=== PATIENT | female | born 2000 | race Caucasian/White ===

== ENCOUNTER 2022-12-20 09:05 | Outpatient (OUT) | payer OTHER, SELFPAY ==
--- NOTE | 2022-12-20 09:09 | US_ITS ---
The [address] [address] Patient Name: AMOS ALBERT MRN: [id number] date: 2000 Sex: F Assigned Patient Location: US Current Patient Location: US Accession/Order Number: [id number] Exam Date: 12/20/2022 09:10 Report Date: 12/20/2022 15:13 At the request of: VICTORINO VALLEJO Procedure: US OB transvaginal EXAMINATION: US OB transvaginal HISTORY: MISSED MENSES COMPARISON: No relevant comparison available. FINDINGS: GESTATIONAL SAC: Present and normal appearing. YOLK SAC: Present and normal appearing. POLE: Present and normal appearing. CARDIAC: Present. UTERUS: Normal size and appearance. OVARIES: Right: Corpus lutein cyst. Left: Normal. CERVIX: 3.7 cm in length and closed. CUL-DE-SAC: Normal. OTHER: None. AGE BY LMP: 7 weeks 6 days GILLES BY LMP: 08/02/2023 AGE BY US CRL: 7 weeks 3 days GILLES BY US CRL: 08/05/2023 US/US OB transvaginal IMPRESSION: 1. Single live intrauterine . Electronically authenticated by: LOBO HAMM Date: 12/20/2022 15:13
== END 2022-12-20 09:06 | disposition home or self-care (01) ==
LOC: US 09:05
PROVIDERS: Visit Provider Obstetrics & Gynecology
DX: Z34.91 Encounter for supervision of normal pregnancy, unspecified, first trimester (principal); N92.6 Irregular menstruation, unspecified
CPT/HCPCS: 76817

== ENCOUNTER 2023-01-04 11:47 | Outpatient (OUT) | payer OTHER, SELFPAY ==
[2023-01-04 12:37] LABS: Basophils Percent Auto 0.3 % (0.2-2.0); Eosinophils Absolute Auto 0.2 10^3/uL (0.0-0.7); Eosinophils Percent Auto 2.2 % (0.9-7.0); Hemoglobin 13.9 g/dL (12.0-16.0); Immature Granulocytes Abs Auto 0.05 10^3/uL (0.00-0.03); Immature Granulocytes Pct Auto 0.6 % (0.0-0.5); Lymphocytes Absolute Auto 1.8 10^3/uL (1.2-3.8); Lymphocytes Percent Auto 20.4 % (20.5-60.0); Mean Corpuscular HGB Conc 33.9 g/dL (29.9-35.2); Mean Corpuscular Hemoglobin 30.3 pg (26.7-34.0); Mean Corpuscular Volume 89.3 fL (81.0-99.0); Mean Platelet Volume 9.9 fL (9.5-13.5); Monocytes Absolute Auto 0.8 10^3/uL (0.3-0.8); Monocytes Percent Auto 8.9 % (1.7-12.0); Neutrophils Absolute Auto 5.8 10^3/uL (1.4-6.5); Neutrophils Percent Auto 67.6 % (43.0-75.0); Platelet Count 234 10^3/uL (150-450); Red Blood Count 4.59 10^6/uL (4.20-5.40); Red Cell Distribution Width 11.9 % (11.0-15.0); White Blood Count 8.6 10^3/uL (4.0-11.0)
[2023-01-04 13:14] LABS: Estimated Average Glucose 91 mg/dL; Glycohemoglobin A1C 4.8 % (4.5-6.2)
[2023-01-04 13:23] LABS: Thyroid Stimulating Hormone 1.297 uIU/mL (0.358-3.740)
[2023-01-07 06:08] LABS: Rubella Antibodies, IgG <0.90 index (Immune >0.99)
[2023-01-07 08:20] LABS: HBsAg Screen Negative (Negative); HCV Ab Non Reactive (Non Reactive); HIV Ab/p24 Ag Screen Non Reactive (Non Reactive)
[2023-01-07 11:09] LABS: Rapid Plasma Reagin, Quant Non Reactive titer (NonRea<1:1)
== END 2023-01-04 11:48 | disposition home or self-care (01) ==
LOC: LAB 11:52
PROVIDERS: Visit Provider Obstetrics & Gynecology
DX: Z34.80 Encounter for supervision of other normal pregnancy, unspecified trimester (principal); N92.6 Irregular menstruation, unspecified
CPT/HCPCS: 36415; 83036; 84443; 85025; 86592; 86762; 86803; 86850; 86900; 86901; 87086; 87150; 87340; 87389

== ENCOUNTER 2023-01-15 15:16 | Outpatient (OUT) | payer OTHER, SELFPAY ==
[2023-01-15 15:45] LABS: BOX Test Sent Out Y
== END 2023-01-15 15:17 | disposition home or self-care (01) ==
PROVIDERS: Visit Provider Obstetrics & Gynecology
DX: Z34.80 Encounter for supervision of other normal pregnancy, unspecified trimester (principal)
CPT/HCPCS: 36415

== ENCOUNTER 2023-02-19 11:02 | Outpatient (OUT) | payer OTHER, SELFPAY ==
[2023-02-21 01:10] LABS: Gest. Age on Collection Date 16.6 weeks (.); Insulin Dep Diabetes No (.); Maternal Age At EDD 22.7 yr (.); OSBR Risk 1 IN 10000 (.); Results Report (.)
--- OUTSIDE RECORDS SUMMARY | 2023-04-01 13:57 | XMS_ITS | CCD ---
Author Name Unknown Address [address] [place] [address] [address] [place] [address] Organization [facility] Care Team Providers Care [employer] Program Coordinator Name Role Phone CIPRIANO MOLINA Primary Care Physician Unavailable Primary Care Provider UnavailSHELBY Muñoz Referring Unavailable Krystyna Seth Attending Unavailable Adelita Smith Attending Unavailable Dipak Boyd Attending Unavailable Gio JIMENEZ Referring Unavailable DO Sunny Brambila Attending Unavailable Yanira KURTZ Attending Unavailable Yanira KURTZ Attending Unavailable VICTORINO VALLEJO Attending Unavailable Medications Current Medications Medication Drug Class(es) Dates Sig (Normalized) Sig (Original) amoxicillin 500 mg oral capsule (1 source) Penicillin-class Antibacterial Start: 09-07-2022 End: 09-14-2022 take 2 capsules by mouth every twelve hours amoxicillin 500 mg Cap 1,000 mg = 2 cap(s), Oral, q12hr, X 7 day(s), # 28 cap(s), Refills(s) 0, Pharmacy: [facility]/pharmacy #[id number], 183, cm, 09/07/22 11:38:00 EDT, Height/Length Dosing, 113.2, kg, 09/07/22 11:38:00 EDT, Weight Dosing Start Date: 09/07/22 Stop Date: 09/14/22 Status: Ordered ibuprofen 600 mg oral tablet (2 sources) Nonsteroidal Anti-inflammatory Drug Start: 12-07-2020 take 1 tablet by mouth every six hours ibuprofen 600 mg Tab 600 mg = 1 tab(s), Oral, q6hr, # 40 tab(s), Refills(s) 0, Pharmacy: [facility]/pharmacy #[id number], 178, cm, 12/07/20 10:05:00 EDT, Height/Length Dosing, 109, kg, 12/07/20 10:05:00 EDT, Weight Dosing Start Date: 12/07/20 Status: Ordered ofloxacin 3 mg/ml otic solution (1 source) Quinolone Antimicrobial Start: 09-07-2022 End: 09-14-2022 ofloxacin Otic 0.3% Merline 5 drop(s), Otic, BID for 7 day(s), 10 mL, Refill(s) 0, [facility]/pharmacy #[id number], 183, cm, 09/07/22 11:38:00 EDT, Height/Length Dosing, 113.2, kg, 09/07/22 11:38:00 EDT, Weight Dosing Start Date: 09/07/22 Stop Date: 09/14/22 Status: Ordered Problems Problem Classification Problem Date Documented Da te Episodic/Chronic Menstrual disorders (6 sources) Dysmenorrhea; Translations: [Irregular periods] 10-28-2019 Chronic Other ear and sense organ disorders (1 source) Otitis externa of left ear; Translations: [Unspecified otitis externa, left ear] Onset: 09-07-2022 Chronic Other nutritional; endocrine; and metabolic disorders (1 source) Obese class I; Translations: [Body mass index (BMI) 33.0-33.9, adult] Onset: 09-07-2022 Chronic Otitis media and related conditions (1 source) Otitis media; Translations: [Otitis media, unspecified, left ear] Onset: 09-07-2022 Episodic Residual codes; unclassified (1 source) Patient encounter status; Translations: [Other specified health status] Onset: 09-07-2022 Episodic Results Test Name Value Interpretation Reference Range Facil ity Ambulatory Visit Summaryon 0 09-07-2022 Ambulatory Visit Summary AMOS ALBERT :2000 Visit Date:09/07/2022 Ambulatory Visit Instructions Your Diagnosis Left otitis media Otitis externa of left ear BMI 33.0-33.9,adult Non-smoker Your Care Team Attending Physician - Dipak Boyd PA-C Primary Care Physician - CIPRIANO MOLINA CNP This Is Your Medications List amoxicillin (amoxicillin 500 mg Cap) ofloxacin otic (ofloxacin Otic 0.3% Merline) Contact prescribing physician if questions or concerns ibuprofen (ibuprofen 600 mg Tab) Procedures Performed Removal of etonogestrel implant (08/10/2020), Tonsillectomy and adenoidectomy. Discharge Vitals Heart Rate (Peripheral) 76 Blood Pressure 110/80 Height 183 cm Height 72 in Weight 113.2 kg Weight 249.04 lb BMI 33.8 What to do next You Need to Schedule the Following Appointments Follow Up with CIPRIANO MOLINA CNP When: Where: [address] [place] [id number]- Medications What How Much When Why Instructions New amoxicillin (amoxicillin 500 mg Cap) 2 Capsules By Mouth Every 12 hours Left otitis media Otitis externa of left ear BMI 33.0-33.9,adult Duration: 7 Days Pickup at [facility]/pharmacy #[id number] New ofloxacin otic (ofloxacin Otic 0.3% Merline) 5 Drops Otic 2 times a day Duration: 7 Days Pickup at [facility]/pharmacy #[id number] Unchanged ibuprofen (ibuprofen 600 mg Tab) 1 Tablets By Mouth Every 6 hours Contact prescribing physician if questions or concerns [id number] [address] [place] [phone] Allergies No Known Allergies Problems Ongoing - Any problem that you are currently receiving treatment for. Dysmenorrhea Irregular bleeding Menorrhagia Education [employer] Otitis Externa Otitis externa is an infection of the outer ear canal. The outer ear canal is the area between the outside of the ear and the eardrum. Otitis externa is sometimes called swimmer's ear. What are the causes? Common causes of this condition include: ? Swimming in dirty water. ? Moisture in the ear. ? An injury to the inside of the ear. ? An object stuck in the ear. ? A cut or scrape on the outside of the ear or in the ear canal. What increases the risk? You are more likely to get this condition if you go swimming often. What are the signs or symptoms? ? Itching in the ear. This is often the first symptom. ? Swelling of the ear. ? Redness in the ear. ? Ear pain. The pain may get worse when you pull on your ear. ? Pus coming from the ear. How is this treated? This condition may be treated with: ? Antibiotic ear drops. These are often given for 10?14 days. ? Medicines to reduce itching and swelling. Follow these instructions at home: ? If you were prescribed antibiotic ear drops, use them as told by your doctor. Do not stop using them even if you start to feel better. ? Take husq-juw-tyvrngo and prescription medicines only as told by your doctor. ? Avoid getting water in your ears as told by your doctor. You may be told to avoid swimming or water sports for a few days. ? Keep all follow-up visits. How is this prevented? ? Keep your ears dry. Use the corner of a towel to dry your ears after you swim or bathe. ? Try not to scratch or put things in your ear. Doing these things makes it easier for germs to grow in your ear. ? Avoid swimming in lakes, dirty water, or swimming pools that may not have the right amount of a chemical called chlorine. Contact a doctor if: ? You have a fever. ? Your ear is still red, swollen, or painful after 3 days. ? You still have pus coming from your ear after 3 days. ? Your redness, swelling, or pain gets worse. ? You have a very bad headache. Get help right away if: ? You have redness, swelling, and pain or tenderness behind your ear. Summary ? Otitis externa is an infection of the outer ear canal. ? Symptoms include pain, redness, and swelling of the ear. ? If you were prescribed antibiotic ear drops, use them as told by your doctor. Do not stop using them even if you start to feel better. ? Try not to scratch or put things in your ear. This information is not intended to replace advice given to you by your health care provider. Make sure you discuss any questions you have with your health care provider. Document Revised: 06/13/2021 Document Reviewed: 06/13/2021 [employer] Patient Education ? 2022 [employer] Inc. Otitis Media, Adult Otitis media occurs when there is inflammation and fluid in the middle ear with signs and symptoms of an acute infection. The middle ear is a part of the ear that contains bones for hearing as well as air that helps send sounds to the brain. When infected fluid builds up in this space, it causes pressure and can lead to an ear infection. The eustachian tube connects the middle ear to the back of the nose (nasophary (more content not included)... Normal [facility] Medicine Office/Clini c Noteon 09-07-2022 Family Medicine Office/Clinic Note Chief Complaint est- ear pain HPI Staff complaints of bilateral ear pain Onset: 5 days Characteristics hurts to touch, muffled hearing, jaw pain OTC tried: Motrin History of Present Illness I have reviewed and verified the staff HPI to be accurate for this encounter. Portions of this record have been created with voice recognition software. Occasional wrong-word or ?tpxag-i-misa? substitutions may have occurred due to the inherent limitations of voice recognition software. 21-year-old female presents today with chief complaint of bilateral ear pain onset 2 days ago. Patient states her ear is sore to touch muffled hearing and bilateral pain with the ear pain. She been taking qsdt-stz-ealvhxn Motrin with some relief of symptoms. Denies other viral symptoms no throat no nasal congestion rhinorrhea. She has no other concerns at this time. Review of Systems PHQ Score Initial Depression Screen Score: 0 Physical Exam Vitals & Measurements HR: 76(Peripheral) BP: 110/80 SpO2: 99% HT: 72 in HT: 183 cm WT: 113.2 kg WT: 249.04 lb BMI: 33.8 General: Pleasant obese female no acute distress Eyes: Pupils equal, round, and reactive to light. Conjunctivae and sclerae normal, and extraocular movements intact Ears: Right tympanic membrane within normal limits no erythema or bulging right side external auditory canal within normal limits. Left tympanic membrane is erythematous with slight bulging minimal fluid behind the left TM. There appears to be some white drainage in the left external auditory canal with pain with manipulation of the left auricle which is concerning for a left otitis externa. Nose: No deformity, discharge, inflammation, or lesions Mouth: Mucous membranes moist. Normal oropharynx, and posterior pharynx without lesions or exudates. Tongue normal Neck: no adenopathy Lungs: clear to auscultation throughout, no wheezing, no rales. No respiratory distress Cardio: regular rate and rhythm, no murmur Abdomen: not assessed Musculoskeletal: not assessed Extremity: not assessed Neurologic: not assessed Skin: No rashes, ulcerations, or suspicious lesions Mental Status: Alert and oriented x3. Normal mood and affect Assessment/Plan 1. Left otitis media (H66.92: Otitis media, unspecified, left ear) Will treat with amoxicillin bid x 7 days. Finish course. Fluids/rest, PRN tylenol/ibuprofen for pain and/or fever encouraged. Discussed other cold symptoms remain viral in nature- typical duration 7-14 days. . Encouraged to follow up with PCP for recheck in about 5 days to ensure infection resolving, especially if symptoms worsening or fevers. Patient and/or parent verbalized understanding of treatment plan. Ordered: amoxicillin, 1,000 mg = 2 cap(s), Oral, q12hr, X 7 day(s), # 28 cap(s), Refills(s) 0, Pharmacy: [facility]/pharmacy #[id number], 183, cm, 09/07/22 11:38:00 EDT, Height/Length Dosing, 113.2, kg, 09/07/22 11:38:00 EDT, Weight Dosing 2. Otitis externa of left ear (H60.92: Unspecified otitis externa, left ear) Will treat with ofloxacin drops. Finish course. Lay with ear up for 5 minutes after applying drops. Keep ear clean and dry, avoid water activities or inserting objects into ear such as earbuds, qtips. May use OTC tylenol/ibuprofen for pain. FU with PCP if not improving over next 5 days with treatment, significantly worsening, or fevers. Patient and/or parent verbalized understanding of treatment plan. Ordered: amoxicillin, 1,000 mg = 2 cap(s), Oral, q12hr, X 7 day(s), # 28 cap(s), Refills(s) 0, Pharmacy: [facility]/pharmacy #[id number], 183, cm, 09/07/22 11:38:00 EDT, Height/Length Dosing, 113.2, kg, 09/07/22 11:38:00 EDT, Weight Dosing 3. BMI 33.0-33.9,adult (Z68.33: Body mass index [BMI] 33.0-33.9, adult) The standard range for ages 18 and older is >=18.5 and < 25 kg/m2. Your BMI today was above this range, this falls in the overweight to obese category and there are medical benefits to weight loss. We can offer counselling, referral, and/or medical support in addressing this problem. Your BMI and weight management will be followed at subsequent visits. Ordered: amoxicillin, 1,000 mg = 2 cap(s), Oral, q12hr, X 7 day(s), # 28 cap(s), Refills(s) 0, Pharmacy: [facility]/pharmacy #[id number], 183, cm, 09/07/22 11:38:00 EDT, Height/Length Dosing, 113.2, kg, 09/07/22 11:38:00 EDT, Weight Dosing Non-smoker (Z78.9: Other specified health status) Orders: ofloxacin otic, 5 drop(s), Otic, BID for 7 day(s), 10 mL, Refill(s) 0, [id number], 183, cm, 09/07/22 11:38:00 EDT, Height/Length Dosing, 113.2, kg, 09/07/22 11:38:00 EDT, Weight Dosing Follow-up With When Contact Information CIPRIANO MOLINA CNP [address] [address]- Additional Instructions: Patient Education Otitis Externa, Pbvh-nb-Kgdl Otitis Media, Adult BMI for Adults Problem List/Past Medical History Ongoing Dysmenorrhea Irregular bleeding Menorrhagia Historical No qualifying data Procedure/Surgical History Removal of etonogestre (more content not included)... Normal [facility] Comment on above: Result Comment: Elec tronically Signed By: Oliver BAI, Dipak [place]\.br\Date and Time Signed: 09/07/22 11:57 EDT Patient Educationon 09-08-19 Patient Education ENT Otitis Media, Adult Otitis media occurs when there is inflammation and fluid in the middle ear with signs and symptoms of an acute infection. The middle ear is a part of the ear that contains bones for hearing as well as air that helps send sounds to the brain. When infected fluid builds up in this space, it causes pressure and can lead to an ear infection. The eustachian tube connects the middle ear to the back of the nose (nasopharynx) and normally allows air into the middle ear. If the eustachian tube becomes blocked, fluid can build up and become infected. What are the causes? This condition is caused by a blockage in the eustachian tube. This can be caused by mucus or by swelling of the tube. Problems that can cause a blockage include: ? A cold or other upper respiratory infection. ? Allergies. ? An irritant, such as tobacco smoke. ? Enlarged adenoids. The adenoids are areas of soft tissue located high in the back of the throat, behind the nose and the roof of the mouth. They are part of the body's defense system (immune system). ? A mass in the nasopharynx. ? Damage to the ear caused by pressure changes (barotrauma). What increases the risk? You are more likely to develop this condition if you: ? Smoke or are exposed to tobacco smoke. ? Have an opening in the roof of your mouth (cleft palate). ? Have gastroesophageal reflux. ? Have an immune system disorder. What are the signs or symptoms? Symptoms of this condition include: ? Ear pain. ? Fever. ? Decreased hearing. ? Tiredness (lethargy). ? Fluid leaking from the ear, if the eardrum is ruptured or has burst. ? Ringing in the ear. How is this diagnosed? This condition is diagnosed with a physical exam. During the exam, your health care provider will use an instrument called an otoscope to look in your ear and check for redness, swelling, and fluid. He or she will also ask about your symptoms. Your health care provider may also order tests, such as: ? A pneumatic otoscopy. This is a test to check the movement of the eardrum. It is done by squeezing a small amount of air into the ear. ? A tympanogram. This is a test that shows how well the eardrum moves in response to air pressure in the ear canal. It provides a graph for your health care provider to review. How is this treated? This condition can go away on its own within 3?5 days. But if the condition is caused by a bacterial infection and does not go away on its own, or if it keeps coming back, your health care provider may: ? Prescribe antibiotic medicine to treat the infection. ? Prescribe or recommend medicines to control pain. Follow these instructions at home: ? Take ogml-pes-btyangj and prescription medicines only as told by your health care provider. ? If you were prescribed an antibiotic medicine, take it as told by your health care provider. Do not stop taking the antibiotic even if you start to feel better. ? Keep all follow-up visits. This is important. Contact a health care provider if: ? You have bleeding from your nose. ? There is a lump on your neck. ? You are not feeling better in 5 days. ? You feel worse instead of better. Get help right away if: ? You have severe pain that is not controlled with medicine. ? You have swelling, redness, or pain around your ear. ? You have stiffness in your neck. ? A part of your face is not moving (paralyzed). ? The bone behind your ear (mastoid bone) is tender when you touch it. ? You develop a severe headache. Summary ? Otitis media is redness, soreness, and swelling of the middle ear, usually resulting in pain and decreased hearing. ? This condition can go away on its own within 3?5 days. ? If the problem does not go away in 3?5 days, your health care provider may give you medicines to treat the infection. ? If you were prescribed an antibiotic medicine, take it as told by your health care provider. ? Follow all instructions that were given to you by your health care provider. This information is not intended to replace advice given to you by your health care provider. Make sure you discuss any questions you have with your health care provider. Document Revised: 07/09/2021 Document Reviewed: 07/09/2021 [employer] Patient Education ? 2022 [employer] Inc. Infectious Disease Otitis Externa Otitis externa is an infection of the outer ear canal. The outer ear canal is the area between the outside of the ear and the eardrum. Otitis externa is sometimes called swimmer's ear. What are the causes? Common causes of this condition include: ? Swimming in dirty water. ? Moisture in the ear. ? An injury to the inside of the ear. ? An object stuck in the ear. ? A cut or scrape on the outside of the ear or in the ear canal. What increases the risk? You are more likely to get this condition if you go swimming often. (more content not included)... Normal [facility] Chlamydia/GC DNA, TPon 08-15 Chlamydia Probe, TP Negative Normal NEG [facility] Comment on above: Result Comment: CHLA MYDIA TRACHOMATIS DNA not detected by nucleic acid amplification. This test is intended for medical purposes only and is not valid for the evaluation of suspected sexual abuse or for other forensic purposes. In certain contexts, culture may be required to meet applicable laws and regulations for diagnosis of C. trachomatis and N. gonorrhoeae infections. Per 2014 CDC recommendations, this test does not include confirmation of positive results by an alternative nucleic acid target. Performed By: #### C YTCGP #### [address] [address] Orthopedic Assistant: Willard Sethi MD Gonorrhea Probe, TP Negative Normal NEG [facility] Comment on above: Result Comment: NEIS SERIA GONORRHOEAE DNA not detected by nucleic acid amplification. This test is intended for medical purposes only and is not valid for the evaluation of suspected sexual abuse or for other forensic purposes. In certain contexts, culture may be required to meet applicable laws and regulations for diagnosis of C. trachomatis and N. gonorrhoeae infections. Per 2014 CDC recommendations, this test does not include confirmation of positive results by an alternative nucleic acid target. Performed By: #### C YTCGP #### [address] [id number] Orthopedic Assistant: Willard Sethi MD Quantiferon-TB Plus (Client Incubated)on 08-14-2022 Gamma interferon background IA Qn (Bld) 0.02 International_Unit/mL Invalid Interpretation Code [facility] Comment on above: Performed By: #### 3 [id number] #### [facility] [address] [id number] M. tuberculosis stim IFN-g by CD4+ CD8+ T-cells Qn (Bld) 0.05 International_Unit/mL Invalid Interpretation Code [facility] Comment on above: Performed By: #### 3 [id number] #### [facility] [address] [place] [address] M. tuberculosis stim IFN-g by CD4+ T-cells Qn (Bld) 0.03 International_Unit/mL Invalid Interpretation Code [facility] Comment on above: Performed By: #### 3 [id number] #### [facility] [address] [place] [address] M. tuberculosis stim IFN-g Ql (Bld) [Interp] Negative Invalid Interpretation Code Negative [facility] Comment on above: Result Comment: No r esponse to M tuberculosis antigens detected. Infection with M tuberculosis is unlikely, but high risk individuals should be considered for additional testing (ATS/IDSA/CDC Clinical Practice Guidelines, 2017). The reference range is an Antigen minus Nil result of <0.35 IU/mL. The specimen received for QuantiFERON testing was incubated by the ordering institution. Specific procedures outlined in our Directory of Services and in the package insert for the QuantiFERON Gold (In Tube) test must be followed to enable for proper stimulation of cells for the production of interferon gamma. Chemiluminescence immunoassay methodology Performed at: [facility] [id number] PhD Radames Kendrick Performed By: #### 3 [id number] #### [facility] [address] [place] [address] Mitogen stimulated gamma interferon Qn (Bld) >10.00 Invalid Interpretation Code [facility] Comment on above: Performed By: #### 3 [id number] #### [facility] [address] [place] [address] Service comment (Unsp spec) [Interp] Comment Invalid Interpretation Code [facility] Comment on above: Result Comment: Ish tiFERON-TB Gold Plus is a qualitative indirect test for M tuberculosis infection (including disease) and is intended for use in conjunction with risk assessment, radiography, and other medical and diagnostic evaluations. The QuantiFERON-TB Gold Plus result is determined by subtracting the Nil value from either TB antigen (Ag) value. The Mitogen tube serves as a control for the test. Performed By: #### 3 [id number], [id number] #### [facility] [address] [place] [address] Cytologyon 08-13-2022 Cytology (NOTE) Path Number: [id number] DIAGNOSIS Cervical material, (ThinPrep vial, Imaging-assisted review): Specimen Adequacy: Satisfactory for evaluation. -Endocervical/transformation zone component is absent. Descriptive Diagnosis: Negative for intraepithelial lesion or malignancy. 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 Your patient should be reminded to consult you immediately if she experiences any suspicious signs or symptoms, regardless of her Pap smear result. GYNECOLOGIC CYTOLOGY REPORT Patient Name: AMOS ALBERT [facility] Rec: [id number] [facility] [address] [place] [id number] [facility] Comment on above: Performed By: #### P PPVP #### [employer] [address] [place] [address] Orthopedic Assistant: Willard Sethi MD Hep Bs Abon 08-13-2022 HBV surface Ab Ql (S) Non-Reactive Invalid Interpretation Code [facility] Comment on above: Result Comment: Non Reactive: Inconsistent with immunity, less than 10 mIU/mL Reactive: Consistent with immunity, greater than 9.9 mIU/mL Performed at: [address] [id number] PhD Radames Kendrick Performed By: #### 3 [id number] #### [facility] [address] [place] [address] Measles/Mumps/Rubella Immuni tyon 08-13-2022 MeV IgG IA Qn (S) 280.0 A unit/mL Invalid Interpretation Code Immune >16.4 [facility] Comment on above: Result Comment: Nega tive <13.5 Equivocal 13.5 - 16.4 Positive >16.4 Presence of antibodies to Rubeola is presumptive evidence of immunity except when acute infection is suspected. Performed By: #### 3 [id number] #### [facility] [address] [place] [id number] MuV IgG IA Qn (S) 11.3 A unit/mL Invalid Interpretation Code Immune >10.9 [facility] Comment on above: Result Comment: Nega tive <9.0 Equivocal 9.0 - 10.9 Positive >10.9 A positive result generally indicates past exposure to Mumps virus or previous vaccination. Performed at: [address] [id number] PhD Radames Kendrick Performed By: #### 3 [id number] #### [facility] [address] [place] [address] [id number] Rubella virus IgG Qn (S) [IU]/mL Low Immune >0.9 9 [facility] Comment on above: Result Comment: Non- immune <0.90 Equivocal 0.90 - 0.99 Immune >0.99 Performed By: #### 3 [id number] #### [facility] [address] [place] [address] Varic IgGon 08-13-2022 VZV IgG IA Qn (S) 504 Invalid Interpretation Code I mmune >165 [facility] Comment on above: Result Comment: Nega tive <135 Equivocal 135 - 165 Positive >165 A positive result generally indicates exposure to the pathogen or administration of specific immunoglobulins, but it is not indication of active infection or stage of disease. Performed at: [facility] [id number] PhD Radames Kendrick Performed By: #### 3 [id number] #### [facility] [address] [place] [address] Family Medicine Office/Clini c Noteon 02-18-2022 Family Medicine Office/Clinic Note Chief Complaint Est Ear pain HPI Staff Amos is a 21 year old female presenting for bilateral ear pain and drainage Onset: 2-3 days ago Fevers: No Sinus congestion: no Sneezing: Yes Ear pain: Yes, bilateral Ear itching, popping, fullness, ringing, muffled hearing: All Ear drainage: Yes Sore throat: no Ear pain worse with chewing: Sometimes Difficulty hearing: yes No hx of myringotomy History of Present Illness I have reviewed and verified the staff HPI to be accurate for this encounter. 21 year old female presenting in office today for bilateral ear drainage. Pt stated the drainage is clear. Pt stated she has had symptoms for 2-3 days. Pt stated she has sneezing, bilateral ear pain, itching, popping, fullness, ringing, and muffled hearing and difficulty hearing. Pt denies fever, chills, nausea, vomiting, diarrhea. Pt denies SOB, ADLER, SOB, difficulty swallowing, and chest pain. Pt stated she does not have h/o tympanostomy tubes. Pt stated she has not been swimming or traveling recently. Pt stated she does have seasonal allergies but has not been taking any medications for that. Review of Systems PHQ Score Initial Depression Screen Score: 0 Physical Exam Vitals & Measurements T: 36.8 ?C(Oral) HR: 78(Peripheral) BP: 124/78 SpO2: 99% HT: 72 in HT: 183 cm WT: 117.6 kg WT: 258.72 lb BMI: 35.12 General: alert and oriented, well nourished, no acute distress Eyes: normal sclera and conjunctivae Face: normal, symmetrical HEENT: Head: normocephalic, atraumatic, Ears: Bilateral TM not visualized due to large amount of purulent fluid in bilateral ear canals, external canal with purulent fluid and moderate erythema noted, Nose: congestion, turbinates swollen, no sinus tenderness, Throat: pharynx pink, no exudate on tonsils, tonsils normal (1+), uvula midline Heart: regular rate and rhythm Chest: normal shape and expansion Lungs: clear to auscultation, no wheezing/rhonchi/rales, good air movement Respiratory: respirations even and unlabored, able to speak in full sentences and take deep breaths without difficulty, no gasping or shortness of breath noted, no use of accessory muscles noted Neuro: speech clear and coherent Skin: visible skin warm, dry, good skin turgor Extremities: no cyanosis, cap refill brisk Assessment/Plan 1. Bilateral otitis media (H66.93: Otitis media, unspecified, bilateral) [employer] unable to visualize TM due to large amount of purulent fluid in bilateral ear canals, TM may be ruptured at this time. Will treat with Amoxicillin. Finish course. Fluids/rest, PRN tylenol/ibuprofen for pain and/or fever encouraged. Discussed other cold symptoms remain viral in nature- typical duration 7-14 days. Encouraged to follow up with PCP for recheck in about 5 days to ensure infection resolving, especially if symptoms worsening or fevers. Patient verbalized understanding of treatment plan. Ordered: amoxicillin, 875 mg = 1 tab(s), Oral, TID, X 10 day(s), # 30 tab(s), Refills(s) 0, Pharmacy: [facility]/pharmacy #[id number], 183, cm, 02/18/22 13:06:00 EST, Height/Length Dosing, 117.6, kg, 02/18/22 13:06:00 EST, Weight Dosing 2. BMI 35.0-35.9,adult (Z68.35: Body mass index [BMI] 35.0-35.9, adult) The standard range for ages 18 and older is >=18.5 and < 25 kg/m2. Your BMI today was above this range, this falls in the overweight to obese category and there are medical benefits to weight loss. We can offer counselling, referral, and/or medical support in addressing this problem. Your BMI and weight management will be followed at subsequent visits. Follow-up With When Contact Information TRACY DEBBIECIPRIANO [address] [place] [phone]- Additional Instructions: Patient Education BMI for Adults Otitis Media, Adult Problem List/Past Medical History Ongoing Dysmenorrhea Irregular bleeding Menorrhagia Historical No qualifying data Procedure/Surgical History Removal of etonogestrel implant (08/10/2020), Tonsillectomy and adenoidectomy. Medications amoxicillin 875 mg Tab, 875 mg= 1 tab(s), Oral, TID ibuprofen 600 mg Tab, 600 mg= 1 tab(s), Oral, q6hr, Not taking Allergies No Known Allergies Social History Alcohol - Denies Alcohol Use, 03/11/2016 DENIES, 03/30/2020 Substance Abuse - Denies Substance Abuse, 03/11/2016 DENIES, 03/30/2020 Tobacco - Denies Tobacco Use, 03/11/2016 Never (less than 100 in lifetime) Tobacco Use:. Never Smokeless Tobacco Use:., 03/30/2020 Family History Clotting disorder: Grandparent. Hypertension: Father. Primary malignant neoplasm of female breast: Grandparent. Immunizations Vaccine Date Status influenza virus vaccine, inactivated 02/04/2020 Recorded influenza virus vaccine, inactivated 02/05/2019 Recorded meningococcal group B vaccine 07/21/2018 Recorded influenza virus vaccine, inactivated 01/08/2018 Recorded meningococcal group B vaccine 11/22/2016 Recorded meningococcal conjugate vaccine 11/22/2016 Recorded influenza, whole 11 (more content not included)... Normal [facility] Comment on above: Result Comment: Elec tronically Signed By: Adelita Carreno\.peter\Date and Time Signed: 02/18/22 13:28 EST Patient Educationon 02-19-20 22 Patient Education ENT Otitis Media, Adult Otitis media occurs when there is inflammation and fluid in the middle ear. Your middle ear is a part of the ear that contains bones for hearing as well as air that helps send sounds to your brain. What are the causes? This condition is caused by a blockage in the eustachian tube. This tube drains fluid from the ear to the back of the nose (nasopharynx). A blockage in this tube can be caused by an object or by swelling (edema) in the tube. Problems that can cause a blockage include: ? A cold or other upper respiratory infection. ? Allergies. ? An irritant, such as tobacco smoke. ? Enlarged adenoids. The adenoids are areas of soft tissue located high in the back of the throat, behind the nose and the roof of the mouth. ? A mass in the nasopharynx. ? Damage to the ear caused by pressure changes (barotrauma). What are the signs or symptoms? Symptoms of this condition include: ? Ear pain. ? A fever. ? Decreased hearing. ? A headache. ? Tiredness (lethargy). ? Fluid leaking from the ear. ? Ringing in the ear. How is this diagnosed? This condition is diagnosed with a physical exam. During the exam your health care provider will use an instrument called an otoscope to look into your ear and check for redness, swelling, and fluid. He or she will also ask about your symptoms. Your health care provider may also order tests, such as: ? A test to check the movement of the eardrum (pneumatic otoscopy). This test is done by squeezing a small amount of air into the ear. ? A test that changes air pressure in the middle ear to check how well the eardrum moves and whether the eustachian tube is working (tympanogram). How is this treated? This condition usually goes away on its own within 3?5 days. But if the condition is caused by a bacteria infection and does not go away own its own, or keeps coming back, your health care provider may: ? Prescribe antibiotic medicines to treat the infection. ? Prescribe or recommend medicines to control pain. Follow these instructions at home: ? Take xvag-diy-ohpjvnk and prescription medicines only as told by your health care provider. ? If you were prescribed an antibiotic medicine, take it as told by your health care provider. Do not stop taking the antibiotic even if you start to feel better. ? Keep all follow-up visits as told by your health care provider. This is important. Contact a health care provider if: ? You have bleeding from your nose. ? There is a lump on your neck. ? You are not getting better in 5 days. ? You feel worse instead of better. Get help right away if: ? You have severe pain that is not controlled with medicine. ? You have swelling, redness, or pain around your ear. ? You have stiffness in your neck. ? A part of your face is paralyzed. ? The bone behind your ear (mastoid) is tender when you touch it. ? You develop a severe headache. Summary ? Otitis media is redness, soreness, and swelling of the middle ear. ? This condition usually goes away on its own within 3?5 days. ? If the problem does not go away in 3?5 days, your health care provider may prescribe or recommend medicines to treat your symptoms. ? If you were prescribed an antibiotic medicine, take it as told by your health care provider. This information is not intended to replace advice given to you by your health care provider. Make sure you discuss any questions you have with your health care provider. Document Released: 01/03/2005 Document Revised: 03/13/2018 Document Reviewed: 03/21/2017 [employer] Patient Education ? 2020 [employer]. Nutrition BMI for Adults Body mass index (BMI) is a number that is calculated from a person's weight and height. BMI may help to estimate how much of a person's weight is composed of fat. BMI can help identify those who may be at higher risk for certain medical problems. How is BMI used with adults? BMI is used as a screening tool to identify possible weight problems. It is used to check whether a person is obese, overweight, healthy weight, or underweight. How is BMI calculated? BMI measures your weight and compares it to your height. This can be done either in [place] ([place] or metric measurements. Note that charts are available to help you find your BMI quickly and easily without having to do these calculations yourself. To calculate your BMI in [place] measurements, your health care provider will: 1. Measure your weight in pounds (lb). 2. Multiply the number of pounds by 703. ? For example, for a person who weighs 180 lb, multiply that number by 703, which equals 126,540. 3. Measure your height in inches (in). Then multiply that number by itself to get a measurement called inches squared. ? For example, for a person who is 70 in tall, the inches squared measurement is 70 in x 70 in, which equals 4900 inches squared. 4. Divide the to (more content not included)... Normal [facility] Vital Signs Date Time Vital Sign Value Performing Clinician Nahum doll 09-07-2022 11:37-0400 Blood Pressure Location Dipak Boyd [facility] 09-07-2022 11:37-0400 Diastolic blood pressure 80 mm[Hg] Dipak Boyd [facility] 09-07-2022 11:37-0400 Heart rate 76 /min Dipak Boyd [facility] 09-07-2022 11:37-0400 SaO2% (BldA) [Mass fraction] 99 % Dipak Boyd [facility] 09-07-2022 11:37-0400 Systolic blood pressure 110 mm[Hg] Dipak Boyd [facility] Encounters Encounter Date Encounter Type Care Provider Facility Start: 03-19-2023 End: 03-19-2023 ambulatory VICTORINO VALLEJO Not Available Start: 01-14-2023 End: 01-15-2023 ambulatory Gio JIMENEZ Facility:[facility] Start: 09-07-2022 End: 09-08-2022 ambulatory Dipak Boyd Facility:[facility] Start: 09-07-2022 End: 09-07-2022 Patient encounter procedure Dipak Boyd [facility] Start: 08-13-2022 End: 08-14-2022 [facility] Start: 08-13-2022 Encounter for gynecological examination (general) (routine) without abnormal findings [facility] Start: 08-13-2022 End: 08-13-2022 Patient encounter procedure [facility] Start: 08-13-2022 End: 08-13-2022 Subsequent hospital visit by physician [facility] Comment on above: Encounter for well w randy exam with routine gynecological exam Start: 08-12-2022 End: 08-13-2022 ambulatory Yanira KURTZ [facility] Start: 08-09-2022 End: 08-10-2022 ambulatory Yanira KURTZ [facility] Start: 06-07-2022 End: 06-08-2022 ambulatory Krystyna X Collinzech Facility:[facility] Start: 06-07-2022 End: 06-07-2022 Patient encounter procedure Krystyna Seth [facility] Start: 02-18-2022 End: 02-19-2022 ambulatory Adelita Smith Facility:[facility] Procedures Date Procedure Procedure Detail Performing Clinician Start: 08-10-2020 Removal of etonogest rel implant Krystyna CollinTango Tonsillectomy and adenoidectomy Coverity Plan of Treatment Date Care Activity Detail Author Start: 12-01-2022 DTaP/Tdap/Td vaccine (7 - Td or Tdap) DTaP/Tdap/Td vaccine (7 - Td or Tdap) [facility] Start: 11-12-2022 Influenza vaccination Flu vacc ine (Season Ended) [facility] Start: 2021 Screening for malign ant neoplasm of cervix Pap smear [facility] Start: 2018 Hepatitis C screening Hepatitis C sc reen [facility] Start: 2016 Screening for Chlamy sedrick trachomatis Chlamydia/GC screen [facility] Start: 11-05-2015 HIV screening [facility] Start: 2012 Depression Screen Depression Screen [facility] Start: 05-07-2001 COVID-19 Vaccine (#1) COVID-19 Vacci ne (#1) [facility] End: 08-13-2022 Chlamydia/GC DNA, Thin Prep [facility] Work Phone: Comment on above: 1 Occurrences starti ng 08/13/2022 until 08/13/2022 End: 08-13-2022 Cytopathology procedure, preparation of smear, genital source PAP Smear Lab Routine Encounter for well woman exam with routine gynecological exam 1 Occurrences starting 08/13/2022 until 08/13/2022 PRAVEEN GUERRERO [employer] Work Phone: Comment on above: 1 Occurrences starti ng 08/13/2022 until 08/13/2022 Immunizations Immunization Date Immunization Notes Care Provider Fa cili 02-04-2020 influenza virus vaccine, unspecified formulation Krystyna Orzech [facility] 02-05-2019 influenza virus vaccine, unspecified formulation Krystyna Orzech [facility] 07-21-2018 meningococcal B vaccine, fully recombinant Krystyna Orzech [facility] 01-08-2018 influenza virus vaccine, unspecified formulation Krystyna Orzech [facility] 11-22-2016 meningococcal ACWY vaccine, unspecified formulation Krystyna Orzech [facility] 11-22-2016 meningococcal B vaccine, fully recombinant Krystyna Orzech [facility] 02-28-2014 influenza, whole Krystyna Orze ch [facility] 11-15-2013 hepatitis A vaccine, unspecified formulation Krystyna Orzech [facility] 11-15-2013 HPV, unspecified formulation Krystyna Orzech [facility] 11-15-2013 meningococcal ACWY, unspecified formulation Krystyna Orzech [facility] 12-01-2012 hepatitis A vaccine, unspecified formulation Krystyna Orzech [facility] 12-01-2012 HPV, unspecified formulation Krystyna Orzech [facility] 12-01-2012 tetanus toxoid, reduced diphtheria toxoid, and acellular pertussis vaccine, adsorbed Krystyna Orzech [facility] 12-01-2012 varicella virus vaccine Krystyna Orzech [facility] 08-26-2005 hepatitis B vaccine, pediatric or pediatric/adolescent dosage Krystyna Orzech [facility] 08-15-2005 DTaP, unspecified formulation Krystyna Orzech [facility] 08-15-2005 measles, mumps and rubella virus vaccine Krystyna Orzech [facility] 08-15-2005 poliovirus vaccine, unspecified formulation Krystyna Orzech [facility] 12-15-2002 DTaP, unspecified formulation Krystyna Orzech [facility] 12-15-2002 haemophilus influenz ae type b vaccine, PRP-T conjugate Krystyna OrTango [facility] 12-25-2001 DTaP, unspecified formulation Krystyna Orzech [facility] 12-25-2001 measles, mumps and rubella virus vaccine Krystyna Orzech [facility] 12-25-2001 poliovirus vaccine, unspecified formulation Krystyna Orzech [facility] 12-25-2001 varicella virus vaccine Krystyna Orzech [facility] 04-29-2001 DTaP, unspecified formulation Krystyna Orzech [facility] 04-29-2001 poliovirus vaccine, unspecified formulation Krystyna Orzech [facility] 01-20-2001 DTaP, unspecified formulation Coverity [facility] 01-20-2001 poliovirus vaccine, unspecified formulation Coverity [facility] NEGATED: Highlighted row has not occurred!02-18-2022 influenza virus vaccine, unspecified formulation Krystyna Ambassador [facility] NEGATED: Highlighted row has not occurred!02-18-2022 SARS-CoV-2 mRNA (tozinameran 5y-11y) vaccine [place] Ambassador [facility] Payers Date Payer Category Payer Unknown [id number] 2022 Unknown [id number] 2022 Medicaid [id number] 2021 Unknown [id number] 2000 Unknown [id number] 2000 Unknown [id number] [id number] 2000 Unknown [id number] 2.16.8 [id number] 2000 Unknown [id number] 2.16.8 [id number] 2000 Unknown [id number] 2.16.8 [id number] 2000 Unknown [id number] Social History Date Type Detail Facility Start: 03-30-2020 End: 08-13-2022 Tobacco smoking status Never smoked tobacco (finding) [facility] Sex Assigned At Female [facility] Start: 08-13-2022 Tobacco use and exposure Smokeless tobacco non-user PRAVEEN GUERRERO [employer] Phone: Start: 08-13-2022 Alcohol intake Not Asked PRAVEEN KENNEDY [employer] Phone: Start: 08-13-2022 Alcohol Comment social PRAVEEN DOMINGO Buru BuruJessica [employer] Phone: Start: 2000 Sex Assigned At Not on file B ON YOLANDA [employer] Phone: Hospital Discharge instructions 09-07-2022 Note Date & Type Note Facility 09-07-2022 Hospital Discharge instructions Patient Education 09/07/2022 11:57:13 Otitis Externa, [id number]-ek-[id number] Otitis Externa Otitis externa is an infection of the outer ear canal. The outer ear canal is the area between the outside of the ear and the eardrum. Otitis externa is sometimes called swimmer's ear. What are the causes? Common causes of this condition include: Swimming in dirty water. Moisture in the ear. An injury to the inside of the ear. An object stuck in the ear. A cut or scrape on the outside of the ear or in the ear canal. What increases the risk? You are more likely to get this condition if you go swimming often. What are the signs or symptoms? Itching in the ear. This is often the first symptom. Swelling of the ear. Redness in the ear. Ear pain. The pain may get worse when you pull on your ear. Pus coming from the ear. How is this treated? This condition may be treated with: Antibiotic ear drops. These are often given for 10 14 days. Medicines to reduce itching and swelling. Follow these instructions at home: If you were prescribed antibiotic ear drops, use them as told by your doctor. Do not stop using them even if you start to feel better. Take vgzh-rfb-zrtgbei and prescription medicines only as told by your doctor. Avoid getting water in your ears as told by your doctor. You may be told to avoid swimming or water sports for a few days. Keep all follow-up visits. How is this prevented? Keep your ears dry. Use the corner of a towel to dry your ears after you swim or bathe. Try not to scratch or put things in your ear. Doing these things makes it easier for germs to grow in your ear. Avoid swimming in lakes, dirty water, or swimming pools that may not have the right amount of a chemical called chlorine. Contact a doctor if: You have a fever. Your ear is still red, swollen, or painful after 3 days. You still have pus coming from your ear after 3 days. Your redness, swelling, or pain gets worse. You have a very bad headache. Get help right away if: You have redness, swelling, and pain or tenderness behind your ear. Summary Otitis externa is an infection of the outer ear canal. Symptoms include pain, redness, and swelling of the ear. If you were prescribed antibiotic ear drops, use them as told by your doctor. Do not stop using them even if you start to feel better. Try not to scratch or put things in your ear. This information is not intended to replace advice given to you by your health care provider. Make sure you discuss any questions you have with your health care provider. Document Revised: 06/13/2021 Document Reviewed: 06/13/2021 [employer] Patient Education 2022 [employer]. 09/07/2022 11:57:10 Otitis Media, Adult Otitis Media, Adult Otitis media occurs when there is inflammation and fluid in the middle ear with signs and symptoms of an acute infection. The middle ear is a part of the ear that contains bones for hearing as well as air that helps send sounds to the brain. When infected fluid builds up in this space, it causes pressure and can lead to an ear infection. The eustachian tube connects the middle ear to the back of the nose (nasopharynx) and normally allows air into the middle ear. If the eustachian tube becomes blocked, fluid can build up and become infected. What are the causes? This condition is caused by a blockage in the eustachian tube. This can be caused by mucus or by swelling of the tube. Problems that can cause a blockage include: A cold or other upper respiratory infection. Allergies. An irritant, such as tobacco smoke. Enlarged adenoids. The adenoids are areas of soft tissue located high in the back of the throat, behind the nose and the roof of the mouth. They are part of the body's defense system (immune system). A mass in the nasopharynx. Damage to the ear caused by pressure changes (barotrauma). What increases the risk? You are more likely to develop this condition if you: Smoke or are exposed to tobacco smoke. Have an opening in the roof of your mouth (cleft palate). Have gastroesophageal reflux. Have an immune system disorder. What are the signs or symptoms? Symptoms of this condition include: Ear pain. Fever. Decreased hearing. Tiredness (lethargy). Fluid leaking from the ear, if the eardrum is ruptured or has burst. Ringing in the ear. How is this diagnosed? This condition is diagnosed with a physical exam. During the exam, your health care provider will use an instrument called an otoscope to look in your ear and check for redness, swelling, and fluid. He or she will also ask about your symptoms. Your health care provider may also order tests, such as: A pneumatic otoscopy. This is a test to check the movement of the eardrum. It is done by squeezing a small amount of air into the ear. A tympanogram. This is a test that shows how well the eardrum moves in response to air pressure in the ear canal. It provides a graph for your health care provider to review. How is this treated? This condition can go away on its own within 3 5 days. But if the condition is caused by a bacterial infection and does not go away on its own, or if it keeps coming back, your health care provider may: Prescribe antibiotic medicine to treat the infection. Prescribe or recommend medicines to control pain. Follow these instructions at home: Take hsxd-umw-tvadxoc and prescription medicines only as told by your health care provider. If you were prescribed an antibiotic medicine, take it as told by your health care provider. Do not stop taking the antibiotic even if you start to feel better. Keep all follow-up visits. This is important. Contact a health care provider if: You have bleeding from your nose. There is a lump on your neck. You are not feeling better in 5 days. You feel worse instead of better. Get help right away if: You have severe pain that is not controlled with medicine. You have swelling, redness, or pain around your ear. You have stiffness in your neck. A part of your face is not moving (paralyzed). The bone behind your ear (mastoid bone) is tender when you touch it. You develop a severe headache. Summary Otitis media is redness, soreness, and swelling of the middle ear, usually resulting in pain and decreased hearing. This condition can go away on its own within 3 5 days. If the problem does not go away in 3 5 days, your health care provider may give you medicines to treat the infection. If you were prescribed an antibiotic medicine, take it as told by your health care provider. Follow all instructions that were given to you by your health care provider. This information is not intended to replace advice given to you by your health care provider. Make sure you discuss any questions you have with your health care provider. Document Revised: 07/09/2021 Document Reviewed: 07/09/2021 [employer] Patient Education 2022 [employer]. 09/07/2022 11:57:07 BMI for Adults BMI for Adults What is BMI? Body mass index (BMI) is a number that is calculated from a person's weight and height. BMI can help estimate how much of a person's weight is composed of fat. BMI does not measure body fat directly. Rather, it is an alternative to procedures that directly measure body fat, which can be difficult and expensive. BMI can help identify people who may be at higher risk for certain medical problems. What are BMI measurements used for? BMI is used as a screening tool to identify possible weight problems. It helps determine whether a person is obese, overweight, a healthy weight, or underweight. BMI is useful for: Identifying a weight problem that may be related to a medical condition or may increase the risk for medical problems. Promoting changes, such as changes in diet and exercise, to help reach a healthy weight. BMI screening can be repeated to see if these changes are working. How is BMI calculated? BMI involves measuring your weight in relation to your height. Both height and weight are measured, and the BMI is calculated from those numbers. This can be done either in [place] ([place] or metric measurements. Note that charts and online BMI calculators are available to help you find your BMI quickly and easily without having to do these calculations yourself. To calculate your BMI in [place] measurements: 1.Measure your weight in pounds (lb). 2.Multiply the number of pounds by 703. For example, for a person who weighs 180 lb, multiply that number by 703, which equals 126,540. 3.Measure your height in inches. Then multiply that number by itself to get a measurement called inches squared. For example, for a person who is 70 inches tall, the inches squared measurement is 70 inches x 70 inches, which equals 4,900 inches squared. 4.Divide the total from step 2 (number of lb x 703) by the total from step 3 (inches squared): 126,540 4,900 = 25.8. This is your BMI. To calculate your BMI in metric measurements: 1.Measure your weight in kilograms (kg). 2.Measure your height in meters (m). Then multiply that number by itself to get a measurement called meters squared. For example, for a person who is 1.75 m tall, the meters squared measurement is 1.75 m x 1.75 m, which is equal to 3.1 meters squared. 3.Divide the number of kilograms (your weight) by the meters squared number. In this example: 70 3.1 = 22.6. This is your BMI. What do the results mean? BMI charts are used to identify whether you are underweight, normal weight, overweight, or obese. The following guidelines will be used: Underweight: BMI less than 18.5. Normal weight: BMI between 18.5 and 24.9. Overweight: BMI between 25 and 29.9. Obese: BMI of 30 or above. Keep these notes in mind: Weight includes both fat and muscle, so someone with a muscular build, such as an athlete, may have a BMI that is higher than 24.9. In cases like these, BMI is not an accurate measure of body fat. To determine if excess body fat is the cause of a BMI of 25 or higher, further assessments may need to be done by a health care provider. BMI is usually interpreted in the same way for men and women. Where to find more information For more information about BMI, including tools to quickly calculate your BMI, go to these websites: Centers for Disease Control and Prevention: www.cdc.gov [employer]: www.heart.org National Heart, Lung, and Blood [place]: www.nhlbi.nih.gov Summary Body mass index (BMI) is a number that is calculated from a person's weight and height. BMI may help estimate how much of a person's weight is composed of fat. BMI can help identify those who may be at higher risk for certain medical problems. BMI can be measured using [place]ian measurements or metric measurements. BMI charts are used to identify whether you are underweight, normal weight, overweight, or obese. This information is not intended to replace advice given to you by your health care provider. Make sure you discuss any questions you have with your health care provider. Document Revised: 12/22/2019 Document Reviewed: 10/29/2019 [employer] Patient Education 2022 [employer]. Follow Up Care 09/07/2022 10:55:41 With:CIPRIANO MOLINA CNP Address: [address] [place] [address]- When: Unknown [facility] Evaluation + Plan note Note Date & Type Note Facility Evaluation + Plan note No data available for this section [facility] Evaluation note Note Date & Type Note Facility Evaluation note Diagnosis Encounter for well woman exam with routine gynecological exam documented [facility] Phone: Hospital Discharge instructions Note Date & Type Note Facility Hospital Discharge instructions No data available for this section [facility] Progress note Note Date & Type Note Facility Progress note No data available for this section [facility] Summary Purpose Family History No Family History Records FoundNo Family History Records FoundNo Family History Records Found Advance Directives No Advanced Directives Records FoundNo Advanced Directives Records FoundNo Advanced Directives Records Found Additional Source Comments Patient Care team informatio n (unrecognized section and content) Personnel Name: CIPRIANO MOLINA CNP Address: Address: [address] [place] [address] Personnel Name: CIPRIANO MOLINA CNP Address: Address: [address] [place] [address] INFORMATION SOURCE (unrecogn ized section and content) DATE CREATED AUTHOR 08/22/2022 Macy adams DATE CREATED AUTHOR AUTHOR'S ORGANIZ ATION 01/18/2023 [facility] DATE CREATED AUTHOR AUTHOR'S ORGANIZ ATION 03/21/2023 [facility] EPIC FOR RECORDS PERTAINING TO PATIENTS WHO ARE OR HAVE BEEN ENROLLED IN A CHEMICAL DEPENDENCY/SUBSTANCEABUSE PROGRAM, SOME INFORMATION MAY BE OMITTED. This clinical summary was aggregated from multiple sources. Caution should be exercised in using it in the provision of clinical care. This summary normalizes information from multiple sources, and as a consequence, information in this document may materially change the coding, format and clinical context of patient data. In addition, data may be omitted in some cases. CLINICAL DECISIONS SHOULD BE BASED ON THE PRIMARY CLINICAL RECORDS. [facility]. provides no warranty or guarantee of the accuracy or completeness of information in this document.
== END 2023-02-19 11:03 | disposition home or self-care (01) ==
PROVIDERS: Visit Provider Obstetrics & Gynecology
DX: Z34.92 Encounter for supervision of normal pregnancy, unspecified, second trimester (principal); Z20.2 Contact with and (suspected) exposure to infections with a predominantly sexual mode of transmission
CPT/HCPCS: 36415; 82105

== ENCOUNTER 2023-02-19 21:21 | Outpatient (REF) | payer OTHER, SELFPAY ==
[2023-02-25 13:10] LABS: Age Gdln ACOG Testing Note (.); IGP, rfx Aptima HPV ASCU Note (.)
== END 2023-02-19 21:22 | disposition home or self-care (01) ==
LOC: LAB 21:21
PROVIDERS: Visit Provider Physician Assistant
DX: Z34.92 Encounter for supervision of normal pregnancy, unspecified, second trimester (principal); Z20.2 Contact with and (suspected) exposure to infections with a predominantly sexual mode of transmission
CPT/HCPCS: 36415; 82105; G0145

== ENCOUNTER 2023-03-15 09:47 | Outpatient (OUT) | payer OTHER, SELFPAY ==
--- NOTE | 2023-03-15 09:49 | US_ITS ---
[address] [address] Patient Name: AMOS ALBERT MRN: [id number] date: 2000 Sex: F Assigned Patient Location: US Current Patient Location: US Accession/Order Number: [id number] Exam Date: 03/15/2023 09:52 Report Date: 03/15/2023 11:04 At the request of: RIKKI HARP Procedure: US OB cervical length EXAMINATION: US OB anatomy, US OB cervical length HISTORY: Second trimester Z34.92 COMPARISON: No relevant comparison available. TECHNIQUE: Transabdominal sonographic examination was performed for obstetrical and evaluation. FINDINGS: Number: 1 Heart Rate: 149.2 bpm H.B. /min Amniotic Fluid Volume: Subjectively normal Placental Location: Anterior with lower margin 4.3 cm from os. Cervix Length: 5.9 cm; closed. ANATOMY: Normal Structures -cerebellum, choroid plexus, cisterna magna, lateral cerebral ventricles, orbits, midline falx, hard palate, four-chamber heart, stomach, kidneys, bladder, umbilical cord insertion into abdomen, three-vessel cord, cervical spine, thoracic spine, lumbar spine, sacral spine, right upper extremity, left upper extremity, right lower extremity, left lower extremity. SUBOPTIMALLY SEEN: Cardiac outflow tracts ABNORMALITIES: None BIOMETRY: BPD: 4.7 cm 20 weeks 2 days HC: 17.9 cm 20 weeks 2 days AC: 14.4 cm 19 weeks 5 days FL: 3.3 cm 20 weeks 2 days EFW:329.1 grams; 48% FL/AC: 22.9 FL/BPD: 69.8 HC/AC: 1.2 GESTATIONAL AGE: Age by EDC: 20 weeks 0 days GILLES by EDC: 08/02/2023 Age by current US: 20 weeks 1 days GILLES by current US: 08/01/2023 US/US OB cervical length IMPRESSION: 1. Single live intrauterine with growth detailed above. 2. Suboptimal visualization of the cardiac outflow tracts due to position and maternal body habitus. Electronically authenticated by: LOBO HAMM Date: 03/15/2023 11:04
--- NOTE | 2023-03-15 09:49 | US_ITS ---
[address] [address] Patient Name: AMOS ALBERT MRN: [id number] date: 2000 Sex: F Assigned Patient Location: US Current Patient Location: US Accession/Order Number: [id number] Exam Date: 03/15/2023 09:52 Report Date: 03/15/2023 11:04 At the request of: RIKKI HARP Procedure: US OB anatomy EXAMINATION: US OB anatomy, US OB cervical length HISTORY: Second trimester Z34.92 COMPARISON: No relevant comparison available. TECHNIQUE: Transabdominal sonographic examination was performed for obstetrical and evaluation. FINDINGS: Number: 1 Heart Rate: 149.2 bpm H.B. /min Amniotic Fluid Volume: Subjectively normal Placental Location: Anterior with lower margin 4.3 cm from os. Cervix Length: 5.9 cm; closed. ANATOMY: Normal Structures -cerebellum, choroid plexus, cisterna magna, lateral cerebral ventricles, orbits, midline falx, hard palate, four-chamber heart, stomach, kidneys, bladder, umbilical cord insertion into abdomen, three-vessel cord, cervical spine, thoracic spine, lumbar spine, sacral spine, right upper extremity, left upper extremity, right lower extremity, left lower extremity. SUBOPTIMALLY SEEN: Cardiac outflow tracts ABNORMALITIES: None BIOMETRY: BPD: 4.7 cm 20 weeks 2 days HC: 17.9 cm 20 weeks 2 days AC: 14.4 cm 19 weeks 5 days FL: 3.3 cm 20 weeks 2 days EFW:329.1 grams; 48% FL/AC: 22.9 FL/BPD: 69.8 HC/AC: 1.2 GESTATIONAL AGE: Age by EDC: 20 weeks 0 days GILLES by EDC: 08/02/2023 Age by current US: 20 weeks 1 days GILLES by current US: 08/01/2023 US/US OB anatomy IMPRESSION: 1. Single live intrauterine with growth detailed above. 2. Suboptimal visualization of the cardiac outflow tracts due to position and maternal body habitus. Electronically authenticated by: LOBO HAMM Date: 03/15/2023 11:04
== END 2023-03-15 09:48 | disposition home or self-care (01) ==
LOC: US 09:47
PROVIDERS: Visit Provider Physician Assistant
DX: Z34.92 Encounter for supervision of normal pregnancy, unspecified, second trimester (principal); Z3A.20 20 weeks gestation of pregnancy
CPT/HCPCS: 76805; 76817

== ENCOUNTER 2023-04-17 11:03 | Outpatient (OUT) | payer OTHER, SELFPAY ==
--- NOTE | 2023-04-17 10:23 | US_ITS ---
[address] [address] Patient Name: AMOS ALBERT MRN: [id number] date: 2000 Sex: F Assigned Patient Location: US Current Patient Location: US Accession/Order Number: [id number] Exam Date: 04/17/2023 10:24 Report Date: 04/17/2023 11:47 At the request of: VICTORINO VALLEJO Procedure: US OB follow up EXAMINATION: US OB follow up HISTORY: SV OUTFLOW TRACTS COMPARISON: No relevant comparison available. FINDINGS: Heart rate: 149 beats minute Normal anatomy: RVOT, LVOT US/US OB follow up IMPRESSION: Normal visualization of the ventricular outflow tracts Electronically authenticated by: KAMERON ROUSE Date: 04/17/2023 11:47
--- OUTSIDE RECORDS SUMMARY | 2023-04-17 11:07 | XMS_ITS | CCD ---
Author Name Unknown Address [address] [place] [address] [address] [place] [address] Organization [facility] Care Team Providers Care Grade Recorder Name Role Phone CIPRIANO MOLINA Primary Care Physician [phone] Unavailable Primary Care Provider UnavailSHELBY Muñoz Referring Unavailable VICTORINO VALLEJO Attending Unavailable Krystyna Seth Attending Unavailable Dipak Boyd Attending Unavailable Shannon Lai Attending Unavailable Gio JIMENEZ Referring Unavailable Sunny Brambila Attending Unavailable Yanira KURTZ Attending Unavailable Yanira KURTZ Attending Unavailable Medications Current Medications Medication Drug Class(es) Dates Sig (Normalized) Sig (Original) amoxicillin 500 mg oral capsule (1 source) Penicillin-class Antibacterial Start: 09-07-2022 End: 09-14-2022 take 2 capsules by mouth every twelve hours amoxicillin 500 mg Cap 1,000 mg = 2 cap(s), Oral, q12hr, X 7 day(s), # 28 cap(s), Refills(s) 0, Pharmacy: [facility]/pharmacy #[id number], 183, cm, 09/07/22 11:38:00 EDT, Height/Length Dosing, 113.2, kg, 09/07/22 11:38:00 EDT, Weight Dosing Start Date: 09/07/22 Stop Date: 09/14/22 Status: Ordered ibuprofen 600 mg oral tablet (2 sources) Nonsteroidal Anti-inflammatory Drug Start: 12-07-2020 take 1 tablet by mouth every six hours ibuprofen 600 mg Tab 600 mg = 1 tab(s), Oral, q6hr, # 40 tab(s), Refills(s) 0, Pharmacy: [facility]/pharmacy #[id number], 178, cm, 12/07/20 10:05:00 EDT, Height/Length Dosing, 109, kg, 12/07/20 10:05:00 EDT, Weight Dosing Start Date: 12/07/20 Status: Ordered ofloxacin 3 mg/ml otic solution (1 source) Quinolone Antimicrobial Start: 09-07-2022 End: 09-14-2022 ofloxacin Otic 0.3% Merline 5 drop(s), Otic, BID for 7 day(s), 10 mL, Refill(s) 0, [facility]/pharmacy #[id number], 183, cm, 09/07/22 11:38:00 EDT, Height/Length [...] Results Test Name Value Interpretation Reference Range Facility Ambulatory Visit Summaryon 0 09-07-2022 Ambulatory Visit [...] Up with CIPRIANO MOLINA CNP When: Where: [address] [place] [address]- Medications What How Much When Why Instructions New amoxicillin (amoxicillin 500 mg Cap) 2 Capsules By Mouth Every 12 hours Left otitis media Otitis externa of left ear BMI 33.0-33.9,adult Duration: [id number] New ofloxacin otic (ofloxacin Otic 0.3% Merline) 5 Drops Otic 2 times a day Duration: 7 [id number] Unchanged ibuprofen (ibuprofen 600 mg Tab) 1 Tablets By Mouth Every 6 hours Contact prescribing physician if questions or concerns [id number] [address], [place] [id number] [phone] Allergies No Known Allergies Problems Ongoing - [...] you start to feel better. ? Take ylyl-vxl-mfwicvp and prescription medicines only as told by [...] provider. Document Revised: 06/13/2021 Document Reviewed: 06/13/2021 [employer] Patient Education ? 2022 [employer] Otitis Media, Adult Otitis media occurs [...] nose (nasophary (more content not included)... Normal [facility] Medicine Office/Clini c Noteon 09-07-2022 Family [...] with voice recognition software. Occasional wrong-word or ?iscnl-s-oetg? substitutions may have occurred due to the inherent limitations of voice recognition software. 21-year-old female presents today with chief complaint of bilateral ear pain onset 2 days ago. Patient states her ear is sore to touch muffled hearing and bilateral pain with the ear pain. She been taking hcdk-yvd-esfqavu Motrin with some relief of symptoms. Denies [...] day(s), # 28 cap(s), Refills(s) 0, Pharmacy: [facility]/pharmacy #[id number], 183, cm, 09/07/22 11:38:00 EDT, Height/Length [...] day(s), # 28 cap(s), Refills(s) 0, Pharmacy: [facility]/pharmacy #[id number], 183, cm, 09/07/22 11:38:00 EDT, Height/Length [...] With When Contact Information CIPRIANO MOLINA CNP [address] [address]- Additional Instructions: Patient Education Otitis Externa, Szeu-mp-Bndo Otitis Media, Adult BMI for Adults Problem List/Past Medical History Ongoing Dysmenorrhea Irregular bleeding Menorrhagia Historical No qualifying data Procedure/Surgical History Removal of etonogestre (more content not included)... Normal [facility] Comment on above: Result Comment: Elec [...] Follow these instructions at home: ? Take lwlu-ara-annefod and prescription medicines only as told by [...] provider. Document Revised: 07/09/2021 Document Reviewed: 07/09/2021 [employer] Patient Education ? 2022 [employer]. Infectious Disease Otitis Externa Otitis externa [...] swimming often. (more content not included)... Normal [facility] Chlamydia/GC DNA, TPon 08-15 Chlamydia Probe, TP Negative Normal NEG [facility] Comment on above: Result Comment: CHLA MYDIA [...] target. Performed By: #### C YTCGP #### [address] [address] [employer]: Willard Sethi MD Gonorrhea Probe, TP Negative Normal NEG [facility] Comment on above: Result Comment: NEIS SERIA [...] target. Performed By: #### C YTCGP #### [address] [address] [employer]: Willard Sethi MD Quantiferon-TB Plus (Client Incubated)on 08-14-2022 Gamma interferon background IA Qn (Bld) 0.02 International_Unit/mL Invalid Interpretation Code [facility] Comment on above: Performed By: #### 3 [id number], [id number] #### [facility] [address] [place] [address] M. tuberculosis stim IFN-g by CD4+ CD8+ T-cells Qn (Bld) 0.05 International_Unit/mL Invalid Interpretation Code [facility] Comment on above: Performed By: #### 3 [id number], [id number] #### [facility] [address] [id number] M. tuberculosis stim IFN-g by CD4+ T-cells Qn (Bld) 0.03 International_Unit/mL Invalid Interpretation Code [facility] Comment on above: Performed By: #### 3 [id number], [id number] #### [facility] [address] [place] [address] M. tuberculosis stim IFN-g Ql (Bld) [Interp] Negative Invalid Interpretation Code Negative [facility] Comment on above: Result Comment: No [...] interferon gamma. Chemiluminescence immunoassay methodology Performed at: [address] [id number] PhD Radames Kendrick Performed By: #### 3 [id number], [id number] #### [facility] [address] [place] [address] Mitogen stimulated gamma interferon Qn (Bld) >10.00 Invalid Interpretation Code [facility] Comment on above: Performed By: #### 3 [id number], [id number], [id number] #### [facility] [address] [place] [address] Service comment (Unsp spec) [Interp] Comment Invalid Interpretation Code [facility] Comment on above: Result Comment: Ish tiFERON-TB [...] for the test. Performed By: #### 3 [id number], [id number], [id number], [id number] #### [facility] [address] [place] [address] Cytologyon 08-13-2022 Cytology (NOTE) Path Number: [id number] DIAGNOSIS Cervical material, (ThinPrep vial, Imaging-assisted review): Specimen Adequacy: Satisfactory for evaluation. -Endocervical/transfo rmation zone component is absent. Descriptive Diagnosis: Negative for intraepithelial lesion or malignancy. Cytotech Screener: SS4 Electronically Signed Out MAXIMUS Ramírez(ASCP) ss4/08/21/2022 Source of Specimen: A: Cervical material, (ThinPrep vial, Imaging-assisted review) HPV Reflex?.............. ........HPV if ASCUS Clinical History Z01.419 Routine sighter exam without abnormal findings High Risk HPV DNA testing is requested if the diagnosis is ASC-US Processing Lab: [address] [address] Interpretation performed at [address] [address] The Pap smear is a screening test primarily for squamous epithelial lesions, which is subject to both false negative and false positive results. Your patient should be reminded to consult you immediately if she experiences any suspicious signs or symptoms, regardless of her Pap smear result. GYNECOLOGIC CYTOLOGY REPORT Patient Name: AMOS ALBERT [facility] Rec: [id number] [facility] PATH[facility] ANATOMIC PATHOLOGY [address] [place] [phone] [facility] Comment on above: Performed By: #### P PPVP #### [facility] [employer] [address] [place] [address] [employer]: Willard Sethi MD Hep Bs Abon 08-13-2022 HBV surface Ab Ql (S) Non-Reactive Invalid Interpretation Code [facility] Comment on above: Result Comment: Non Reactive: Inconsistent with immunity, less than 10 mIU/mL Reactive: Consistent with immunity, greater than 9.9 mIU/mL Performed at: [address] [id number] PhD Radames Kendrick Performed By: #### 3 [id number], [id number], [id number] #### [facility] [address] [place] [address] Measles/Mumps/Rubella Immuni tyon 08-13-2022 MeV IgG IA Qn (S) 280.0 A unit/mL Invalid Interpretation Code Immune >16.4 [facility] Comment on above: Result Comment: Nega tive <13.5 Equivocal 13.5 - 16.4 Positive >16.4 Presence of antibodies to Rubeola is presumptive evidence of immunity except when acute infection is suspected. Performed By: #### 3 [id number], [id number], [id number], [id number] #### [facility] [address] [place] [address] MuV IgG IA Qn (S) 11.3 A unit/mL Invalid Interpretation Code Immune >10.9 [facility] Comment on above: Result Comment: Nega tive <9.0 Equivocal 9.0 - 10.9 Positive >10.9 A positive result generally indicates past exposure to Mumps virus or previous vaccination. Performed at: [address] [id number] PhD Radames Kendrick Performed By: #### 3 [id number], [id number], [id number], [id number] #### [facility] [address] [place] [address] Rubella virus IgG Qn (S) [IU]/mL Low Immune >0.99 [facility] Comment on above: Result Comment: Non- immune <0.90 Equivocal 0.90 - 0.99 Immune >0.99 Performed By: #### 3 [id number] #### [facility] [address] [place] [address] Varic IgGon 08-13-2022 VZV IgG IA Qn (S) 504 Invalid Interpretation Code Immune >165 [facility] Comment on above: Result Comment: Nega tive <135 Equivocal 135 - 165 Positive >165 A positive result generally indicates exposure to the pathogen or administration of specific immunoglobulins, but it is not indication of active infection or stage of disease. Performed at: [facility] [id number] PhD Radames Kendrick Performed By: #### 3 [id number], [id number], [id number] #### [facility] [address] [place] [address] Vital Signs Date Time Vital Sign Value Performing Clinician Faci lity 09-07-2022 11:37-0400 Blood Pressure Location Dipak Boyd [facility] 09-07-2022 11:37-0400 Diastolic blood pressure 80 mm[Hg] Dipak Boyd [facility] 09-07-2022 11:37-0400 Heart rate 76 /min Dipak Boyd [facility] 09-07-2022 11:37-0400 SaO2% (BldA) [Mass fraction] 99 % Dipak Boyd [facility] 09-07-2022 11:37-0400 Systolic blood pressure 110 mm[Hg] Dipak Boyd [facility] Encounters Encounter Date Encounter Type Care Provider Facility Start: 04-25-2023 ambulatory Shannon Lai Facility:[facility] Start: 03-19-2023 End: 03-19-2023 ambulatory VICTORINO VALLEJO Not Available Start: 01-14-2023 End: 01-15-2023 ambulatory Gio JIMENEZ Facility:[facility] Start: 09-07-2022 End: 09-08-2022 ambulatory Dipak Boyd Facility: [place] Start: 09-07-2022 End: 09-07-2022 Patient encounter procedure Dipak Boyd [facility] Start: 08-13-2022 End: 08-14-2022 ambulatory [facility]ILLATOR[facility] Start: 08-13-2022 Encounter for gynecological examination (general) (routine) without abnormal findings [facility] Start: 08-13-2022 End: 08-13-2022 Patient encounter procedure [facility] Start: 08-13-2022 End: 08-13-2022 Subsequent hospital visit by physician [facility] Comment on above: Encounter for well brian randy exam with routine gynecological exam Start: 08-12-2022 End: 08-13-2022 ambulatory Yanira KURTZ Facility:[facility] Start: 08-09-2022 End: 08-10-2022 ambulatory Yanira Arcelia KURTZ Facility:[facility] Start: 06-07-2022 End: 06-08-2022 ambulatory Krystyna X Orzech Facility: [place] Start: 06-07-2022 End: 06-07-2022 Patient encounter procedure Ask The Doctor Orzech [facility] Procedures Date Procedure Procedure Detail Performing Clinician Start: 08-10-2020 Removal of etonogest rel implant Newvem Tonsillectomy and adenoidectomy Newvem Plan of Treatment Date Care Activity Detail Author Start: 12-01-2022 DTaP/Tdap/Td vaccine (7 - Td or Tdap) DTaP/Tdap/Td vaccine (7 - Td or Tdap) [facility] Start: 11-12-2022 Influenza vaccination Flu vacc ine (Season Ended) [facility] Start: 2021 Screening for malign ant neoplasm of cervix Pap smear [facility] Start: 2018 Hepatitis C screening Hepatitis C sc reen [facility] Start: 2016 Screening for Chlamy sedrick trachomatis Chlamydia/GC screen [facility] Start: 11-05-2015 HIV screening HIV screen [facility] [employer] Start: 2012 Depression Screen Depression Screen [facility] Start: 05-07-2001 COVID-19 Vaccine (#1) COVID-19 Vacci ne (#1) [facility] [employer] End: 08-13-2022 Chlamydia/GC DNA, Thin Prep [facility] Work Phone: Comment on above: 1 Occurrences starti ng 08/13/2022 until 08/13/2022 End: 08-13-2022 Cytopathology procedure, preparation of smear, genital source PAP Smear Lab Routine Encounter for well woman exam with routine gynecological exam 1 Occurrences starting 08/13/2022 until 08/13/2022 [facility] [employer] Work Phone: Comment on above: 1 Occurrences starti ng 08/13/2022 until 08/13/2022 Immunizations Immunization Date Immunization Notes Care Provider Fa cili 02-04-2020 influenza virus vaccine, unspecified formulation Krystyna Orzech [facility] 02-05-2019 influenza virus vaccine, unspecified formulation Krystyna Orzech [facility] 07-21-2018 meningococcal B vaccine, fully recombinant Krystyna Orzech [facility] 01-08-2018 influenza virus vaccine, unspecified formulation Krystyna Orzech [facility] 11-22-2016 meningococcal ACWY vaccine, unspecified formulation Krystyna Orzech [facility] 11-22-2016 meningococcal B vaccine, fully recombinant Krystyna Orzech [facility] 02-28-2014 influenza, whole Krystyna Orze ch [facility] 11-15-2013 hepatitis A vaccine, unspecified formulation Krystyna Orzech [facility] 11-15-2013 HPV, unspecified formulation Krystyna Orzech [facility] 11-15-2013 meningococcal ACWY, unspecified formulation Krystyna Orzech [facility] 12-01-2012 hepatitis A vaccine, unspecified formulation Krystyna Orzech [facility] 12-01-2012 HPV, unspecified formulation Krystyna Orzech [facility] 12-01-2012 tetanus toxoid, reduced diphtheria toxoid, and acellular pertussis vaccine, adsorbed Krystyna Orzech [facility] 12-01-2012 varicella virus vaccine Krystyna Orzech [facility] 08-26-2005 hepatitis B vaccine, pediatric or pediatric/adolescent dosage Krystyna Orzech [facility] 08-15-2005 DTaP, unspecified formulation Krystyna Orzech [facility] 08-15-2005 measles, mumps and rubella virus vaccine Krystyna Orzech [facility] 08-15-2005 poliovirus vaccine, unspecified formulation Krystyna Orzech [facility] 12-15-2002 DTaP, unspecified formulation Krystyna Orzech [facility] 12-15-2002 haemophilus influenz ae type b vaccine, PRP-T conjugate Krystyna OrZilliant [facility] 12-25-2001 DTaP, unspecified formulation Krystyna Orzech [facility] 12-25-2001 measles, mumps and rubella virus vaccine Krystyna Orzech [facility] 12-25-2001 poliovirus vaccine, unspecified formulation Krystyna Orzech [facility] 12-25-2001 varicella virus vaccine Krystyna Orzech [facility] 04-29-2001 DTaP, unspecified formulation Krystyna Orzech [facility] 04-29-2001 poliovirus vaccine, unspecified formulation Krystyna Orzech [facility] 01-20-2001 DTaP, unspecified formulation Krystyna Orzech [facility] 01-20-2001 poliovirus vaccine, unspecified formulation Krystyna OrZilliant [facility] NEGATED: Highlighted row has not occurred!02-18-2022 influenza virus vaccine, unspecified formulation Newvem [facility] NEGATED: Highlighted row has not occurred!02-18-2022 SARS-CoV-2 mRNA (tozinameran 5y-11y) vaccine Krystyna OrZilliant [facility] Payers Date Payer Category Payer Unknown [id number] 2022 Unknown [id number] 2022 Medicaid [id number] 2021 Unknown [id number] 2000 Unknown [id number] 2000 Unknown [id number] 2.16.8 [id number] 2000 Unknown [id number] 2.16.8 [id number] 2000 Unknown [id number] 2.16.8 [id number] 2000 Unknown [id number] 2.16.8 [id number] 2000 Unknown [id number] 2.16.8 [id number] Social History Date Type Detail Facility Start: 03-30-2020 End: 08-13-2022 Tobacco smoking status Never smoked tobacco (finding) [facility] Tobacco smoking status Never [facility] Sex Assigned At Female [facility] Start: 08-13-2022 Tobacco use and exposure Smokeless tobacco non-user [employer] Phone: Start: 08-13-2022 Alcohol intake Not Asked [employer] Phone: Start: 08-13-2022 Alcohol Comment social [employer] Phone: Start: 2000 Sex Assigned At Not on file [facility] [employer] Phone: Hospital Discharge instructions 09-07-2022 Note Date & Type Note Facility 09-07-2022 Hospital Discharge instructions Patient Education 09/07/2022 11:57:13 Otitis Externa, Apan-pj-Uiif Otitis Externa Otitis externa is an infection [...] if you start to feel better. Take jqlz-ezr-qefnquk and prescription medicines only as told by [...] provider. Document Revised: 06/13/2021 Document Reviewed: 06/13/2021 [employer] Patient Education 2022 Memoir. 09/07/2022 11:57:10 Otitis Media, Adult Otitis Media, [...] pain. Follow these instructions at home: Take onbl-rhk-wudilyz and prescription medicines only as told by [...] provider. Document Revised: 07/09/2021 Document Reviewed: 07/09/2021 [employer] Patient Education 2022 Memoir. 09/07/2022 11:57:07 BMI for Adults BMI for [...] numbers. This can be done either in [place]ian ([place] or metric measurements. Note that charts and online BMI calculators are available to help you find your BMI quickly and easily without having to do these calculations yourself. To calculate your BMI in [place]ian ([place] measurements: 1.Measure your weight in pounds [...] Centers for Disease Control and Prevention: www.cdc.gov [place] Heart Association: www.heart.org National Heart, Lung, and Blood [place]: www.nhlbi.nih.gov Summary Body mass index (BMI) is a number that is calculated from a person's weight and height. BMI may help estimate how much of a person's weight is composed of fat. BMI can help identify those who may be at higher risk for certain medical problems. BMI can be measured using Guamanian measurements or metric measurements. BMI charts are used to identify whether you are underweight, normal weight, overweight, or obese. This information is not intended to replace advice given to you by your health care provider. Make sure you discuss any questions you have with your health care provider. Document Revised: 12/22/2019 Document Reviewed: 10/29/2019 [employer] Patient Education 2022 Memoir. Follow Up Care 09/07/2022 10:55:41 With:CIPRIANO MOLINA CNP Address: [address] [place] [address]- When: Unknown [facility] Evaluation + Plan note Note Date & Type Note Facility Evaluation + Plan note No data available for this section [facility] Care Evaluation note Note Date & Type Note Facility Evaluation note Diagnosis Encounter for well woman exam with routine gynecological exam documented in this encounter [facility] Work Phone: Hospital Discharge instructions Note Date & Type Note Facility Hospital Discharge instructions No data available for this section [facility] Care Progress note Note Date & Type Note Facility Progress note No data available for this section [facility] Care Summary Purpose Family History No Family History Records FoundNo Family History Records FoundNo Family History Records Found Advance Directives No Advanced Directives Records FoundNo Advanced Directives Records FoundNo Advanced Directives Records Found Additional Source Comments Patient Care team informatio n (unrecognized section and content) Personnel Name: CIPRIANO MOLINA CNP Address: Address: [address] [place] [address] Personnel Name: CIPRIANO MOLINA CNP Address: Address: [address] [place] [id number] INFORMATION SOURCE (unrecogn ized section and content) DATE CREATED AUTHOR 08/22/2022 Macy adams DATE CREATED AUTHOR AUTHOR'S ORGANIZ ATION 03/21/2023 [facility] EPIC DATE CREATED AUTHOR AUTHOR'S ORGANIZ ATION 04/02/2023 [facility] FOR RECORDS PERTAINING TO PATIENTS WHO ARE [...] BE BASED ON THE PRIMARY CLINICAL RECORDS. [facility] [employer] [facility]. provides no warranty or guarantee of the accuracy or completeness of information in this document.
== END 2023-04-17 11:04 | disposition home or self-care (01) ==
LOC: US 11:03
PROVIDERS: Visit Provider Obstetrics & Gynecology
DX: Z36.2 Encounter for other antenatal screening follow-up (principal)
CPT/HCPCS: 76816

== ENCOUNTER 2023-04-19 09:20 | Outpatient (OUT) | payer OTHER, SELFPAY ==
--- OUTSIDE RECORDS SUMMARY | 2023-04-19 09:23 | XMS_ITS | CCD ---
Author Name Unknown Address [address] [place] [address] [address] [place] [address] Organization [facility] Care Team Providers Care Blacksmith Assistant Name Role Phone CIPRIANO MOLINA Primary Care Physician Unavailable Primary Care Provider UnavailSHELBY Muñoz Referring Unavailable RIKKI HARP Attending Unavailable VICTORINO VALLEJO Attending Unavailable Krystyna Seth Attending Unavailable Dipak Boyd Attending Unavailable Shannon Lai Attending Unavailable DO Sunny Brambila Attending Unavailable Gio JIMENEZ Referring Unavailable Yanira KURTZ Attending Unavailable aYnira KURTZ Attending Unavailable Medications Current Medications Medication Drug Class(es) Dates Sig (Normalized) Sig (Original) amoxicillin 500 mg oral capsule (1 source) Penicillin-class Antibacterial Start: 09-07-2022 End: 09-14-2022 take 2 capsules by mouth every twelve hours amoxicillin 500 mg Cap 1,000 mg = 2 cap(s), Oral, q12hr, X 7 day(s), # 28 cap(s), Refills(s) 0, Pharmacy: [facility]/pharmacy #[id number], 183, cm, 09/07/22 11:38:00 EDT, Height/Length Dosing, 113.2, kg, 09/07/22 11:38:00 EDT, Weight Dosing Start Date: 09/07/22 Stop Date: 09/14/22 Status: Ordered ibuprofen 600 mg oral tablet (2 sources) Nonsteroidal Anti-inflammatory Drug Start: 12-07-2020 take 1 tablet by mouth every six hours ibuprofen 600 mg Tab 600 mg = 1 tab(s), Oral, q6hr, # 40 tab(s), Refills(s) 0, Pharmacy: [facility]/pharmacy #[id number], 178, cm, 12/07/20 10:05:00 EDT, Height/Length Dosing, 109, kg, 12/07/20 10:05:00 EDT, Weight Dosing Start Date: 12/07/20 Status: Ordered ofloxacin 3 mg/ml otic solution (1 source) Quinolone Antimicrobial Start: 09-07-2022 End: 09-14-2022 ofloxacin Otic 0.3% Merline 5 drop(s), Otic, BID for 7 day(s), 10 mL, Refill(s) 0, [facility]/pharmacy #[id number], 183, cm, 09/07/22 11:38:00 EDT, Height/Length [...] Up with CIPRIANO MOLINA CNP When: Where: [address] [place] [phone]- Medications What How Much When Why Instructions New amoxicillin (amoxicillin 500 mg Cap) 2 Capsules By Mouth Every 12 hours Left otitis media Otitis externa of left ear BMI 33.0-33.9,adult Duration: 7 Days Pickup at [facility]/pharmacy #[id number] New ofloxacin otic (ofloxacin Otic 0.3% Merline) 5 Drops Otic 2 times a day Duration: 7 Days Pickup at [facility]/pharmacy #[id number] Unchanged ibuprofen (ibuprofen 600 mg Tab) 1 Tablets By Mouth Every 6 hours Contact prescribing physician if questions or concerns [id number] [address] [place], [place] [id number] [phone] Allergies No Known Allergies Problems Ongoing - [...] you start to feel better. ? Take iqjt-kjt-laymwxr and prescription medicines only as told by [...] provider. Document Revised: 06/13/2021 Document Reviewed: 06/13/2021 Elsevier Patient Education ? 2022 Elsevier Inc. Otitis [...] (nasophary (more content not included)... Normal Daniel [facility] Medicine Office/Clini c Noteon 09-07-2022 Family Medicine [...] with voice recognition software. Occasional wrong-word or ?ayexq-a-oubk? substitutions may have occurred due to the inherent limitations of voice recognition software. 21-year-old female presents today with chief complaint of bilateral ear pain onset 2 days ago. Patient states her ear is sore to touch muffled hearing and bilateral pain with the ear pain. She been taking ncvl-yjk-lpfceab Motrin with some relief of symptoms. Denies [...] day(s), # 28 cap(s), Refills(s) 0, Pharmacy: [facility]/pharmacy #[id number], 183, cm, 09/07/22 11:38:00 EDT, Height/Length [...] day(s), # 28 cap(s), Refills(s) 0, Pharmacy: [facility]/pharmacy #[id number], 183, cm, 09/07/22 11:38:00 EDT, Height/Length [...] With When Contact Information CIPRIANO MOLINA CNP [address] [address]- Additional Instructions: Patient Education Otitis Externa, Lypu-ih-Cpje Otitis Media, Adult BMI for Adults Problem List/Past Medical History Ongoing Dysmenorrhea Irregular bleeding Menorrhagia Historical No qualifying data Procedure/Surgical History Removal of etonogestre (more content not included)... Normal [facility] Comment on above: Result Comment: Elec tronically [...] Follow these instructions at home: ? Take lkfd-xsz-vvmivmj and prescription medicines only as told by [...] provider. Document Revised: 07/09/2021 Document Reviewed: 07/09/2021 [employer] Monkey Patient Education ? 2022 [employer]. Infectious Disease Otitis Externa Otitis externa [...] swimming often. (more content not included)... Normal [facility] Chlamydia/GC DNA, TPon 08-15 Chlamydia Probe, TP Negative Normal NEG [facility] Comment on above: Result Comment: CHLA [...] target. Performed By: #### C YTCGP #### [address] [id number] Rack Puncher: Willard Sethi MD Gonorrhea Probe, TP Negative Normal NEG [facility] Comment on above: Result Comment: NEIS [...] target. Performed By: #### C YTCGP #### [address] [id number] Rack Puncher: Willard Sethi MD Quantiferon-TB Plus (Client Incubated)on 08-14-2022 Gamma interferon background IA Qn (Bld) 0.02 International_Unit/mL Invalid Interpretation Code [facility] Comment on above: Performed By: #### 3 [id number], [id number] #### [facility] Laboratory [address] [place] [address] M. tuberculosis stim IFN-g by CD4+ CD8+ T-cells Qn (Bld) 0.05 International_Unit/mL Invalid Interpretation Code [facility] Comment on above: Performed By: #### 3 [id number], [id number] #### [facility] Laboratory [address] [place] [address] M. tuberculosis stim IFN-g by CD4+ T-cells Qn (Bld) 0.03 International_Unit/mL Invalid Interpretation Code [facility] Comment on above: Performed By: #### 3 [id number], [id number], [id number], [id number] #### [facility] [address] [place] [address] M. tuberculosis stim IFN-g Ql (Bld) [Interp] Negative Invalid Interpretation Code Negative [facility] Comment on above: Result Comment: No r [...] interferon gamma. Chemiluminescence immunoassay methodology Performed at: [facility] [id number] PhD Radames Kendrick Performed By: #### 3 [id number] #### [facility] [address] [place] [address] Mitogen stimulated gamma interferon Qn (Bld) >10.00 Invalid Interpretation Code [facility] Comment on above: Performed By: #### 3 [id number] #### [facility] [address] [place] [address] Service comment (Unsp spec) [Interp] Comment Invalid Interpretation Code [facility] Comment on above: Result Comment: [...] for the test. Performed By: #### 3 [id number], [id number], [id number], [id number] #### [facility] [address] [place] [address] Cytologyon 08-13-2022 Cytology (NOTE) Path Number: [id number] DIAGNOSIS Cervical material, (ThinPrep vial, Imaging-assisted review): Specimen Adequacy: Satisfactory for evaluation. -Endocervical/transfo rmation zone component is absent. Descriptive Diagnosis: Negative for intraepithelial lesion or malignancy. Cytotech Screener: SS4 Electronically Signed Out MAXIMUS Ramírez(ASCP) ss4/08/21/2022 Source of Specimen: A: Cervical material, (ThinPrep vial, Imaging-assisted review) HPV Reflex?.............. ........HPV if ASCUS Clinical History Z01.419 Routine lacquer machine feeder exam without abnormal findings High Risk HPV DNA testing is requested if the diagnosis is ASC-US Processing Lab: [address] [phone] Interpretation performed at [address] [phone] The Pap smear is a screening test primarily for squamous epithelial lesions, which is subject to both false negative and false positive results. Your patient should be reminded to consult you immediately if she experiences any suspicious signs or symptoms, regardless of her Pap smear result. GYNECOLOGIC CYTOLOGY REPORT Patient Name: AMOS ALBERT [facility] Rec: [id number] [facility] CONSULTING PATHOLOGISTS [facility] ANATOMIC PATHOLOGY [address] [place] [phone] [facility] Comment on above: Performed By: #### P PPVP #### [facility] [address] [place] [address] Rack Puncher: Willard Sethi MD Hep Bs Abon 08-13-2022 HBV surface Ab Ql (S) Non-Reactive Invalid Interpretation Code [facility] Comment on above: Result Comment: Non Reactive: Inconsistent with immunity, less than 10 mIU/mL Reactive: Consistent with immunity, greater than 9.9 mIU/mL Performed at: [address] [id number] PhD Radames Kendrick Performed By: #### 3 [id number], [id number] #### [facility] [address] [place] [address] Measles/Mumps/Rubella Immuni tyon 08-13-2022 MeV IgG IA Qn (S) 280.0 A unit/mL Invalid Interpretation Code Immune >16.4 [facility] Comment on above: Result Comment: Nega tive <13.5 Equivocal 13.5 - 16.4 Positive >16.4 Presence of antibodies to Rubeola is presumptive evidence of immunity except when acute infection is suspected. Performed By: #### 3 [id number], [id number] #### [facility] Laboratory [address] [place] [address] MuV IgG IA Qn (S) 11.3 A unit/mL Invalid Interpretation Code Immune >10.9 [facility] Comment on above: Result Comment: Nega tive <9.0 Equivocal 9.0 - 10.9 Positive >10.9 A positive result generally indicates past exposure to Mumps virus or previous vaccination. Performed at: [facility] [address] [place], [place] [id number] PhD Radames Kendrick Performed By: #### 3 [id number], [id number] #### [facility] [address] [place] [address] Rubella virus IgG Qn (S) [IU]/mL Low Immune >0.99 [facility] Comment on above: Result Comment: Non- immune <0.90 Equivocal 0.90 - 0.99 Immune >0.99 Performed By: #### 3 [id number], [id number], [id number] #### [facility] [address] [place] [address] Varic IgGon 08-13-2022 VZV IgG IA Qn (S) 504 Invalid Interpretation Code Immune >165 [facility] Comment on above: Result Comment: Nega tive <135 Equivocal 135 - 165 Positive >165 A positive result generally indicates exposure to the pathogen or administration of specific immunoglobulins, but it is not indication of active infection or stage of disease. Performed at: [facility] [id number] PhD Radames Kendrick Performed By: #### 3 [id number], [id number] #### [facility] [address] [place] [address] Vital Signs Date Time Vital Sign Value Performing Clinician Faci lity 09-07-2022 11:37-0400 Blood Pressure Location Dipak Boyd [facility] 09-07-2022 11:37-0400 Diastolic blood pressure 80 mm[Hg] Dipak Boyd [facility] 09-07-2022 11:37-0400 Heart rate 76 /min Dipak Boyd [facility] 09-07-2022 11:37-0400 SaO2% (BldA) [Mass fraction] 99 % Dipak Boyd [facility] 09-07-2022 11:37-0400 Systolic blood pressure 110 mm[Hg] Dipak Boyd [facility] Encounters Encounter Date Encounter Type Care Provider Facility Start: 04-25-2023 ambulatory Shannon Lai Facility:[facility] Start: 04-17-2023 End: 04-17-2023 ambulatory RIKKI HARP Not Available Start: 03-19-2023 End: 03-19-2023 ambulatory VICTORINO VALLEJO Not Available Start: 01-14-2023 End: 01-15-2023 ambulatory DO Sunny Brambila Facility:[facility] Start: 09-07-2022 End: 09-08-2022 ambulatory Dipak Boyd Facility: [facility] Start: 09-07-2022 End: 09-07-2022 Patient encounter procedure Dipak ChapinLu Rodriguezey [facility] Start: 08-13-2022 End: 08-14-2022 ambulatory [facility] Start: 08-13-2022 Encounter for gynecological examination (general) (routine) without abnormal findings [facility] Start: 08-13-2022 End: 08-13-2022 Patient encounter procedure [facility] Start: 08-13-2022 End: 08-13-2022 Subsequent hospital visit by physician [facility] Comment on above: Encounter for well w randy exam with routine gynecological exam Start: 08-12-2022 End: 08-13-2022 ambulatory Yanira Arcelia KURTZ Facility:[facility] Start: 08-09-2022 End: 08-10-2022 ambulatory Yanira Arcelia KURTZ Facility:[facility] Start: 06-07-2022 End: 06-08-2022 ambulatory Krystyna X Orzech Facility:[facility] Start: 06-07-2022 End: 06-07-2022 Patient encounter procedure Krystyna X Orzech [facility] Procedures Date Procedure Procedure Detail Performing Clinician Start: 08-10-2020 Removal of etonogest rel implant Krystyna Orzech Tonsillectomy and adenoidectomy Krystyna [employer] Plan of Treatment Date Care Activity Detail Author Start: 12-01-2022 DTaP/Tdap/Td vaccine (7 - Td or Tdap) DTaP/Tdap/Td vaccine (7 - Td or Tdap) [facility] Start: 11-12-2022 Influenza vaccination Flu vacc ine (Season Ended) [facility] Start: 2021 Screening for malign ant neoplasm of cervix Pap smear [facility] [employer] Start: 2018 Hepatitis C screening Hepatitis C sc reen [facility] Start: 2016 Screening for Chlamy sedrick trachomatis Chlamydia/GC screen [facility] Start: 11-05-2015 HIV screening HIV screen [facility] [employer] Start: 2012 Depression Screen Depression Screen [facility] Start: 05-07-2001 COVID-19 Vaccine (#1) COVID-19 Vacci ne (#1) [facility] End: 08-13-2022 Chlamydia/GC DNA, Thin Prep [facility] Work Phone: Comment on above: 1 Occurrences starti ng 08/13/2022 until 08/13/2022 End: 08-13-2022 Cytopathology procedure, preparation of smear, genital source PAP Smear Lab Routine Encounter for well woman exam with routine gynecological exam 1 Occurrences starting 08/13/2022 until 08/13/2022 [facility] Work Phone: Comment on above: 1 Occurrences starti ng 08/13/2022 until 08/13/2022 Immunizations Immunization Date Immunization Notes Care Provider Ronnie tamayo 02-04-2020 influenza virus vaccine, unspecified formulation Krystyna Orzech [facility] 02-05-2019 influenza virus vaccine, unspecified formulation Krystyna Orzech [facility] 07-21-2018 meningococcal B vaccine, fully recombinant Krystyna Orzech [facility] 01-08-2018 influenza virus vaccine, unspecified formulation Krystyna Orzech [facility] 11-22-2016 meningococcal ACWY vaccine, unspecified formulation Krystyna Orzech [facility] 11-22-2016 meningococcal B vaccine, fully recombinant Krystyna Orzech [facility] 02-28-2014 influenza, whole Krystyna Orze ch [facility] 11-15-2013 hepatitis A vaccine, unspecified formulation Krystyna Orzech [facility] 11-15-2013 HPV, unspecified formulation Krystyna Orzech [facility] 11-15-2013 meningococcal ACWY, unspecified formulation Krystyna Orzech [facility] 12-01-2012 hepatitis A vaccine, unspecified formulation Krystyna Orzech [facility] 12-01-2012 HPV, unspecified formulation Krystyna OrzeLifeline [employer] [facility] 12-01-2012 tetanus toxoid, reduced diphtheria toxoid, and acellular pertussis vaccine, adsorbed Krystyna OrMediSens [facility] 12-01-2012 varicella virus vaccine Krystyna Orzech [facility] 08-26-2005 hepatitis B vaccine, pediatric or pediatric/adolescent dosage Krystyna OrzeLifeline [employer]ures [facility] 08-15-2005 DTaP, unspecified formulation Vayyar OrzeLif[employer] [facility] 08-15-2005 measles, mumps and rubella virus vaccine Krystyna Orzech [facility] 08-15-2005 poliovirus vaccine, unspecified formulation Krystyna OrzeLif[employer] [facility] 12-15-2002 DTaP, unspecified formulation Krystyna OrzeLif[employer] [facility] 12-15-2002 haemophilus influenz ae type b vaccine, PRP-T conjugate [employer] [facility] 12-25-2001 DTaP, unspecified formulation Krystyna OrzeLifeline [employer]ures [facility] 12-25-2001 measles, mumps and rubella virus vaccine Krystyna Orzech [facility] 12-25-2001 poliovirus vaccine, unspecified formulation Krystyna OrzeLif[employer] [facility] 12-25-2001 varicella virus vaccine Krystyna Orzech [facility] 04-29-2001 DTaP, unspecified formulation Krystyna Orzech [facility] 04-29-2001 poliovirus vaccine, unspecified formulation Krystyna OrzeLif[employer] [facility] 01-20-2001 DTaP, unspecified formulation Krystyna OrzeLifeline [employer]ures [facility] 01-20-2001 poliovirus vaccine, unspecified formulation Vayyar Orzech [facility] NEGATED: Highlighted row has not occurred!02-18-2022 influenza virus vaccine, unspecified formulation [employer] [facility] NEGATED: Highlighted row has not occurred!02-18-2022 SARS-CoV-2 mRNA (tozinameran 5y-11y) vaccine Krystyna OrMediSens [facility] Payers Date Payer Category Payer Unknown [id number] 2022 Unknown [id number] 2022 Medicaid [id number] 2021 Unknown [id number] 2000 Unknown [id number] 2000 Unknown [id number] 2000 Unknown [id number] 2.16.8 [id number] 2000 Unknown [id number] 2.16.8 [id number] 2000 Unknown [id number] 2.16.8 [id number] 2000 Unknown [id number] 2.16.8 [id number] 2000 Unknown [id number] 2.16.8 [id number] Social History Date Type Detail Facility Start: 03-30-2020 End: 08-13-2022 Tobacco smoking status Never smoked tobacco (finding) [facility] Tobacco smoking status Never [facility] Sex Assigned At Female [facility] Start: 08-13-2022 Tobacco use and exposure Smokeless tobacco non-user [employer] Phone: Start: 08-13-2022 Alcohol intake Not Asked [employer] Phone: Start: 08-13-2022 Alcohol Comment social [employer] Phone: Start: 2000 Sex Assigned At Not on file B ON [employer] Phone: Hospital Discharge instructions 09-07-2022 Note Date & Type Note Facility 09-07-2022 Hospital Discharge instructions Patient Education 09/07/2022 11:57:13 Otitis Externa, Pont-kp-Gdqq Otitis Externa Otitis externa is an infection [...] if you start to feel better. Take abut-hhx-amdklme and prescription medicines only as told by [...] provider. Document Revised: 06/13/2021 Document Reviewed: 06/13/2021 [employer] Patient Education 2022 [employer]. 09/07/2022 11:57:10 Otitis Media, Adult Otitis Media, [...] pain. Follow these instructions at home: Take knrl-zxx-ssxmvng and prescription medicines only as told by [...] provider. Document Revised: 07/09/2021 Document Reviewed: 07/09/2021 [employer] Patient Education 2022 [employer]. 09/07/2022 11:57:07 BMI for Adults BMI for [...] numbers. This can be done either in Portuguese (U.S.) or metric measurements. Note that charts and online BMI calculators are available to help you find your BMI quickly and easily without having to do these calculations yourself. To calculate your BMI in Portuguese (U.S.) measurements: 1.Measure your weight in pounds [...] Centers for Disease Control and Prevention: www.cdc.gov [place] Heart Association: www.heart.org National Heart, Lung, and Blood [place]: www.nhlbi.nih.gov Summary Body mass index (BMI) is a number that is calculated from a person's weight and height. BMI may help estimate how much of a person's weight is composed of fat. BMI can help identify those who may be at higher risk for certain medical problems. BMI can be measured using Portuguese measurements or metric measurements. BMI charts are used to identify whether you are underweight, normal weight, overweight, or obese. This information is not intended to replace advice given to you by your health care provider. Make sure you discuss any questions you have with your health care provider. Document Revised: 12/22/2019 Document Reviewed: 10/29/2019 [employer] Patient Education 2022 [employer]. Follow Up Care 09/07/2022 10:55:41 With:CIPRIANO MOLINA CNP Address: [address] [place] [id number] When: Unknown [facility] Evaluation + Plan note Note Date & Type Note Facility Evaluation + Plan note No data available for this section [facility] Care Evaluation note Note Date & Type Note Facility Evaluation note Diagnosis Encounter for well woman exam with routine gynecological exam documented in this encounter [facility] Work Phone: Hospital Discharge instructions Note Date & Type Note Facility Hospital Discharge instructions No data available for this section [facility] Care Progress note Note Date & Type Note Facility Progress note No data available for this section [facility] Care Summary Purpose Family History No Family History Records FoundNo Family History Records FoundNo Family History Records Found Advance Directives No Advanced Directives Records FoundNo Advanced Directives Records FoundNo Advanced Directives Records Found Additional Source Comments Patient Care team informatio n (unrecognized section and content) Personnel Name: CIPRIANO MOLINA CNP Address: Address: [address] [place] [address] Personnel Name: CIPRIANO MOLINA CNP Address: Address: [address] [place] [address] INFORMATION SOURCE (unrecogn ized section and content) DATE CREATED AUTHOR 08/22/2022 Macy adams DATE CREATED AUTHOR AUTHOR'S ORGANIZ ATION 04/18/2023 [facility] EPIC DATE CREATED AUTHOR AUTHOR'S ORGANIZ ATION 04/18/2023 [facility] FOR RECORDS PERTAINING TO PATIENTS WHO ARE [...] BE BASED ON THE PRIMARY CLINICAL RECORDS. [facility] [facility]. provides no warranty or guarantee of the accuracy or completeness of information in this document.
[2023-04-19 11:22] LABS: Basophils Percent Auto 0.3 % (0.2-2.0); Eosinophils Absolute Auto 0.2 10^3/uL (0.0-0.7); Eosinophils Percent Auto 2.3 % (0.9-7.0); Hematocrit 36.7 % (36.0-48.0); Hemoglobin 12.2 g/dL (12.0-16.0); Immature Granulocytes Abs Auto 0.04 10^3/uL (0.00-0.03); Immature Granulocytes Pct Auto 0.5 % (0.0-0.5); Lymphocytes Absolute Auto 1.3 10^3/uL (1.2-3.8); Lymphocytes Percent Auto 14.6 % (20.5-60.0); Mean Corpuscular HGB Conc 33.2 g/dL (29.9-35.2); Mean Corpuscular Hemoglobin 30.3 pg (26.7-34.0); Mean Corpuscular Volume 91.3 fL (81.0-99.0); Mean Platelet Volume 10.4 fL (9.5-13.5); Monocytes Absolute Auto 0.6 10^3/uL (0.3-0.8); Monocytes Percent Auto 6.2 % (1.7-12.0); Neutrophils Absolute Auto 6.7 10^3/uL (1.4-6.5); Neutrophils Percent Auto 76.1 % (43.0-75.0); Platelet Count 215 10^3/uL (150-450); Red Blood Count 4.02 10^6/uL (4.20-5.40); Red Cell Distribution Width 12.9 % (11.0-15.0); White Blood Count 8.8 10^3/uL (4.0-11.0)
[2023-04-19 11:45] LABS: Glucose 1 Hour 129 mg/dL
== END 2023-04-19 09:21 | disposition home or self-care (01) ==
LOC: LAB 09:21
PROVIDERS: Visit Provider Physician Assistant
DX: Z34.92 Encounter for supervision of normal pregnancy, unspecified, second trimester (principal)
CPT/HCPCS: 36415; 82950; 85025

== ENCOUNTER 2023-06-16 14:37 | Outpatient (OUT) | payer OTHER, SELFPAY ==
--- NOTE | 2023-06-16 14:40 | US_ITS ---
[address] [address] Patient Name: AMOS ALBERT MRN: [id number] date: 2000 Sex: F Assigned Patient Location: [facility] Current Patient Location: [facility] Accession/Order Number: [id number] Exam Date: 06/16/2023 14:41 Report Date: 06/16/2023 15:11 At the request of: VICTORINO VALLEJO Procedure: US OB growth EXAMINATION: US OB growth HISTORY: LGA COMPARISON: 04/17/2023, 03/15/2023 FINDINGS: Heart Rate: 145.0 bpm Amniotic Fluid Volume: 10.7 cm Number: 1.0 Position: Cephalic presentation, longitudinal lie Maximum Vertical Pocket: 1.6 cm cm 3.0 cm cm 1.7 cm cm 4.5 cm cm BIOMETRY: BPD: 9.1 cm cm; 36 weeks 6 days; > 97% HC: 32.8 cmcm; 37 weeks 1 days , 96% AC: 29.4 cm cm; 33 weeks 3 days, 56% FL: 6.9 cm cm; 35 weeks 2 days; 86.7 % % EFW: 2484.8 grams, 5 lbs. 8 oz., 82% FL/AC: 23.3 FL/BPD: 75.6 HC/AC: 1.1 GESTATIONAL AGE: Age by EDC: 33 weeks 2 days GILLES by EDC: 08/02/2023 Age by US: 35 weeks 5 days GILLES by US: 07/16/2023 US/US OB growth IMPRESSION: BPD greater than the 97th percentile Estimated weight 82nd percentile Electronically authenticated by: KAMERON ROUSE Date: 06/16/2023 15:11
--- OUTSIDE RECORDS SUMMARY | 2023-06-16 14:48 | XMS_ITS | CCD ---
Author Name Unknown Address [facility] [address] [place] [address] Organization [facility] Care Team Providers Care Applications Systems Analyst Name Role Phone CIPRIANO MOLINA Primary Care Physician Unavailable Primary Care Provider UnavailSHELBY Muñoz Referring Unavailable Unavailable Primary Care Provider UnavailDipak Torerz Attending Unavailable Krystyna Seth Attending Unavailable Shannon Lai Attending Unavailable Shannon Lai Attending Unavailable Shannon Lai Attending Unavailable Gio JIMENEZ Referring Unavailable Sunny Brambila Attending Unavailable Yanira KURTZ Attending Unavailable Yanira KURTZ Attending Unavailable STACIA HARP Attending Unavailable SILVA LAMAR Attending Unavailable VICTORINO CASTANEDA Attending Unavailable STACIA HARP Attending Unavailable VICTORINO CASTANEDA Attending Unavailable Medications Current Medications Medication Drug [...] Status: Ordered ibuprofen 600 mg oral tablet (4 sources) Nonsteroidal Anti-inflammatory Drug Start: 12-07-2020 take 1 tablet by mouth every six hours ibuprofen 600 mg Tab 600 mg = 1 tab(s), Oral, q6hr, # 40 tab(s), Refills(s) 0, Pharmacy: [facility]/pharmacy #[id number], 178, cm, 12/07/20 10:05:00 EDT, Height/Length Dosing, 109, kg, 12/07/20 10:05:00 EDT, Weight Dosing Start Date: 12/07/20 Status: Ordered metoclopramide 10 mg oral tablet (2 sources) Dopamine-2 Receptor Antagonist Start: 05-29-2023 End: 06-28-2023 take 1 tablet by mouth in the morning, then take 1 tablet by mouth in the evening, then take 1 tablet by mouth at bedtime metoclopramide (Reglan) 10 MG tablet Indications: Nausea Take 1 tablet (10 mg) by mouth in the morning and 1 tablet (10 mg) in the evening and 1 tablet (10 mg) before bedtime. 90 tablet 0 05/29/2023 06/28/2023 Active ofloxacin 3 mg/ml otic solution (1 source) Quinolone Antimicrobial Start: 09-07-2022 End: 09-14-2022 ofloxacin Otic 0.3% Merline 5 drop(s), Otic, BID for 7 day(s), 10 mL, Refill(s) 0, [facility]/pharmacy #[id number], 183, cm, 09/07/22 11:38:00 EDT, Height/Length Dosing, 113.2, kg, 09/07/22 11:38:00 EDT, Weight Dosing Start Date: 09/07/22 Stop Date: 09/14/22 Status: Ordered omeprazole 20 mg delayed release oral capsule (2 sources) Proton Pump Inhibitor Start: 05-29-2023 End: 05-28-2024 take 1 capsule by mouth before mealtime omeprazole (PriLOSEC) [address] capsule Indications: Heartburn during in third trimester Take 1 capsule (20 mg) by mouth in the morning. Take before meals. Do not crush or chew.. 30 capsule 3 05/29/2023 05/28/2024 Active Vit-Fe Fumarate-FA ( Plus/Iron) 27-1 MG tablet (3 sources) Start: 12-20-2022 End: 12-20-2023 take 1 tablet by mouth in the morning Vit-Fe Fumarate-FA ( Plus/Iron) 27-1 MG tablet Indications: Missed menses Take 1 tablet by mouth in the morning. 90 tablet 3 12/20/2022 12/20/2023 Active Problems Problem Classification Problem Date Documented Da te Episodic/Chronic Adjustment disorders (4 sources) Adjustment disorder with mixed disturbance of emotions AND conduct; Translations: [Adjustment disorder with mixed disturbance of emotions and conduct] Onset: 04-25-2023 Chronic Menstrual disorders (12 sources) Dysmenorrhea; Translations: [Irregular periods] 10-28-2019 Chronic Nausea and vomiting (2 sources) Nausea; Translations: [Nausea] 05-29-2023 Episodic Other complications of (2 sources) Heartburn; Translations: [Other specified related conditions, third trimester] 05-29-2023 Episodic Other complications of (2 sources) Excessive growth affecting management of mother; Translations: [Maternal care for excessive growth, unspecified trimester, not applicable or unspecified] 05-29-2023 Episodic Other ear and sense organ disorders (1 source) Otitis externa of left ear; Translations: [Unspecified otitis externa, left ear] Onset: 09-07-2022 Chronic Other nutritional; endocrine; and metabolic disorders (1 source) Obese class I; Translations: [Body mass index (BMI) 33.0-33.9, adult] Onset: 09-07-2022 Chronic Other and delivery including normal (3 sources) Second trimester ; Translations: [Encounter for supervision of normal , unspecified, second trimester] 05-13-2023 Episodic Otitis media and related conditions (1 source) Otitis media; Translations: [Otitis media, unspecified, left ear] Onset: 09-07-2022 Episodic Residual codes; unclassified (1 source) Patient encounter status; Translations: [Other specified health status] Onset: 09-07-2022 Episodic Unclassified (3 sources) OB Reminders Onset: 03-01-2023 03-01-2023 Results Test Name Value Interpretation Reference Range Facility Urinalysis macro (dipstick) panel (U)on 05-29-2023 Bilirubin, UA Negative Negative - 4(70) +++ mg/dL [facility] Healthcare Blood, UA Positive Negative - 50 David/mcL [facility] Comment on above: moderate Clarity, UA Clear [facility] Color, UA Yellow [facility] Glucose, UA Negative Negative - 1999(110) ++++ mg/dL [facility] Interpretation and review of laboratory results Abnormal [facility] Ketones, UA Negative Negative - 160(16) ++++ mg/dL [facility] Leukocytes, UA Positive Negative - 500+++ Keith/mcL [facility] Comment on above: small Nitrite, UA Negative Negative - Positive [facility] pH, UA 6.5 5 - 9 [facility] Protein, UA Negative Negative - 1999(20) ++++ mg/dL [facility] Spec Grav, UA 1.025 1 - 1.03 [facility] Urobilinogen, UA 0.2 0.2 - 12 mg/dL [facility] Urinalysis macro (dipstick) panel (U)Ordered By: Jerri Mercado on 05-15-2023 Bilirubin, UA Positive Negative - 4(70) +++ mg/dL [facility] Work Phone: Comment on above: small Blood, UA Positive Negative - 50 David/mcL [facility] Work Phone: Comment on above: trace-intact Clarity, UA Clear [facility] Work Phone: Color, UA Yellow [facility] Work Phone: Glucose, UA Negative Negative - 1999(110) ++++ mg/dL [facility] Work Phone: Interpretation and review of laboratory results Abnormal [facility] Work Phone: Ketones, UA Positive Negative - 160(16) ++++ mg/dL [facility] Work Phone: Comment on above: 80 Leukocytes, UA Positive Negative - 500+++ Keith/mcL [facility] Work Phone: Comment on above: small Nitrite, UA Negative Negative - Positive [facility] Work Phone: pH, UA 7.0 5 - 9 [facility] Work Phone: Protein, UA Positive Negative - 1999(20) ++++ mg/dL [facility] Work Phone: Comment on above: 30 Spec Grav, UA 1.020 1 - 1.03 [facility] Work Phone: Urobilinogen, UA 1.0 0.2 - 12 mg/dL [facility] Healthcare Work Phone: [facility] Work Phone: Ambulatory Visit Summaryon 0 09-07-2022 Ambulatory Visit Summary AMOS RUFFIN :2000 Visit Date:09/07/2022 Ambulatory Visit Instructions Your [...] Up with CIPRIANO MOLINA CNP When: Where: [address] [place] [id number]- Medications What How Much When Why Instructions [...] physician if questions or concerns Pharmacy Information [facility]/pharmacy #[id number]: [address] [place], [place] [phone] Allergies No Known Allergies Problems Ongoing - [...] you start to feel better. ? Take bzuy-ply-wpkxhsv and prescription medicines only as told by [...] provider. Document Revised: 06/13/2021 Document Reviewed: 06/13/2021 [employer] Patient Education ? 2022 [employer] Otitis Media, Adult Otitis media occurs [...] nose (nasophary (more content not included)... Normal [facility] Family Medicine Office/Clini c Noteon 09-07-2022 Family Medicine [...] with voice recognition software. Occasional wrong-word or ?wihfe-i-mlai? substitutions may have occurred due to the inherent limitations of voice recognition software. 21-year-old female presents today with chief complaint of bilateral ear pain onset 2 days ago. Patient states her ear is sore to touch muffled hearing and bilateral pain with the ear pain. She been taking ztae-quq-wsluggc Motrin with some relief of symptoms. Denies [...] With When Contact Information CIPRIANO MOLINA CNP [address] [place] [address]- Additional Instructions: Patient Education Otitis Externa, Fdiu-ck-Lxum Otitis Media, Adult BMI for Adults Problem List/Past Medical History Ongoing Dysmenorrhea Irregular bleeding Menorrhagia Historical No qualifying data Procedure/Surgical History Removal of etonogestre (more content not included)... Normal [facility] Comment on above: Result Comment: Elec tronically Signed By: Oliver BAI, Dipak Dukes.br\Date and Time Signed: 09/07/22 11:57 EDT Patient [...] Follow these instructions at home: ? Take gavm-boe-ecwlvgn and prescription medicines only as told by [...] provider. Document Revised: 07/09/2021 Document Reviewed: 07/09/2021 [employer] Patient Education ? 2022 [employer] Infectious Disease Otitis Externa Otitis externa [...] swimming often. (more content not included)... Normal [facility] Chlamydia/GC DNA, TPon 08-15 Chlamydia Probe, TP Negative Normal [facility]G [facility] Comment on above: Result Comment: CHLA [...] target. Performed By: #### C YTCGP #### [employer] [address] [place], [place] [id number] Media Associate: Willard Sethi MD Gonorrhea Probe, TP Negative Normal [facility] Comment on above: Result Comment: NEIS [...] target. Performed By: #### C YTCGP #### [employer] [address] [place], [place] [id number] Media Associate: Willard Sethi MD Quantiferon-TB Plus (Client Incubated)on 08-14-2022 Gamma interferon background IA Qn (Bld) 0.02 International_Unit/mL Invalid Interpretation Code [facility] Comment on above: Performed By: #### 3 [id number] #### [facility] [address] [place] [address] M. tuberculosis stim IFN-g by CD4+ CD8+ T-cells Qn (Bld) 0.05 International_Unit/mL Invalid Interpretation Code [facility] Comment on above: Performed By: #### 3 [id number], [id number] #### [facility] [address] [place] [address] M. tuberculosis stim IFN-g by CD4+ T-cells Qn (Bld) 0.03 International_Unit/mL Invalid Interpretation Code [facility] Comment on above: Performed By: #### 3 [id number] #### [facility] [address] [place], [place] [id number] M. tuberculosis stim IFN-g Ql (Bld) [Interp] Negative Invalid Interpretation Code Negative [facility] Comment on above: Result Comment: [...] interferon gamma. Chemiluminescence immunoassay methodology Performed at: [address] [id number] PhD Radames Kendrick Performed By: #### 3 [id number], [id number] #### [facility] [address] [place] [address] Mitogen stimulated gamma interferon Qn (Bld) >10.00 Invalid Interpretation Code [facility] Comment on above: Performed By: #### 3 [id number] #### [facility] [address] [place] [address] Service comment (Unsp spec) [Interp] Comment Invalid Interpretation Code [facility] Comment on above: Result Comment: [...] for the test. Performed By: #### 3 [id number], [id number] #### [facility] [address] [place] [address] Cytologyon 08-13-2022 Cytology (NOTE) Path Number: [id number] DIAGNOSIS Cervical material, (ThinPrep vial, Imaging-assisted review): Specimen Adequacy: Satisfactory for evaluation. -Endocervical/transfo rmation zone component is absent. Descriptive Diagnosis: Negative for intraepithelial lesion or malignancy. Cytotech Screener: SS4 Electronically Signed Out MAXIMUS Ramírez(ASCP) ss4/08/21/2022 Source of Specimen: A: Cervical material, (ThinPrep vial, Imaging-assisted review) HPV Reflex?.............. ........HPV if ASCUS Clinical History Z01.419 Routine garment mender exam without abnormal findings High Risk HPV DNA testing is requested if the diagnosis is ASC-US Processing Lab: [address] [address] Interpretation performed at [address] [address] The Pap smear is a screening test primarily for squamous epithelial lesions, which is subject to both false negative and false positive results. Your patient should be reminded to consult you immediately if she experiences any suspicious signs or symptoms, regardless of her Pap smear result. GYNECOLOGIC CYTOLOGY REPORT Patient Name: AMOS RUFFIN [facility] Rec: [id number] [facility] EMER[facility]ENC[facility]PARTMENT ANATOMIC PATHOLOGY [address] [place] [id number] [facility] Comment on above: Performed By: #### P PPVP #### [address] [id number] Media Associate: Willard Sethi MD Hep Bs Abon 08-13-2022 HBV surface Ab Ql (S) Non-Reactive Invalid Interpretation Code [facility] Comment on above: Result Comment: Non Reactive: Inconsistent with immunity, less than 10 mIU/mL Reactive: Consistent with immunity, greater than 9.9 mIU/mL Performed at: [facility] [address] [id number] PhD Radames Kendrick Performed By: #### 3 [id number], [id number] #### [facility] [address] [place] [address] Measles/Mumps/Rubella Immuni tyon 08-13-2022 MeV IgG IA Qn (S) 280.0 A unit/mL Invalid Interpretation Code Immune >16.4 [facility] Comment on above: Result Comment: Nega tive <13.5 Equivocal 13.5 - 16.4 Positive >16.4 Presence of antibodies to Rubeola is presumptive evidence of immunity except when acute infection is suspected. Performed By: #### 3 [id number] #### [facility] [address] [place] [address] MuV IgG IA Qn (S) 11.3 A unit/mL Invalid Interpretation Code Immune >10.9 [facility] Comment on above: Result Comment: Nega tive <9.0 Equivocal 9.0 - 10.9 Positive >10.9 A positive result generally indicates past exposure to Mumps virus or previous vaccination. Performed at: [facility] [place] [address] [place], [place] [id number] PhD Radames Kendrick Performed By: #### 3 [id number], [id number] #### [facility] [address] [place] [address] Rubella virus IgG Qn (S) [IU]/mL Low Immune >0.99 [facility] Comment on above: Result Comment: Non- immune <0.90 Equivocal 0.90 - 0.99 Immune >0.99 Performed By: #### 3 [id number], [id number] #### [facility] [address] [place] [address] Varic IgGon 08-13-2022 VZV IgG IA Qn (S) 504 Invalid Interpretation Code Immune >165 [facility] Comment on above: Result Comment: Nega tive <135 Equivocal 135 - 165 Positive >165 A positive result generally indicates exposure to the pathogen or administration of specific immunoglobulins, but it is not indication of active infection or stage of disease. Performed at: [facility] [id number] PhD Radames Kendrick Performed By: #### 3 [id number], [id number] #### [facility] [address] [place] [address] Vital Signs Date Time Vital Sign Value Performing Clinician Nahum doll 05-29-2023 15:53-0500 Body mass index (BMI) [Ratio] 35.13 kg/m2 Stacia SALDANA Work Phone: [facility] 05-29-2023 15:53-0500 Body weight 117.48 kg Stacia SALDANA Work Phone: [facility] 05-29-2023 15:53-0500 Diastolic blood pressure 70 mm[Hg] Stacia SALDANA Work Phone: [facility] 05-29-2023 15:53-0500 Systolic blood pressure 124 mm[Hg] Stacia SALDANA Work Phone: [facility] 05-15-2023 09:03-0500 Body mass index (BMI) [Ratio] 35.13 kg/m2 Victorino Leonel DO Work Phone: [facility] 05-15-2023 09:03-0500 Body weight 117.48 kg Victorino Leonel DO Work Phone: [facility] 05-15-2023 09:03-0500 Diastolic blood pressure 72 mm[Hg] Victorino Leonel DO Work Phone: [facility] 05-15-2023 09:03-0500 Systolic blood pressure 120 mm[Hg] Victorino Leonel DO Work Phone: [facility] 09-07-2022 11:37-0400 Blood Pressure Location Dipak Oliver [facility] 09-07-2022 11:37-0400 Diastolic blood pressure 80 mm[Hg] Dipak Boyd [facility] 09-07-2022 11:37-0400 Heart rate 76 /min Dipak Keepsey [facility] 09-07-2022 11:37-0400 SaO2% (BldA) [Mass fraction] 99 % Dipak Keepsey [facility] 09-07-2022 11:37-0400 Systolic blood pressure 110 mm[Hg] Dipak Oliver [facility] Encounters Encounter Date Encounter Type Care Provider Facility Start: 06-23-2023 ambulatory Shannon Lai Facility:[facility] Start: 05-29-2023 End: 05-29-2023 ambulatory STACIA HARP Not Available Start: 05-29-2023 End: 05-29-2023 Office outpatient visit 15 minutes Stacia SALDANA Work Phone: [facility] Comment on above: Third trimester preg adalberto; Nausea; Heartburn during in third trimester; Excessive growth affecting management of , antepartum, single or unspecified fetus Start: 05-15-2023 End: 05-15-2023 ambulatory VICTORINO HOLLYO Not Available Start: 05-15-2023 End: 05-15-2023 flow sheet Victorino Hollyo DO Work Phone: [facility] Comment on above: Second trimester pre gnancy Start: 05-08-2023 End: 05-09-2023 ambulatory Shannon Lai Facility[facility] Start: 05-08-2023 End: 05-08-2023 Patient encounter procedure Shannon Chapin [facility] Start: 04-25-2023 End: 04-25-2023 ambulatory SILVA LAMAR Not Available Start: 04-25-2023 End: 04-26-2023 ambulatory Shannon Lai Facility:[facility] Start: 04-25-2023 End: 04-25-2023 Patient encounter procedure Shannon Chapin [facility] Start: 04-17-2023 End: 04-17-2023 ambulatory STACIA KATIUSKA Not Available Start: 03-19-2023 End: 03-19-2023 ambulatory VICTORINO PINKZIO Not Available Start: 01-14-2023 End: 01-15-2023 ambulatory Gio JIMENEZ Facility:[facility] Start: 09-07-2022 End: 09-08-2022 ambulatory Dipak Boyd Facility:[facility] [place] Start: 09-07-2022 End: 09-07-2022 Patient encounter procedure Dipak Boyd [facility] Start: 08-13-2022 End: 08-14-[address] [facility] Start: 08-13-2022 Encounter for gynecological examination (general) (routine) without abnormal findings [facility] Start: 08-13-2022 End: 08-13-2022 Patient encounter procedure [facility] Start: 08-13-2022 End: 08-13-2022 Subsequent hospital visit by physician [facility] Laboratory Comment on above: Encounter for well w randy exam with routine gynecological exam Start: 08-12-2022 End: 08-13-2022 ambulatory Yanira KURTZ Facility:[facility] Start: 08-09-2022 End: 08-10-2022 ambulatory Yanira KURTZ Facility:[facility] Start: 06-07-2022 End: 06-08-2022 ambulatory Krystyna X Orzech Facility: [facility] [place] Start: 06-07-2022 End: 06-07-2022 Patient encounter procedure Krystyna X Orzech [facility] Procedures Date Procedure Procedure Detail Performing Clinician Start: 05-29-2023 Urnls dip stick/tabl et rgnt non-auto w/o micrscp Stacia SALDANA Work Phone: Start: 05-15-2023 Urnls dip stick/tabl et rgnt non-auto w/o micrscp Victorino Castaneda DO Work Phone: Start: 08-10-2020 Removal of etonogest rel implant Krystyna Orzech Tonsillectomy and adenoidectomy Krystyna Orzech Plan of Treatment Date Care Activity Detail Author Start: 05-29-2023 End: 05-29-2024 US for US OB SCAN FOR GROWTH Imaging Routine Excessive growth affecting management of , antepartum, single or unspecified fetus Expected: 05/29/2023 (Approximate), Expires: 05/29/2024 [facility] Work Phone: Comment on above: Expected: 05/29/2023 (Approximate), Expires: 05/29/2024 Start: 05-29-2023 End: 05-29-2023 Patient encounter procedure 05/29/2023 8:30 AM EST Routine [facility] [address] [place] [id number] Stacia Harp PA [address] [place] [address] [facility] Start: 12-13-2022 Influenza vaccination Influenza Vacc ine (#1) [facility] Start: 12-01-2022 DTaP/Tdap/Td vaccine (7 - Td or Tdap) DTaP/Tdap/Td vaccine (7 - Td or Tdap) [facility] Start: 11-12-2022 Influenza vaccination Flu vacc ine (Season Ended) [facility] Start: 2021 Screening for malign ant neoplasm of cervix Pap smear [facility] Start: 2018 Hepatitis C screening Hepatitis C sc reen [facility] Start: 2016 Screening for Chlamy sedrick trachomatis Chlamydia/GC screen [facility] Start: 11-05-2015 HIV screening HIV screen [facility] [employer] Start: 2012 Depression Screen Depression Screen [facility] Start: 05-07-2001 COVID-19 Vaccine (#1) COVID-19 Vacci ne (#1) [facility] End: 08-13-2022 Chlamydia/GC DNA, Thin Prep [facility] Work Phone: Comment on above: 1 Occurrences starti ng 08/13/2022 until 08/13/2022 End: 08-13-2022 Cytopathology procedure, preparation of smear, genital source PAP Smear Lab Routine Encounter for well woman exam with routine gynecological exam 1 Occurrences starting 08/13/2022 until 08/13/2022 [facility] [employer] Phone: Comment on above: 1 Occurrences starti ng 08/13/2022 until 08/13/2022 Immunizations Immunization Date Immunization Notes Care Provider Fa cility 02-04-2020 influenza virus vaccine, unspecified formulation [employer] Orzech [facility] 02-05-2019 influenza virus vaccine, unspecified formulation [employer] [facility] 07-21-2018 meningococcal B vaccine, fully recombinant [employer] [facility] 01-08-2018 influenza virus vaccine, unspecified formulation Kyrstyna Orzech [facility] 11-22-2016 meningococcal ACWY vaccine, unspecified formulation Krystyna Orzech [facility] 11-22-2016 meningococcal B vaccine, fully recombinant Krystyna Orzech [facility] 02-28-2014 influenza, whole Krystyna Orze ch [facility] 11-15-2013 hepatitis A vaccine, unspecified formulation Krystyna Orzech [facility] 11-15-2013 HPV, unspecified formulation Krystyna Orzech [facility] 11-15-2013 meningococcal ACWY, unspecified formulation Krystyna Orzech [facility] 12-01-2012 hepatitis A vaccine, unspecified formulation Krystyna Orzech [facility] 12-01-2012 HPV, unspecified formulation Krystyna Orzech [facility] 12-01-2012 tetanus toxoid, reduced diphtheria toxoid, and acellular pertussis vaccine, adsorbed Krystyna Orzech [facility] [facility] 12-01-2012 varicella virus vaccine Krystyna Orzech [facility] 08-26-2005 hepatitis B vaccine, pediatric or pediatric/adolescent dosage Krystyna Orzech [facility] 08-15-2005 DTaP, unspecified formulation Krystyna Orzech [facility] 08-15-2005 measles, mumps and rubella virus vaccine Krystyna Orzech [facility] 08-15-2005 poliovirus vaccine, unspecified formulation Krystyna Orzech [facility] 12-15-2002 DTaP, unspecified formulation Krystyna Orzech [facility] 12-15-2002 haemophilus influenz ae type b vaccine, PRP-T conjugate Krystyna Orzech [facility] 12-25-2001 DTaP, unspecified formulation Krystyna Orzech [facility] 12-25-2001 measles, mumps and rubella virus vaccine Krystyna Orzech [facility] 12-25-2001 poliovirus vaccine, unspecified formulation Krystyna Orzech [facility] 12-25-2001 varicella virus vaccine Krystyna Orzech [facility] 04-29-2001 DTaP, unspecified formulation Krystyna Orzech [facility] 04-29-2001 poliovirus vaccine, unspecified formulation Krystyna Orzech [facility] 01-20-2001 DTaP, unspecified formulation Krystyna Orzech [facility] 01-20-2001 poliovirus vaccine, unspecified formulation Krystyna Orzech [facility] NEGATED: Highlighted row has not occurred!02-18-2022 influenza virus vaccine, unspecified formulation Krystyna Orzech [facility] NEGATED: Highlighted row has not occurred!02-18-2022 SARS-CoV-2 mRNA (tozinameran 5y-11y) vaccine Krystyna Orzech [facility] Payers Date Payer Category Payer Unknown [id number] 2022 Unknown [employer] [id number] 2022-Present [address] [place] [address] [id number] 2022 Unknown [id number] 2022 Unknown [id number] 2022 Medicaid [employer] [place] [id number] 2022-Present [address] [place] [address] [id number] 2022 Medicaid [id number] 2021 Unknown [id number] 2000 Unknown [id number] 2000 Unknown [id number] 2000 Unknown [id number] [id number] 2000 Unknown [id number] [id number] 2000 Unknown [id number] [id number] 2000 Unknown [id number] [id number] 2000 Unknown [id number] [id number] 2000 Unknown [id number] [id number] 2000 Unknown [id number] [id number] 2000 Unknown [id number] [id number] 2000 Unknown [id number] 2000 Unknown [id number] Social History Date Type Detail Facility Start: 03-30-2020 End: 01-13-2023 Tobacco smoking status Never smoked tobacco (finding) [facility] Tobacco smoking status Never [facility] Start: 01-13-2023 Sex Assigned At Female F [facility] Start: 08-13-2022 Tobacco use and exposure Smokeless tobacco non-user [employer] Phone: Start: 08-13-2022 Alcohol intake Not Asked [facility] [employer] Phone: Start: 08-13-2022 Alcohol Comment social [employer] Phone: Start: 2000 Sex Assigned At Not on file [facility] [employer] Phone: Start: 05-15-2023 Alcohol intake Lifetime non-d diamond (finding) [facility] Start: 01-13-2023 History of Social function [facility] Start: 01-13-2023 Alcohol Comment caffeine: 1-2 cups per day coffee [facility] Start: 11-09-2022 [facility] Goals Date Patient Goal Desired Activity /State Personal health goal Clinical Notes 09-07-2022 to 05-29-2023 SHANA Herrera - 05/29/2023 3:50 PM Ana Johnson LPN - 05/15/2023 9:00 AM EST Note Date & Type Note Facility 05-29-2023 History of Present illness Narrative Reason for Appointment: Patient ID: Amos Ruffin is a 22 y.o. female who presents for Routine Visit Patient presents today for Return OB appointment. Current Medications: has a current medication list which includes the following prescription(s): metoclopramide, omeprazole, and plus/iron. Medical History: Active Ambulatory Problems Diagnosis Date Noted No Active Ambulatory Problems Resolved Ambulatory Problems Diagnosis Date Noted No Resolved Ambulatory Problems Past Medical History: Diagnosis Date Chronic reactive otitis externa of both ears COVID-19 01/2022 History of medical problems Family History Problem Relation Name Age of Onset Mental illness Mother Hypertension Father Cancer Maternal Grandmother Cancer Paternal Grandmother Stroke Paternal Grandmother Stroke Paternal Grandfather Cancer Paternal Grandfather Social History Tobacco Use Smoking status: Never Smokeless tobacco: Not on file Substance Use Topics Alcohol use: Never Comment: caffeine: 1-2 cups per day coffee Drug use: Not on file Past Surgical History: Procedure Laterality Date ADENOIDECTOMY SKIN LESION EXCISION facial leson removal TONSILLECTOMY WISDOM TOOTH EXTRACTION wisdom teeth No Known Allergies Review of Systems: Review of Systems Constitutional: Negative. HENT: Negative. Eyes: Negative. Respiratory: Negative. Cardiovascular: Negative. Gastrointestinal: Negative. Musculoskeletal: Negative. Skin: Negative. Neurological: Negative. Psychiatric/Behavioral: Negative. All other systems reviewed and are negative. Hematological: Negative. Endocrine: Negative. Objective Physical Exam Constitutional: Appearance: Normal appearance. She is normal weight. HENT: Head: Normocephalic. Cardiovascular: Rate and Rhythm: Normal rate. Pulses: Normal pulses. Pulmonary: Effort: Pulmonary effort is normal. Breath sounds: Normal breath sounds. Abdominal: Palpations: Abdomen is soft. Musculoskeletal: General: Normal range of motion. Neurological: General: No focal deficit present. Mental Status: She is alert and oriented to person, place, and time. Psychiatric: Mood and Affect: Mood normal. Behavior: Behavior normal. Thought Content: Thought content normal. Judgment: Judgment normal. Vitals and nursing note reviewed. Vitals: Estimated body mass index is 35.13 kg/m as calculated from the following: Height as of 05/17/22: 6'. Weight as of this encounter: 259 lb. BP: 124/70 Patient's last menstrual period was 10/26/2022. Assessment/Plan Encounter Diagnoses Name Primary? Third trimester Nausea Heartburn during in third trimester Excessive growth affecting management of , antepartum, single or unspecified fetus Patient presents today for a routine obstetrics appointment. Patient is currently 30w5d with a Estimated Date of Delivery: 08/02/23. Patient presents today for a routine obstetrics appointment. Patient is currently 30w5d . Patient states she is doing well but has complaints of being tired due to current . Patient has verbalizes frequent movement. labor precautions was discussed/given and patient was instructed to perform kick counts three times a day. Pt given order for growth US, rx sent for omeprazole and reglan to help with fullness and heartburn Follow Up: Patient is to return to office in 2 week for routine OB appointment. Documented by SHANA Herrera on behalf of: SHANA Herrera documented in this encounter [facility] 05-15-2023 History of Present illness Narrative Reason for Appointment: Patient ID: Amos Ruffin is a 22 y.o. female who presents for Routine Visit Patient presents today for Return OB appointment. Current Medications: has a current medication list which includes the following prescription(s): plus/iron. Medical History: Active Ambulatory Problems Diagnosis Date Noted No Active Ambulatory Problems Resolved Ambulatory Problems Diagnosis Date Noted No Resolved Ambulatory Problems Past Medical History: Diagnosis Date Chronic reactive otitis externa of both ears COVID-19 01/2022 History of medical problems Family History Problem Relation Name Age of Onset Mental illness Mother Hypertension Father Cancer Maternal Grandmother Cancer Paternal Grandmother Stroke Paternal Grandmother Stroke Paternal Grandfather Cancer Paternal Grandfather Social History Tobacco Use Smoking status: Never Smokeless tobacco: Not on file Substance Use Topics Alcohol use: Never Comment: caffeine: 1-2 cups per day coffee Drug use: Not on file Past Surgical History: Procedure Laterality Date ADENOIDECTOMY SKIN LESION EXCISION facial leson removal TONSILLECTOMY WISDOM TOOTH EXTRACTION wisdom teeth No Known Allergies Review of Systems: Review of Systems Objective OBGyn Exam Vitals: Estimated body mass index is 35.13 kg/m as calculated from the following: Height as of 05/17/22: 6'. Weight as of this encounter: 259 lb. BP: 120/72 Patient's last menstrual period was 10/26/2022. Assessment/Plan Encounter Diagnosis Name Primary? Second trimester Patient presents today for a routine obstetrics appointment. Patient is currently 28w5d . Routine OB appointment, discussed lab results with patient. Patient to return to clinic in 4 weeks for routine OB appointment. Documented by Toya Johnson LPN on behalf of: Victorino Castaneda DO documented in this encounter [facility] 09-07-2022 Hospital Discharge instructions Patient Education 09/07/2022 11:57:13 Otitis Externa, [id number] Otitis Externa Otitis externa is an infection [...] if you start to feel better. Take ysuy-oqa-pyylqja and prescription medicines only as told by [...] provider. Document Revised: 06/13/2021 Document Reviewed: 06/13/2021 [employer] Patient Education 2022 [employer]. 09/07/2022 11:57:10 Otitis Media, Adult Otitis Media, [...] pain. Follow these instructions at home: Take [id number]-[id number] and prescription medicines only as told by [...] provider. Document Revised: 07/09/2021 Document Reviewed: 07/09/2021 [employer] Patient Education 2022 [employer]. 09/07/2022 11:57:07 BMI for Adults BMI for [...] numbers. This can be done either in [place]ic ([place] or metric measurements. Note that charts and online BMI calculators are available to help you find your BMI quickly and easily without having to do these calculations yourself. To calculate your BMI in [place]ic ([place] measurements: 1.Measure your weight in pounds [...] Centers for Disease Control and Prevention: www.cdc.gov [place] Heart [employer]: www.heart.org National Heart, Lung, and Blood [place]: www.nhlbi.nih.gov Summary Body mass index (BMI) is a number that is calculated from a person's weight and height. BMI may help estimate how much of a person's weight is composed of fat. BMI can help identify those who may be at higher risk for certain medical problems. BMI can be measured using Icelandic measurements or metric measurements. BMI charts are used to identify whether you are underweight, normal weight, overweight, or obese. This information is not intended to replace advice given to you by your health care provider. Make sure you discuss any questions you have with your health care provider. Document Revised: 12/22/2019 Document Reviewed: 10/29/2019 [employer] Patient Education 2022 [employer]. Follow Up Care 09/07/2022 10:55:41 With:CIPRIANO MOLINA CNP Address: [address] [place] [address]- When: Unknown [facility] Evaluation + Plan note No data available for this section [facility] Care Evaluation + Plan note Future Appointments Appointment Date:05/12/2023 08:00:00 AM Scheduled Provider:Shannon Moore Location:[facility] Appointment Type:BH Therapy 60 [facility] Behavioral Health Evaluation + Plan note Future Appointments Appointment Date:05/22/2023 10:00:00 AM Scheduled Provider:Shannon Moore Location:[facility] Appointment Type: Video Visit Therapy 60 [facility] Health Evaluation note Diagnosis Encounter for well woman exam with routine gynecological exam documented [facility]: evaluation note* Diagnosis Second trimester state, incidental [facility] Diagnosis Third trimester state, incidental Nausea Nausea alone Heartburn during in third trimester Excessive growth affecting management of , antepartum, single or unspecified fetus [facility] No data available for this section [facility] Progress note No data available for this section [facility] Care Summary Purpose Family History No Family History Records Found No data available for this section No data available for this section No Family History Records FoundNo Family History Records Found Advance Directives No Advanced Directives Records FoundNo Advanced Directives Records FoundNo Advanced Directives Records Found Additional Source Comments Patient Care team informatio n (unrecognized section and content) Personnel Name: CIPRIANO MOLINA CNP Address: Address: [address] [place] [address] Personnel Name: CIPRIANO MOLINA CNP Address: Address: [address] [place] [address] Personnel Name: CIPRIANO MOLINA CNP Address: Address: [address] [place] [id number] Personnel Name: CIPRIANO MOLINA CNP Address: Address: [address] [place] [address] INFORMATION SOURCE (unrecogn ized section and content) DATE CREATED AUTHOR 08/22/2022 Macy Concepcion spipayton DATE CREATED AUTHOR AUTHOR'S ORGANIZ ATION 05/21/2023 [facility] DATE CREATED AUTHOR AUTHOR'S ORGANIZ ATION 05/31/2023 [facility] EPIC Reason for Visit (unrecogniz ed section and content) Reason Comments Routine Visit FOR RECORDS PERTAINING TO PATIENTS WHO ARE [...] BE BASED ON THE PRIMARY CLINICAL RECORDS. [employer] [facility]. provides no warranty or guarantee of the accuracy or completeness of information in this document.
== END 2023-06-16 14:38 | disposition home or self-care (01) ==
LOC: NOMS 14:37
PROVIDERS: Visit Provider Obstetrics & Gynecology
DX: O36.60X0 Maternal care for excessive fetal growth, unspecified trimester, not applicable or unspecified (principal); Z3A.35 35 weeks gestation of pregnancy
CPT/HCPCS: 76816

== ENCOUNTER 2023-06-23 14:14 | Outpatient (OUT) | payer OTHER, SELFPAY ==
--- NOTE | 2023-06-23 14:15 | US_ITS ---
[address] [address] Patient Name: AMOS ALBERT MRN: [id number] date: 2000 Sex: F Assigned Patient Location: [facility] Current Patient Location: [facility] Accession/Order Number: [id number] Exam Date: 06/23/2023 14:16 Report Date: 06/23/2023 15:12 At the request of: VICTORINO VALLEJO Procedure: US OB growth EXAMINATION: US OB growth HISTORY: Excessive growth affecting management of COMPARISON: 06/16/2023 FINDINGS: Heart Rate: 140.0 bpm Amniotic Fluid Volume: 13.0 cm Number: 1.0 Position: CEPHALIC Maximum Vertical Pocket: 4.3 cm cm 1.1 cm cm 3.6 cm cm 3.9 cm cm BIOMETRY: BPD: 9.2 cm cm; 37 weeks 3 days; >97% HC: 33.6 cmcm; 38 weeks 3 days , 97% AC: 29.6 cm cm; 33 weeks 4 days, 33% FL: 7.2 cm cm; 36 weeks 5 days; 93.2 % % EFW: 2660.5 grams, 5lb 14 oz, 76% FL/AC: 24.3 FL/BPD: 77.8 HC/AC: 1.1 GESTATIONAL AGE: Age by EDC: 34 weeks 2 days GILLES by EDC: 08/02/2023 Age by US: 36 weeks 4 days GILLES by US: 07/17/2023 US/US OB growth IMPRESSION: BPD and HC at the 97% Estimated weight 76% Electronically authenticated by: KAMERON ROUSE Date: 06/23/2023 15:12
== END 2023-06-23 14:15 | disposition home or self-care (01) ==
LOC: NOMS 14:14
PROVIDERS: Visit Provider Obstetrics & Gynecology
DX: O36.63X0 Maternal care for excessive fetal growth, third trimester, not applicable or unspecified (principal); Z3A.36 36 weeks gestation of pregnancy
CPT/HCPCS: 76816

== ENCOUNTER 2023-07-07 14:01 | Outpatient (OUT) | payer OTHER, SELFPAY ==
--- NOTE | 2023-07-07 14:03 | US_ITS ---
[address] [address] Patient Name: AMOS ALBERT MRN: [id number] date: 2000 Sex: F Assigned Patient Location: [facility] Current Patient Location: [facility] Accession/Order Number: [id number] Exam Date: 07/07/2023 14:03 Report Date: 07/07/2023 15:18 At the request of: VICTORINO VALLEJO Procedure: US OB growth EXAMINATION: US OB growth HISTORY: LGA COMPARISON: 06/23/2023 FINDINGS: Heart Rate: 170.0 bpm Amniotic Fluid Volume: 10.8 cm Number: 1.0 Position: Cephalic presentation, longitudinal lie Maximum Vertical Pocket: 4.6 cm cm 0.0 cm cm 2.5 cm cm 3.7 cm cm BIOMETRY: BPD: 9.5 cm cm; 38 weeks 4 days; >97% HC: 34.3 cmcm; 39 weeks 4 days , 92% AC: 32.1 cm cm; 36 weeks 0 days, 54% FL: 7.3 cm cm; 37 weeks 2 days; 71.8 % % EFW: 3093.7 grams, 6 lbs. 13 oz., 73% FL/AC: 22.7 FL/BPD: 77.0 HC/AC: 1.1 GESTATIONAL AGE: Age by EDC: 36 weeks 2 days GILLES by EDC: 08/02/2023 Age by US: 37 weeks 4 days GILLES by US: 07/24/2023 US/US OB growth IMPRESSION: BPD greater than the 97th percentile Estimated weight 73rd percentile Electronically authenticated by: KAMERON ROUSE Date: 07/07/2023 15:18
== END 2023-07-07 14:02 | disposition home or self-care (01) ==
LOC: NOMS 14:01
PROVIDERS: Visit Provider Obstetrics & Gynecology
DX: O36.63X0 Maternal care for excessive fetal growth, third trimester, not applicable or unspecified (principal); Z3A.37 37 weeks gestation of pregnancy
CPT/HCPCS: 76816; 87081; 87150; 87186

== ENCOUNTER 2023-07-07 21:15 | Outpatient (REF) | payer OTHER, SELFPAY ==
--- OUTSIDE RECORDS SUMMARY | 2023-07-07 21:19 | XMS_ITS | CCD ---
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 Care Report Checker Name Role Phone CIPRIANO MOLINA Primary Care Physician [phone] Unavailable Primary Care Provider UnavailSHELBY Muñoz Referring Unavailable Unavailable Primary Care Provider UnavailDipak Torrez Attending Unavailable Krystyna Seth Attending Unavailable Shannon Lai Attending Unavailable Shannon Lai Attending Unavailable Shannon Lai Attending Unavailable Gio JIMENEZ Referring Unavailable Sunny Brambila Attending Unavailable Yanira KURTZ Attending Unavailable Yanira KURTZ Attending Unavailable STACIA HARP Attending Unavailable SILVA LAMAR Attending Unavailable VICTORINO CASTANEDA Attending Unavailable STACIA HARP Attending Unavailable VICTORINO CASTANEDA Attending Unavailable STACIA [...] day(s), # 28 cap(s), Refills(s) 0, Pharmacy: [facility]/pharmacy #[id number], 183, cm, 09/07/22 11:38:00 EDT, Height/Length Dosing, 113.2, kg, 09/07/22 11:38:00 EDT, Weight Dosing Start Date: 09/07/22 Stop Date: 09/14/22 Status: Ordered ibuprofen 600 mg oral tablet (4 sources) Nonsteroidal Anti-inflammatory Drug Start: 12-07-2020 take 1 tablet by mouth every six hours ibuprofen 600 mg Tab 600 mg = 1 tab(s), Oral, q6hr, # 40 tab(s), Refills(s) 0, Pharmacy: [facility]/pharmacy #[id number], 178, cm, 12/07/20 10:05:00 EDT, Height/Length [...] for 7 day(s), 10 mL, Refill(s) 0, [facility]/pharmacy #[id number], 183, cm, 09/07/22 11:38:00 EDT, Height/Length [...] UA Negative Negative - 4(70) +++ mg/dL [facility] Blood, UA Positive Negative - 50 David/mcL [facility] Comment on above: moderate Clarity, UA Clear [facility] Color, UA Yellow [facility] Glucose, UA Negative Negative - 1999(110) ++++ mg/dL [facility] Interpretation and review of laboratory results Abnormal [facility] Ketones, UA Negative Negative - 160(16) ++++ mg/dL [facility] Leukocytes, UA Positive Negative - 500+++ Keith/mcL [facility] Comment on above: small Nitrite, UA Negative Negative - Positive [facility] pH, UA 6.5 5 - 9 [facility] Protein, UA Negative Negative - 1999(20) ++++ mg/dL [facility] Spec Grav, UA 1.025 1 - 1.03 [facility] Urobilinogen, UA 0.2 0.2 - 12 mg/dL [facility] Urinalysis macro (dipstick) panel (U)Ordered By: Jerri Mercado on 05-15-2023 Bilirubin, UA Positive Negative - 4(70) +++ mg/dL [facility] Work Phone: Comment on above: small Blood, UA Positive Negative - 50 David/mcL [facility] Work Phone: Comment on above: trace-intact Clarity, UA Clear [facility] Work Phone: Color, UA Yellow [facility] Work Phone: Glucose, UA Negative Negative - 1999(110) ++++ mg/dL [facility] Work Phone: Interpretation and review of laboratory results Abnormal [facility] Work Phone: Ketones, UA Positive Negative - 160(16) ++++ mg/dL [facility] Work Phone: Comment on above: 80 Leukocytes, UA Positive Negative - 500+++ Keith/mcL [facility] Work Phone: Comment on above: small Nitrite, UA Negative Negative - Positive [facility] Work Phone: pH, UA 7.0 5 - 9 [facility] Work Phone: Protein, UA Positive Negative - 1999(20) ++++ mg/dL [facility] Work Phone: Comment on above: 30 Spec Grav, UA 1.020 1 - 1.03 [facility] Work Phone: Urobilinogen, UA 1.0 0.2 - 12 mg/dL [facility] Work Phone: [facility] Work Phone: Ambulatory Visit Summaryon [...] Up with CIPRIANO MOLINA CNP When: Where: [address] [place] [address]- Medications What How Much When Why Instructions New amoxicillin (amoxicillin 500 mg Cap) 2 Capsules By Mouth Every 12 hours Left otitis media Otitis externa of left ear BMI 33.0-33.9,adult Duration: 7 Days Pickup at [facility]/pharmacy #[id number] New ofloxacin otic (ofloxacin Otic 0.3% Merline) 5 Drops Otic 2 times a day Duration: 7 Days Pickup at [facility]/pharmacy #[id number] Unchanged ibuprofen (ibuprofen 600 mg Tab) 1 Tablets By Mouth Every 6 hours Contact prescribing physician if questions or concerns Pharmacy Information [facility]/pharmacy #[id number]: [address] [place], [place] [phone] Allergies No Known Allergies Problems Ongoing - [...] you start to feel better. ? Take nboi-sgx-oorhozi and prescription medicines only as told by [...] provider. Document Revised: 06/13/2021 Document Reviewed: 06/13/2021 [employer] Patient Education ? 2022 [employer] Otitis Media, Adult Otitis media occurs [...] nose (nasophary (more content not included)... Normal [facility] Medicine Office/Clini c Noteon 09-07-2022 Family [...] with voice recognition software. Occasional wrong-word or ?pfirm-s-sscv? substitutions may have occurred due to the inherent limitations of voice recognition software. 21-year-old female presents today with chief complaint of bilateral ear pain onset 2 days ago. Patient states her ear is sore to touch muffled hearing and bilateral pain with the ear pain. She been taking ltig-ftl-tdowkda Motrin with some relief of symptoms. Denies [...] day(s), # 28 cap(s), Refills(s) 0, Pharmacy: [facility]/pharmacy #[id number], 183, cm, 09/07/22 11:38:00 EDT, Height/Length [...] day(s), # 28 cap(s), Refills(s) 0, Pharmacy: [facility]/pharmacy #[id number], 183, cm, 09/07/22 11:38:00 EDT, Height/Length [...] day(s), # 28 cap(s), Refills(s) 0, Pharmacy: [facility]/pharmacy #[id number], 183, cm, 09/07/22 11:38:00 EDT, Height/Length Dosing, 113.2, kg, 09/07/22 11:38:00 EDT, Weight Dosing Non-smoker (Z78.9: Other specified health status) Orders: ofloxacin otic, 5 drop(s), Otic, BID for 7 day(s), 10 mL, Refill(s) 0, [id number], 183, cm, 09/07/22 11:38:00 EDT, Height/Length Dosing, 113.2, kg, 09/07/22 11:38:00 EDT, Weight Dosing Follow-up With When Contact Information CIPRIANO MOLINA CNP [address] [place] [address]- Additional Instructions: Patient Education Otitis Externa, Ndlf-ek-Egjl Otitis Media, Adult BMI for Adults Problem List/Past Medical History Ongoing Dysmenorrhea Irregular bleeding Menorrhagia Historical No qualifying data Procedure/Surgical History Removal of etonogestre (more content not included)... Normal [facility] Comment on above: Result Comment: Elec tronically Signed By: Oliver [email or web address]\Date and Time Signed: 09/07/22 11:57 EDT Patient [...] Follow these instructions at home: ? Take cgwv-dxz-ixtbwdb and prescription medicines only as told by [...] provider. Document Revised: 07/09/2021 Document Reviewed: 07/09/2021 [employer] Patient Education ? 2022 [employer] Infectious Disease Otitis Externa Otitis externa [...] swimming often. (more content not included)... Normal [facility] Chlamydia/GC DNA, TPon 08-15 Chlamydia Probe, TP Negative Normal NEG [facility] Comment on above: Result Comment: CHLA [...] target. Performed By: #### C YTCGP #### [facility] [address] [place], [place] [address] Macaroni Maker: Willard Sethi MD Gonorrhea Probe, TP Negative Normal NEG [facility] Comment on above: Result Comment: NEIS [...] target. Performed By: #### C YTCGP #### [facility] [address] [place], [place] [address] Macaroni Maker: Willard Sethi MD Quantiferon-TB Plus (Client Incubated)on 08-14-2022 Gamma interferon background IA Qn (Bld) 0.02 International_Unit/mL Invalid Interpretation Code [facility] Comment on above: Performed By: #### 3 [id number] #### [facility] Laboratory [address] [place] [address] M. tuberculosis stim IFN-g by CD4+ CD8+ T-cells Qn (Bld) 0.05 International_Unit/mL Invalid Interpretation Code [facility] Comment on above: Performed By: #### 3 [id number] #### [facility] [address] [place] [address] M. tuberculosis stim IFN-g by CD4+ T-cells Qn (Bld) 0.03 International_Unit/mL Invalid Interpretation Code [facility] Comment on above: Performed By: #### 3 [id number] #### [facility] [address] [place], [place] [id number] M. tuberculosis stim IFN-g Ql (Bld) [Interp] Negative Invalid Interpretation Code Negative [facility] Comment on above: Result Comment: No r [...] interferon gamma. Chemiluminescence immunoassay methodology Performed at: [facility] [id number] PhD Radames Kendrick Performed By: #### 3 [id number], [id number] #### [facility] [address] [place] [address] Mitogen stimulated gamma interferon Qn (Bld) >10.00 Invalid Interpretation Code [facility] Comment on above: Performed By: #### 3 [id number] #### [facility] [address] [place] [address] Service comment (Unsp spec) [Interp] Comment Invalid Interpretation Code [facility] Comment on above: Result Comment: Ish tiFERON-TB [...] for the test. Performed By: #### 3 [id number], [id number] #### [facility] [address] [place] [address] Cytologyon 08-13-2022 Cytology (NOTE) Path Number: [id number] DIAGNOSIS Cervical material, (ThinPrep vial, Imaging-assisted review): Specimen Adequacy: Satisfactory for evaluation. -Endocervical/transfo rmation zone component is absent. Descriptive Diagnosis: Negative for intraepithelial lesion or malignancy. Cytotech Screener: SS4 Electronically Signed Out MAXIMUS Ramírez(ASCP) ss4/08/21/2022 Source of Specimen: A: Cervical material, (ThinPrep vial, Imaging-assisted review) HPV Reflex?.............. ........HPV if ASCUS Clinical History Z01.419 Routine volunteer services manager exam without abnormal findings High Risk HPV DNA testing is requested if the diagnosis is ASC-US Processing Lab: [address] [address] Interpretation performed at [address] [address] The Pap smear is a screening test primarily for squamous epithelial lesions, which is subject to both false negative and false positive results. Your patient should be reminded to consult you immediately if she experiences any suspicious signs or symptoms, regardless of her Pap smear result. GYNECOLOGIC CYTOLOGY REPORT Patient Name: AMOS RUFFIN Med Rec: [id number] [facility] [employer] CONSULTING PATHOLOGISTS [facility] ANATOMIC PATHOLOGY [facility] [place], [place] [address] [facility] Comment on above: Performed By: #### P PPVP #### [facility] [employer] [address] [place] [id number] Macaroni Maker: Willard Sethi MD Hep Bs Abon 08-13-2022 HBV surface Ab Ql (S) Non-Reactive Invalid Interpretation Code [facility] Comment on above: Result Comment: Non Reactive: Inconsistent with immunity, less than 10 mIU/mL Reactive: Consistent with immunity, greater than 9.9 mIU/mL Performed at: [employer] [id number] PhD Radames Kendrick Performed By: #### 3 [id number] #### [facility] [address] [place] [address] Measles/Mumps/Rubella Immuni tyon 08-13-2022 MeV IgG IA Qn (S) 280.0 A unit/mL Invalid Interpretation Code Immune >16.4 [facility] Comment on above: Result Comment: Nega tive <13.5 Equivocal 13.5 - 16.4 Positive >16.4 Presence of antibodies to Rubeola is presumptive evidence of immunity except when acute infection is suspected. Performed By: #### 3 [id number] #### [facility] [address] [place] [address] MuV IgG IA Qn (S) 11.3 A unit/mL Invalid Interpretation Code Immune >10.9 [facility] Comment on above: Result Comment: Nega tive <9.0 Equivocal 9.0 - 10.9 Positive >10.9 A positive result generally indicates past exposure to Mumps virus or previous vaccination. Performed at: [facility] [address] [place] [address] [id number] PhD Radames Kendrick Performed By: #### 3 [id number] #### [facility] [address] [place] [address] Rubella virus IgG Qn (S) [IU]/mL Low Immune >0.99 [facility] Comment on above: Result Comment: Non- immune <0.90 Equivocal 0.90 - 0.99 Immune >0.99 Performed By: #### 3 [id number], [id number] #### [facility] [address] [place] [address] Varic IgGon 08-13-2022 VZV IgG IA Qn (S) 504 Invalid Interpretation Code Immune >165 [facility] Comment on above: Result Comment: Nega tive <135 Equivocal 135 - 165 Positive >165 A positive result generally indicates exposure to the pathogen or administration of specific immunoglobulins, but it is not indication of active infection or stage of disease. Performed at: [facility] [id number] PhD Radames Kendrick Performed By: #### 3 [id number] #### [facility] [address] [place] [address] Vital Signs Date Time Vital Sign Value Performing Clinician Nahum doll 05-29-2023 15:53-0500 Body mass index (BMI) [Ratio] 35.13 kg/m2 Stacia SALDANA Work Phone: [facility] 05-29-2023 15:53-0500 Body weight 117.48 kg Stacia SALDANA Work Phone: [facility] 05-29-2023 15:53-0500 Diastolic blood pressure 70 mm[Hg] Stacia SALDANA Work Phone: [facility] 05-29-2023 15:53-0500 Systolic blood pressure 124 mm[Hg] Stacia SALDANA Work Phone: [facility] 05-15-2023 09:03-0500 Body mass index (BMI) [Ratio] 35.13 kg/m2 Victorino Castaneda DO Work Phone: [facility] 05-15-2023 09:03-0500 Body weight 117.48 kg Victorino Leonel DO Work Phone: [facility] 05-15-2023 09:03-0500 Diastolic blood pressure 72 mm[Hg] Victorino Leonel DO Work Phone: [facility] 05-15-2023 09:03-0500 Systolic blood pressure 120 mm[Hg] Victorino Leonel DO Work Phone: [facility] 09-07-2022 11:37-0400 Blood Pressure Location Dipak Oliver [facility] 09-07-2022 11:37-0400 Diastolic blood pressure 80 mm[Hg] Dipak Keepsey [facility] 09-07-2022 11:37-0400 Heart rate 76 /min Dipak Oliver [facility] 09-07-2022 11:37-0400 SaO2% (BldA) [Mass fraction] 99 % Dipak Keepsey [facility] 09-07-2022 11:37-0400 Systolic blood pressure 110 mm[Hg] Dipak Keepsey [facility] Encounters Encounter Date Encounter Type Care Provider Facility Start: 07-02-2023 End: 07-02-2023 ambulatory STACIA HARP Not Available Start: 06-23-2023 ambulatory Shannon M Ming Facility:[facility] Start: 06-16-2023 End: 06-16-2023 ambulatory VICTORINO LEONEL Not Available Start: 05-29-2023 End: 05-29-2023 ambulatory STACIA HARP Not Available Start: 05-29-2023 End: 05-29-2023 Office outpatient visit 15 minutes Stacia Harp PA Work Phone: [facility] Comment on above: Third trimester preg adalberto; Nausea; Heartburn during in third trimester; Excessive growth affecting management of , antepartum, single or unspecified fetus Start: 05-15-2023 End: 05-15-2023 ambulatory VICTORINO PINKZIO Not Available Start: 05-15-2023 End: 05-15-2023 flow sheet Victorino Leonel DO Work Phone: [facility] Comment on above: Second trimester pre gnancy Start: 05-08-2023 End: 05-09-2023 ambulatory [facility] Lai [facility] Start: 05-08-2023 End: 05-08-2023 Patient encounter procedure Shannon Chapin [facility] Start: 04-25-2023 End: 04-25-2023 ambulatory SILVA LAMAR Not Available Start: 04-25-2023 End: 04-26-2023 ambulatory Shannon Lai Facility[facility] Start: 04-25-2023 End: 04-25-2023 Patient encounter procedure Shannon Chapin [facility] Start: 04-17-2023 End: 04-17-2023 ambulatory STACIA HARP Not Available Start: 03-19-2023 End: 03-19-2023 ambulatory VICTORINO CASTANEDA Not Available Start: 01-14-2023 End: 01-15-2023 ambulatory Gio JIMENEZ Facility:[facility] Start: 09-07-2022 End: 09-08-2022 ambulatory Dipak Boyd Facility:[facility] Start: 09-07-2022 End: 09-07-2022 Patient encounter procedure Dipak Boyd [facility] Start: 08-13-2022 End: 08-14-2022 ambulatory SHELBY Reyes [facility] Start: 08-13-2022 Encounter for gynecological examination (general) (routine) without abnormal findings [facility] Start: 08-13-2022 End: 08-13-2022 Patient encounter procedure [facility] Start: 08-13-2022 End: 08-13-2022 Subsequent hospital visit by physician [facility] Comment on above: Encounter for well w randy exam with routine gynecological exam Start: 08-12-2022 End: 08-13-2022 ambulatory Yanira KURTZ Facility:[facility] Start: 08-09-2022 End: 08-10-2022 ambulatory Yanira Arcelia KURTZ Facility:[facility] Start: 06-07-2022 End: 06-08-2022 ambulatory Krystyna X Orzech Facility: [facility] Start: 06-07-2022 End: 06-07-2022 Patient encounter procedure Krystyna X Orzech [facility] Procedures Date Procedure Procedure Detail Performing Clinician Start: 05-29-2023 Urnls dip stick/tabl et rgnt non-auto w/o micrscp Stacia SALDANA Work Phone: Start: 05-15-2023 Urnls dip stick/tabl et rgnt non-auto w/o micrscp Victorino Leonel DO Work Phone: Start: 08-10-2020 Removal of [...] AM EST Routine [facility] [address] [place] [address] Stacia Harp PA [address] [place] [address] [facility] Start: 12-13-2022 Influenza vaccination Influenza Vacc ine (#1) [facility] Start: 12-01-2022 DTaP/Tdap/Td vaccine (7 - Td or Tdap) DTaP/Tdap/Td vaccine (7 - Td or Tdap) [facility] Start: 11-12-2022 Influenza vaccination Flu vacc ine (Season Ended) [facility] Start: 2021 Screening for malign ant neoplasm of cervix Pap smear [facility] Start: 2018 Hepatitis C screening Hepatitis C sc reen [facility] Start: 2016 Screening for Chlamy sedrick trachomatis Chlamydia/GC screen [facility] Start: 11-05-2015 HIV screening HIV screen [facility] Start: 2012 Depression Screen Depression Screen [facility] Start: 05-07-2001 COVID-19 Vaccine (#1) COVID-19 Vacci ne (#1) [facility] End: 08-13-2022 Chlamydia/GC DNA, Thin Prep [facility] Work Phone: Comment on above: 1 Occurrences starti ng 08/13/2022 until 08/13/2022 End: 08-13-2022 Cytopathology procedure, preparation of smear, genital source PAP Smear Lab Routine Encounter for well woman exam with routine gynecological exam 1 Occurrences starting 08/13/2022 until 08/13/2022 [facility] Work Phone: Comment on above: 1 Occurrences starti ng 08/13/2022 until 08/13/2022 Immunizations Immunization Date Immunization Notes Care Provider Fa cility 02-04-2020 influenza virus vaccine, unspecified formulation Krystyna Orzech [facility] 02-05-2019 influenza virus vaccine, unspecified formulation Krystyna Orzech [facility] 07-21-2018 meningococcal B vaccine, fully recombinant Krystyna Orzech [facility] 01-08-2018 influenza virus vaccine, unspecified formulation Krystyna Orzech [facility] 11-22-2016 meningococcal ACWY vaccine, unspecified formulation Krystyna Orzech [facility] 11-22-2016 meningococcal B vaccine, fully recombinant Krystyna Orzech [facility] 02-28-2014 influenza, whole Krystyna Orze ch [facility] 11-15-2013 hepatitis A vaccine, unspecified formulation Krystyna Orzech [facility] 11-15-2013 HPV, unspecified formulation Krystyna Orzech [facility] 11-15-2013 meningococcal ACWY, unspecified formulation Krystyna Orzech [facility] 12-01-2012 hepatitis A vaccine, unspecified formulation Krystyna Orzech [facility] 12-01-2012 HPV, unspecified formulation Krystyna Orzech [facility] 12-01-2012 tetanus toxoid, reduced diphtheria toxoid, and acellular pertussis vaccine, adsorbed Krystyna Orzech [facility] 12-01-2012 varicella virus vaccine Krystyna Orzech [facility] 08-26-2005 hepatitis B vaccine, pediatric or pediatric/adolescent dosage Krystyna Orzech [facility] 08-15-2005 DTaP, unspecified formulation Krystyna Orzech [facility] 08-15-2005 measles, mumps and rubella virus vaccine Krystyna Orzech [facility] 08-15-2005 poliovirus vaccine, unspecified formulation Krystyna Orzech [facility] 12-15-2002 DTaP, unspecified formulation Krystyna Orzech [facility] 12-15-2002 haemophilus influenz ae type b vaccine, PRP-T conjugate Krystyna Orzech [facility] 12-25-2001 DTaP, unspecified formulation Krystyna Orzech [facility] 12-25-2001 measles, mumps and rubella virus vaccine Krystyna Orzech [facility] 12-25-2001 poliovirus vaccine, unspecified formulation Krystyna Orzech [facility] 12-25-2001 varicella virus vaccine Krystyna Orzech [facility] 04-29-2001 DTaP, unspecified formulation Krystyna Orzech [facility] 04-29-2001 poliovirus vaccine, unspecified formulation Krystyna Orzech [facility] 01-20-2001 DTaP, unspecified formulation Krystyna Orzech [facility] 01-20-2001 poliovirus vaccine, unspecified formulation Krystyna Orzech [facility] NEGATED: Highlighted row has not occurred!02-18-2022 influenza virus vaccine, unspecified formulation Krystyna Orzech [facility] NEGATED: Highlighted row has not occurred!02-18-2022 SARS-CoV-2 mRNA (tozinameran 5y-11y) vaccine Krystyna Orzech [facility] Payers Date Payer Category Payer Unknown [id number] 2022 Unknown [employer] [id number] 2022-Present [address] [place] [address] [id number] 2022 Unknown [id number] 2022 Unknown [id number] 2022 Medicaid [employer] [place] [id number] 2022-Present [address] [place] [address] [id number] 2022 Medicaid [id number] 2021 Unknown [id number] 2000 Unknown [id number] 2000 Unknown [id number] 2000 Unknown [id number] 2000 Unknown [id number] 2000 Unknown [id number] 2000 Unknown [id number] 2000 Unknown [id number] 2000 Unknown [id number] 2000 Unknown [id number] 2000 Unknown [id number] 2000 Unknown [id number] 2000 Unknown [id number] 2000 Unknown [id number] 2000 Unknown [id number] Social History Date Type Detail Facility Start: 03-30-2020 End: 01-13-2023 Tobacco smoking status Never smoked tobacco (finding) [facility] Tobacco smoking status Never [facility] Start: 01-13-2023 Sex Assigned At Female F [facility] Start: 08-13-2022 Tobacco use and exposure Smokeless tobacco non-user [employer] Phone: Start: 08-13-2022 Alcohol intake Not Asked [employer] Phone: Start: 08-13-2022 Alcohol Comment social [employer] Phone: Start: 2000 Sex Assigned At Not on file [facility] [employer] Phone: Start: 05-15-2023 Alcohol intake Lifetime non-d diamond (finding) [facility] Start: 01-13-2023 History of Social function [facility] Start: 01-13-2023 Alcohol Comment caffeine: 1-2 cups per day coffee [facility] Start: 11-09-2022 [facility] Go[facility] Date Patient Goal Desired Activity /State Personal health goal Clinical Notes 09-07-2022 to 05-29-2023 SHANA Herrera - 05/29/2023 3:50 PM ESTSjesús Johnson LPN - 05/15/2023 9:00 AM EST [...] of: SHANA Herrera documented in this encounter [facility] 05-15-2023 History of Present illness Narrative Reason [...] Victorino Castaneda DO documented in this encounter [facility] 09-07-2022 Hospital Discharge instructions Patient Education 09/07/2022 11:57:13 Otitis Externa, Vaxg-yh-Ppzp Otitis Externa Otitis externa is an infection [...] if you start to feel better. Take snxk-ksm-ctssoma and prescription medicines only as told by [...] provider. Document Revised: 06/13/2021 Document Reviewed: 06/13/2021 [email or web address] Patient Education 2022 [employer]. 09/07/2022 11:57:10 Otitis Media, Adult Otitis Media, [...] pain. Follow these instructions at home: Take jfqu-bzt-tbcvkou and prescription medicines only as told by [...] provider. Document Revised: 07/09/2021 Document Reviewed: 07/09/2021 [email or web address] Patient Education 2022 [employer]. 09/07/2022 11:57:07 BMI for Adults BMI for [...] numbers. This can be done either in Italian ([place] or metric measurements. Note that charts and online BMI calculators are available to help you find your BMI quickly and easily without having to do these calculations yourself. To calculate your BMI in Italian ([place].) measurements: 1.Measure your weight in pounds [...] Centers for Disease Control and Prevention: www.cdc.gov [place] [employer]: www.heart.org National Heart, Lung, and Blood [place]: www.nhlbi.nih.gov Summary Body mass index (BMI) is a number that is calculated from a person's weight and height. BMI may help estimate how much of a person's weight is composed of fat. BMI can help identify those who may be at higher risk for certain medical problems. BMI can be measured using Italian measurements or metric measurements. BMI charts are used to identify whether you are underweight, normal weight, overweight, or obese. This information is not intended to replace advice given to you by your health care provider. Make sure you discuss any questions you have with your health care provider. Document Revised: 12/22/2019 Document Reviewed: 10/29/2019 [email or web address] Patient Education 2022 [employer]. Follow Up Care 09/07/2022 10:55:41 With:CIPRIANO MOLINA CNP Address: [address] [place] [id number] When: Unknown [facility] Evaluation + Plan note No data available for this section [facility] Evaluation + Plan note Future Appointments Appointment Date:05/12/2023 08:00:00 AM Scheduled Provider:Shannon Moore Location[place] Appointment Type:BH Therapy 60 [facility] Evaluation + Plan note Future Appointments Appointment Date:05/22/2023 10:00:00 AM Scheduled Provider:Shannon Moore Location[place] [place] [facility] Appointment Type: Video Visit Therapy 60 [facility] Evaluation note Diagnosis Encounter for well woman exam with routine gynecological exam documented in this encounter [employer]AVE[employer] EUGENE[employer]gorego Work Phone: evaluation note* Diagnosis Second trimester state, incidental [facility] Diagnosis Third trimester state, incidental Nausea Nausea alone Heartburn during in third trimester Excessive growth affecting management of , antepartum, single or unspecified fetus [facility] No data available for this section [facility] Progress note No data available for this section [facility] Care Summary Purpose Family History No [...] Personnel Name: CIPRIANO MOLINA CNP Address: Address: [address] [place] [address] Personnel Name: CIPRIANO MOLINA CNP Address: Address: [address] [place] [address] Personnel Name: CIPRIANO MOLINA CNP Address: Address: [address] [place] [address] Personnel Name: CIPRIANO MOLINA CNP Address: Address: [address] [place] [address] INFORMATION SOURCE (unrecogn ized section and content) DATE CREATED AUTHOR 08/22/2022 Philanna MendozaYeagertownsimone adams DATE CREATED AUTHOR AUTHOR'S ORGANIZ ATION 05/21/2023 [facility] DATE CREATED AUTHOR AUTHOR'S ORGANIZ ATION 07/03/2023 [facility] EPIC Reason for Visit (unrecogniz [...] BE BASED ON THE PRIMARY CLINICAL RECORDS. [facility] [email or web address] provides no warranty or guarantee of the accuracy or completeness of information in this document.
== END 2023-07-07 21:16 | disposition home or self-care (01) ==
LOC: LAB 21:15
PROVIDERS: Visit Provider Obstetrics & Gynecology
DX: Z34.93 Encounter for supervision of normal pregnancy, unspecified, third trimester (principal)
CPT/HCPCS: 87081; 87150; 87186

== ENCOUNTER 2023-07-10 20:37 | Observation (INO) | payer OTHER, SELFPAY ==
--- OUTSIDE RECORDS SUMMARY | 2023-07-10 20:42 | XMS_ITS | CCD ---
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 Name Role Phone CIPRIANO MOLINA Primary Care [...] HARP Attending Unavailable VICTORINO CASTANEDA Attending Unavailable VICTORINO CASTANEDA Attending Unavailable Medications Current Medications Medication Drug Class(es) Dates Sig (Normalized) Sig (Original) amoxicillin 500 mg oral capsule (1 source) Penicillin-class Antibacterial Start: 09-07-2022 End: 09-14-2022 take 2 capsules by mouth every twelve hours amoxicillin 500 mg Cap 1,000 mg = 2 cap(s), Oral, q12hr, X 7 day(s), # 28 cap(s), Refills(s) 0, Pharmacy: [facility]/pharmacy #[id number], 183, cm, 09/07/22 11:38:00 EDT, Height/Length Dosing, 113.2, kg, 09/07/22 11:38:00 EDT, Weight Dosing Start Date: 09/07/22 Stop Date: 09/14/22 Status: Ordered ibuprofen 600 mg oral tablet (4 sources) Nonsteroidal Anti-inflammatory Drug Start: 12-07-2020 take 1 tablet by mouth every six hours ibuprofen 600 mg Tab 600 mg = 1 tab(s), Oral, q6hr, # 40 tab(s), Refills(s) 0, Pharmacy: [facility]/pharmacy #[id number], 178, cm, 12/07/20 10:05:00 EDT, [...] for 7 day(s), 10 mL, Refill(s) 0, [facility]/pharmacy #[id number], 183, cm, 09/07/22 11:38:00 EDT, [...] UA Clear [facility] Color, UA Yellow [facility] Glucose, UA Negative Negative - 1999(110) ++++ mg/dL [facility] Interpretation and review of laboratory results Abnormal [facility] Ketones, UA Negative Negative - 160(16) ++++ mg/dL [facility] Leukocytes, UA Positive Negative - 500+++ Keith/mcL [facility] Comment on above: small Nitrite, UA Negative Negative - Positive [facility] pH, UA 6.5 5 - 9 [facility] Protein, UA Negative Negative - 1999(20) ++++ mg/dL [facility] Spec Grav, UA 1.025 1 - 1.03 [facility] Urobilinogen, UA 0.2 0.2 - 12 mg/dL [facility] Urinalysis macro (dipstick) panel (U)Ordered By: Jerri Mercado on 05-15-2023 Bilirubin, UA Positive Negative - 4(70) +++ mg/dL [facility] Work Phone: Comment on above: small Blood, UA Positive Negative - 50 David/mcL [facility] Work Phone: Comment on above: trace-intact Clarity, UA Clear [facility] Work Phone: Color, UA Yellow [facility] Work Phone: Glucose, UA Negative Negative - 1999(110) ++++ mg/dL [facility] Work Phone: Interpretation and review of laboratory results Abnormal [facility] Work Phone: Ketones, UA Positive Negative - 160(16) ++++ mg/dL [facility] Work Phone: Comment on above: 80 Leukocytes, UA Positive Negative - 500+++ Keith/mcL [facility] Work Phone: Comment on above: small Nitrite, UA Negative Negative - Positive [facility] Work Phone: pH, UA 7.0 5 - 9 [facility] Work Phone: Protein, UA Positive Negative - 1999(20) ++++ mg/dL [facility] Work Phone: Comment on above: 30 Spec Grav, UA 1.020 1 - 1.03 [facility] Work Phone: Urobilinogen, UA 1.0 0.2 - 12 mg/dL [facility] Work Phone: [facility] Work Phone: Ambulatory Visit Summaryon [...] Up with CIPRIANO MOLINA CNP When: Where: [address] [place] [id number]- Medications What How Much When Why Instructions New amoxicillin (amoxicillin 500 mg Cap) 2 Capsules By Mouth Every 12 hours Left otitis media Otitis externa of left ear BMI 33.0-33.9,adult Duration: 7 Days Pickup at [facility]/pharmacy #[id number] New ofloxacin otic (ofloxacin Otic 0.3% Merline) 5 Drops Otic 2 times a day Duration: 7 Days Pickup at [facility]/pharmacy #[id number] Unchanged ibuprofen (ibuprofen 600 mg Tab) 1 Tablets By Mouth Every 6 hours Contact prescribing physician if questions or concerns Pharmacy Information [facility]/pharmacy #[id number]: [address] [place], [place] [id number] [phone] Allergies No Known Allergies Problems Ongoing - [...] you start to feel better. ? Take snlo-rac-fgbypkj and prescription medicines only as told by [...] provider. Document Revised: 06/13/2021 Document Reviewed: 06/13/2021 [employer] Patient Education ? 2022 [employer] Otitis Media, Adult Otitis media occurs [...] nose (nasophary (more content not included)... Normal [facility] Office/Clini c Noteon 09-07-2022 Family [...] with voice recognition software. Occasional wrong-word or ?dexfj-g-hspf? substitutions may have occurred due to the inherent limitations of voice recognition software. 21-year-old female presents today with chief complaint of bilateral ear pain onset 2 days ago. Patient states her ear is sore to touch muffled hearing and bilateral pain with the ear pain. She been taking jbnl-soj-zwizjrr Motrin with some relief of symptoms. Denies [...] day(s), # 28 cap(s), Refills(s) 0, Pharmacy: [facility]/pharmacy #[id number], 183, cm, 09/07/22 11:38:00 EDT, [...] day(s), # 28 cap(s), Refills(s) 0, Pharmacy: [facility]/pharmacy #[id number], 183, cm, 09/07/22 11:38:00 EDT, [...] day(s), # 28 cap(s), Refills(s) 0, Pharmacy: [facility]/pharmacy #[id number], 183, cm, 09/07/22 11:38:00 EDT, Height/Length Dosing, 113.2, kg, 09/07/22 11:38:00 EDT, Weight Dosing Non-smoker (Z78.9: Other specified health status) Orders: ofloxacin otic, 5 drop(s), Otic, BID for 7 day(s), 10 mL, Refill(s) 0, [facility]/pharmacy #[id number], 183, cm, 09/07/22 11:38:00 EDT, Height/Length Dosing, 113.2, kg, 09/07/22 11:38:00 EDT, Weight Dosing Follow-up With When Contact Information CIPRIANO MOLINA CNP [address] [place] [address]- Additional Instructions: Patient Education Otitis Externa, Nxda-ru-Rdea Otitis Media, Adult BMI for Adults Problem List/Past Medical History Ongoing Dysmenorrhea Irregular bleeding Menorrhagia Historical No qualifying data Procedure/Surgical History Removal of etonogestre (more content not included)... Normal [facility] Comment on above: Result Comment: Elec [...] Follow these instructions at home: ? Take hdcj-wbd-xnridsz and prescription medicines only as told by [...] provider. Document Revised: 07/09/2021 Document Reviewed: 07/09/2021 [employer] Patient Education ? 2022 [employer] Infectious Disease Otitis Externa Otitis externa [...] swimming often. (more content not included)... Normal [facility] Chlamydia/GC DNA, TPon 08-15 Chlamydia Probe, TP Negative Normal NEG [facility] Comment on above: Result Comment: [...] target. Performed By: #### C YTCGP #### [employer] [address] [place], [place] [id number] Staging Technician: Willard Sethi MD Gonorrhea Probe, TP Negative Normal NEG [facility] Comment on above: Result Comment: [...] target. Performed By: #### C YTCGP #### [employer] [address] [place], [place] [address] Staging Technician: Willard Sethi MD Quantiferon-TB Plus (Client Incubated)on 08-14-2022 Gamma interferon background IA Qn (Bld) 0.02 International_Unit/mL Invalid Interpretation Code [facility] Comment on above: Performed By: #### 3 [id number] #### [facility] [address] [place] [address] M. tuberculosis stim IFN-g by CD4+ CD8+ T-cells Qn (Bld) 0.05 International_Unit/mL Invalid Interpretation Code [facility] Comment on above: Performed By: #### 3 [id number] #### [facility] [address] [place] [address] M. tuberculosis stim IFN-g by CD4+ T-cells Qn (Bld) 0.03 International_Unit/mL Invalid Interpretation Code [facility] Comment on above: Performed By: #### 3 [id number] #### [facility] [address] [place] [address] M. tuberculosis stim IFN-g Ql (Bld) [Interp] Negative Invalid Interpretation Code Negative [facility] Comment on above: Result Comment: No [...] interferon gamma. Chemiluminescence immunoassay methodology Performed at: [address] [id number] PhD Radames Kendrick Performed By: #### 3 [id number] #### [facility] [address] [place] [address] Mitogen stimulated gamma interferon Qn (Bld) >10.00 Invalid Interpretation Code [facility] Comment on above: Performed By: #### 3 [id number] #### [facility] [address] [place] [address] Service comment (Unsp spec) [Interp] Comment Invalid Interpretation Code [facility] Comment on above: Result Comment: Ish [...] for the test. Performed By: #### 3 [id number] #### [facility] [address] [place] [address] Cytologyon 08-13-2022 Cytology (NOTE) Path Number: [id number] DIAGNOSIS Cervical material, (ThinPrep vial, Imaging-assisted review): Specimen Adequacy: Satisfactory for evaluation. -Endocervical/transfo rmation zone component is absent. Descriptive Diagnosis: Negative for intraepithelial lesion or malignancy. Cytotech Screener: SS4 Electronically Signed Out MAXIMUS Ramírez(ASCP) ss4/08/21/2022 Source of Specimen: A: Cervical material, (ThinPrep vial, Imaging-assisted review) HPV Reflex?.............. ........HPV if ASCUS Clinical History Z01.419 Routine consulting solution manager exam without abnormal findings High Risk HPV DNA testing is requested if the diagnosis is ASC-US Processing Lab: [address] [address] Interpretation performed at [address] [address] The Pap smear is a screening test primarily for squamous epithelial lesions, which is subject to both false negative and false positive results. Your patient should be reminded to consult you immediately if she experiences any suspicious signs or symptoms, regardless of her Pap smear result. GYNECOLOGIC CYTOLOGY REPORT Patient Name: AMOS RUFFIN [facility] Rec: [id number] [facility] [employer] CONSULTING PATHOLOGISTS [facility] EMERGENCY DEPARTMENT ANATOMIC PATHOLOGY [address] [place] [phone] [facility] Comment on above: Performed By: #### P PPVP #### [facility] [address] [place] [address] Staging Technician: Willard Sethi MD Hep Bs Abon 08-13-2022 HBV surface Ab Ql (S) Non-Reactive Invalid Interpretation Code [facility] Comment on above: Result Comment: Non Reactive: Inconsistent with immunity, less than 10 mIU/mL Reactive: Consistent with immunity, greater than 9.9 mIU/mL Performed at: [facility] [id number] PhD Radames Kendrick Performed By: #### 3 [id number], [id number] #### [facility] [address] [place] [address] Measles/Mumps/Rubella Immuni tyon 08-13-2022 MeV IgG IA Qn (S) 280.0 A unit/mL Invalid Interpretation Code Immune >16.4 [facility] Comment on above: Result Comment: Nega tive <13.5 Equivocal 13.5 - 16.4 Positive >16.4 Presence of antibodies to Rubeola is presumptive evidence of immunity except when acute infection is suspected. Performed By: #### 3 [id number], [id number], [id number] #### [facility] [address] [place] [address] MuV IgG IA Qn (S) 11.3 A unit/mL Invalid Interpretation Code Immune >10.9 [facility] Comment on above: Result Comment: Nega tive <9.0 Equivocal 9.0 - 10.9 Positive >10.9 A positive result generally indicates past exposure to Mumps virus or previous vaccination. Performed at: [facility] [address] [place], [place] [id number] PhD Radames Kendrick Performed By: #### 3 [id number], [id number] #### [facility] [address] [place] [address] Rubella virus IgG Qn (S) [IU]/mL Low Immune >0.99 [facility] Comment on above: Result Comment: Non- immune <0.90 Equivocal 0.90 - 0.99 Immune >0.99 Performed By: #### 3 [id number], [id number], [id number] #### [facility] [address] [place] [address] Varic IgGon 08-13-2022 VZV IgG IA Qn (S) 504 Invalid Interpretation Code Immune >165 [facility] Comment on above: Result Comment: Nega tive <135 Equivocal 135 - 165 Positive >165 A positive result generally indicates exposure to the pathogen or administration of specific immunoglobulins, but it is not indication of active infection or stage of disease. Performed at: [facility] [id number] PhD Radames Kendrick Performed By: #### 3 [id number] #### [facility] [address] [place] [address] Vital Signs Date Time Vital Sign Value Performing Clinician Nahum doll 05-29-2023 15:53-0500 Body mass index (BMI) [Ratio] 35.13 kg/m2 Stacia SALDANA Work Phone: [facility] 05-29-2023 15:53-0500 Body weight 117.48 kg Stacia SALDANA Work Phone: [facility] 05-29-2023 15:53-0500 Diastolic blood pressure 70 mm[Hg] Stacia SALDANA Work Phone: [facility] 05-29-2023 15:53-0500 Systolic blood pressure 124 mm[Hg] Stacia SALDANA Work Phone: [facility] 05-15-2023 09:03-0500 Body mass index (BMI) [Ratio] 35.13 kg/m2 Victorino Leonel DO Work Phone: [facility] 05-15-2023 09:03-0500 Body weight 117.48 kg Victorino Leonel DO Work Phone: [facility] 05-15-2023 09:03-0500 Diastolic blood pressure 72 mm[Hg] Victorino Leonel DO Work Phone: [facility] 05-15-2023 09:03-0500 Systolic blood pressure 120 mm[Hg] Victorino Leonel DO Work Phone: [facility] 09-07-2022 11:37-0400 Blood Pressure Location Dipak Oliver [facility] 09-07-2022 11:37-0400 Diastolic blood pressure 80 mm[Hg] Dipak Boyd [facility] 09-07-2022 11:37-0400 Heart rate 76 /min Dipak Boyd [facility] 09-07-2022 11:37-0400 SaO2% (BldA) [Mass fraction] 99 % Dipakjolynn Boyd [facility] 09-07-2022 11:37-0400 Systolic blood pressure 110 mm[Hg] Dipak Boyd [facility] Encounters Encounter Date Encounter Type Care Provider Facility Start: 07-07-2023 End: 07-07-2023 ambulatory VICTORINO LEONEL Not Available Start: 07-02-2023 End: 07-02-2023 ambulatory STACIA HARP Not Available Start: 06-23-2023 ambulatory Shannon Lai Facility:[facility] Start: 06-16-2023 End: 06-16-2023 ambulatory VICTORINO LEONEL Not Available Start: 05-29-2023 End: 05-29-2023 ambulatory STACIA HARP Not Available Start: 05-29-2023 End: 05-29-2023 Office outpatient visit 15 minutes Stacia Harp PA Work Phone: [facility] Comment on above: Third trimester preg adalberto; Nausea; Heartburn during in third trimester; Excessive growth affecting management of , antepartum, single or unspecified fetus Start: 05-15-2023 End: 05-15-2023 ambulatory VICTORINO HOLLYO Not Available Start: 05-15-2023 End: 05-15-2023 flow sheet Victorino Trujillozio DO Work Phone: [facility] Comment on above: Second trimester pre gnancy Start: 05-08-2023 End: 05-09-2023 ambulatory [facility] Lai [facility] Start: 05-08-2023 End: 05-08-2023 Patient encounter procedure Shannon [facility] Start: 04-25-2023 End: 04-25-2023 ambulatory SILVA LAMAR Not Available Start: 04-25-2023 End: 04-26-2023 ambulatory Shannon Lai Facility[facility] Start: 04-25-2023 End: 04-25-2023 Patient encounter procedure Shannon [facility] Start: 04-17-2023 End: 04-17-2023 ambulatory STACIA HARP Not Available Start: 03-19-2023 End: 03-19-2023 ambulatory VICTORINO HOLLYO Not Available Start: 01-14-2023 End: 01-15-2023 ambulatory Gio JIMENEZ Facility:[facility] Start: 09-07-2022 End: 09-08-2022 ambulatory Dipak Boyd Facility:[facility] Start: 09-07-2022 End: 09-07-2022 Patient encounter procedure Dipak Boyd [facility] Start: 08-13-2022 End: 08-14-2022 ambulatory SHELBY [facility] Start: 08-13-2022 Encounter for gynecological examination (general) (routine) without abnormal findings SHELBY [facility] Start: 08-13-2022 End: 08-13-2022 Patient encounter procedure [facility] Start: 08-13-2022 End: 08-13-2022 Subsequent hospital visit by physician [facility] Comment on above: Encounter for well w randy exam with routine gynecological exam Start: 08-12-2022 End: 08-13-2022 ambulatory Yanira KURTZ Facility:[facility] Start: 08-09-2022 End: 08-10-2022 ambulatory Yanira T TESSIE Facility:[facility] Start: 06-07-2022 End: 06-08-2022 ambulatory Krystyna X Orzech Facility:[facility] Start: 06-07-2022 End: 06-07-2022 Patient encounter procedure Krystyna X Orzech [facility] Procedures Date Procedure Procedure [...] AM EST Routine [facility] [address] [id number] Stacia Harp PA [address] [place] [address] [facility] Start: 12-13-2022 Influenza vaccination Influenza Vacc ine (#1) [facility] Start: 12-01-2022 DTaP/Tdap/Td vaccine (7 - Td or Tdap) DTaP/Tdap/Td vaccine (7 - Td or Tdap) [facility] Start: 11-12-2022 Influenza vaccination Flu vacc ine (Season Ended) [facility] Start: 2021 Screening for malign ant neoplasm of cervix Pap smear [facility] Start: 2018 Hepatitis C screening Hepatitis C sc reen [facility] Start: 2016 Screening for Chlamy sedrick trachomatis Chlamydia/GC screen [facility] Start: 11-05-2015 HIV screening HIV screen [facility] Start: 2012 Depression Screen Depression Screen [facility] Start: 05-07-2001 COVID-19 Vaccine (#1) COVID-19 Vacci ne (#1) [facility] End: 08-13-2022 Chlamydia/GC DNA, Thin Prep [facility] [employer] Work Phone: Comment on above: 1 Occurrences starti ng 08/13/2022 until 08/13/2022 End: 08-13-2022 Cytopathology procedure, preparation of smear, genital source PAP Smear Lab Routine Encounter for well woman exam with routine gynecological exam 1 Occurrences starting 08/13/2022 until 08/13/2022 [facility]: Comment on above: 1 Occurrences starti ng 08/13/2022 until 08/13/2022 Immunizations Immunization Date Immunization Notes Care Provider Ronnie jha 02-04-2020 influenza virus vaccine, unspecified formulation Krystyna Orzerocio [facility] 02-05-2019 influenza virus vaccine, unspecified formulation Krystyna Orzech [facility] 07-21-2018 meningococcal B vaccine, fully recombinant Krystyna Orzech [facility] 01-08-2018 influenza virus vaccine, unspecified formulation Krystyna Orzech [facility] 11-22-2016 meningococcal ACWY vaccine, unspecified formulation Krystyna Orzech [facility] 11-22-2016 meningococcal B vaccine, fully recombinant Krystyna Orzech [facility] 02-28-2014 influenza, whole Krystyna Orze ch [facility] 11-15-2013 hepatitis A vaccine, unspecified formulation Krystyna Orzech [facility] 11-15-2013 HPV, unspecified formulation Krystyna Orzech [facility] 11-15-2013 meningococcal ACWY, unspecified formulation Krystyna Orzech [facility] 12-01-2012 hepatitis A vaccine, unspecified formulation Krystyna Orzech [facility] 12-01-2012 HPV, unspecified formulation Krystyna Orzech [facility] 12-01-2012 tetanus toxoid, reduced diphtheria toxoid, and acellular pertussis vaccine, adsorbed Krystyna Orzech [facility] 12-01-2012 varicella virus vaccine Krystyna Orzech [facility] 08-26-2005 hepatitis B vaccine, pediatric or pediatric/adolescent dosage Krystyna Orzech [facility] 08-15-2005 DTaP, unspecified formulation Krystyna Orzech [facility] 08-15-2005 measles, mumps and rubella virus vaccine Krystyna Orzech [facility] 08-15-2005 poliovirus vaccine, unspecified formulation Krystyna Orzech [facility] 12-15-2002 DTaP, unspecified formulation Krystyna Orzech [facility] 12-15-2002 haemophilus influenz ae type b vaccine, PRP-T conjugate Krystyna Orzech [facility] 12-25-2001 DTaP, unspecified formulation Krystyna Orzech [facility] 12-25-2001 measles, mumps and rubella virus vaccine Krystyna Orzech [facility] 12-25-2001 poliovirus vaccine, unspecified formulation Krystyna Orzech [facility] 12-25-2001 varicella virus vaccine Krystyna Orzech [facility] 04-29-2001 DTaP, unspecified formulation Krystyna Orzech [facility] 04-29-2001 poliovirus vaccine, unspecified formulation Krystyna Orzech [facility] 01-20-2001 DTaP, unspecified formulation Krystyna Orzech [facility] 01-20-2001 poliovirus vaccine, unspecified formulation Krystyna Orzech [facility] NEGATED: Highlighted row has not occurred!02-18-2022 influenza virus vaccine, unspecified formulation Krystyna Orzech [facility] NEGATED: Highlighted row has not occurred!02-18-2022 SARS-CoV-2 mRNA (tomanuelaeran 5y-11y) vaccine Krystyna Beranrdrocio [facility] Payers Date Payer Category Payer Unknown [id number] 2022 Unknown [employer] [id number] 2022-Present [address] [place] [address] [id number] 2022 Unknown [id number] 2022 Unknown [id number] 2022 Medicaid [employer] [place] [id number] 2022-Present [address] [place] [address] [id number] 2022 Medicaid [id number] 2021 Unknown [id number] 2000 Unknown [id number] 2.16.840.1.113733.3.579.2. 2000 Unknown [id number] 2.16.840.1.158198.3.579.2. 2000 Unknown [id number] 2.16.840.1.599941.3.579.2.727 2000 Unknown [id number] 2.16.840.1.682659.3.579.2.7 2000 Unknown [id number] 2.16.840.1.159556.3.579.2.7 2000 Unknown [id number] 2.16.840.1.172205.3.579.2. 2000 Unknown [id number] 2.16.840.1.907637.3.579.2.7 2000 Unknown [id number] 2.16.840.1.245853.3.579.2.1259 2000 Unknown [id number] 2.16.840.1.169558.3.579.2.9 2000 Unknown [id number] 2.16.840.1.546899.3.579.2.9 2000 Unknown [id number] 2.16.840.1.862255.3.579.2.9 2000 Unknown [id number] 2.16.840.1.390333.3.579.2.9 2000 Unknown [id number] 2.16.840.1.144802.3.579.2.9 2000 Unknown [id number] 2.16.840.1.547519.3.579.2.9 2000 Unknown [id number] 2.16.840.1.475251.3.579.2.9 Social History Date Type Detail Facility Start: 03-30-2020 End: 01-13-2023 Tobacco smoking status Never smoked tobacco (finding) [facility] Tobacco smoking status Never [facility] Start: 01-13-2023 Sex Assigned At Female F [facility] Start: 08-13-2022 Tobacco use and exposure Smokeless tobacco non-user [email or web address] Phone: Start: 08-13-2022 Alcohol intake Not Asked BON [employer] Phone: Start: 08-13-2022 Alcohol Comment social BON [employer] Phone: Start: 2000 Sex Assigned At Not on file B ON [employer] Phone: Start: 05-15-2023 Alcohol intake Lifetime non-d [...] of: SHANA Herrera documented in this encounter [facility] 05-15-2023 History of Present illness Narrative [...] Victorino Castaneda DO documented in this encounter [facility] 09-07-2022 Hospital Discharge instructions Patient Education 09/07/2022 11:57:13 Otitis Externa, Dlkg-dy-Ypyy Otitis Externa Otitis externa is an infection [...] if you start to feel better. Take xebe-jng-cxtdquy and prescription medicines only as told by [...] provider. Document Revised: 06/13/2021 Document Reviewed: 06/13/2021 [employer] Patient Education 2022 [employer] 09/07/2022 11:57:10 Otitis Media, Adult Otitis [...] pain. Follow these instructions at home: Take adol-xnu-ewsqymp and prescription medicines only as told by [...] provider. Document Revised: 07/09/2021 Document Reviewed: 07/09/2021 [employer] Patient Education 2022 [employer]. 09/07/2022 11:57:07 BMI for Adults BMI for [...] numbers. This can be done either in [place] or metric measurements. Note that charts and online BMI calculators are available to help you find your BMI quickly and easily without having to do these calculations yourself. To calculate your BMI in [place] ([place] measurements: 1.Measure your weight in pounds [...] Centers for Disease Control and Prevention: www.cdc.gov [place] [employer]: www.heart.org National Heart, Lung, and Blood [place]: www.nhlbi.nih.gov Summary Body mass index (BMI) is a number that is calculated from a person's weight and height. BMI may help estimate how much of a person's weight is composed of fat. BMI can help identify those who may be at higher risk for certain medical problems. BMI can be measured using [place] measurements or metric measurements. BMI charts are used to identify whether you are underweight, normal weight, overweight, or obese. This information is not intended to replace advice given to you by your health care provider. Make sure you discuss any questions you have with your health care provider. Document Revised: 12/22/2019 Document Reviewed: 10/29/2019 [employer] Patient Education 2022 [employer] Follow Up Care 09/07/2022 10:55:41 With:CIPRIANO MOLINA CNP Address: [address] [place] [id number] When: Unknown [facility] Evaluation + Plan note No data available for this section [facility] Evaluation + Plan note Future Appointments Appointment Date:05/12/2023 08:00:00 AM Scheduled Provider:Shannon Moore Location:[facility] Appointment Type:BH Therapy 60 [facility] Evaluation + Plan note Future Appointments Appointment Date:05/22/2023 10:00:00 AM Scheduled Provider:Shannon Moore Location:[facility] Appointment Type: Video Visit Therapy 60 [facility] Evaluation note Diagnosis Encounter for well woman exam with routine gynecological exam documented in this encounter [facility] [employer] Work Phone: evaluation note* Diagnosis Second trimester state, incidental [facility] Diagnosis Third trimester state, incidental Nausea Nausea alone Heartburn during in third trimester Excessive growth affecting management of , antepartum, single or unspecified fetus [facility] No data available for this section [facility] Progress note No data available for this section [facility] Summary Purpose Family History [...] Personnel Name: CIPRIANO MOLINA CNP Address: Address: [address] [place] [address] Personnel Name: CIPRIANO MOLINA CNP Address: Address: [address] [place] [address] Personnel Name: CIPRIANO MOLINA CNP Address: Address: [address] [place] [address] Personnel Name: CIPRIANO MOLINA CNP Address: Address: [address] [place] [address] INFORMATION SOURCE (unrecogn ized section and content) DATE CREATED AUTHOR 08/22/2022 Macy adams DATE CREATED AUTHOR AUTHOR'S ORGANIZ ATION 05/21/2023 [facility] DATE CREATED AUTHOR AUTHOR'S ORGANIZ ATION 07/08/2023 [facility] Reason for Visit (unrecogniz [...] BE BASED ON THE PRIMARY CLINICAL RECORDS. [employer] [facility]. provides no warranty or guarantee of the accuracy or completeness of information in this document.
[2023-07-10 20:54] VITALS: TEMP 35.2
[2023-07-10 20:55] VITALS: BP 123/61; PULSE 93
== END 2023-07-10 21:25 | disposition home or self-care (01) ==
LOC: FBC 20:39
PROVIDERS: Admitting Provider Obstetrics & Gynecology; Visit Provider Obstetrics & Gynecology
DX: O36.8130 Decreased fetal movements, third trimester, not applicable or unspecified (principal); Z3A.36 36 weeks gestation of pregnancy
CPT/HCPCS: 59025; G0378; G0379

== ENCOUNTER 2023-07-11 10:03 | Observation (INO) | payer OTHER, SELFPAY ==
--- OUTSIDE RECORDS SUMMARY | 2023-07-11 10:15 | XMS_ITS | CCD ---
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 Care Hat Block Maker Name Role Phone CIPRIANO MOLINA Primary Care Physician [phone] Unavailable Primary Care Provider UnavailSHELBY Muñoz Referring [...] day(s), # 28 cap(s), Refills(s) 0, Pharmacy: [facility]/pharmacy #[id number], 183, cm, 09/07/22 11:38:00 EDT, Height/Length Dosing, 113.2, kg, 09/07/22 11:38:00 EDT, Weight Dosing Start Date: 09/07/22 Stop Date: 09/14/22 Status: Ordered ibuprofen 600 mg oral tablet (4 sources) Nonsteroidal Anti-inflammatory Drug Start: 12-07-2020 take 1 tablet by mouth every six hours ibuprofen 600 mg Tab 600 mg = 1 tab(s), Oral, q6hr, # 40 tab(s), Refills(s) 0, Pharmacy: [facility]/pharmacy #[id number], 178, cm, 12/07/20 10:05:00 EDT, Height/Length [...] for 7 day(s), 10 mL, Refill(s) 0, [facility]/pharmacy #[id number], 183, cm, 09/07/22 11:38:00 EDT, Height/Length [...] UA Clear [facility] Color, UA Yellow [facility] Glucose, UA Negative Negative - 1999(110) ++++ mg/dL [facility] Interpretation and review of laboratory results Abnormal [facility] Ketones, UA Negative Negative - 160(16) ++++ mg/dL [facility] Leukocytes, UA Positive Negative - 500+++ Keith/mcL [facility] Comment on above: small Nitrite, UA Negative Negative - Positive [facility] pH, UA 6.5 5 - [address] [facility] Protein, UA Negative Negative - 1999(20) ++++ mg/dL [facility] Spec Grav, UA 1.025 1 - 1.[address] [facility] Urobilinogen, UA 0.2 0.2 - 12 mg/dL [facility] Urinalysis macro (dipstick) panel (U)Ordered By: Jerri Mercado on 05-15-2023 Bilirubin, UA Positive Negative - 4(70) +++ mg/dL [facility] Work Phone: Comment on above: small Blood, UA Positive Negative - 50 David/mcL [facility] Work Phone: Comment on above: trace-intact Clarity, UA Clear [facility] Work Phone: Color, UA Yellow [facility] Work Phone: Glucose, UA Negative Negative - 1999(110) ++++ mg/dL [facility] Work Phone: Interpretation and review of laboratory [...] UA Positive Negative - 1999(20) ++++ mg/dL [facility] Work Phone: Comment on above: 30 Spec [...] Up with CIPRIANO MOLINA CNP When: Where: [address] [place] [address]- Medications What How Much When Why Instructions New amoxicillin (amoxicillin 500 mg Cap) 2 Capsules By Mouth Every 12 hours Left otitis media Otitis externa of left ear BMI 33.0-33.9,adult Duration: 7 Days Pickup at [facility]/pharmacy #6173 New ofloxacin otic (ofloxacin Otic 0.3% Merline) 5 Drops Otic 2 times a day Duration: 7 Days Pickup at [facility]/pharmacy #6173 Unchanged ibuprofen (ibuprofen 600 mg Tab) 1 Tablets By Mouth Every 6 hours Contact prescribing physician if questions or concerns Pharmacy Information [facility]/pharmacy #[id number]: [address] [place], [place] [id number] [phone] Allergies No Known Allergies Problems Ongoing - [...] you start to feel better. ? Take erlw-tdu-bhpered and prescription medicines only as told by [...] provider. Document Revised: 06/13/2021 Document Reviewed: 06/13/2021 [employer] Patient Education ? 2022 [employer] Otitis Media, Adult Otitis media occurs [...] nose (nasophary (more content not included)... Normal [facility] Family Medicine Office/Clini c Noteon 09-07-2022 Family [...] with voice recognition software. Occasional wrong-word or ?plpfp-o-dxml? substitutions may have occurred due to the inherent limitations of voice recognition software. 21-year-old female presents today with chief complaint of bilateral ear pain onset 2 days ago. Patient states her ear is sore to touch muffled hearing and bilateral pain with the ear pain. She been taking djxn-fhl-mneecpk Motrin with some relief of symptoms. Denies [...] day(s), # 28 cap(s), Refills(s) 0, Pharmacy: [facility]/pharmacy #[id number], 183, cm, 09/07/22 11:38:00 EDT, Height/Length [...] day(s), # 28 cap(s), Refills(s) 0, Pharmacy: [facility]/pharmacy #[id number], 183, cm, 09/07/22 11:38:00 EDT, Height/Length [...] day(s), # 28 cap(s), Refills(s) 0, Pharmacy: [facility]/pharmacy #[id number], 183, cm, 09/07/22 11:38:00 EDT, Height/Length Dosing, 113.2, kg, 09/07/22 11:38:00 EDT, Weight Dosing Non-smoker (Z78.9: Other specified health status) Orders: ofloxacin otic, 5 drop(s), Otic, BID for 7 day(s), 10 mL, Refill(s) 0, [facility]/pharmacy #[id number], 183, cm, 09/07/22 11:38:00 EDT, Height/Length Dosing, 113.2, kg, 09/07/22 11:38:00 EDT, Weight Dosing Follow-up With When Contact Information CIPRIANO MOLINA CNP [address] [place] [address]- Additional Instructions: Patient Education Otitis Externa, Pkwd-qy-Sdxd Otitis Media, Adult BMI for Adults Problem List/Past Medical History Ongoing Dysmenorrhea Irregular bleeding Menorrhagia Historical No qualifying data Procedure/Surgical History Removal of etonogestre (more content not included)... Normal [facility] Comment on above: Result Comment: Elec tronically [...] Follow these instructions at home: ? Take wxuf-eho-grdvkvs and prescription medicines only as told by [...] provider. Document Revised: 07/09/2021 Document Reviewed: 07/09/2021 [employer] Patient Education ? 2022 [employer] Infectious Disease Otitis Externa Otitis externa [...] swimming often. (more content not included)... Normal [facility] Chlamydia/GC DNA, TPon 08-15 Chlamydia Probe, TP Negative Normal NEG [facility] Comment on above: Result Comment: CHLA [...] target. Performed By: #### C YTCGP #### [employer] [address] [place], [place] [id number] Oxygen System Tester: Willard Sethi MD Gonorrhea Probe, TP Negative Normal NEG [facility] Comment on above: Result Comment: NEIS [...] target. Performed By: #### C YTCGP #### [employer] [address] [place], [place] [id number] Oxygen System Tester: Willard Sethi MD Quantiferon-TB Plus (Client Incubated)on 08-14-2022 Gamma interferon background IA Qn (Bld) 0.02 International_Unit/mL Invalid Interpretation Code [facility] Comment on above: Performed By: #### 3 [id number] #### [facility] [address] [place] [address] M. tuberculosis stim IFN-g by CD4+ CD8+ T-cells Qn (Bld) 0.05 International_Unit/mL Invalid Interpretation Code [facility] Comment on above: Performed By: #### 3 [id number] #### [facility] [address] [place] [address] M. tuberculosis stim IFN-g by CD4+ T-cells Qn (Bld) 0.03 International_Unit/mL Invalid Interpretation Code [facility] Comment on above: Performed By: #### 3 [id number] #### [facility] [address] [place] [address] M. tuberculosis stim IFN-g Ql (Bld) [Interp] Negative Invalid Interpretation Code Negative [facility] Comment on above: Result Comment: No r [...] interferon gamma. Chemiluminescence immunoassay methodology Performed at: [address] [id number] PhD Radames Kendrick Performed By: #### 3 [id number] #### [facility] [address] [place] [address] Mitogen stimulated gamma interferon Qn (Bld) >10.00 Invalid Interpretation Code [facility] Comment on above: Performed By: #### 3 [id number], [id number] #### [facility] [address] [place] [address] Service comment (Unsp spec) [Interp] Comment Invalid Interpretation Code [facility] Comment on above: Result Comment: Ish tiFERON-TB [...] for the test. Performed By: #### 3 [id number], [id number] #### [facility] [address] [place] [address] Cytologyon 08-13-2022 Cytology (NOTE) Path Number: [id number] DIAGNOSIS Cervical material, (ThinPrep vial, Imaging-assisted review): Specimen Adequacy: Satisfactory for evaluation. -Endocervical/transfo rmation zone component is absent. Descriptive Diagnosis: Negative for intraepithelial lesion or malignancy. Cytotech Screener: SS4 Electronically Signed Out MAXIMUS Ramírez(ASCP) ss4/08/21/2022 Source of Specimen: A: Cervical material, (ThinPrep vial, Imaging-assisted review) HPV Reflex?.............. 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 Your patient should be reminded to consult you immediately if she experiences any suspicious signs or symptoms, regardless of her Pap smear result. GYNECOLOGIC CYTOLOGY REPORT Patient Name: AMOS RUFFIN [facility] Rec: [id number] [facility] [employer] CONSULTING PATHOLOGISTS [facility] [address] [place] [phone] [facility] Comment on above: Performed By: #### P PPVP #### [facility] [address] [place] [address] Oxygen System Tester: Willard Sethi MD Hep Bs Abon 08-13-2022 HBV surface Ab Ql (S) Non-Reactive Invalid Interpretation Code [facility] Comment on above: Result Comment: Non Reactive: Inconsistent with immunity, less than 10 mIU/mL Reactive: Consistent with immunity, greater than 9.9 mIU/mL Performed at: [facility] [id number] PhD Radames Kendrick Performed By: #### 3 [id number], [id number] #### [facility] [address] [place] [address] Measles/Mumps/Rubella Immuni tyon 08-13-2022 MeV IgG IA Qn (S) 280.0 A unit/mL Invalid Interpretation Code Immune >16.4 [facility] Comment on above: Result Comment: Nega tive <13.5 Equivocal 13.5 - 16.4 Positive >16.4 Presence of antibodies to Rubeola is presumptive evidence of immunity except when acute infection is suspected. Performed By: #### 3 [id number] #### [facility] [address] [place] [address] MuV IgG IA Qn (S) 11.3 A unit/mL Invalid Interpretation Code Immune >10.9 [facility] Comment on above: Result Comment: Nega tive <9.0 Equivocal 9.0 - 10.9 Positive >10.9 A positive result generally indicates past exposure to Mumps virus or previous vaccination. Performed at: [facility] [address] [place], [place] [id number] PhD Radames Kendrick Performed By: #### 3 [id number], [id number], [id number] #### [facility] [address] [place] [address] Rubella virus IgG Qn (S) [IU]/mL Low Immune >0.99 [facility] Comment on above: Result Comment: Non- immune <0.90 Equivocal 0.90 - 0.99 Immune >0.99 Performed By: #### 3 [id number], [id number], [id number] #### [facility] [address] [place] [address] Varic IgGon 08-13-2022 VZV IgG IA Qn (S) 504 Invalid Interpretation Code Immune >165 [facility] Comment on above: Result Comment: Nega tive <135 Equivocal 135 - 165 Positive >165 A positive result generally indicates exposure to the pathogen or administration of specific immunoglobulins, but it is not indication of active infection or stage of disease. Performed at: [facility] [id number] PhD Radames Kendrick Performed By: #### 3 [id number], [id number] #### [facility] [address] [place] [address] Vital Signs Date Time Vital Sign Value Performing Clinician Nahum doll 05-29-2023 15:53-0500 Body mass index (BMI) [Ratio] 35.13 kg/m2 Stacia SALDANA Work Phone: [facility] 05-29-2023 15:53-0500 Body weight 117.48 kg Stacia SALDANA Work Phone: [facility] 05-29-2023 15:53-0500 Diastolic blood pressure 70 mm[Hg] Stacia SALDANA Work Phone: [facility] 05-29-2023 15:53-0500 Systolic blood pressure 124 mm[Hg] Stacia SALDANA Work Phone: [facility] 05-15-2023 09:03-0500 Body mass index (BMI) [Ratio] 35.13 kg/m2 Victorino Leonel DO Work Phone: [facility] 05-15-2023 09:03-0500 Body weight 117.48 kg Victorino Leonel DO Work Phone: [facility] 05-15-2023 09:03-0500 Diastolic blood pressure 72 mm[Hg] Victorino Leonel DO Work Phone: [facility] 05-15-2023 09:03-0500 Systolic blood pressure 120 mm[Hg] Victorino Leonel DO Work Phone: [facility] 09-07-2022 11:37-0400 Blood Pressure Location Dipak Oliver [facility] 09-07-2022 11:37-0400 Diastolic blood pressure 80 mm[Hg] Dipak Boyd [facility] 09-07-2022 11:37-0400 Heart rate 76 /min Dipak Boyd [facility] 09-07-2022 11:37-0400 SaO2% (BldA) [Mass fraction] 99 % Dipakjolynn Boyd [facility] 09-07-2022 11:37-0400 Systolic blood pressure 110 mm[Hg] Dipak Boyd [facility] Encounters Encounter Date Encounter Type Care Provider Facility Start: 07-07-2023 End: 07-07-2023 ambulatory VICTORINO LEONEL Not Available Start: 07-02-2023 End: 07-02-2023 ambulatory STACIA HARP Not Available Start: 06-23-2023 ambulatory Shannon Lai Facility:[facility] Start: 06-16-2023 End: 06-16-2023 ambulatory VICTORINO LEONEL [...] End: 05-08-2023 Patient encounter procedure Shannon Chapin [facility] Start: 04-25-2023 End: 04-25-2023 ambulatory SILVA LAMAR Not Available Start: 04-25-2023 End: 04-26-2023 ambulatory Shannon Lai Facility:[facility] Start: 04-25-2023 End: 04-25-2023 Patient encounter procedure Shannon hCapin [facility] Start: 04-17-2023 End: 04-17-2023 ambulatory STACIA HARP Not Available Start: 03-19-2023 End: 03-19-2023 ambulatory VICTORINO HOLLYO Not Available Start: 01-14-2023 End: 01-15-2023 ambulatory Gio JIMENEZ Facility:[facility] Start: 09-07-2022 End: 09-08-2022 ambulatory Dipak Boyd Facility:[facility] Start: 09-07-2022 End: 09-07-2022 Patient encounter procedure Dipak Boyd [facility] Start: 08-13-2022 End: 08-14-2022 ambulatory SHELBY Stroud [facility] Start: 08-13-2022 Encounter for gynecological examination (general) (routine) without abnormal findings SHELBY [facility] Start: 08-13-2022 End: 08-13-2022 Patient encounter procedure [facility] Start: 08-13-2022 End: 08-13-2022 Subsequent hospital visit by physician [facility] Comment on above: Encounter for well w randy exam with routine gynecological exam Start: 08-12-2022 End: 08-13-2022 ambulatory Yanira KURTZ Facility:[facility] Start: 08-09-2022 End: 08-10-2022 ambulatory Yanira T TESSIE Facility:[facility] Start: 06-07-2022 End: 06-08-2022 ambulatory Krystyna X Orzech Facility:[facility] Start: 06-07-2022 End: 06-07-2022 Patient encounter procedure Krystyna X Orzech [facility] Procedures Date Procedure Procedure [...] AM EST Routine [facility] [address] [place] [id number] Stacia Harp PA [address] [place] [address] [facility] Start: 12-13-2022 Influenza vaccination Influenza Vacc ine (#1) [facility] Start: 12-01-2022 DTaP/Tdap/Td vaccine (7 - Td or Tdap) DTaP/Tdap/Td vaccine (7 - Td or Tdap) [facility] Start: 11-12-2022 Influenza vaccination Flu vacc ine (Season Ended) [facility] Start: 2021 Screening for malign ant neoplasm of cervix Pap smear [facility] Start: 2018 Hepatitis C screening Hepatitis C sc reen [facility] Start: 2016 Screening for Chlamy sedrick trachomatis Chlamydia/GC screen [facility] Start: 11-05-2015 HIV screening HIV screen [facility] Start: 2012 Depression Screen Depression Screen [facility] Start: 05-07-2001 COVID-19 Vaccine (#1) COVID-19 Vacci ne (#1) [facility] End: 08-13-2022 Chlamydia/GC DNA, Thin Prep [facility] [employer] Work Phone: Comment on above: 1 Occurrences starti ng 08/13/2022 until 08/13/2022 End: 08-13-2022 Cytopathology procedure, preparation of smear, genital source PAP Smear Lab Routine Encounter for well woman exam with routine gynecological exam 1 Occurrences starting 08/13/2022 until 08/13/2022 [facility] Work Phone: Comment on above: 1 Occurrences starti ng 08/13/2022 until 08/13/2022 Immunizations Immunization Date Immunization Notes Care Provider Ronnie jha 02-04-2020 influenza virus vaccine, unspecified formulation Krystyna Orzerocio [facility] 02-05-2019 influenza virus vaccine, unspecified formulation Krystyna Orzech [facility] 07-21-2018 meningococcal B vaccine, fully recombinant Krystyna Orzech [facility] 01-08-2018 influenza virus vaccine, unspecified formulation Krystyna Orzech [facility] 11-22-2016 meningococcal ACWY vaccine, unspecified formulation Krystyna Orzech [facility] 11-22-2016 meningococcal B vaccine, fully recombinant Krystyna Orzech [facility] 02-28-2014 influenza, whole Krystyna Orze ch [facility] 11-15-2013 hepatitis A vaccine, unspecified formulation Krystyna Orzech [facility] 11-15-2013 HPV, unspecified formulation Krystyna Orzech [facility] 11-15-2013 meningococcal ACWY, unspecified formulation Krystyna Orzech [facility] 12-01-2012 hepatitis A vaccine, unspecified formulation Krystyna Orzech [facility] 12-01-2012 HPV, unspecified formulation Krystyna Orzech [facility] 12-01-2012 tetanus toxoid, reduced diphtheria toxoid, and acellular pertussis vaccine, adsorbed Krystyna Orzech [facility] 12-01-2012 varicella virus vaccine Krystyna Orzech [facility] 08-26-2005 hepatitis B vaccine, pediatric or pediatric/adolescent dosage Krystyna Orzech [facility] 08-15-2005 DTaP, unspecified formulation Krystyna Orzech [facility] 08-15-2005 measles, mumps and rubella virus vaccine Krystyna Orzech [facility] 08-15-2005 poliovirus vaccine, unspecified formulation Krystyna Orzech [facility] 12-15-2002 DTaP, unspecified formulation Krystyna Orzech [facility] 12-15-2002 haemophilus influenz ae type b vaccine, PRP-T conjugate Krystyna Orzech [facility] 12-25-2001 DTaP, unspecified formulation Krystyna Orzech [facility] 12-25-2001 measles, mumps and rubella virus vaccine Krystyna Orzech [facility] 12-25-2001 poliovirus vaccine, unspecified formulation Krystyna Orzech [facility] 12-25-2001 varicella virus vaccine Krystyna Orzech [facility] 04-29-2001 DTaP, unspecified formulation Krystyna Orzech [facility] 04-29-2001 poliovirus vaccine, unspecified formulation Krystyna Orzech [facility] 01-20-2001 DTaP, unspecified formulation Krystyna Orzech [facility] 01-20-2001 poliovirus vaccine, unspecified formulation Krystyna Orzech [facility] NEGATED: Highlighted row has not occurred!02-18-2022 influenza virus vaccine, unspecified formulation Krystyna Orzech [facility] NEGATED: Highlighted row has not occurred!02-18-2022 SARS-CoV-2 mRNA (tomanuelaeran 5y-11y) vaccine Krystyna Bernardrocio [facility] Payers Date Payer Category Payer Unknown [id number] 2022 Unknown [employer] [id number] 2022-Present [address] [place] [address] [id number] 2022 Unknown [id number] 2022 Unknown [id number] 2022 Medicaid [employer] [place] [id number] 2022-Present [address] [place] [address] [id number] 2022 Medicaid [id number] 2021 Unknown [id number] 2000 Unknown [id number] 2.16.840.1.285433.3.579.2. 2000 Unknown [id number] 2.16.840.1.708774.3.579.2. 2000 Unknown [id number] 2.16.840.1.844526.3.579.2.727 2000 Unknown [id number] 2.16.840.1.477941.3.579.2.7 2000 Unknown [id number] 2.16.840.1.398849.3.579.2.7 2000 Unknown [id number] 2.16.840.1.604441.3.579.2. 2000 Unknown [id number] 2.16.840.1.997581.3.579.2.7 2000 Unknown [id number] 2.16.840.1.805518.3.579.2.1259 2000 Unknown [id number] 2.16.840.1.365756.3.579.2.9 2000 Unknown [id number] 2.16.840.1.317281.3.579.2.9 2000 Unknown [id number] 2.16.840.1.381452.3.579.2.9 2000 Unknown [id number] 2.16.840.1.422416.3.579.2.9 2000 Unknown [id number] 2.16.840.1.108889.3.579.2.9 2000 Unknown [id number] 2.16.840.1.939328.3.579.2.9 2000 Unknown [id number] 2.16.840.1.841050.3.579.2.9 Social History Date Type Detail Facility Start: 03-30-2020 End: 01-13-2023 Tobacco smoking status Never smoked tobacco (finding) [facility] Tobacco smoking status Never [facility] Start: 01-13-2023 Sex Assigned At Female F [facility] Start: 08-13-2022 Tobacco use and exposure Smokeless tobacco non-user [employer] Phone: Start: 08-13-2022 Alcohol intake Not Asked [employer] Phone: Start: 08-13-2022 Alcohol Comment social [employer] Phone: Start: 2000 Sex Assigned At Not on file [employer] Phone: Start: 05-15-2023 Alcohol intake Lifetime non-d [...] of: SHANA Herrera documented in this encounter [facility] 05-15-2023 History of Present illness Narrative Reason [...] Victorino Castaneda DO documented in this encounter [facility] 09-07-2022 Hospital Discharge instructions Patient Education 09/07/2022 11:57:13 Otitis Externa, Dods-xk-Efuz Otitis Externa Otitis externa is an infection [...] if you start to feel better. Take bzvv-mec-lrzpfex and prescription medicines only as told by [...] provider. Document Revised: 06/13/2021 Document Reviewed: 06/13/2021 [employer] Patient Education 2022 [employer] 09/07/2022 11:57:10 Otitis Media, Adult Otitis [...] pain. Follow these instructions at home: Take ceph-wmf-awjocgi and prescription medicines only as told by [...] provider. Document Revised: 07/09/2021 Document Reviewed: 07/09/2021 [employer] Patient Education 2022 [employer]. 09/07/2022 11:57:07 BMI for Adults BMI for [...] numbers. This can be done either in Prydeinig ([place] or metric measurements. Note that charts and online BMI calculators are available to help you find your BMI quickly and easily without having to do these calculations yourself. To calculate your BMI in Pry[employer]ig ([place] measurements: 1.Measure your weight in pounds [...] Centers for Disease Control and Prevention: www.cdc.gov [place] [place] [employer]: www.heart.org National [facility] [place] [facility]: www.nhlbi.nih.gov Summary Body mass index (BMI) is a number that is calculated from a person's weight and height. BMI may help estimate how much of a person's weight is composed of fat. BMI can help identify those who may be at higher risk for certain medical problems. BMI can be measured using Prydeinig measurements or metric measurements. BMI charts are used to identify whether you are underweight, normal weight, overweight, or obese. This information is not intended to replace advice given to you by your health care provider. Make sure you discuss any questions you have with your health care provider. Document Revised: 12/22/2019 Document Reviewed: 10/29/2019 [employer] Patient Education 2022 [employer]. Follow Up Care 09/07/2022 10:55:41 With:CIPIRANO MOLINA CNP Address: [address] [place] [id number] When: Unknown [facility] Evaluation + Plan note No data available for this section [facility] Evaluation + Plan note Future Appointments Appointment Date:05/12/2023 08:00:00 AM Scheduled Provider:Shannon Moore Location:[facility] Appointment Type:BH Therapy 60 [facility] Evaluation + Plan note Future Appointments Appointment Date:05/22/2023 10:00:00 AM Scheduled Provider:Shannon Moore Location:[facility] Appointment Type: Video Visit Therapy 60 [facility] Evaluation note Diagnosis Encounter for well woman exam with routine gynecological exam documented in this encounter [facility] [employer] Work Phone: evaluation note* Diagnosis Second trimester state, incidental [facility] Diagnosis Third trimester state, incidental Nausea Nausea alone Heartburn during in third trimester Excessive growth affecting management of , antepartum, single or unspecified fetus [facility] No data available for this section [facility] Progress note No data available for this section [facility] Summary Purpose Family History [...] Personnel Name: CIPRIANO MOLINA CNP Address: Address: [address] [place] [address] Personnel Name: CIPRIANO MOLINA CNP Address: Address: [address] [place] [address] Personnel Name: CIPRIANO MOLINA CNP Address: Address: [address] [place] [address] Personnel Name: CIPRIANO MOLINA CNP Address: Address: [address] [place] [address] INFORMATION SOURCE (unrecogn ized section and content) DATE CREATED AUTHOR 08/22/2022 Macy adams DATE CREATED AUTHOR AUTHOR'S ORGANIZ ATION 05/21/2023 [facility] DATE CREATED AUTHOR AUTHOR'S ORGANIZ ATION 07/08/2023 [facility] EPIC Reason for Visit (unrecogniz [...] BE BASED ON THE PRIMARY CLINICAL RECORDS. [employer] [facility]. provides no warranty or guarantee of the accuracy or completeness of information in this document.
[2023-07-11 10:30] VITALS: BP 121/67; PULSE 104
--- NOTE | 2023-07-11 10:39 | PC.NURSE ---
pt states took tylenol ES at 0630, is feeling hot currently, woke with fever during night and cold sweats- denies discharge, GI or respiratory symptoms, no kidney or abdominal tenderness with or without palpation. Temp currently 97.7
[2023-07-11 11:02] LABS: Bilirubin Urine SMALL (NEGATIVE); Blood Urine MODERATE (NEGATIVE); Clarity Urine CLEAR (CLEAR); Color Urine YELLOW (YELLOW); Glucose Urine UA NEGATIVE (NEGATIVE); Ketones Urine >=80 mg/dL (NEGATIVE); Leukocyte Esterase Urine MODERATE (NEGATIVE); Nitrite Urine NEGATIVE (NEGATIVE); Protein Urine TRACE mg/dL (NEG/TRACE)
[2023-07-11 11:08] LABS: Urine Microscopic Indicated YES
[2023-07-11 11:11] LABS: Bacteria Urine MODERATE #/HPF (NONE SEEN); Mucus Urine SMALL (NONE SEEN); WBC Urine 50-75 #/HPF (NONE SEEN)
[2023-07-11 11:12] LABS: Cast Seen? NONE SEEN #/LPF (NONE SEEN); Crystals Seen? None Seen #/HPF (None Seen); Squamous Epithelial Cell Urine MANY #/LPF (NONE/RARE); Urine Culture Indicated YES
[2023-07-11] MEDS: 0.9 % SODIUM CHLORIDE 500 ML 1000 ML IV (12:03)
[2023-07-11] MEDS: CEFAZOLIN SODIUM/DEXTROSE,ISO 2 GM/50 ML PIGGYBACK IV (12:05)
[2023-07-11 12:09] LABS: Influenza Virus A Antigen Negative; Influenza Virus B Antigen Negative; Internal Control Within Normal Limits; SARS-CoV-2 Ag NEGATIVE (NEGATIVE)
== END 2023-07-11 13:51 | disposition home or self-care (01) ==
PROVIDERS: Admitting Provider Obstetrics & Gynecology; Visit Provider Obstetrics & Gynecology
DX: O26.893 Other specified pregnancy related conditions, third trimester (principal); R50.9 Fever, unspecified; Z3A.36 36 weeks gestation of pregnancy; Z20.822 Contact with and (suspected) exposure to COVID-19
CPT/HCPCS: 81001; 87086; 87804; 87811; 96374; G0378; G0379

== ENCOUNTER 2023-07-16 22:55 | Inpatient (IN) | payer OTHER, SELFPAY ==
--- OUTSIDE RECORDS SUMMARY | 2023-07-16 23:01 | XMS_ITS | CCD ---
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 Name Role Phone CIPRIANO MOLINA Primary Care Physician Unavailable Primary Care Provider UnavailSHELBY Muñoz Referring Unavailable Unavailable Primary Care Provider UnavailDipak Torrez Attending Unavailable Krystyna Seth Attending Unavailable Shannon Lai Attending Unavailable Ming, Shannon Chapin Attending Unavailable Shannon Lai Attending Unavailable Gio JIMENEZ Referring Unavailable Sunny Brambila Attending Unavailable Yanira KURTZ Attending Unavailable Yanira KURTZ Attending Unavailable KATIUSKA, STACIA Attending Unavailable SILVA LAMAR Attending Unavailable LEONEL, VICTORINO Attending Unavailable KATIUSKA, STACIA Attending Unavailable LEONEL, VICTORINO Attending Unavailable KATIUSKA, STACIA Attending Unavailable LEONEL, VICTORINO Attending Unavailable LEONEL, VICTORINO Attending Unavailable LEONEL, VICTORINO Attending Unavailable LEONEL, VICTORINO Attending Unavailable Medications Current Medications Medication Drug Class(es) Dates Sig (Normalized) Sig (Original) amoxicillin 500 mg oral capsule (1 source) Penicillin-class Antibacterial Start: 09-07-2022 End: 09-14-2022 take 2 capsules by mouth every twelve hours amoxicillin 500 mg Cap 1,000 mg = 2 cap(s), Oral, q12hr, X 7 day(s), # 28 cap(s), Refills(s) 0, Pharmacy: [facility]/pharmacy #[id number], 183, cm, 09/07/22 11:38:00 EDT, Height/Length Dosing, 113.2, kg, 09/07/22 11:38:00 EDT, Weight Dosing Start Date: 09/07/22 Stop Date: 09/14/22 Status: Ordered ibuprofen 600 mg oral tablet (4 sources) Nonsteroidal Anti-inflammatory Drug Start: 12-07-2020 take 1 tablet by mouth every six hours ibuprofen 600 mg Tab 600 mg = 1 tab(s), Oral, q6hr, # 40 tab(s), Refills(s) 0, Pharmacy: [facility]/pharmacy #[id number], 178, cm, 12/07/20 10:05:00 EDT, [...] for 7 day(s), 10 mL, Refill(s) 0, [facility]/pharmacy #[id number], 183, cm, 09/07/22 11:38:00 EDT, [...] Negative Negative - 4(70) +++ mg/dL [facility] Blood, UA Positive Negative - 50 Advid/mcL [facility] Comment on above: moderate Clarity, UA Clear [facility] Color, UA Yellow [facility] Glucose, UA Negative Negative - 1999(110) ++++ mg/dL [facility] Interpretation and review of laboratory results Abnormal [facility] Ketones, UA Negative Negative - 160(16) ++++ mg/dL [facility] Leukocytes, UA Positive Negative - 500+++ Keith/mcL [facility] Comment on above: small Nitrite, UA Negative Negative - Positive [facility] pH, UA 6.5 5 - 9 [facility] Protein, UA Negative Negative - 1999(20) ++++ mg/dL [facility] Spec Grav, UA 1.025 1 - 1.03 [facility] Urobilinogen, UA 0.2 0.2 - 12 mg/dL [facility] Urinalysis macro (dipstick) panel (U)Ordered By: Jerri Mercado on 05-15-2023 Bilirubin, UA Positive Negative - 4(70) +++ mg/dL [facility] Work Phone: Comment on above: small Blood, UA Positive Negative - 50 David/mcL [facility] Work Phone: Comment on above: trace-intact Clarity, UA Clear [facility] Work Phone: Color, UA Yellow [facility] Work Phone: Glucose, UA Negative Negative - 1999(110) ++++ mg/dL [facility] Work Phone: Interpretation and review of laboratory results Abnormal [facility] Work Phone: Ketones, UA Positive Negative - 160(16) ++++ mg/dL [facility] Work Phone: Comment on above: 80 Leukocytes, UA Positive Negative - 500+++ Keith/mcL [facility] Work Phone: Comment on above: small Nitrite, UA Negative Negative - Positive [facility] Work Phone: pH, UA 7.0 5 - 9 [facility] Work Phone: Protein, UA Positive Negative - 1999(20) ++++ mg/dL [facility] Work Phone: Comment on above: 30 Spec Grav, UA 1.020 1 - 1.03 [facility] Work Phone: Urobilinogen, UA 1.0 0.2 - 12 mg/dL [facility] Work Phone: [facility] Work Phone: Ambulatory Visit Summaryon 0 [...] Up with CIPRIANO MOLINA CNP When: Where: [address] [place] [id number]- Medications What How Much When Why Instructions New amoxicillin (amoxicillin 500 mg Cap) 2 Capsules By Mouth Every 12 hours Left otitis media Otitis externa of left ear BMI 33.0-33.9,adult Duration: 7 Days Pickup at [facility]/pharmacy #[id number] New ofloxacin otic (ofloxacin Otic 0.3% Merline) 5 Drops Otic 2 times a day Duration: 7 Days Pickup at [facility]/pharmacy #[id number] Unchanged ibuprofen (ibuprofen 600 mg Tab) 1 Tablets By Mouth Every 6 hours Contact prescribing physician if questions or concerns Pharmacy Information [facility]/pharmacy #[id number]: [address] [place], [place] [id number] [phone] Allergies No Known Allergies Problems Ongoing - [...] you start to feel better. ? Take ahxd-fvf-hhgiiok and prescription medicines only as told by [...] provider. Document Revised: 06/13/2021 Document Reviewed: 06/13/2021 ElseProgrammr Patient Education ? 2022 [employer] do you roll? [employer]. Otitis Media, Adult Otitis media occurs [...] nose (nasophary (more content not included)... Normal [facility] Family Medicine Office/Clini c Noteon 09-07-2022 [...] with voice recognition software. Occasional wrong-word or ?leymj-z-bqxf? substitutions may have occurred due to the inherent limitations of voice recognition software. 21-year-old female presents today with chief complaint of bilateral ear pain onset 2 days ago. Patient states her ear is sore to touch muffled hearing and bilateral pain with the ear pain. She been taking mwfe-hwl-xqabhlu Motrin with some relief of symptoms. Denies [...] day(s), # 28 cap(s), Refills(s) 0, Pharmacy: [facility]/pharmacy #[id number], 183, cm, 09/07/22 11:38:00 EDT, [...] day(s), # 28 cap(s), Refills(s) 0, Pharmacy: [facility]/pharmacy #[id number], 183, cm, 09/07/22 11:38:00 EDT, [...] day(s), # 28 cap(s), Refills(s) 0, Pharmacy: [facility]/pharmacy #[id number], 183, cm, 09/07/22 11:38:00 EDT, Height/Length Dosing, 113.2, kg, 09/07/22 11:38:00 EDT, Weight Dosing Non-smoker (Z78.9: Other specified health status) Orders: ofloxacin otic, 5 drop(s), Otic, BID for 7 day(s), 10 mL, Refill(s) 0, [id number], 183, cm, 09/07/22 11:38:00 EDT, Height/Length Dosing, 113.2, kg, 09/07/22 11:38:00 EDT, Weight Dosing Follow-up With When Contact Information CIPRIANO MOLINA CNP [address] [place] [id number]- Additional Instructions: Patient Education Otitis Externa, Tcdi-dc-Xrzx Otitis Media, Adult BMI for Adults Problem List/Past Medical History Ongoing Dysmenorrhea Irregular bleeding Menorrhagia Historical No qualifying data Procedure/Surgical History Removal of etonogestre (more content not included)... Normal [facility] Comment on above: Result Comment: Elec [...] Follow these instructions at home: ? Take dtaw-hgb-jghmwkf and prescription medicines only as told by [...] provider. Document Revised: 07/09/2021 Document Reviewed: 07/09/2021 Elsevier Patient Education ? 2022 [employer]. Infectious Disease Otitis Externa Otitis externa is [...] swimming often. (more content not included)... Normal [facility] Chlamydia/GC DNA, TPon 08-15 Chlamydia Probe, [...] target. Performed By: #### C YTCGP #### RUN [address] [place], [place] [id number] Quartz Orientator: Willard Sethi MD Gonorrhea Probe, TP Negative [...] target. Performed By: #### C YTCGP #### [facility] [address] [place], [place] [id number] Quartz Orientator: Willard Sethi MD Quantiferon-TB Plus (Client Incubated)on 08-14-2022 Gamma interferon background IA Qn (Bld) 0.02 International_Unit/mL Invalid Interpretation Code [facility] Comment on above: Performed By: #### 3 [id number] #### [facility] [address] [place] [address] M. tuberculosis stim IFN-g by CD4+ CD8+ T-cells Qn (Bld) 0.05 International_Unit/mL Invalid Interpretation Code [facility] Comment on above: Performed By: #### 3 [id number] #### [facility] [address] [place] [address] M. tuberculosis stim IFN-g by CD4+ T-cells Qn (Bld) 0.03 International_Unit/mL Invalid Interpretation Code [facility] Comment on above: Performed By: #### 3 [id number] #### [facility] [address] [place] [address] M. tuberculosis stim IFN-g Ql (Bld) [Interp] Negative Invalid Interpretation Code Negative [facility] Comment on above: Result Comment: No [...] interferon gamma. Chemiluminescence immunoassay methodology Performed at: [employer] [id number] PhD Radames Kendrick Performed By: #### 3 [id number], [id number] #### [facility] [address] [place] [address] Mitogen stimulated gamma interferon Qn (Bld) >10.00 Invalid Interpretation Code [facility] Comment on above: Performed By: #### 3 [id number] #### [facility] [address] [place] [address] Service comment (Unsp spec) [Interp] Comment Invalid Interpretation Code [facility] Comment on above: Result Comment: Ish [...] for the test. Performed By: #### 3 [id number], [id number] #### [facility] [address] [place] [address] Cytologyon 08-13-2022 Cytology (NOTE) Path Number: [id number] DIAGNOSIS Cervical material, (ThinPrep vial, Imaging-assisted review): Specimen Adequacy: Satisfactory for evaluation. -Endocervical/transfo rmation zone component is absent. Descriptive Diagnosis: Negative for intraepithelial lesion or malignancy. Cytotech Screener: SS4 Electronically Signed Out MAXIMUS Ramírez(ASCP) ss4/08/21/2022 Source of Specimen: A: Cervical material, (ThinPrep vial, Imaging-assisted review) HPV Reflex?.............. ........HPV if ASCUS Clinical History Z01.419 Routine dispensary attendant exam without abnormal findings High Risk HPV DNA testing is requested if the diagnosis is ASC-US Processing Lab: [address] [address] Interpretation performed at [address] [address] The Pap smear is a screening test primarily for squamous epithelial lesions, which is subject to both false negative and false positive results. Your patient should be reminded to consult you immediately if she experiences any suspicious signs or symptoms, regardless of her Pap smear result. GYNECOLOGIC CYTOLOGY REPORT Patient Name: AMOS RUFFIN [facility] Rec: [id number] [facility] [employer] CONSULTING PATHOLOGISTS [facility] [place] [facility] PATHOLOGY [address] [place] [id number] [facility] Comment on above: Performed By: #### P PPVP #### [address] [address] Quartz Orientator: Willard Sethi MD Hep Bs Abon 08-13-2022 HBV surface Ab Ql (S) Non-Reactive Invalid Interpretation Code [facility] Comment on above: Result Comment: Non Reactive: Inconsistent with immunity, less than 10 mIU/mL Reactive: Consistent with immunity, greater than 9.9 mIU/mL Performed at: [employer] [id number] PhD Radames Kendrick Performed By: #### 3 [id number], [id number] #### [facility] [address] [place] [address] Measles/Mumps/Rubella Immuni tyon 08-13-2022 MeV IgG IA Qn (S) 280.0 A unit/mL Invalid Interpretation Code Immune >16.[address] [facility] Comment on above: Result Comment: Nega tive <13.5 Equivocal 13.5 - 16.4 Positive >16.4 Presence of antibodies to Rubeola is presumptive evidence of immunity except when acute infection is suspected. Performed By: #### 3 [id number], [id number], [id number] #### [facility] [address] [place] [address] MuV IgG IA Qn (S) 11.3 A unit/mL Invalid Interpretation Code Immune >10.[address] [facility] Comment on above: Result Comment: Nega tive <9.0 Equivocal 9.0 - 10.9 Positive >10.9 A positive result generally indicates past exposure to Mumps virus or previous vaccination. Performed at: [employer] [address] [id number] PhD Radames Kendrick Performed By: #### 3 [id number], [id number], [id number] #### [facility] [address] [place] [address] Rubella virus IgG Qn (S) [IU]/mL Low Immune >0.[address] [facility] Comment on above: Result Comment: Non- immune <0.90 Equivocal 0.90 - 0.99 Immune >0.99 Performed By: #### 3 [id number], [id number], [id number], [id number] #### [facility] [address] [place] [address] Varic IgGon 08-13-2022 VZV IgG IA Qn (S) 504 Invalid Interpretation Code Immune >[address] [facility] Comment on above: Result Comment: Nega tive <135 Equivocal 135 - 165 Positive >165 A positive result generally indicates exposure to the pathogen or administration of specific immunoglobulins, but it is not indication of active infection or stage of disease. Performed at: [facility] [address] [place], [place] [id number] PhD Radames Kendrick Performed By: #### 3 [id number], [id number] #### [facility] [address] [place] [address] Vital Signs Date Time Vital Sign Value Performing Clinician Nahum doll 05-29-2023 15:53-0500 Body mass index (BMI) [Ratio] 35.13 kg/m2 Stacia SALDANA Work Phone: [facility] 05-29-2023 15:53-0500 Body weight 117.48 kg Stacia SALDANA Work Phone: [facility] 05-29-2023 15:53-0500 Diastolic blood pressure 70 mm[Hg] Stacia SALDANA Work Phone: [facility] 05-29-2023 15:53-0500 Systolic blood pressure 124 mm[Hg] Stacia SALDANA Work Phone: [facility] 05-15-2023 09:03-0500 Body mass index (BMI) [Ratio] 35.13 kg/m2 Victorino Leonel DO Work Phone: [facility] 05-15-2023 09:03-0500 Body weight 117.48 kg Victorino Leonel DO Work Phone: [facility] 05-15-2023 09:03-0500 Diastolic blood pressure 72 mm[Hg] Victorino Leonel DO Work Phone: [facility] 05-15-2023 09:03-0500 Systolic blood pressure 120 mm[Hg] Victorino Leonel DO Work Phone: [facility] 09-07-2022 11:37-0400 Blood Pressure Location Dipak Boyd [facility] 09-07-2022 11:37-0400 Diastolic blood pressure 80 mm[Hg] Dipak Boyd [facility] 09-07-2022 11:37-0400 Heart rate 76 /min Dipak Boyd [facility] 09-07-2022 11:37-0400 SaO2% (BldA) [Mass fraction] 99 % Dipak Boyd [facility] 09-07-2022 11:37-0400 Systolic blood pressure 110 mm[Hg] Dipak Boyd [facility] Encounters Encounter Date Encounter Type Care Provider Facility Start: 07-16-2023 End: 07-16-2023 ambulatory VICTORINO LEONEL Not Available Start: 07-15-2023 End: 07-15-2023 ambulatory VICTORINO LEONEL Not Available Start: 07-07-2023 End: 07-07-2023 ambulatory VICTORINO LEONEL Not Available Start: 07-02-2023 End: 07-02-2023 ambulatory STACIA HARP Not Available Start: 06-23-2023 ambulatory [facility] Start: 06-16-2023 End: 06-16-2023 ambulatory VICTORINO LEONEL [...] fetus Start: 05-15-2023 End: 05-15-2023 ambulatory VICTORINO LEONEL Not Available Start: 05-15-2023 End: 05-15-2023 flow sheet Victorino Leonel DO Work Phone: [facility] Comment on above: Second trimester pre gnancy Start: 05-08-2023 End: 05-09-2023 ambulatory Shannon Lai [facility] Start: 05-08-2023 End: 05-08-2023 Patient encounter procedure Shannon Chapin [facility] Start: 04-25-2023 End: 04-25-2023 ambulatory SILVA LAMAR Not Available Start: 04-25-2023 End: 04-26-2023 ambulatory Shannon Lai [facility] Start: 04-25-2023 End: 04-25-2023 Patient encounter procedure Shannon Chapin [facility] Start: 04-17-2023 End: 04-17-2023 ambulatory STACIA HARP Not Available Start: 03-19-2023 End: 03-19-2023 ambulatory VICTORINO LEONEL Not Available Start: 01-14-2023 End: 01-15-2023 ambulatory Gio JIMENEZ Facility:[facility] Start: 09-07-2022 End: 09-08-2022 ambulatory Dipak Boyd Facility:[facility] Start: 09-07-2022 End: 09-07-2022 Patient encounter procedure Dipak Boyd [facility] Start: 08-13-2022 End: 08-14-2022 [facility] Start: 08-13-2022 Encounter for gynecological examination (general) (routine) without abnormal findings [facility] Start: 08-13-2022 End: 08-13-2022 Patient encounter procedure [facility] Start: 08-13-2022 End: 08-13-2022 Subsequent hospital visit by physician [facility] Comment on above: Encounter for well brian randy exam with routine gynecological exam Start: 08-12-2022 End: 08-13-2022 ambulatory Yanira KURTZ Facility:[facility] Start: 08-09-2022 End: 08-10-2022 ambulatory Yanira T TESSIE Facility:[facility] Start: 06-07-2022 End: 06-08-2022 ambulatory Krystyna X Orzech Facility:[facility] Start: 06-07-2022 End: 06-07-2022 Patient encounter procedure Krystyna X Orzech [facility] Procedures Date Procedure Procedure [...] unspecified fetus Expected: 05/29/2023 (Approximate), Expires: 05/29/2024 [facility] Work Phone: Comment on above: Expected: 05/29/2023 (Approximate), Expires: 05/29/2024 Start: 05-29-2023 End: 05-29-2023 Patient encounter procedure 05/29/2023 8:30 AM EST Routine [facility] [address] [id number] Stacia Harp PA [address] [place] [address] [facility] Start: 12-13-2022 Influenza vaccination Influenza Vacc ine (#1) [facility] Start: 12-01-2022 DTaP/Tdap/Td vaccine (7 - Td or Tdap) DTaP/Tdap/Td vaccine (7 - Td or Tdap) [facility] Start: 11-12-2022 Influenza vaccination Flu vacc ine (Season Ended) [facility] Start: 2021 Screening for malign ant neoplasm of cervix Pap smear [facility] Start: 2018 Hepatitis C screening Hepatitis C sc reen [facility] [place] [facility] Start: 2016 Screening for Chlamy sedrick trachomatis Chlamydia/GC screen [facility] [place] [facility] Start: 11-05-2015 [facility] Start: 2012 Depression Screen Depression Screen [facility] [place] [facility] Start: 05-07-2001 COVID-19 Vaccine (#1) COVID-19 Vacci ne (#1) [facility] [place] [facility] End: 08-13-2022 Chlamydia/GC DNA, Thin Prep [facility] Work Phone: Comment on above: 1 Occurrences starti ng 08/13/2022 until 08/13/2022 End: 08-13-2022 Cytopathology procedure, preparation of smear, genital source PAP Smear Lab Routine Encounter for well woman exam with routine gynecological exam 1 Occurrences starting 08/13/2022 until 08/13/2022 [facility] [employer] Phone: Comment on above: 1 Occurrences starti ng 08/13/2022 until 08/13/2022 Immunizations Immunization Date Immunization Notes Care Provider Fa cili 02-04-2020 influenza virus vaccine, unspecified formulation Krystyna Orzech [facility] 02-05-2019 influenza virus vaccine, unspecified formulation Krystyna Orzech [facility] 07-21-2018 meningococcal B vaccine, fully recombinant Krystyna Orzech [facility] 01-08-2018 influenza virus vaccine, unspecified formulation Krystyna Orzech [facility] 11-22-2016 meningococcal ACWY vaccine, unspecified formulation Krystyna Orzech [facility] 11-22-2016 meningococcal B vaccine, fully recombinant Krystyna Orzech [facility] 02-28-2014 influenza, whole Krystyna Orze ch [facility] 11-15-2013 hepatitis A vaccine, unspecified formulation Krystyna Orzech [facility] 11-15-2013 HPV, unspecified formulation Krystyna Orzech [facility] 11-15-2013 meningococcal ACWY, unspecified formulation Krystyna Orzech [facility] 12-01-2012 hepatitis A vaccine, unspecified formulation Krystyna Orzech [facility] 12-01-2012 HPV, unspecified formulation Krystyna Orzech [facility] 12-01-2012 tetanus toxoid, reduced diphtheria toxoid, and acellular pertussis vaccine, adsorbed Krystyna Orzech [facility] 12-01-2012 varicella virus vaccine Krystyna Orzech [facility] 08-26-2005 hepatitis B vaccine, pediatric or pediatric/adolescent dosage Krystyna Orzech [facility] 08-15-2005 DTaP, unspecified formulation Krystyna Orzech [facility] 08-15-2005 measles, mumps and rubella virus vaccine Krystyna Orzech [facility] 08-15-2005 poliovirus vaccine, unspecified formulation Krystyna Orzech [facility] 12-15-2002 DTaP, unspecified formulation Krystyna Orzech [facility] 12-15-2002 haemophilus influenz ae type b vaccine, PRP-T conjugate Krystyna Orzech [facility] 12-25-2001 DTaP, unspecified formulation Krystyna Orzech [facility] 12-25-2001 measles, mumps and rubella virus vaccine Krystyna Orzech [facility] 12-25-2001 poliovirus vaccine, unspecified formulation Krystyna Orzech [facility] 12-25-2001 varicella virus vaccine Krystyna Orzech [facility] 04-29-2001 DTaP, unspecified formulation Krystyna Orzech [facility] 04-29-2001 poliovirus vaccine, unspecified formulation Krystyna Orzech [facility] 01-20-2001 DTaP, unspecified formulation Krystyna Orzech [facility] 01-20-2001 poliovirus vaccine, unspecified formulation Krystyna Orzech [facility] NEGATED: Highlighted row has not occurred!02-18-2022 influenza virus vaccine, unspecified formulation [employer] [facility] NEGATED: Highlighted row has not occurred!02-18-2022 SARS-CoV-2 mRNA (tozinameran 5y-11y) vaccine [employer] [facility] Payers Date Payer Category Payer Unknown [id number] 2022 Unknown [employer] [id number] 2022-Present [address] [place] [address] [id number] 2022 Unknown [id number] 2022 Unknown [id number] 2022 Medicaid [employer] [place] [id number] 2022-Present [address] [place] [address] [id number] 2022 Medicaid [id number] 2021 Unknown [id number] 2000 Unknown [id number] 2000 Unknown [id number] 2000 Unknown [id number] 2000 Unknown [id number] [id number]. 2000 Unknown [id number] 2.16.840.1.518164.3.579.2.7 2000 Unknown [id number] 2.16.840.1.737747.3.579.2. 2000 Unknown [id number] 2.16.840.1.086197.3.579.2.727 2000 Unknown [id number] 2.16.840.1.600894.3.579.2.9 2000 Unknown [id number] 2.16.840.1.872271.3.579.2.9 2000 Unknown [id number] 2.16.840.1.614250.3.579.2.1258 2000 Unknown [id number] 2.16.840.1.943497.3.579.2.1258 2000 Unknown [id number] 2.16.840.1.103772.3.579.2.1258 2000 Unknown [id number] 2.16.840.1.873461.3.579.2.9 2000 Unknown [id number] 2.16.840.1.298842.3.579.2.9 2000 Unknown [id number] 2.16.840.1.028724.3.579.2.9 2000 Unknown [id number] 2.16.840.1.016264.3.579.2.9 2000 Unknown [id number] 2.16.840.1.692700.3.579.2.1259 Social History Date Type Detail Facility Start: 03-30-2020 End: 01-13-2023 Tobacco smoking status Never smoked tobacco (finding) [facility] Tobacco smoking status Never [facility] Start: 01-13-2023 Sex Assigned At Female F [facility] Start: 08-13-2022 Tobacco use and exposure Smokeless tobacco non-user [employer] Phone: Start: 08-13-2022 Alcohol intake Not Asked [employer] [facility] [employer] Phone: Start: 08-13-2022 Alcohol Comment social BON [facility] [employer] Work Phone: Start: 2000 Sex Assigned At Not on file [facility] [employer] Work Phone: Start: 05-15-2023 Alcohol intake Lifetime non-d diamond (finding) [facility] Start: 01-13-2023 History of Social function [facility] Start: 01-13-2023 Alcohol Comment caffeine: 1-2 cups per day coffee [facility] Start: 11-09-2022 [facility] Goals Date Patient Goal Desired Activity /State Personal health goal Clinical Notes 09-07-2022 to 05-29-2023 Stacia Harp, SHANA - 05/29/2023 3:50 PM ESTSjesús Johnson LPN [...] of: SHANA Herrera documented in this encounter [facility] 05-15-2023 History of Present illness Narrative Reason [...] Victorino Castaneda DO documented in this encounter [facility] 09-07-2022 Hospital Discharge instructions Patient Education 09/07/2022 11:57:13 Otitis Externa, Vqan-ue-Itqv Otitis Externa Otitis externa is an infection [...] if you start to feel better. Take yroy-oza-hcpfomb and prescription medicines only as told by [...] provider. Document Revised: 06/13/2021 Document Reviewed: 06/13/2021 How do you roll? Patient Education 2022 How do you roll? Inc[employer] 09/07/2022 11:57:10 Otitis Media, Adult Otitis [...] pain. Follow these instructions at home: Take eweu-omi-grqufnl and prescription medicines only as told by [...] provider. Document Revised: 07/09/2021 Document Reviewed: 07/09/2021 How do you roll? Patient Education 2022 [employer]. 09/07/2022 11:57:07 BMI for Adults BMI for [...] numbers. This can be done either in [place] ([place] or metric measurements. Note that charts and online BMI calculators are available to help you find your BMI quickly and easily without having to do these calculations yourself. To calculate your BMI in [place] ([place] measurements: 1.Measure your weight in pounds [...] Centers for Disease Control and Prevention: www.cdc.gov [place] Heart Association: www.heart.org National Heart, Lung, and Blood [place]: www.nhlbi.nih.gov Summary Body mass index (BMI) is a number that is calculated from a person's weight and height. BMI may help estimate how much of a person's weight is composed of fat. BMI can help identify those who may be at higher risk for certain medical problems. BMI can be measured using [place]e measurements or metric measurements. BMI charts are used to identify whether you are underweight, normal weight, overweight, or obese. This information is not intended to replace advice given to you by your health care provider. Make sure you discuss any questions you have with your health care provider. Document Revised: 12/22/2019 Document Reviewed: 10/29/2019 How do you roll? Patient Education 2022 [employer]. Follow Up Care 09/07/2022 10:55:41 With:CIPRIANO MOLINA CNP Address: [address] [place] [id number] When: Unknown [facility] Evaluation + Plan note No data available for this section [facility] Evaluation + Plan note Future Appointments Appointment Date:05/12/2023 08:00:00 AM Scheduled Provider:Shannon Moore Location:[facility] Appointment Type:BH Therapy 60 [facility] Evaluation + Plan note Future Appointments Appointment Date:05/22/2023 10:00:00 AM Scheduled Provider:Shannon Moore Location:[facility] Appointment Type: Video Visit Therapy 60 [facility] Evaluation note Diagnosis Encounter for well woman exam with routine gynecological exam documented in this encounter PRAVEEN KENNEDY [employer] Work Phone: evaluation note* Diagnosis Second trimester state, incidental [facility] Diagnosis Third trimester state, incidental Nausea Nausea alone Heartburn during in third trimester Excessive growth affecting management of , antepartum, single or unspecified fetus [facility] No data available for this section [facility] Progress note No data available for this section [facility] Summary Purpose Family History [...] Personnel Name: CIPRIANO MOLINA CNP Address: Address: [address] [place] [address] Personnel Name: CIPRIANO MOLINA CNP Address: Address: [address] [place] [address] Personnel Name: CIPRIANO MOLINA CNP Address: Address: [address] [place] [address] Personnel Name: ANDRE MOLINA CNPFER Riky Address: Address: [address] [place] [address] INFORMATION SOURCE (unrecogn ized section and content) DATE CREATED AUTHOR 08/22/2022 Macy Stroud Jamey adams DATE CREATED AUTHOR AUTHOR'S ORGANIZ ATION 05/21/2023 [facility] DATE CREATED AUTHOR AUTHOR'S ORGANIZ ATION 07/16/2023 [facility] EPIC Reason for Visit [...] BE BASED ON THE PRIMARY CLINICAL RECORDS. [facility]. provides no warranty or guarantee of the accuracy or completeness of information in this document.
[2023-07-17] VITALS (51 sets, daily range): BP systolic 90–136; BP diastolic 51–85; PULSE 62–123; TEMP 35.9–36.8
[2023-07-17 01:35] LABS: Clarity Urine CLEAR (CLEAR); Color Urine DK. ORANGE (YELLOW); Specific Gravity Urine 1.025 (1.005-1.025)
[2023-07-17 01:57] LABS: pH Urine COLOR INTERFERENCE (5.0-9.0)
[2023-07-17 01:58] LABS: Bilirubin Urine COLOR INTERFERENCE (NEGATIVE); Blood Urine COLOR INTERFERENCE (NEGATIVE); Glucose Urine UA COLOR INTERFERENCE mg/dL (NEGATIVE); Ketones Urine COLOR INTERFERENCE mg/dL (NEGATIVE); Leukocyte Esterase Urine COLOR INTERFERENCE (NEGATIVE); Nitrite Urine COLOR INTERFERENCE (NEGATIVE); Protein Urine COLOR INTERFERENCE mg/dL (NEG/TRACE); Urine Microscopic Indicated YES; Urobilinogen Urine COLOR INTERFERENCE EU/dL (0.2-1.0)
[2023-07-17 02:09] LABS: Bacteria Urine SMALL #/HPF (NONE SEEN); Cast Seen? NONE SEEN #/LPF (NONE SEEN); Crystals Seen? None Seen #/HPF (None Seen); Mucus Urine SMALL (NONE SEEN); Squamous Epithelial Cell Urine FEW #/LPF (NONE/RARE); Urine Culture Indicated YES; WBC Urine 0-2 #/HPF (NONE SEEN)
[2023-07-17 09:21] LABS: Hematocrit 37.7 % (36.0-48.0); Hemoglobin 12.3 g/dL (12.0-16.0); Mean Corpuscular HGB Conc 32.6 g/dL (29.9-35.2); Mean Corpuscular Hemoglobin 29.1 pg (26.7-34.0); Mean Corpuscular Volume 89.1 fL (81.0-99.0); Mean Platelet Volume 10.4 fL (9.5-13.5); Platelet Count 164 10^3/uL (150-450); Red Blood Count 4.23 10^6/uL (4.20-5.40); Red Cell Distribution Width 12.6 % (11.0-15.0); White Blood Count 5.2 10^3/uL (4.0-11.0)
[2023-07-17] MEDS: 0.9 % SODIUM CHLORIDE 1,000 ML 125 ML IV ×2 (09:57→22:51)
[2023-07-17] MEDS: OXYTOCIN/0.9 % SODIUM CHLORIDE 10 UNITS/500 ML PLAST..BAG 6 UNIT IV (09:57)
[2023-07-17] MEDS: AMPICILLIN SODIUM 2,000 MG in 0.9 % SODIUM CHLORIDE 100 ML 200 MG IV (09:58)
[2023-07-17 11:16] LABS: Amphetamine Screen Urine NEGATIVE (NEGATIVE); Barbiturates Screen Urine NEGATIVE (NEGATIVE); Benzodiazepines Screen Urine NEGATIVE (NEGATIVE); Buprenorphine Screen Urine NEGATIVE (NEGATIVE); Cannabinoid Screen Urine NEGATIVE (NEGATIVE); Cocaine Screen Urine NEGATIVE (NEGATIVE); Methadone Screen Urine NEGATIVE (NEGATIVE); Methamphetamines Screen Urine NEGATIVE (NEGATIVE); Opiate Screen Urine NEGATIVE (NEGATIVE); Oxycodone Screen Urine NEGATIVE (NEGATIVE); Phencyclidine Screen Urine NEGATIVE (NEGATIVE); Tricyclic Antidepressant Urine NEGATIVE (NEGATIVE)
[2023-07-17] MEDS: AMPICILLIN SODIUM 1,000 MG in 0.9 % SODIUM CHLORIDE 50 ML 100 MG IV ×3 (14:40→22:08)
[2023-07-17] MEDS: ROPIVACAINE HCL/PF 400 MG/200 ML PREMIX 6 MG EPIDURAL (17:08)
[2023-07-17] MEDS: 0.9 % SODIUM CHLORIDE 1,000 ML 1000 ML IV (17:08)
[2023-07-17] MEDS: ONDANSETRON PF 4 MG/2 ML VIAL IV (17:49)
[2023-07-17] MEDS: OXYTOCIN/0.9 % SODIUM CHLORIDE 10 UNITS/500 ML PLAST..BAG 54 UNIT IV (22:50)
[2023-07-18] VITALS (48 sets, daily range): BP systolic 91–141; BP diastolic 46–86; PULSE 59–128; TEMP 36.5–37.2; O2SAT 93–97
[2023-07-18] MEDS: AMPICILLIN SODIUM 1,000 MG in 0.9 % SODIUM CHLORIDE 50 ML 100 MG IV (02:00)
[2023-07-18] MEDS: 0.9 % SODIUM CHLORIDE 1,000 ML 125 ML IV (06:36)
[2023-07-18] MEDS: FAMOTIDINE/PF 20 MG/2 ML VIAL IV (07:13)
[2023-07-18] MEDS: METOCLOPRAMIDE HCL 10 MG/2 ML VIAL IVP (07:13)
[2023-07-18] MEDS: CITRIC ACID/SODIUM CITRATE 30 ML SOLUTION ORACIT SHOHL'S SOLN PO (07:13)
[2023-07-18] MEDS: CEFAZOLIN SODIUM/DEXTROSE,ISO 2 GM/50 ML PIGGYBACK IV ×2 (07:13→14:36)
[2023-07-18] MEDS: LACTATED RINGER'S SOLUTION 1,000 ML 50 ML IV (07:52)
--- NOTE | 2023-07-18 08:13 | P.ON_ITS ---
Brief Operative Note Date of procedure: 07/18/23 Pre-op diagnosis general: iup at 37+wks, active labor, failure to dilate, fail ure to descend Post-op diagnosis: same as pre-op Procedure: NAME OF PROCEDURE: [ section ] PROCEDURE: Patient was taken back to the Operating Room where she was given a spinal anesthesia with Duramorph without difficulty. She was prepped and draped in the normal sterile fashion. A Pfannenstiel skin incision was then made 2 cm above the symphysis pubis and carried down to underlying rectus fascia using a Bovie. The fascia was incised in the midline and extended laterally using Barrientos scissors. Two Donovan clamps were placed on the superior aspect of the fascia and dissected off the underlying rectus muscles. The same was performed on the inferior aspect as well. The muscles were then in the midline. Peritoneum was identified and entered bluntly. The peritoneum was then extended superiorly and inferiorly with good visualization of the bladder. The bladder blade was inserted. A low transverse incision was made on the patient's uterus and extended laterally digitally. The was then delivered atraumatically after the bladder blade was removed in the cephalic position. The cord was clamped and cut. Cord blood was obtained. The infant was handed off to awaiting team. The patient's placenta was spontaneously delivered. The uterus was then exteriorized. The uterus was cleared of all clots and debris. The bladder blade was reinserted. The patient's uterine incision was closed using #0 Vicryl in a running lock fashion. Excellent hemostasis was assured. The uterus was then returned to the patient's abdomen. The patient's abdomen was copiously irrigated using warm saline. Peritoneal gutters were cleared of all clots and debris. Again excellent hemostasis was assured. The patient's peritoneum was closed using 3-0 Vicryl in a running fashion. The patient's fascia was closed using #0 Vicryl in a running fashion. The patient's skin was closed using 4-0 Vicryl subcuticularly. The patient tolerated the procedure well. Sponge, lap, and needle counts were correct x2. The patient was taken to the Recovery Room in stable condition. Anesthesia: epidural Surgeon: Jose Castaneda Mental Health Program Manager: Pati Warner Estimated blood loss (mL): 575 Pathology: none sent Condition: stable Disposition: floor Urinary Catheter Management Urinary Catheter Management Urethral: Cath placed during this visit: no
[2023-07-18] MEDS: BUPIVACAINE LIPOSOME/PF 266 MG/13.3 ML VIAL INJ (08:24)
[2023-07-18] MEDS: 0.9 % SODIUM CHLORIDE 10 ML VIAL 30 ML INJ (08:24)
[2023-07-18] MEDS: BUPIVACAINE HCL 0.5% PF 50 MG/10 ML VIAL INJ (08:24)
[2023-07-18] MEDS: OXYTOCIN/0.9 % SODIUM CHLORIDE 20 UNITS/1,000 ML PLAST..BAG 125 UNIT IV (10:18)
[2023-07-18] MEDS: ACETAMINOPHEN 500 MG TABLET 1000 MG PO (14:36)
[2023-07-18] MEDS: KETOROLAC TROMETHAMINE 30 MG/ML VIAL IVP ×2 (14:36→21:24)
[2023-07-18] MEDS: ONDANSETRON PF 4 MG/2 ML VIAL IV (14:43)
[2023-07-18] MEDS: ENOXAPARIN SODIUM 40 MG/0.4 ML SYRINGE SUBQ (21:24)
--- NOTE | 2023-07-19 01:48 | P.OBPN_ITS ---
OB - PN: Subj Subjective Patient comments: no complaints and pain well controlled [place] status: doing well Exam Constitutional Vital Signs, click to edit/add: Last Vital Signs Temp 97.7 F 07/18/23 09:06 Pulse 74 07/18/23 21:33 Resp 20 07/18/23 09:06 BP 130/60 07/18/23 21:33 Pulse Ox 97 07/18/23 16:10 O2 Del Method Room Air 07/18/23 16:10 Documenting provider has reviewed patient's vital signs: yes Common normals: no apparent distress Respiratory Common normals: clear to auscultation bilaterally Cardio Common normals: regular rate and regular rhythm GI Common normals: Normal to inspection, nondistended, normoactive bowel sounds present Extremity Common normals: no calf tenderness Urinary Catheter Management Urinary Catheter Management Urethral: Cath placed during this visit: yes Urethral indwelling: No Insertion date: 07/17/23 Insertion time: 17:30 OB - PN: A/P Plan - day: 1 Plan: routine postop care and discharge home Time Spent with Patient Time: Total time spent is greater than 50% in coordination of care (as documented) at patient's floor/unit and/or counseling patient: Total time spent with greater than 50% in coordination of care (as documented) at patient's floor/unit and/or counseling patient: less than 15 minutes
[2023-07-19] MEDS: ACETAMINOPHEN 500 MG TABLET 1000 MG PO ×3 (05:01→21:14)
[2023-07-19 05:05] VITALS: BP 132/63; PULSE 86
[2023-07-19 05:06] VITALS: TEMP 35.7
[2023-07-19 05:52] LABS: Basophils Percent Auto 0.1 % (0.2-2.0); Eosinophils Percent Auto 0.1 % (0.9-7.0); Hematocrit 31.2 % (36.0-48.0); Hemoglobin 10.2 g/dL (12.0-16.0); Immature Granulocytes Abs Auto 0.07 10^3/uL (0.00-0.03); Immature Granulocytes Pct Auto 0.5 % (0.0-0.5); Lymphocytes Percent Auto 14.4 % (20.5-60.0); Mean Corpuscular HGB Conc 32.7 g/dL (29.9-35.2); Mean Corpuscular Hemoglobin 29.4 pg (26.7-34.0); Mean Corpuscular Volume 89.9 fL (81.0-99.0); Mean Platelet Volume 10.8 fL (9.5-13.5); Monocytes Absolute Auto 1.4 10^3/uL (0.3-0.8); Monocytes Percent Auto 9.7 % (1.7-12.0); Neutrophils Absolute Auto 10.5 10^3/uL (1.4-6.5); Neutrophils Percent Auto 75.2 % (43.0-75.0); Platelet Count 162 10^3/uL (150-450); Red Blood Count 3.47 10^6/uL (4.20-5.40); Red Cell Distribution Width 12.5 % (11.0-15.0)
[2023-07-19] MEDS: KETOROLAC TROMETHAMINE 30 MG/ML VIAL IVP (07:47)
[2023-07-19 08:15] VITALS: BP 119/60; PULSE 93; TEMP 36.7
[2023-07-19] MEDS: DOCUSATE SODIUM 100 MG CAPSULE PO ×2 (12:05→21:14)
[2023-07-19] MEDS: IBUPROFEN 400 MG TABLET 800 MG PO ×2 (14:10→19:51)
[2023-07-19] MEDS: ENOXAPARIN SODIUM 40 MG/0.4 ML SYRINGE SUBQ (21:15)
--- NOTE | 2023-07-19 22:22 | RESP.RT ---
Patient trying to breastfeed baby at this time
[2023-07-20 01:39] VITALS: BP 117/57; PULSE 67
[2023-07-20 01:45] VITALS: BP 117/57; PULSE 67; TEMP 36.4
[2023-07-20] MEDS: IBUPROFEN 400 MG TABLET 800 MG PO ×3 (02:01→21:44)
[2023-07-20] MEDS: ACETAMINOPHEN 500 MG TABLET 1000 MG PO ×2 (05:29→15:00)
[2023-07-20 09:42] VITALS: BP 129/60; PULSE 83; TEMP 36.4
[2023-07-20] MEDS: DOCUSATE SODIUM 100 MG CAPSULE PO ×2 (09:45→21:44)
--- NOTE | 2023-07-20 10:50 | P.OBPN_ITS ---
OB - PN: Subj Subjective Patient comments: no complaints [place] status: doing well [place] feeding status: exclusively Exam Constitutional Vital Signs, click to edit/add: Last Vital Signs Temp 97.5 F L 07/20/23 01:45 Pulse 83 07/20/23 09:42 Resp 12 07/20/23 01:45 BP 129/60 07/20/23 09:42 Pulse Ox 97 07/18/23 16:10 O2 Del Method Room Air 07/20/23 01:45 Documenting provider has reviewed patient's vital signs: yes Common normals: no apparent distress and oriented x3 General appearance: cooperative Orientation/consciousness: Yes awake, Yes oriented to person, Yes oriented to place and Yes oriented to time HENMT Common normals: normocephalic Eye Common normals: EOMs intact bilaterally Neck & C-Spine Common normals: full ROM Lymph Lymphatic: no lymphadenopathy noted Chest Common normals: inspection of chest normal Respiratory Common normals: normal respiratory effort Effort & inspection: able to speak in complete sentences Auscultation: clear to auscultation bilaterally Cardio Common normals: regular rate and regular rhythm Rate: regular rate Rhythm: regular rhythm GI Common normals: Normal to inspection, nondistended, normoactive bowel sounds present Inspection: normal to inspection Common normals: no CVA tenderness Back & Pelvis Common normals: no CVA tenderness Thoracic spine/upper back: normal to inspection Extremity Common normals: normal to inspection Neuro Common normals: oriented x3 Sensorium/orientation: awake, alert, oriented to person, oriented to place and oriented to time Psych Common normals: mental status grossly normal, thought process normal, cooperative and affect normal Attitude: calm Thought content: normal thought content Urinary Catheter Management Urinary Catheter Management Urethral: Cath placed during this visit: yes Urethral indwelling: No Insertion date: 07/17/23 Insertion time: 17:30 OB - PN: A/P Plan - day: 2 Plan: routine postop care Time Spent with Patient Time: Total time spent is greater than 50% in coordination of care (as documented) at patient's floor/unit and/or counseling patient: Total time spent with greater than 50% in coordination of care (as documented) at patient's floor/unit and/or counseling patient: less than 15 minutes
[2023-07-20 16:16] VITALS: BP 122/59; PULSE 83; TEMP 36.8
[2023-07-20] MEDS: ENOXAPARIN SODIUM 40 MG/0.4 ML SYRINGE SUBQ (21:43)
[2023-07-21 01:40] VITALS: TEMP 36.4
[2023-07-21 01:50] VITALS: BP 121/59; PULSE 71
--- NOTE | 2023-07-21 07:58 | PM.OBPN ---
OB - PN: Subj Subjective Patient comments: no complaints and pain well controlled [place] status: doing well Exam Constitutional Vital Signs, click to edit/add: Last Vital Signs Temp 97.6 F 07/21/23 01:40 Pulse 71 07/21/23 01:50 Resp 16 07/20/23 16:16 BP 121/59 07/21/23 01:50 Pulse Ox 97 07/18/23 16:10 O2 Del Method Room Air 07/21/23 01:40 Documenting provider has reviewed patient's vital signs: yes Common normals: no apparent distress Respiratory Common normals: clear to auscultation bilaterally Cardio Common normals: regular rate and regular rhythm GI Common normals: Normal to inspection, nondistended, normoactive bowel sounds present Extremity Common normals: no calf tenderness Urinary Catheter Management Urinary Catheter Management Urethral: Cath placed during this visit: yes Urethral indwelling: No Insertion date: 07/17/23 Insertion time: 17:30 OB - PN: A/P Plan - day: 3 Plan: routine postop care, discharge home and other (fu 1wk) Time Spent with Patient Time: Total time spent is greater than 50% in coordination of care (as documented) at patient's floor/unit and/or counseling patient: Total time spent with greater than 50% in coordination of care (as documented) at patient's floor/unit and/or counseling patient: less than 15 minutes
[2023-07-21 08:14] VITALS: BP 129/63; PULSE 66
[2023-07-21] MEDS: MEASLES,MUMPS,RUBELLA VACC/PF 0.5 ML VIAL SQ (10:36)
[2023-07-21] MEDS: IBUPROFEN 400 MG TABLET 800 MG PO (10:38)
--- NOTE | 2023-07-21 11:15 | DS_ITS ---
DISCHARGE DATE: ??07/21/2023 PRIMARY DIAGNOSES: 1.? Intrauterine at 37+ weeks. 2.? Active labor. 3.? Failure to dilate. 4.? Failure to descend. PROCEDURE:? section. HOSPITAL COURSE:? As expected.? Please see chart for full details.? LABORATORY DATA:? Please see chart. COMPLICATIONS:? None. DISCHARGE CONDITION:? Stable. CONSULTATION:? Anesthesia. DISCHARGE INSTRUCTIONS: 1.? Diet:? Regular. 2.? Medications: a.? Percocet 5/325 one to two p.o. every 4-6 hours p.r.n. pain. b.? Motrin 800 one p.o. every 8 hours p.r.n. pain. 3.? Followup in one week. Restrictions:? Pelvic rest for 6 weeks.? No heavy lifting.? May drive when pain free and no longer on narcotics. MTDD
--- NOTE | 2023-07-28 07:37 | P.OBPRC_ITS ---
Procedure Pre-op/Post-op diagnoses: Pre-Op/Post-Op Diagnoses Operation Date: 07/18/23 07:15 <No data on this case meets the specified criteria> Procedure: Procedures Operation Date: 07/18/23 07:15 Actual Procedure Side Surgeon p Not Applicable Jose Castaneda DO [employer] Consultant: Jose Castaneda Estimated blood loss (mL): 600 Disposition: PACU Anesthesia type: Epidural
== END 2023-07-21 11:15 | disposition home or self-care (01) | DRG 788 ==
PROVIDERS: Admitting Provider Obstetrics & Gynecology; Visit Provider Obstetrics & Gynecology
PROC: 10D00Z1 Extraction of Products of Conception, Low, Open Approach (ICD-10-PCS; CPT 59514; principal; 2023-07-18 07:15)
DX: O32.4XX0 Maternal care for high head at term, not applicable or unspecified (principal); O62.0 Primary inadequate contractions; O99.824 Streptococcus B carrier state complicating childbirth; Z3A.37 37 weeks gestation of pregnancy; Z37.0 Single live birth
CPT/HCPCS: 36415; 51702; 59025; 59050; 64488; 80307; 81001; 85025; 85027; 86850; 86900; 86901; 87086; 87150; 87186; 90471; 90707; 94667; 94668; 96365; 96366; 96368; 96372; 96375; 96376; J1094

== ENCOUNTER 2023-07-24 08:20 | Outpatient (OUT) | payer OTHER, SELFPAY ==
--- OUTSIDE RECORDS SUMMARY | 2023-07-24 08:38 | XMS_ITS | CCD ---
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 Name Role Phone CIPRIANO MOLINA Primary Care [...] VICTORINO Attending Unavailable LEONEL, VICTORINO Attending Unavailable DARWIN WILKINSON Attending Unavailable LEONEL, VICTORINO Attending Unavailable Medications Current Medications Medication Drug Class(es) Dates Sig (Normalized) Sig (Original) amoxicillin 500 mg oral capsule (1 source) Penicillin-class Antibacterial Start: 09-07-2022 End: 09-14-2022 take 2 capsules by mouth every twelve hours amoxicillin 500 mg Cap 1,000 mg = 2 cap(s), Oral, q12hr, X 7 day(s), # 28 cap(s), Refills(s) 0, Pharmacy: [facility]/pharmacy #[id number], 183, cm, 09/07/22 11:38:00 EDT, Height/Length Dosing, 113.2, kg, 09/07/22 11:38:00 EDT, Weight Dosing Start Date: 09/07/22 Stop Date: 09/14/22 Status: Ordered ibuprofen 600 mg oral tablet (4 sources) Nonsteroidal Anti-inflammatory Drug Start: 12-07-2020 take 1 tablet by mouth every six hours ibuprofen 600 mg Tab 600 mg = 1 tab(s), Oral, q6hr, # 40 tab(s), Refills(s) 0, Pharmacy: [facility]/pharmacy #[id number], 178, cm, 12/07/20 10:05:00 EDT, [...] for 7 day(s), 10 mL, Refill(s) 0, [facility]/pharmacy #[id number], 183, cm, 09/07/22 11:38:00 EDT, [...] Negative Negative - 4(70) +++ mg/dL [facility] Blood, UA Positive Negative - 50 David/mcL [facility] Comment on above: moderate Clarity, UA Clear [facility] Color, UA Yellow [facility] Glucose, UA Negative Negative - 1999(110) ++++ mg/dL [facility] Interpretation and review of laboratory results Abnormal [facility] Ketones, UA Negative Negative - 160(16) ++++ mg/dL [facility] Leukocytes, UA Positive Negative - 500+++ Keith/mcL [facility] Comment on above: small Nitrite, UA Negative Negative - Positive [facility] pH, UA 6.5 5 - 9 [facility] Protein, UA Negative Negative - 1999(20) ++++ mg/dL [facility] Spec Grav, UA 1.025 1 - 1.03 [facility] Urobilinogen, UA 0.2 0.2 - 12 mg/dL [facility] Urinalysis macro (dipstick) panel (U)Ordered By: Jerri Mercaod on 05-15-2023 Bilirubin, UA Positive Negative - 4(70) +++ mg/dL [facility] Work Phone: Comment on above: small Blood, UA Positive Negative - 50 David/mcL [facility] Work Phone: Comment on above: trace-intact Clarity, UA Clear [facility] Work Phone: Color, UA Yellow [facility] Work Phone: Glucose, UA Negative Negative - 1999(110) ++++ mg/dL [facility] Work Phone: Interpretation and review of laboratory results Abnormal [facility] Work Phone: Ketones, UA Positive Negative - 160(16) ++++ mg/dL [facility] Work Phone: Comment on above: 80 Leukocytes, UA Positive Negative - 500+++ Keith/mcL [facility] Work Phone: Comment on above: small Nitrite, UA Negative Negative - Positive [facility] Work Phone: pH, UA 7.0 5 - 9 [facility] Work Phone: Protein, UA Positive Negative - 1999(20) ++++ mg/dL [facility] Work Phone: Comment on above: 30 Spec Grav, UA 1.020 1 - 1.03 [facility] Work Phone: Urobilinogen, UA 1.0 0.2 - 12 mg/dL [facility] Work Phone: [facility] Work Phone: Ambulatory Visit Summaryon [...] Up with CIPRIANO MOLINA CNP When: Where: [address] [place] [address]- Medications What How Much When Why Instructions New amoxicillin (amoxicillin 500 mg Cap) 2 Capsules By Mouth Every 12 hours Left otitis media Otitis externa of left ear BMI 33.0-33.9,adult Duration: 7 Days Pickup at [facility]/pharmacy #[id number] New ofloxacin otic (ofloxacin Otic 0.3% Merline) 5 Drops Otic 2 times a day Duration: 7 Days Pickup at [facility]/pharmacy #[id number] Unchanged ibuprofen (ibuprofen 600 mg Tab) 1 Tablets By Mouth Every 6 hours Contact prescribing physician if questions or concerns Pharmacy Information [facility]/pharmacy #[id number]: [address] [place], [place] [id number] [phone] Allergies No Known Allergies Problems Ongoing - [...] you start to feel better. ? Take syov-fcv-ynwlgst and prescription medicines only as told by [...] provider. Document Revised: 06/13/2021 Document Reviewed: 06/13/2021 [facility] Patient Education ? 2022 [employer] Otitis Media, Adult Otitis media occurs [...] nose (nasophary (more content not included)... Normal [facility] Medicine Office/Clini c Noteon 09-07-2022 [...] with voice recognition software. Occasional wrong-word or ?odrxg-p-njwy? substitutions may have occurred due to the inherent limitations of voice recognition software. 21-year-old female presents today with chief complaint of bilateral ear pain onset 2 days ago. Patient states her ear is sore to touch muffled hearing and bilateral pain with the ear pain. She been taking iwgx-vup-gjnujvx Motrin with some relief of symptoms. Denies [...] day(s), # 28 cap(s), Refills(s) 0, Pharmacy: [facility]/pharmacy #[id number], 183, cm, 09/07/22 11:38:00 EDT, [...] day(s), # 28 cap(s), Refills(s) 0, Pharmacy: [facility]/pharmacy #[id number], 183, cm, 09/07/22 11:38:00 EDT, [...] day(s), # 28 cap(s), Refills(s) 0, Pharmacy: [facility]/pharmacy #[id number], 183, cm, 09/07/22 11:38:00 EDT, Height/Length Dosing, 113.2, kg, 09/07/22 11:38:00 EDT, Weight Dosing Non-smoker (Z78.9: Other specified health status) Orders: ofloxacin otic, 5 drop(s), Otic, BID for 7 day(s), 10 mL, Refill(s) 0, [id number], 183, cm, 09/07/22 11:38:00 EDT, Height/Length Dosing, 113.2, kg, 09/07/22 11:38:00 EDT, Weight Dosing Follow-up With When Contact Information CIPRIANO MOLINA CNP [address] [place] [address]- Additional Instructions: Patient Education Otitis Externa, Hrwe-yg-Iqeh Otitis Media, Adult BMI for Adults Problem List/Past Medical History Ongoing Dysmenorrhea Irregular bleeding Menorrhagia Historical No qualifying data Procedure/Surgical History Removal of etonogestre (more content not included)... Normal [facility] Comment on above: Result Comment: [...] Follow these instructions at home: ? Take mcqi-pud-qoxzzos and prescription medicines only as told by [...] provider. Document Revised: 07/09/2021 Document Reviewed: 07/09/2021 [employer] Patient Education ? 2022 [employer] Infectious Disease Otitis Externa Otitis externa [...] swimming often. (more content not included)... Normal [facility] Chlamydia/GC DNA, TPon 08-15 Chlamydia Probe, TP Negative Normal NEG [facility] Comment on above: Result Comment: CHLA MYDIA [...] target. Performed By: #### C YTCGP #### [employer] [address] [place], [place] [id number] [employer]: Willard Sethi MD Gonorrhea Probe, TP Negative Normal NEG [facility] Comment on above: Result Comment: NEIS SERIA [...] target. Performed By: #### C YTCGP #### [employer] [address] [place] [address] [id number] [employer]: Willard Sethi MD Quantiferon-TB Plus (Client Incubated)on 08-14-2022 Gamma interferon background IA Qn (Bld) 0.02 International_Unit/mL Invalid Interpretation Code [facility] Comment on above: Performed By: #### 3 [id number] #### [facility] [address] [place] [address] M. tuberculosis stim IFN-g by CD4+ CD8+ T-cells Qn (Bld) 0.05 International_Unit/mL Invalid Interpretation Code [facility] Comment on above: Performed By: #### 3 [id number] #### [facility] [address] [id number] M. tuberculosis stim IFN-g by CD4+ T-cells Qn (Bld) 0.03 International_Unit/mL Invalid Interpretation Code [facility] Comment on above: Performed By: #### 3 [id number] #### [facility] [address] [place] [address] M. tuberculosis stim IFN-g Ql (Bld) [Interp] Negative Invalid Interpretation Code Negative [facility] Comment on above: Result Comment: No [...] interferon gamma. Chemiluminescence immunoassay methodology Performed at: [facility] [id number] PhD Radames Kendrick Performed By: #### 3 [id number] #### [facility] [address] [place] [address] Mitogen stimulated gamma interferon Qn (Bld) >10.00 Invalid Interpretation Code [facility] Comment on above: Performed By: #### 3 [id number], [id number] #### [facility] [address] [place] [address] Service comment (Unsp spec) [Interp] Comment Invalid Interpretation Code [facility] Comment on above: Result Comment: Ish [...] for the test. Performed By: #### 3 [id number], [id number] #### [facility] [address] [place] [address] Cytologyon 08-13-2022 Cytology (NOTE) Path Number: [id number] DIAGNOSIS Cervical material, (ThinPrep vial, Imaging-assisted review): Specimen Adequacy: Satisfactory for evaluation. -Endocervical/transfo rmation zone component is absent. Descriptive Diagnosis: Negative for intraepithelial lesion or malignancy. Cytotech Screener: SS4 Electronically Signed Out MAXIMUS Ramírez(ASCP) ss4/08/21/2022 Source of Specimen: A: Cervical material, (ThinPrep vial, Imaging-assisted review) HPV Reflex?.............. ........HPV if ASCUS Clinical History Z01.419 Routine rug sizer exam without abnormal findings High Risk HPV DNA testing is requested if the diagnosis is ASC-US Processing Lab: [address] [address] Interpretation performed at [address] [address] The Pap smear is a screening test primarily for squamous epithelial lesions, which is subject to both false negative and false positive results. Your patient should be reminded to consult you immediately if she experiences any suspicious signs or symptoms, regardless of her Pap smear result. GYNECOLOGIC CYTOLOGY REPORT Patient Name: AMOS RUFFIN [facility] Rec: [id number] [facility] CONSULTING PATHOLOGISTS [facility] [address] [place] [id number] [facility] Comment on above: Performed By: #### P PPVP #### [address] [address] [employer]: Willard Sethi MD Hep Bs Abon 08-13-2022 HBV surface Ab Ql (S) Non-Reactive Invalid Interpretation Code [facility] Comment on above: Result Comment: Non Reactive: Inconsistent with immunity, less than 10 mIU/mL Reactive: Consistent with immunity, greater than 9.9 mIU/mL Performed at: [facility] [address] [id number] PhD Radames Kendrick Performed By: #### 3 [id number], [id number] #### [facility] [address] [place] [address] Measles/Mumps/Rubella Immuni tyon 08-13-2022 MeV IgG IA Qn (S) 280.0 A unit/mL Invalid Interpretation Code Immune >16.4 [facility] Comment on above: Result Comment: Nega tive <13.5 Equivocal 13.5 - 16.4 Positive >16.4 Presence of antibodies to Rubeola is presumptive evidence of immunity except when acute infection is suspected. Performed By: #### 3 [id number], [id number], [id number] #### [facility] [address] [place] [address] MuV IgG IA Qn (S) 11.3 A unit/mL Invalid Interpretation Code Immune >10.9 [facility] Comment on above: Result Comment: Nega tive <9.0 Equivocal 9.0 - 10.9 Positive >10.9 A positive result generally indicates past exposure to Mumps virus or previous vaccination. Performed at: [facility] [address] [place], [place] [id number] PhD Radames Kendrick Performed By: #### 3 [id number], [id number] #### [facility] [address] [place] [address] Rubella virus IgG Qn (S) [IU]/mL Low Immune >0.99 [facility] Comment on above: Result Comment: Non- immune <0.90 Equivocal 0.90 - 0.99 Immune >0.99 Performed By: #### 3 [id number], [id number], [id number] #### [facility] [address] [place] [address] Varic IgGon 08-13-2022 VZV IgG IA Qn (S) 504 Invalid Interpretation Code Immune >165 [facility] Comment on above: Result Comment: Nega tive <135 Equivocal 135 - 165 Positive >165 A positive result generally indicates exposure to the pathogen or administration of specific immunoglobulins, but it is not indication of active infection or stage of disease. Performed at: [facility] [address] [place], [place] [id number] PhD Radames Kendrick Performed By: #### 3 [id number], [id number], [id number] #### [facility] [address] [place] [address] Vital Signs Date Time Vital Sign Value Performing Clinician Nahum doll 05-29-2023 15:53-0500 Body mass index (BMI) [Ratio] 35.13 kg/m2 Stacia SALDANA Work Phone: [facility] 05-29-2023 15:53-0500 Body weight 117.48 kg Stacia SALDANA Work Phone: [facility] 05-29-2023 15:53-0500 Diastolic blood pressure 70 mm[Hg] Stacia SALDANA Work Phone: [facility] 05-29-2023 15:53-0500 Systolic blood pressure 124 mm[Hg] Stacia SALDANA Work Phone: [facility] 05-15-2023 09:03-0500 Body mass index (BMI) [Ratio] 35.13 kg/m2 Victorino Leonel DO Work Phone: [facility] 05-15-2023 09:03-0500 Body weight 117.48 kg Victorino Leonel DO Work Phone: [facility] 05-15-2023 09:03-0500 Diastolic blood pressure 72 mm[Hg] Victorino Leonel DO Work Phone: [facility] 05-15-2023 09:03-0500 Systolic blood pressure 120 mm[Hg] Victorino Leonel DO Work Phone: [facility] 09-07-2022 11:37-0400 Blood Pressure Location Dipak Oliver [facility] 09-07-2022 11:37-0400 Diastolic blood pressure 80 mm[Hg] Dipak Boyd [facility] 09-07-2022 11:37-0400 Heart rate 76 /min Dipak Boyd [facility] 09-07-2022 11:37-0400 SaO2% (BldA) [Mass fraction] 99 % Dipakjolynn Rodriguezey [facility] 09-07-2022 11:37-0400 Systolic blood pressure 110 mm[Hg] Dipak Boyd [facility] Encounters Encounter Date Encounter Type Care Provider Facility Start: 07-22-2023 End: 07-22-2023 ambulatory DARWIN WILKINSON Not Available Start: 07-16-2023 End: 07-16-2023 ambulatory VICTORINO LEONEL Not Available Start: 07-15-2023 End: 07-15-2023 ambulatory VICTORINO LEONEL Not Available Start: 07-07-2023 End: 07-07-2023 ambulatory VICTORINO LEONEL Not Available Start: 07-02-2023 End: 07-02-2023 ambulatory STACIA HARP Not Available Start: 06-23-2023 ambulatory Shannon Lai Facility:[facility] Start: 06-16-2023 End: 06-16-2023 ambulatory VICTORINO HOLLYO Not Available Start: 05-29-2023 End: 05-29-2023 ambulatory STACIA LOYDEY Not Available Start: 05-29-2023 End: 05-29-2023 Office [...] End: 05-08-2023 Patient encounter procedure Shannon Chapin [facility] Start: 04-25-2023 End: 04-25-2023 ambulatory SILVA LAMAR Not Available Start: 04-25-2023 End: 04-26-2023 ambulatory Shannon Lai [facility] Start: 04-25-2023 End: 04-25-2023 Patient encounter procedure Shannon Chapin [facility] Start: 04-17-2023 End: 04-17-2023 ambulatory STACIA HARP Not Available Start: 03-19-2023 End: 03-19-2023 ambulatory VICTORINO LEONEL Not Available Start: 01-14-2023 End: 01-15-2023 ambulatory Gio JIMENEZ Facility:[facility] Start: 09-07-2022 End: 09-08-2022 ambulatory Dipak Boyd Facility:[facility] Start: 09-07-2022 End: 09-07-2022 Patient encounter procedure Dipak ChapinLu Rodriguezey [facility] Start: 08-13-2022 End: 08-14-2022 [facility] Start: 08-13-2022 Encounter for gynecological examination (general) (routine) without abnormal findings [facility] Start: 08-13-2022 End: 08-13-2022 Patient encounter procedure [facility] Start: 08-13-2022 End: 08-13-2022 Subsequent hospital visit by physician [facility] Comment on above: Encounter for well w randy exam with routine gynecological exam Start: 08-12-2022 End: 08-13-2022 ambulatory Yanira KURTZ Facility[facility] Start: 08-09-2022 End: 08-10-2022 ambulatory Yanira KURTZ Facility:[facility] Start: 06-07-2022 End: 06-08-2022 ambulatory Krystyna X Orzech Facility:[facility] Start: 06-07-2022 End: 06-07-2022 Patient encounter procedure Krystyna X Orzech [facility] Procedures Date Procedure Procedure Detail Performing Clinician Start: 05-29-2023 Urnls dip stick/tabl et rgnt non-auto w/o micrscp Stacia SALDANA Work Phone: Start: 05-15-2023 Urnls dip stick/tabl et rgnt non-auto w/o micrscp Victorino Castaneda DO Work Phone: Start: 08-10-2020 Removal of etonogest rel implant Krystyna Oranila Tonsillectomy and adenoidectomy Krystyna Orzerocio Plan of Treatment Date Care Activity Detail Author Start: 05-29-2023 End: 05-29-2024 US for US OB SCAN FOR GROWTH Imaging Routine Excessive growth affecting management of , antepartum, single or unspecified fetus Expected: 05/29/2023 (Approximate), Expires: 05/29/2024 [facility] Work Phone: Comment on above: Expected: 05/29/2023 (Approximate), Expires: 05/29/2024 Start: 05-29-2023 End: 05-29-2023 Patient encounter procedure 05/29/2023 8:30 AM EST Routine [facility] [address] [id number] Stacia Harp PA [address] [place] [address] [facility] Start: 12-13-2022 Influenza vaccination Influenza Vacc ine (#1) [facility] Start: 12-01-2022 DTaP/Tdap/Td vaccine (7 - Td or Tdap) DTaP/Tdap/Td vaccine (7 - Td or Tdap) [facility] Start: 11-12-2022 Influenza vaccination Flu vacc ine (Season Ended) [facility] Start: 2021 Screening for malign ant neoplasm of cervix Pap smear [facility] Start: 2018 Hepatitis C screening Hepatitis C sc reen [facility] Start: 2016 Screening for Chlamy sedrick trachomatis Chlamydia/GC screen [facility] Start: 11-05-2015 HIV screening HIV screen [facility] Start: 2012 Depression Screen Depression Screen [facility] Start: 05-07-2001 COVID-19 Vaccine (#1) COVID-19 Vacci ne (#1) [facility] End: 08-13-2022 Chlamydia/GC DNA, Thin Prep [facility] Work Phone: Comment on above: 1 Occurrences starti ng 08/13/2022 until 08/13/2022 End: 08-13-2022 Cytopathology procedure, preparation of smear, genital source PAP Smear Lab Routine Encounter for well woman exam with routine gynecological exam 1 Occurrences starting 08/13/2022 until 08/13/2022 [facility] Work Phone: Comment on above: 1 Occurrences starti ng 08/13/2022 until 08/13/2022 Immunizations Immunization Date Immunization Notes Care Provider Ronnie jha 02-04-2020 influenza virus vaccine, unspecified formulation Krystyna Orzech [facility] 02-05-2019 influenza virus vaccine, unspecified formulation Krystyna Orzech [facility] 07-21-2018 meningococcal B vaccine, fully recombinant Krystyna Orzech [facility] 01-08-2018 influenza virus vaccine, unspecified formulation Krystyna Orzech [facility] 11-22-2016 meningococcal ACWY vaccine, unspecified formulation Krystyna Orzech [facility] 11-22-2016 meningococcal B vaccine, fully recombinant Krystyna Orzech [facility] 02-28-2014 influenza, whole Krystyna Orze ch [facility] 11-15-2013 hepatitis A vaccine, unspecified formulation Krystyna Orzech [facility] 11-15-2013 HPV, unspecified formulation Krystyna Orzech [facility] 11-15-2013 meningococcal ACWY, unspecified formulation Krystyna Orzech [facility] 12-01-2012 hepatitis A vaccine, unspecified formulation Krystyna Orzech [facility] 12-01-2012 HPV, unspecified formulation Krystyna Orzech [facility] 12-01-2012 tetanus toxoid, reduced diphtheria toxoid, and acellular pertussis vaccine, adsorbed Krystyna Orzech [facility] 12-01-2012 varicella virus vaccine Krystyna Orzech [facility] 08-26-2005 hepatitis B vaccine, pediatric or pediatric/adolescent dosage Krystyna Orzech [facility] 08-15-2005 DTaP, unspecified formulation Krystyna Orzech [facility] 08-15-2005 measles, mumps and rubella virus vaccine Krystyna Orzech [facility] 08-15-2005 poliovirus vaccine, unspecified formulation Krystyna Orzech [facility] 12-15-2002 DTaP, unspecified formulation Krystyna Orzech [facility] 12-15-2002 haemophilus influenz ae type b vaccine, PRP-T conjugate Krystyna Orzech [facility] 12-25-2001 DTaP, unspecified formulation Krystyna Orzech [facility] 12-25-2001 measles, mumps and rubella virus vaccine Krystyna Orzech [facility] 12-25-2001 poliovirus vaccine, unspecified formulation Krystyna Orzech [facility] 12-25-2001 varicella virus vaccine Krystyna Orzech [facility] 04-29-2001 DTaP, unspecified formulation Krystyna Orzech [facility] 04-29-2001 poliovirus vaccine, unspecified formulation Krystyna Orzech [facility] 01-20-2001 DTaP, unspecified formulation Krystyna Orzech [facility] 01-20-2001 poliovirus vaccine, unspecified formulation Krystyna Orzech [facility] NEGATED: Highlighted row has not occurred!02-18-2022 influenza virus vaccine, unspecified formulation [employer] [facility] NEGATED: Highlighted row has not occurred!02-18-2022 SARS-CoV-2 mRNA (tozinameran 5y-11y) vaccine [facility] Payers Date Payer Category Payer Unknown [id number] 2022 Unknown [employer] [id number] 2022-Present [address] [place] [address] [id number] 2022 Unknown [id number] 2022 Unknown [id number] 2022 Medicaid [employer] [place] [id number] 2022-Present [address] [place] [address] [id number] 2022 Medicaid [id number] 2021 Unknown [id number] 2000 Unknown [id number] [id number]. 2000 Unknown [id number] 2.16.840.1.561118.3.579.2. 2000 Unknown [id number] 2.16.840.1.069625.3.579.2. 2000 Unknown [id number] 2.16.840.1.684644.3.579.2. 2000 Unknown [id number] 2.16.840.1.187698.3.579.2. 2000 Unknown [id number] 2.16.840.1.957811.3.579.2.727 2000 Unknown [id number] 2.16.840.1.764271.3.579.2.727 2000 Unknown [id number] 2.16.840.1.619374.3.579.2.1258 2000 Unknown [id number] 2.16.840.1.514860.3.579.2.1258 2000 Unknown [id number] 2.16.840.1.295968.3.579.2.1258 2000 Unknown [id number] 2000 Unknown [id number] 2000 Unknown [id number] 2000 Unknown [id number] 2000 Unknown [id number] 2000 Unknown [id number] 2000 Unknown [id number] 2000 Unknown [id number] Social History Date Type Detail Facility Start: 03-30-2020 End: 01-13-2023 Tobacco smoking status Never smoked tobacco (finding) [facility] Tobacco smoking status Never [facility] Start: 01-13-2023 Sex Assigned At Female [facility] Start: 08-13-2022 Tobacco use and exposure Smokeless tobacco non-user [facility] [employer] Phone: Start: 08-13-2022 Alcohol intake Not Asked BON JERMAINE NUNEZ [employer] Phone: Start: 08-13-2022 Alcohol Comment social BON EUGENE DOMINGO [employer] Phone: Start: 2000 Sex Assigned At Not on file B [facility] [email or web address] Phone: Start: 05-15-2023 Alcohol intake Lifetime non-d [...] of: SHANA Herrera documented in this encounter [facility] 05-15-2023 History of Present illness [...] Victorino Castaneda DO documented in this encounter [facility] 09-07-2022 Hospital Discharge instructions Patient Education 09/07/2022 11:57:13 Otitis Externa, Rcim-gs-[id number] Otitis Externa Otitis externa is an infection [...] if you start to feel better. Take dhnw-qok-etotsez and prescription medicines only as told by [...] provider. Document Revised: 06/13/2021 Document Reviewed: 06/13/2021 [employer] Patient Education 2022 NXTM. 09/07/2022 11:57:10 Otitis Media, Adult Otitis Media, [...] pain. Follow these instructions at home: Take mukw-bhl-jgrqppd and prescription medicines only as told by [...] provider. Document Revised: 07/09/2021 Document Reviewed: 07/09/2021 [employer] Patient Education 2022 NXTM. 09/07/2022 11:57:07 BMI for Adults BMI for [...] numbers. This can be done either in Indian ([place] or metric measurements. Note that charts and online BMI calculators are available to help you find your BMI quickly and easily without having to do these calculations yourself. To calculate your BMI in Indian ([place] measurements: 1.Measure your weight in pounds [...] Centers for Disease Control and Prevention: www.cdc.gov [employer]: www.heart.org National Heart, Lung, and Blood [place]: www.nhlbi.nih.gov Summary Body mass index (BMI) is a number that is calculated from a person's weight and height. BMI may help estimate how much of a person's weight is composed of fat. BMI can help identify those who may be at higher risk for certain medical problems. BMI can be measured using Indian measurements or metric measurements. BMI charts are used to identify whether you are underweight, normal weight, overweight, or obese. This information is not intended to replace advice given to you by your health care provider. Make sure you discuss any questions you have with your health care provider. Document Revised: 12/22/2019 Document Reviewed: 10/29/2019 [employer] Patient Education 2022 NXTM. Follow Up Care 09/07/2022 10:55:41 With:CIPRIANO MOLINA CNP Address: [address] [place] [id number]- When: Unknown [facility] Evaluation + Plan note No data available for this section [facility] Evaluation + Plan note Future Appointments Appointment Date:05/12/2023 08:00:00 AM Scheduled Provider:Shannon Moore Location:[facility] Appointment Type:BH Therapy 60 [facility] Evaluation + Plan note Future Appointments Appointment Date:05/22/2023 10:00:00 AM Scheduled Provider:Shannon Moore Location:[facility] Appointment Type: Video Visit Therapy 60 [facility] Evaluation note Diagnosis Encounter for well woman exam with routine gynecological exam documented in this encounter PRAVEEN GUERRERO [employer] Work Phone: evaluation note* Diagnosis Second trimester state, incidental [facility] Diagnosis Third trimester state, incidental Nausea Nausea alone Heartburn during in third trimester Excessive growth affecting management of , antepartum, single or unspecified fetus [facility] No data available for this section [facility] Progress note No data available for this section [facility] Summary Purpose Family History No [...] Personnel Name: CIPRIANO MOLINA CNP Address: Address: [address] [place] [address] Personnel Name: CIPRIANO MOLINA CNP Address: Address: [address] [place] [address] Personnel Name: CIPRIANO MOLINA CNP Address: Address: [address] [place] [address] Personnel Name: CIPRIANO MOLINA CNP Address: Address: [address] [place] [address] INFORMATION SOURCE (unrecogn ized section and content) DATE CREATED AUTHOR 08/22/2022 Macy adams DATE CREATED AUTHOR AUTHOR'S ORGANIZ ATION 05/21/2023 [facility] DATE CREATED AUTHOR AUTHOR'S ORGANIZ ATION 07/23/2023 [facility] EPIC Reason for Visit [...] BE BASED ON THE PRIMARY CLINICAL RECORDS. [facility] [employer] [facility]. provides no warranty or guarantee of the accuracy or completeness of information in this document.
--- NOTE | 2023-07-24 17:58 | PC.NURSE ---
Edson Syed and 6 day old daughter Sabrina arrive for follow up visit. Parents state are tired but doing well. Mom denies complaint for self. Continues to struggle with latching baby, even with the shield. Started using shield in the hospital after delivery due to infant reluctance to latch. Mom reports was doing really well, then during the night and today has not been able to get a good feed with baby. She has been so sleepy . MOM with VSS and assessment WNL. Continues to have edema from knees down. Taking Motrin for incisional discomfort. Incision clean, no redness, edema or drainage. Steri strips intact. Milk in and breast firm, softening after previous feeds. Sabrina held by dad, quiet and content. VSS and assessment WNL. Baby cries with assessment. Oral assessment with gloved finger, weak suck, little interest in sucking noted. Infant to breast in laid back position, fussy then sleeps. No feeding interest noted. Mom reports this is how it is going since middle of the night Discuss feeding plan with parents that include pumping and offering supplements. Discussed triple feeds breast, bottle, and pump Dad engaged and very supportive, states I will bottle her pumped milk while you are pumping Dr Manzo notified of 13.3% weight loss, poor feedings and 1-2 wets since midnight, no stools since discharge. Suggests to parents to stay, obtain blood work and watch feeds or to work feeding plan, returning tomorrow for weight check. Parents choose to stay for lab work. Dr Manzo notified of parent's choice to stay. Orders received and care turned over to Torey RN. Parents to stay with . No further questions at this time. Care relinquished for baby Mychal discharged from follow up care.
[2023-07-24 17:59] VITALS: BP 131/77; PULSE 60; TEMP 36.7; O2SAT 95
== END 2023-07-24 15:10 | disposition home or self-care (01) ==
LOC: FBCO 08:22
PROVIDERS: Visit Provider Obstetrics & Gynecology
DX: Z39.2 Encounter for routine postpartum follow-up (principal)

== ENCOUNTER 2023-10-14 13:59 | Outpatient (OUT) | payer OTHER, SELFPAY ==
--- OUTSIDE RECORDS SUMMARY | 2023-10-14 14:09 | XMS_ITS | CCD ---
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 Name Role Phone CIPRIANO MOLINA Primary Care Physician Unavailable Primary Care Provider UnavailSHELBY Muñoz Referring Unavailable Unavailable Primary Care Provider Unavailabl e Pcp, No Primary Care Provider [phone] PCP, NO Primary Care Unavailable MANICKCYNTHIA KANDAMURUGU Attending Unavailabl e MANICKAM, KANDAMURUGU Referring Unavailabl e PCP, NO Primary Care Unavailable Mamta Santos Attending Unavailable Mamta Santos Referring Unavailable Mery Mitchell Primary Care Physician Shannon Lai Attending Unavailable Shannon Lai Attending Unavailable Shannon Lai Attending Unavailable Sunny Brambila Attending Unavailable Gio JIMENEZ Referring Unavailable Dipak Boyd. Attending Unavailable JANESSA MORENO Attending Unavailable STACIA HARP Attending Unavailable SILVA LAMAR Attending Unavailable VICTORINO CASTANEDA Attending Unavailable STACIA HARP Attending Unavailable LEONELVICTORINO QUINTERO Attending Unavailable STACIA HARP Attending Unavailable VICTORINO CASTANEDA Attending Unavailable VICTORINO CASTANEDA Attending Unavailable VICTORINO CASTANEDA Attending Unavailable VICTORINO CASTANEDA Attending Unavailable MERY MITCHELL Attending Unavailable VICTORINO CASTANEDA Attending Unavailable VICTORINO CASTANEDA Attending Unavailable VICTORINO CASTANEDA Attending Unavailable Duglas Stallings Attending Unavailab Duglas Pantoja Admitting Unavailab Jess Owens Primary Care Unavailable Allergies Allergy Classification Reported Allergen(s) Allergy Type Date of Onset Reaction(s) Facility (1 source) Cephalexin; Translations: [cephalexin] Drug Allergy Weal (disorder) [facility] Medications Current Medications Medication Drug Class(es) Dates Sig (Normalized) Sig (Original) amoxicillin 875 mg oral tablet (2 sources) Penicillin-class Antibacterial Start: 09-04-2023 End: 09-11-2023 take 1 tablet by mouth twice daily amoxicillin 875 mg Tab 875 mg = 1 tab(s), Oral, BID, X 7 day(s), # 14 tab(s), Refills(s) 0, Pharmacy: [facility]/pharmacy #[id number], 183, cm, 09/04/23 15:39:00 EDT, Height/Length Dosing, 102, kg, 09/04/23 15:39:00 EDT, Weight Dosing Start Date: 09/04/23 Stop Date: 09/11/23 Status: Ordered Start: 09-07-2022 End: 09-14-2022 take 2 capsules by mouth every twelve hours amoxicillin 500 mg Cap 1,000 mg = 2 cap(s), Oral, q12hr, X 7 day(s), # 28 cap(s), Refills(s) 0, Pharmacy: [facility]/pharmacy #[id number], 183, cm, 09/07/22 11:38:00 EDT, Height/Length Dosing, 113.2, kg, 09/07/22 11:38:00 EDT, Weight Dosing Start Date: 09/07/22 Stop Date: 09/14/22 Status: Ordered ibuprofen 600 mg oral tablet (5 sources) Nonsteroidal Anti-inflammatory Drug Start: 12-07-2020 take 1 tablet by mouth every six hours ibuprofen 600 mg Tab 600 mg = 1 tab(s), Oral, q6hr, # 40 tab(s), Refills(s) 0, Pharmacy: [facility]/pharmacy #[id number], 178, cm, 12/07/20 10:05:00 EDT, [...] chew.. 30 capsule 3 05/29/2023 05/28/2024 Active polymyxin b 17109 unt/ml / trimethoprim 1 mg/ml ophthalmic solution (1 source) Dihydrofolate Reductase Inhibitor Antibacterial, Polymyxin-class Antibacterial Start: 09-04-2023 End: 09-11-2023 polymyxin B-trimethoprim Opth Merline 4 drop(s), OPTH, QID for 7 day(s), 10 mL, Refill(s) 0, [id number], 183, cm, 09/04/23 15:39:00 EDT, Height/Length Dosing, 102, kg, 09/04/23 15:39:00 EDT, Weight Dosing Start Date: 09/04/23 Stop Date: 09/11/23 Status: Ordered Vit-Fe Fumarate-FA ( Plus/Iron) 27-1 MG tablet (3 sources) Start: 12-20-2022 End: 12-20-2023 take 1 tablet by mouth in the morning Vit-Fe Fumarate-FA ( Plus/Iron) 27-1 MG tablet Indications: Missed menses Take 1 tablet by mouth in the morning. 90 tablet 3 12/20/2022 12/20/2023 Active 24 hr venlafaxine 37.5 mg extended release oral capsule (1 source) Serotonin and Norepinephrine Reuptake Inhibitor Start: 09-04-2023 venlafaxine 37.5 mg Cap-ER Refills(s) 0 Start Date: 09/04/23 Status: Ordered Problems Problem Classification Problem Date Documented Da te Episodic/Chronic Adjustment disorders (5 sources) Adjustment disorder with mixed disturbance of emotions AND conduct; Translations: [Adjustment disorder with mixed disturbance of emotions and conduct] Onset: 04-25-2023 Chronic Menstrual disorders (15 sources) Dysmenorrhea; Translations: [Irregular periods] 10-28-2019 Chronic [...] externa, left ear] Onset: 09-07-2022 Chronic Other ear and sense organ disorders (1 source) Otitis externa of right ear; Translations: [Unspecified otitis externa, right ear] Onset: 09-04-2023 Chronic Other nutritional; endocrine; and metabolic disorders (1 source) Obese class I; Translations: [Body mass index (BMI) 33.0-33.9, adult] Onset: 09-07-2022 Chronic Other and delivery including normal (3 sources) Second trimester ; Translations: [Encounter for supervision of normal , unspecified, second trimester] 05-13-2023 Episodic Otitis media and related conditions (2 sources) Otitis media; Translations: [Otitis media, unspecified, left ear] Onset: 09-07-2022 Episodic Residual codes; unclassified (1 source) Patient encounter status; Translations: [Other specified health status] Onset: 09-07-2022 Episodic Residual codes; unclassified (1 source) FH: Congenital anomaly; Translations: [Family history of other congenital malformations, deformations and chromosomal abnormalities] 07-28-2023 Episodic Residual codes; unclassified (1 source) Family history of other congenital malformations, deformations and chromosomal abnormalities; Translations: [Family history of other congenital malformations, deformations and chromosomal abnormalities] Onset: 07-28-2023 Episodic Unclassified (3 sources) OB Reminders Onset: 03-01-2023 03-01-2023 Results Test Name Value Interpretation Reference Range Facility Family Medicine Office/Clini c Noteon 09-04-2023 Family Medicine Office/Clinic Note Chief Complaint Ear pain HPI Staff 22 year old female presents with right ear pain by 3 days. Slight sore throat History of Present Illness Reviewed and agree with above documented HPI by medical pathologist. Patient is a 22-year-old female presents today with a complaint of right ear pain has been going on for 3 days. States she also has a slight sore throat. She states that she has had nasal congestion for about a week but thought that it was just a result of her . She states that she had a baby girl about a month ago. Patient states she has not taken any bkvn-bsv-ftywnuy medications for treatment. She states that the hearing on her right side is muffled and that is a sense of fullness in that ear. Patient has allergy to Keflex. Review of Systems PHQ Score Initial Depression Screen Score: 0 SCORE Physical Exam Vitals & Measurements T: 36.8 ?C(Oral) HR: 85(Peripheral) BP: 126/80 SpO2: 97% HT: 72 in HT: 183 cm WT: 102 kg WT: 224.4 lb BMI: 30.46 General: Well developed, well nourished, in no acute distress, does not appear ill or septic Eyes: Pupils equal, round, and reactive to light. Conjunctivae and sclerae normal, and extraocular movements intact Ears: no deformity or lesions of external ear. Canal of the left ear canal of the left ear appears normal. Left TM is intact, noninflamed, with normal light reflex. Canal of right ear is erythemic with drainage present. TM right is intact, inflamed, absent light reflex. Hearing grossly normal to conversational speech to left ear but muffled to right. Nose: mild nasal mucosa inflammation and edema Mouth: Mucous membranes moist. Normal oropharynx, and posterior pharynx without lesions or exudates. Tongue normal Neck: no adenopathy Lungs: Normal respiratory effort and clear to auscultation Cardio: regular rate and rhythm, no murmur Abdomen: Soft, non-distended, non-tender Musculoskeletal: No deformity or scoliosis noted. Normal range of motion. Joints normal. No erythema, edema, effusion, or ecchymosis Extremity: No clubbing, cyanosis, edema, or deformity, with normal ROM in both upper and lower bilateral extremities Neurologic: Grossly normal Skin: No rashes, ulcerations, or suspicious lesions Mental Status: Alert and oriented x3. Normal speech and thought content, normal mood and affect Assessment/Plan 1. Right otitis media (H66.91: Otitis media, unspecified, right ear) Will treat with amoxicillin. Finish course. Fluids/rest, PRN Tylenol/ibuprofen for pain and/or fever encouraged. May use antipyretics for symptomatic treatment. Encouraged to follow up with PCP for recheck in about 5 days to ensure infection resolving, especially if symptoms worsening or fevers develop. Patient verbalized understanding of treatment plan. Ordered: amoxicillin, 875 mg = 1 tab(s), Oral, BID, X 7 day(s), # 14 tab(s), Refills(s) 0, Pharmacy: [facility]/pharmacy #[id number], 183, cm, 09/04/23 15:39:00 EDT, Height/Length Dosing, 102, kg, 09/04/23 15:39:00 EDT, Weight Dosing 2. Right otitis externa (H60.91: Unspecified otitis externa, right ear) Advised to use drops for the entire course. Encouraged to follow-up with PCP for recheck in about 5 days to ensure infection resolving, especially if symptoms worsen or if fever develops. Patient verbalized understanding of treatment plan. Ordered: polymyxin B-trimethoprim ophthalmic, 4 drop(s), OPTH, QID for 7 day(s), 10 mL, Refill(s) 0, [facility]/pharmacy #[id number], 183, cm, 09/04/23 15:39:00 EDT, Height/Length Dosing, 102, kg, 09/04/23 15:39:00 EDT, Weight Dosing Portions of this record may have been created with voice recognition artificial intelligence software, specifically [employer], [employer] and or [employer]ient [employer]. Occasional wrong-word or `nfaob-h-fwxa? substitutions may have occurred due to the inherent limitations of voice recognition and artificial intelligence software. Follow-up No qualifying data available Patient Education Otitis Externa, Qikt-ab-Opre Otitis Media, Adult, Asaq-br-Tnfh Ear Drops, Adult, Rcdw-ul-Zbhz Problem List/Past Medical History Ongoing Adjustment disorder with mixed disturbance of emotions AND conduct Dysmenorrhea Irregular bleeding Menorrhagia Historical No qualifying data Procedure/Surgical History Removal of etonogestrel implant (08/10/2020), section, Tonsillectomy and adenoidectomy. Medications amoxicillin 875 mg Tab, 875 mg= 1 tab(s), Oral, BID ibuprofen 600 mg Tab, 600 mg= 1 tab(s), Oral, q6hr, Not taking polymyxin B-trimethoprim Opth Merline, 4 drop(s), OPTH, QID venlafaxine 37.5 mg Cap-ER Allergies Keflex (Hives) Social History Alcohol - Denies Alcohol Use, 03/11/2016 DENIES, 03/30/2020 Substance Abuse - Denies Substance Abuse, 03/11/2016 DENIES, 03/30/2020 Tobacco - Denies Tobacco Use, 03/11/2016 Never (less than 100 in lifetime) Tobacco Use:. Never Smokeless Tobacco Use:., 09/04/2023 Family History Clotting disorder: Grandparent. Hypertension: Fa (more content not included)... Normal [facility] Comment on above: Result Comment: Elec tronically Signed By: Eliot HUBER, Jorge Alberto Barber.br\\Date and Time Signed: 09/04/23 16:14 EDT Patient Educationon 09-04-19 Patient Education Caregiving Ear Drops, Adult Your doctor has found that you have a condition that requires you to use ear drops. Ear drops are a medicine that is placed in the ear. You may need to use ear drops in one ear or both ears as told by your doctor. This sheet gives you information about how to use this medicine. Your doctor may also give you more instructions. Supplies needed: ? Cotton balls. ? Ear drops. How to put ear drops into your ear 1. Wash your hands for 20 seconds with soap and water. If you cannot use soap and water, use hand golf coach. 2. Make sure your ears are clean and dry. 3. If there is any earwax or fluid at the outer part of the ear canal, wipe it out gently with a cotton-tipped swab. 4. Warm the medicine by holding it in your hand for a few minutes. 5. Shake the medicine gently to mix the ear drops. 6. Use the dropper to draw up the ear drops. You will need to squeeze the round part of the dropper to do this. 7. Put the drops in your ear as told. Hold the dropper above your ear. Do not let the dropper touch your ear. The medicine may go in more easily if you pull the flap of your ear up and back while you put the drops in. 8. To make sure your ear soaks up the medicine, do one of these things: ? Lie down for 10 minutes. The ear with the medicine in it should face up. This will cause the drops to stay in the ear canal and fill the canal. ? Put a cotton ball in your ear. Do not push it deeper into your ear. Take out the cotton ball when the drops have been soaked up or after 15?30 minutes have passed. 9. If you need to put drops in your other ear, repeat the same steps. Your doctor will tell you if you should put drops in both ears. 10. Wash your hands for 20 seconds with soap and water after using ear drops. If you cannot use soap and water, use hand golf coach. Follow these instructions at home: ? Use the ear drops for as long as your doctor tells you to. Do not stop even if you begin to feel better. ? Always wash your hands for 20 seconds before and after handling the ear drops. ? Keep the ear drops at room temperature. ? Do not wash out your ears unless told to by your doctor. ? Keep all follow-up visits as told by your doctor. This is important. Contact a doctor if: ? Your condition gets worse. ? Your pain or itching gets worse. ? Unusual fluid is coming from your ear, especially if the fluid smells bad. ? You have new trouble hearing. ? You get a rash around your ear. ? You have used the ear drops for the amount of time told by your doctor, but you do not feel better. Get help right away if: ? You feel like the room is spinning and you feel like you might vomit. This condition is called vertigo. ? The outside of your ear becomes red or swollen. ? You have a very bad headache with or without a stiff neck. Summary ? Ear drops are a medicine that is put in the ear. ? Put the drops in your ear as told by your doctor. ? Use the ear drops for as long as your doctor tells you to. Do not stop even if your symptoms get better. ? Keep all follow-up visits as told by your doctor. This is important. This information is not intended to replace advice given to you by your health care provider. Make sure you discuss any questions you have with your health care provider. Document Revised: 01/26/2020 Document Reviewed: 01/26/2020 3Touch Patient Education ? 2022 [employer]book[employer]. ENT Otitis Media, Adult Otitis media is a condition in which the middle ear is red and swollen (inflamed) and full of fluid. The middle ear is the part of the ear that contains bones for hearing as well as air that helps send sounds to the brain. The condition usually goes away on its own. What are the causes? This condition is caused by a blockage in the eustachian tube. This tube connects the middle ear to the back of the nose. It normally allows air into the middle ear. The blockage is caused by fluid or swelling. Problems that can cause blockage include: ? A cold or infection that affects the nose, mouth, or throat. ? Allergies. ? An irritant, such as tobacco smoke. ? Adenoids that have become large. The adenoids are soft tissue located in the back of the throat, behind the nose and the roof of the mouth. ? Growth or swelling in the upper part of the throat, just behind the nose (nasopharynx). ? Damage to the ear caused by a change in pressure. This is called barotrauma. What increases the risk? You are more likely to develop this condition if you: ? Smoke or are exposed to tobacco smoke. ? Have an opening in the roof of your mouth (cleft palate). ? Have acid reflux. ? Have problems in your body's defense system (immune system). What are the signs or symptoms? Symptoms of this condition include: ? Ear pain. ? Fever. ? Problems with hearing. ? Being tired. ? Fluid leaking from the ear. ? Ri (more content not included)... Normal [facility] Toxoplasma gondii Ab IgMRui n 07-30-2023 Toxoplasma gondii Ab IgG Normal [facility] Comment on above: Result Comment: <3.0 Reference range: <=8.8 Unit: IU/mL (NOTE) INTERPRETIVE INFORMATION: Toxoplasma Ab, IgG 7.1 IU/mL or less....... Not Detected 7.2-8.7 IU/mL .......... Indeterminate-Repeat testing in 10-14 days may be helpful. 8.8 IU/mL or greater ... Detected The best evidence for current infection is a significant change on two appropriately timed specimens, where both tests are done in the same laboratory at the same time. This test should not be used for blood donor screening, associated re-entry protocols, or for screening Human Cell, Tissues and Cellular and Tissue-Based Products (HCT/P). The magnitude of the measured result is not indicative of the amount of antibody present. Performed By: #### X TOXPG #### Performed at [facility], [address] [place] [id number] Toxoplasma gondii Ab IgM Normal [facility] Comment on above: Result Comment: <3.0 Reference range: <=7.9 Unit: AU/mL (NOTE) INTERPRETIVE INFORMATION: Toxoplasma Ab, IgM 7.9 AU/mL or less .... Not Detected. 8.0-9.9 AU/mL ........ Indeterminate - Repeat testing in 10-14 days may be helpful. 10.0 AU/mL or greater. Detected - Significant level of Toxoplasma gondii IgM antibody detected and may indicate a current or recent infection. However, low levels of IgM antibodies may occasionally persist for more than 12 months post-infection. This test is performed using the Trovix LIAISON. As suggested by the CDC, any indeterminate or detected Toxoplasma gondii IgM result should be retested in parallel with a specimen collected 1-3 weeks later. Further confirmation may be necessary using a different test from another reference laboratory specializing in toxoplasmosis testing where an IgM LINDA should be ordered. Caution should be exercised in the use of IgM antibody levels in screening. Any Toxoplasma gondii IgM in patients that have also been confirmed by a second reference laboratory should be evaluated by amniocentesis and PCR testing for Toxoplasma gondii. For male and non- female patients with indeterminate or detected Toxoplasma gondii IgM results, PCR may also be useful if a specimen can be collected from an affected body site. This test should not be used for blood donor screening, associated re-entry protocols, or for screening Human Cell, Tissues and Cellular and Tissue-Based Products (HCT/P). For additional information, refer to the CDC website: www.cdc.gov/parasites/toxoplasmosis/health_professionals/index.ht ml . The magnitude of the measured result is not indicative of the amount of antibody present. Performed By: [facility] [address] [place] [address] Business Development Analyst: Tristan Lugo MD, PhD CLIA Number: [id number] Performed at [facility], [address] [place] [address] Performed By: #### X TOXPG #### Performed at [facility], [address] [place] [address] Lab Reporton 07-28-2023 Report Normal [facility] Comment on above: Performed By: #### R GSPAR #### Performed at [facility], [address] [place] [address] Urinalysis macro (dipstick) panel (U)on 05-29-2023 Bilirubin, UA Negative Negative - 4(70) +++ mg/dL [facility] Blood, UA Positive Negative - 50 David/mcL [facility] Comment on above: moderate Clarity, UA Clear [facility] re Color, UA Yellow [facility] Glucose, UA Negative Negative - 1999(110) ++++ mg/dL [facility] Interpretation and review of laboratory results Abnormal [facility] Ketones, UA Negative Negative - 160(16) ++++ mg/dL [facility] Leukocytes, UA Positive Negative - 500+++ Keith/mcL [facility] Comment on above: small Nitrite, UA Negative Negative - Positive [facility] pH, UA 6.5 5 - [address] [facility] e Protein, UA Negative Negative - 1999(20) ++++ mg/dL [facility] Spec Grav, UA 1.025 1 - 1.03 [facility] Urobilinogen, UA 0.2 0.2 - 12 mg/dL [facility] [employer] e Urinalysis macro (dipstick) panel (U)Ordered By: Jerri Mercado on 05-15-2023 Bilirubin, UA Positive Negative - 4(70) +++ mg/dL [employer] Work Phone: Comment on above: small Blood, UA Positive Negative - 50 David/mcL [facility] Work Phone: Comment on above: trace-intact Clarity, UA Clear [employer] | mentor | invest re Work Phone: Color, UA Yellow [employer] Work Phone: Glucose, UA Negative Negative - 1999(110) ++++ mg/dL [employer] Work Phone: Interpretation and review of laboratory results Abnormal [facility] [employer] Work Phone: Ketones, UA Positive Negative - 160(16) ++++ mg/dL [employer] Work Phone: Comment on above: 80 Leukocytes, UA Positive Negative - 500+++ Keith/mcL [employer] Work Phone: Comment on above: small Nitrite, UA Negative Negative - Positive [facility] [employer] Work Phone: pH, UA 7.0 5 - 9 [employer] Work Phone: Protein, UA Positive Negative - 2000(20) ++++ mg/dL [employer] Work Phone: Comment on above: 30 Spec Grav, UA 1.020 1 - 1.03 [facility] [employer] [facility] Work Phone: Urobilinogen, UA 1.0 0.2 - 12 mg/dL [employer] Work Phone: [employer] Work Phone: Ambulatory Visit Summaryon 0 09-07-2022 [...] Up with CIPRIANO MOLINA CNP When: Where: [address] [place] [id number]- Medications What How Much When Why Instructions New amoxicillin (amoxicillin 500 mg Cap) 2 Capsules By Mouth Every 12 hours Left otitis media Otitis externa of left ear BMI 33.0-33.9,adult Duration: 7 Days Pickup at [facility]/pharmacy #[id number] New ofloxacin otic (ofloxacin Otic 0.3% Merline) 5 Drops Otic 2 times a day Duration: 7 Days Pickup at [facility]/pharmacy #[id number] Unchanged ibuprofen (ibuprofen 600 mg Tab) 1 Tablets By Mouth Every 6 hours Contact prescribing physician if questions or concerns Pharmacy Information [facility]/pharmacy #[id number]: [address] [place], [place] [id number] [phone] Allergies No Known Allergies Problems Ongoing - [...] you start to feel better. ? Take cbpa-rhm-ejhumhl and prescription medicines only as told by [...] provider. Document Revised: 06/13/2021 Document Reviewed: 06/13/2021 3Touch Patient Education ? 2022 [employer] Otitis Media, Adult Otitis media occurs [...] (nasophary (more content not included)... Normal [facility] Medicine Office/Clini c Noteon 09-07-2022 Family Medicine [...] with voice recognition software. Occasional wrong-word or ?cbtux-l-yfgh? substitutions may have occurred due to the inherent limitations of voice recognition software. 21-year-old female presents today with chief complaint of bilateral ear pain onset 2 days ago. Patient states her ear is sore to touch muffled hearing and bilateral pain with the ear pain. She been taking xruu-zkq-rcfvthb Motrin with some relief of symptoms. Denies [...] day(s), # 28 cap(s), Refills(s) 0, [id number], 183, cm, 09/07/22 11:38:00 EDT, Height/Length [...] day(s), # 28 cap(s), Refills(s) 0, Pharmacy: [facility]/pharmacy #[id number], 183, cm, 09/07/22 11:38:00 EDT, Height/Length [...] With When Contact Information CIPRIANO MOLINA CNP [address] [place], [place] [id number]- Additional Instructions: Patient Education Otitis Externa, Juxo-pd-Lsws Otitis Media, Adult BMI for Adults Problem List/Past Medical History Ongoing Dysmenorrhea Irregular bleeding Menorrhagia Historical No qualifying data Procedure/Surgical History Removal of etonogestre (more content not included)... Normal [facility] Comment on above: Result Comment: Elec tronically Signed By: Oliver BAI, Dipak [place]\\.br\\Date and Time Signed: 09/07/22 11:57 EDT Patient [...] Follow these instructions at home: ? Take fafc-yqf-ehpqxbc and prescription medicines only as told by [...] provider. Document Revised: 07/09/2021 Document Reviewed: 07/09/2021 [employer] Patient Education ? 2022 [employer] Infectious Disease Otitis Externa Otitis externa [...] 08-15 Chlamydia Probe, TP Negative Normal NEG [facility] Comment on above: Result Comment: CHLA [...] target. Performed By: #### C YTCGP #### Buck Mason [address] [place] [address] [id number] Industrial Machinery Mechanic: Willadr Sethi MD Gonorrhea Probe, TP Negative Normal [facility] Comment on above: Result Comment: NEIS [...] target. Performed By: #### C YTCGP #### Buck Mason [address] [place] [id number] Industrial Machinery Mechanic: Willard Sethi MD Cytologyon 08-13-2022 Cytology (NOTE) Path Number: [id number] DIAGNOSIS Cervical material, (ThinPrep vial, Imaging-assisted review): Specimen Adequacy: Satisfactory for evaluation. -Endocervical/transfo rmation zone component is absent. Descriptive Diagnosis: Negative for intraepithelial lesion or malignancy. Cytotech Screener: SS4 Electronically Signed Out MAXIMUS Ramírez(ASCP) ss4/08/21/2022 Source of Specimen: A: Cervical material, (ThinPrep vial, Imaging-assisted review) HPV Reflex?.............. ........HPV if ASCUS Clinical History Z01.419 Routine tipple tender exam without abnormal findings High Risk HPV DNA testing is requested if the diagnosis is ASC-US Processing Lab: [address] [id number] Interpretation performed at [address] [id number] The Pap smear is a screening test primarily for squamous epithelial lesions, which is subject to both false negative and false positive results. Your patient should be reminded to consult you immediately if she experiences any suspicious signs or symptoms, regardless of her Pap smear result. GYNECOLOGIC CYTOLOGY REPORT Patient Name: AMOS RUFFIN [facility] Rec: [id number] [facility] ANATOMIC PATHOLOGY [address] [place] [id number] [facility] Comment on above: Performed By: #### P PPVP #### [address] [id number] Industrial Machinery Mechanic: Willard Sethi MD Vital Signs Date Time Vital Sign Value Performing Clinician Facility 09-04-2023 15:36-0400 [facility] 09-04-2023 15:36-0400 Body temperature 98.24 [degF] [facility] 09-04-2023 15:36-0400 Diastolic blood pressure 80 mm[Hg] [facility] 09-04-2023 15:36-0400 Heart rate 85 /min [facility] 09-04-2023 15:36-0400 SaO2% (BldA) [Mass fraction] 97 % [facility] 09-04-2023 15:36-0400 Systolic blood pressure 126 mm[Hg] [facility] 05-29-2023 15:53-0500 Body mass index (BMI) [Ratio] 35.13 kg/m2 Stacia Harp PA Work Phone: [facility] 05-29-2023 15:53-0500 Body weight 117.48 kg Stacia Harp PA Work Phone: [facility] 05-29-2023 15:53-0500 Diastolic blood pressure 70 mm[Hg] Stacia Harp PA Work Phone: [facility] 05-29-2023 15:53-0500 Systolic blood pressure 124 mm[Hg] Stacia Harp PA Work Phone: [facility] 05-15-2023 09:03-0500 Body mass index (BMI) [Ratio] 35.13 kg/m2 Victorino Leonel DO Work Phone: [facility] 05-15-2023 09:03-0500 Body weight 117.48 kg Victorino Leonel DO Work Phone: [facility] 05-15-2023 09:03-0500 Diastolic blood pressure 72 mm[Hg] Victorino Leonel DO Work Phone: [facility] 05-15-2023 09:03-0500 Systolic blood pressure 120 mm[Hg] Victorino Leonel DO Work Phone: [facility] 09-07-2022 11:37-0400 Blood Pressure Location Dipak Boyd [facility] 09-07-2022 11:37-0400 Diastolic blood pressure 80 mm[Hg] Dipak Boyd [facility] 09-07-2022 11:37-0400 Heart rate 76 /min Dipak Boyd [facility] 09-07-2022 11:37-0400 SaO2% (BldA) [Mass fraction] 99 % Dipak Boyd [facility] 09-07-2022 11:37-0400 Systolic blood pressure 110 mm[Hg] Dipak Keepsey [facility] Encounters Encounter Date Encounter Type Care Provider Facility Start: 09-30-2023 ambulatory Duglas Bishop acility:[facility] Start: 09-15-2023 End: 09-15-2023 ambulatory VICTORINO LEONEL Not Available Start: 09-04-2023 End: 09-05-2023 ambulatory JANESSA NORWOODTIZ Facility: [facility] Start: 09-04-2023 End: 09-04-2023 Patient encounter procedure [facility]ANESSA [facility]TI[facility] Start: 08-25-2023 End: 08-25-2023 ambulatory VICTORINO LEONEL Not Available Start: 08-11-2023 End: 08-11-2023 ambulatory VICTORINO LEONEL Not Available Start: 07-28-2023 End: 07-29-2023 Orders Only Jorge Alberto Roberts MS, [facility] Work Phone: [facility] Start: 07-22-2023 End: 07-22-2023 ambulatory MERY MITCHELL Not Available Start: 07-16-2023 End: 07-16-2023 ambulatory VICTORINO LEONEL Not Available Start: 07-15-2023 End: 07-15-2023 ambulatory VICTORINO LEONEL Not Available Start: 07-07-2023 End: 07-07-2023 ambulatory VICTORINO LEONEL Not Available Start: 07-02-2023 End: 07-02-2023 ambulatory STACIA HARP Not Available Start: 06-23-2023 ambulatory Shannon Lai Facility:[facility] Start: 06-16-2023 End: 06-16-2023 ambulatory VICTORINO LEONEL Not Available Start: 05-29-2023 End: 05-29-2023 ambulatory STACIA HARP Not Available Start: 05-29-2023 End: 05-29-2023 Office outpatient visit 15 minutes Stacia Harp PA Work Phone: [facility] Comment on above: Third trimester preg adalberto; Nausea; Heartburn during in third trimester; Excessive growth affecting management of , antepartum, single or unspecified fetus Start: 05-15-2023 End: 05-15-2023 flow sheet Victorino Pinkzio DO Work Phone: [facility] Comment on above: Second trimester pre gnancy Start: 05-15-2023 End: 05-15-2023 ambulatory VICTORINO PINKZIO Not Available Start: 05-08-2023 End: 05-09-2023 ambulatory Shannon Lai [facility] Start: 05-08-2023 End: 05-08-2023 Patient encounter procedure Shannon Chapin [facility] Start: 04-25-2023 End: 04-25-2023 ambulatory SILVA LAMAR Not Available Start: 04-25-2023 End: 04-26-2023 ambulatory Shannon Lai Facility[facility] Start: 04-25-2023 End: 04-25-2023 Patient encounter procedure Shannon Chapin [facility] Start: 04-17-2023 End: 04-17-2023 ambulatory STACIA HARP Not Available Start: 03-19-2023 End: 03-19-2023 ambulatory VICTORINO CASTANEDA Not Available Start: 01-14-2023 End: 01-15-2023 ambulatory Sunny Brambila Facility:[facility] Start: 09-07-2022 End: 09-08-2022 ambulatory Dipak Boyd Facility:[facility] Start: 09-07-2022 End: 09-07-2022 Patient encounter procedure Dipak Boyd [facility] Start: 08-13-2022 End: 08-14-2022 ambulatory [facility] Start: 08-13-2022 Encounter for gynecological examination (general) (routine) without abnormal findings [facility] Start: 08-13-2022 End: 08-13-2022 Patient encounter procedure [facility] Start: 08-13-2022 End: 08-13-2022 Subsequent hospital visit by physician [facility] Comment on above: Encounter for well w randy exam with routine gynecological exam Start: 06-07-2022 End: 06-07-2022 Patient encounter procedure Krystyna So Rolo [facility] Procedures Date Procedure Procedure Detail Performing Clinician Start: 05-29-2023 Urnls dip stick/tabl et rgnt non-auto w/o micrscp Stacia SALDANA Work Phone: Start: 05-15-2023 Urnls dip stick/tabl et rgnt non-auto w/o micrscp Victorino Leoneljagruti RIOS Work Phone: Start: 08-10-2020 Removal of etonogest rel implant Krystyna Seth section JANESSA O RTIZ Tonsillectomy and adenoidectomy Krystyna Seth Plan of Treatment Date Care Activity Detail Author Start: 12-14-2023 Influenza vaccination Influenz a Vaccine (Season Ended) [facility] Start: 07-28-2023 End: 07-27-2024 GENETICS STAT SPECIMEN LABEL- REQUIRED FOR INHOUSE GENETIC TESTING [facility] Comment on above: Expected: 07/28/2023 (Approximate), Expires: 07/27/2024 Start: 07-28-2023 End: 07-27-2024 RAPID GENOME SEQUENCING - PARENT SAMPLE RAPID GENOME SEQUENCING - PARENT SAMPLE Lab Routine Family history of congenital anomalies Expected: 07/28/2023 (Approximate), Expires: 07/27/2024 [facility] Work Phone: Comment on above: Expected: 07/28/2023 (Approximate), Expires: 07/27/2024 Start: 05-29-2023 End: 05-29-2024 US for US OB SCAN FOR GROWTH Imaging Routine Excessive growth affecting management of , antepartum, single or unspecified fetus Expected: 05/29/2023 (Approximate), Expires: 05/29/2024 [facility] Work Phone: Comment on above: Expected: 05/29/2023 (Approximate), Expires: 05/29/2024 Start: 05-29-2023 End: 05-29-2023 Patient encounter procedure 05/29/2023 8:30 AM EST Routine [facility] [address] [place] [id number] Stacia Harp PA [address] [place], [place] [id number] [facility] Start: 12-13-2022 COVID-19 Vaccine ( season) COVID-19 Vaccine ( season) [facility] Start: 12-13-2022 Influenza vaccination Influenza Vacc ine (#1) [facility] Start: 12-01-2022 DTaP/Tdap/Td vaccine (7 - Td or Tdap) DTaP/Tdap/Td vaccine (7 - Td or Tdap) [facility] Start: 11-12-2022 Influenza vaccination Flu vacc ine (Season Ended) [facility] Start: 2021 Screening for malign ant neoplasm of cervix Pap smear [facility] Start: 11-05-2019 Hepatitis B Vaccine (1 of 3 - 19+ 3-dose series) Hepatitis B Vaccine (1 of 3 - 19+ 3-dose series) [facility] Start: 2018 Hepatitis C screening Hepatitis C sc reen [facility] Start: 2016 Screening for Chlamy sedrick trachomatis Chlamydia/GC screen [facility] Start: 11-05-2015 HIV screening HIV screen [facility] Start: 11-05-2015 HPV Vaccine (1 - 3-d ose series) HPV Vaccine (1 - 3-dose series) [facility] Start: 2013 Varicella Vaccine (1 of 2 - 13+ 2-dose series) Varicella Vaccine (1 of 2 - 13+ 2-dose series) [facility] Start: 2012 Depression Screen Depression Screen [facility] Start: 11-05-2007 DTaP/Tdap/Td Vaccine (1 - Tdap) DTaP/Tdap/Td Vaccine (1 - Tdap) [facility] Start: 2001 MMR Vaccine (1 of 1 - Standard series) MMR Vaccine (1 of 1 - Standard series) [facility] Start: 05-07-2001 COVID-19 Vaccine (#1) COVID-19 Vacci ne (#1) [employer] End: 08-13-2022 Chlamydia/GC DNA, Thin Prep [employer] [facility] [employer] Work Phone: Comment on above: 1 Occurrences starti ng 08/13/2022 until 08/13/2022 End: 08-13-2022 Cytopathology procedure, preparation of smear, genital source PAP Smear Lab Routine Encounter for well woman exam with routine gynecological exam 1 Occurrences starting 08/13/2022 until 08/13/2022 [employer] Work Phone: Comment on above: 1 Occurrences starti ng 08/13/2022 until 08/13/2022 Immunizations Immunization Date Immunization Notes Care Provider Fa cility 08-20-2022 SARS-CoV-2 (COVID-19 ) [id number] JANESSA MORENO [facility] 02-04-2020 influenza virus vaccine, unspecified formulation Krystyna Orzech [facility] 02-05-2019 influenza virus vaccine, unspecified formulation Krystyna Orzech [facility] 07-21-2018 meningococcal B vaccine, fully recombinant Krystyna Orzech [facility] 01-08-2018 influenza virus vaccine, unspecified formulation Krystyna Orzech [facility] 11-22-2016 meningococcal ACWY vaccine, unspecified formulation Krystyna Orzech [facility] 11-22-2016 meningococcal B vaccine, fully recombinant Krystyna Orzech [facility] 02-28-2014 influenza, whole Krystyna Orze ch [facility] 11-15-2013 hepatitis A vaccine, unspecified formulation Krystyna Orzech [facility] 11-15-2013 HPV, unspecified formulation Krystyna Orzech [facility] 11-15-2013 meningococcal ACWY, unspecified formulation Krystyna Orzech [facility] 12-01-2012 hepatitis A vaccine, unspecified formulation Krystyna Orzech [facility] 12-01-2012 HPV, unspecified formulation Krystyna Orzech [facility] 12-01-2012 tetanus toxoid, reduced diphtheria toxoid, and acellular pertussis vaccine, adsorbed Krystyna Orzech [facility] 12-01-2012 varicella virus vaccine Krystyna Orzech [facility] 08-26-2005 hepatitis B vaccine, pediatric or pediatric/adolescent dosage Krystyna Orzech [facility] 08-15-2005 DTaP, unspecified formulation Krystyna Orzech [facility] 08-15-2005 measles, mumps and rubella virus vaccine Krystyna Orzech [facility] 08-15-2005 poliovirus vaccine, unspecified formulation Krystyna Orzech [facility] 12-15-2002 DTaP, unspecified formulation Krystyna Orzech [facility] 12-15-2002 haemophilus influenz ae type b vaccine, PRP-T conjugate [employer] [facility] 12-25-2001 DTaP, unspecified formulation Krystyna Orzech [facility] 12-25-2001 measles, mumps and rubella virus vaccine Krystyna Orzech [facility] 12-25-2001 poliovirus vaccine, unspecified formulation Krystyna Orzech [facility] 12-25-2001 varicella virus vaccine Krystyna Orzech [facility] 04-29-2001 DTaP, unspecified formulation Krystyna Orzech [facility] 04-29-2001 poliovirus vaccine, unspecified formulation Krystyna Orzech [facility] 01-20-2001 DTaP, unspecified formulation Krystyna Orzech [facility] 01-20-2001 poliovirus vaccine, unspecified formulation Krystyna Orzech [facility] NEGATED: Highlighted row has not occurred!02-18-2022 influenza virus vaccine, unspecified formulation Krystyna Orzech [facility] NEGATED: Highlighted row has not occurred!02-18-2022 SARS-CoV-2 mRNA (tomanuelaeran 5y-11y) vaccine Krystyna Orzech [facility] Payers Date Payer Category Payer Self-pay 2023 Unknown [id number] 2022 Unknown [id number] 2022 Unknown [id number] 2022 Unknown [id number] 2022 Unknown [id number] 2022 Medicaid [id number] 2022 Unknown [id number] 2000 Unknown [id number] 2.16. 840.1.498942.3.579.2.430 2000 Unknown [id number] 2.16. 840.1.356607.3.579.2.430 2000 Unknown [id number] 2.16.8 40.1.099866.3.579.2.727 2000 Unknown [id number] 2.16.8 40.1.958613.3.579.2.727 2000 Unknown [id number] 2.16.8 40.1.427979.3.579.2.727 2000 Unknown [id number] 2.16.8 40.1.523844.3.579.2.727 2000 Unknown [id number] 2.16.8 40.1.750426.3.579.2.727 2000 Unknown [id number] 2.16.84 0.1.543659.3.579.2.1258 2000 Unknown [id number] 2.16.84 0.1.582897.3.579.2.1258 2000 Unknown [id number] 2.16.84 0.1.793964.3.579.2.1258 2000 Unknown [id number] 2.16.84 0.1.412099.3.579.2.1258 2000 Unknown [id number] 2.16.84 0.1.435979.3.579.2.1258 2000 Unknown [id number] 2.16.84 0.1.913052.3.579.2.1258 2000 Unknown [id number] 2.16.84 0.1.384814.3.579.2.1258 2000 Unknown [id number] 2.16.84 0.1.524364.3.579.2.1258 2000 Unknown [id number] 2.16.84 0.1.763932.3.579.2.9 2000 Unknown [id number] 2.16.84 0.1.656261.3.579.2.9 2000 Unknown [id number] 2.16.84 0.1.748497.3.579.2.9 2000 Unknown [id number] 2.16.84 0.1.720599.3.579.2.9 2000 Unknown [id number] 2.16.840 .1.831389.3.579.2.9 2000 Unknown [id number] 2.16.840 .1.406968.3.579.2.1258 Unknown [id number] 2.16.8 40.1.453413.3.579.2.531 Social History Date Type Detail Facility Start: 03-30-2020 End: 09-04-2023 Tobacco smoking status Never smoked tobacco (finding) [facility] Tobacco smoking status Never [facility] Start: 01-13-2023 Sex Assigned At Female F [facility] Start: 08-13-2022 Tobacco use and exposure Smokeless tobacco non-user [employer] Phone: Start: 08-13-2022 Alcohol intake Not Asked [employer] Phone: Start: 08-13-2022 Alcohol Comment social [employer] [facility] [employer] Work Phone: Start: 2000 Sex Assigned At Not on file [employer] Phone: Start: 05-15-2023 Alcohol intake Lifetime non-d diamond (finding) [facility] Start: 01-13-2023 History of Social function [facility] Start: 01-13-2023 Alcohol Comment caffeine: 1-2 cups per day coffee [facility] Start: 11-09-2022 [facility] Tobacco smoking status DEIS Tobacco smoking consumption unknown [facility] Goals Date Patient Goal Desired Activity /State Personal health goal Functional Status Date Assessment Result Facility 09-04-2023 Functional Status N/A [facility] Clinical Notes 09-07-2022 to 09-04-2023 Jorge Alberto Roberts, , [facility] - 07/28/2023 12:10 PM SHANA Fink - 05/29/2023 3:50 PM AIDANjesús JohnsonGALLO - 05/15/2023 9:00 AM EST Note Date & Type Note Facility 09-04-2023 Hospital Discharge instructions Patient Education 09/04/2023 16:13:42 Otitis Externa, Xrqa-gm-Blkr Otitis Externa Otitis externa is an infection [...] if you start to feel better. Take ljgt-rld-ehhffsl and prescription medicines only as told by [...] provider. Document Revised: 06/13/2021 Document Reviewed: 06/13/2021 [employer] Patient Education 2022 [email or web address] 09/04/2023 16:13:35 Otitis Media, Adult, Ygem-df-Ilkk Otitis Media, Adult Otitis media is a condition in which the middle ear is red and swollen (inflamed) and full of fluid. The middle ear is the part of the ear that contains bones for hearing as well as air that helps send sounds to the brain. The condition usually goes away on its own. What are the causes? This condition is caused by a blockage in the eustachian tube. This tube connects the middle ear to the back of the nose. It normally allows air into the middle ear. The blockage is caused by fluid or swelling. Problems that can cause blockage include: A cold or infection that affects the nose, mouth, or throat. Allergies. An irritant, such as tobacco smoke. Adenoids that have become large. The adenoids are soft tissue located in the back of the throat, behind the nose and the roof of the mouth. Growth or swelling in the upper part of the throat, just behind the nose (nasopharynx). Damage to the ear caused by a change in pressure. This is called barotrauma. What increases the risk? You are more likely to develop this condition if you: Smoke or are exposed to tobacco smoke. Have an opening in the roof of your mouth (cleft palate). Have acid reflux. Have problems in your body's defense system (immune system). What are the signs or symptoms? Symptoms of this condition include: Ear pain. Fever. Problems with hearing. Being tired. Fluid leaking from the ear. Ringing in the ear. How is this treated? This condition can go away on its own within 3 5 days. But if the condition is caused by germs (bacteria) and does not go away on its own, or if it keeps coming back, your doctor may: Give you antibiotic medicines. Give you medicines for pain. Follow these instructions at home: Take cjkz-qdk-qmsdqnx and prescription medicines only as told by your doctor. If you were prescribed an antibiotic medicine, take it as told by your doctor. Do not stop taking it even if you start to feel better. Keep all follow-up visits. Contact a doctor if: You have bleeding from your nose. There is a lump on your neck. You are not feeling better in 5 days. You feel worse instead of better. Get help right away if: You have pain that is not helped with medicine. You have swelling, redness, or pain around your ear. You get a stiff neck. You cannot move part of your face (paralysis). You notice that the bone behind your ear hurts when you touch it. You get a very bad headache. Summary Otitis media means that the middle ear is red, swollen, and full of fluid. This condition usually goes away on its own. If the problem does not go away, treatment may be needed. You may be given medicines to treat the infection or to treat your pain. If you were prescribed an antibiotic medicine, take it as told by your doctor. Do not stop taking it even if you start to feel better. Keep all follow-up visits. This information is not intended to replace advice given to you by your health care provider. Make sure you discuss any questions you have with your health care provider. Document Revised: 07/09/2021 Document Reviewed: 07/09/2021 [employer] Patient Education 2022 [employer] 09/04/2023 16:13:32 Ear Drops, Adult, Qhvf-yo-Ahux Ear Drops, Adult Your doctor has found that you have a condition that requires you to use ear drops. Ear drops are a medicine that is placed in the ear. You may need to use ear drops in one ear or both ears as told by your doctor. This sheet gives you information about how to use this medicine. Your doctor may also give you more instructions. Supplies needed: Cotton balls. Ear drops. How to put ear drops into your ear 1.Wash your hands for 20 seconds with soap and water. If you cannot use soap and water, use hand golf coach. 2.Make sure your ears are clean and dry. 3.If there is any earwax or fluid at the outer part of the ear canal, wipe it out gently with a cotton-tipped swab. 4.Warm the medicine by holding it in your hand for a few minutes. 5.Shake the medicine gently to mix the ear drops. 6.Use the dropper to draw up the ear drops. You will need to squeeze the round part of the dropper to do this. 7.Put the drops in your ear as told. Hold the dropper above your ear. Do not let the dropper touch your ear. The medicine may go in more easily if you pull the flap of your ear up and back while you put the drops in. 8.To make sure your ear soaks up the medicine, do one of these things: Lie down for 10 minutes. The ear with the medicine in it should face up. This will cause the drops to stay in the ear canal and fill the canal. Put a cotton ball in your ear. Do not push it deeper into your ear. Take out the cotton ball when the drops have been soaked up or after 15 30 minutes have passed. 9.If you need to put drops in your other ear, repeat the same steps. Your doctor will tell you if you should put drops in both ears. 10.Wash your hands for 20 seconds with soap and water after using ear drops. If you cannot use soap and water, use hand golf coach. Follow these instructions at home: Use the ear drops for as long as your doctor tells you to. Do not stop even if you begin to feel better. Always wash your hands for 20 seconds before and after handling the ear drops. Keep the ear drops at room temperature. Do not wash out your ears unless told to by your doctor. Keep all follow-up visits as told by your doctor. This is important. Contact a doctor if: Your condition gets worse. Your pain or itching gets worse. Unusual fluid is coming from your ear, especially if the fluid smells bad. You have new trouble hearing. You get a rash around your ear. You have used the ear drops for the amount of time told by your doctor, but you do not feel better. Get help right away if: You feel like the room is spinning and you feel like you might vomit. This condition is called vertigo. The outside of your ear becomes red or swollen. You have a very bad headache with or without a stiff neck. Summary Ear drops are a medicine that is put in the ear. Put the drops in your ear as told by your doctor. Use the ear drops for as long as your doctor tells you to. Do not stop even if your symptoms get better. Keep all follow-up visits as told by your doctor. This is important. This information is not intended to replace advice given to you by your health care provider. Make sure you discuss any questions you have with your health care provider. Document Revised: 01/26/2020 Document Reviewed: 01/26/2020 [employer] Patient Education 2022 [email or web address]. [facility] 07-28-2023 History of Present illness Narrative Rapid Genome Sequencing (rGS) Counseling & Consent - Parent Purpose and Nature of rGS I discussed with Amos Ruffin that rGS is recommended for their child. I explained that this test looks for genetic changes in a person's DNA that may cause or contribute to their medical condition. This test is best interpreted when samples for both biological parents are included, when available. What Will and Will Not be Reported I explained that the rGS test report will list and describe variants found in DNA that may be related to the reason for testing this person's child. The rGS report will include variant inheritance if parental samples were included in the testing. Each parent tested will receive a rGS report including variant(s) identified in the patient that were inherited from that parent. If samples from parents are received after the patient's sequencing is completed (typically 5 days after the patient's sample is received), re-analysis of the patient's rGS data in light of parental data may be performed with additional charges. Limitations of rGS I reviewed that the accuracy of rGS results depend on the: Quality and type of sample sent to the laboratory; Way the test is performed and analyzed by the laboratory; Accuracy of medical information provided; Accuracy of the family history provided, including how family members are related to each other. Inaccurate or incomplete medical information may lead to inaccurate results and such inaccuracies may impact both the patient and parent reports. I described the limitations of rGS testing including: A chance of error or test failure. Not all genes involved in human genetic disorders are known, and not all genetic variants can be found by rGS. All the genes present in human DNA are not tested, nor does rGS test all parts of known genes. Certain types of genetic abnormalities cannot be found by rGS but can still cause disease. It is possible that the child's medical condition has a non-genetic cause. I explained that the interpretation of the genetic variants is based on information available at the time of testing and may change in the future. The laboratory may learn new information about variants in the future which may change their interpretation. If significant, the laboratory may issue an updated report to the ordering healthcare provider and/or other healthcare provider(s) involved in the child's medical care. If new information about the child's medical condition is discovered in the future, re-analysis of the child's rGS data in light of this new information may be performed with additional charges. Parental samples submitted for initial analysis, and data generated in this process, may be re-used as part of this reanalysis. [employer] Act I have explained that Aoms Ruffin's parent report will go into their electronic medical records. Lab results may be available right away through [employer] and may be seen before a provider has reviewed them. I will contact the patient/guardians as soon as results are reviewed in detail. However with genetic testing, we often need to do more research into the findings to best explain them. This allows us to have a more informative conversation when we do discuss the results. Depending on the results, we will will immediately release the results to you Amos Purimerman was in agreement with this plan. Unanticipated Consequences of rGS and Other Risks I explained the potential risks associated with this test including that: Genetic test results could have importance for additional family members; testing of other family members may be recommended. It is possible to learn genetic information about the child and/or their family that is not directly related to the reason for ordering rGS. This information might relate to diseases with symptoms that may develop in the future in the patient or other family members, as well as conditions with no current treatment. The rGS test can determine biological relationships between the patient and parents who submit samples for this test. If the reported relationships are different from the rGS results, this information will be disclosed to the ordering healthcare provider. Please note that determinations of biological relationships from the rGS results cannot be used to legally determine paternity or maternity. The rGS test results and data will be kept as part of the medical record. A very small risk exists for data to be unintentionally released/accessed. I discussed considerations related to genetic discrimination. I explained that at this time there are federal laws in place that prevent health insurers and most employers from discriminating based on genetic information, such as the Genetic Information Nondiscrimination Act (PERRY) of 2008. It is possible that this law, like any other, may become less or more protective in the future. There are currently no federal laws that prohibit life insurance, long-term care, or disability insurance companies from discriminating based on genetic information. Different states may have more comprehensive laws about preventing discrimination based on genetic test results. PERRY does not apply to the [place] armed forces or employers with fewer than 15 employees. Data Sharing and Publication I explained information related to data sharing and publication. Results, data, and clinical information (such as age, sex, and medical symptoms) may be shared with the medical and scientific community after all personal identifying information is removed. Data sharing and publication are done to improve genetic test result interpretation and to help understand how different genetic variants relate to medical symptoms. Results from rGS may be published in the medical literature, as may the combined results from GS of many patients. These publications will not include any personal identifying information that would enable others to link the published result to a specific patient's identity, unless a separate consent to allow this is obtained. [facility] [place] [facility] may analyze compiled genome sequencing data from many patients for director quality systems or to assess test performance. Results of these analyses may be published in the medical literature without personal identifying information. I explained that information on variant(s) and/or DNA sequencing data, along with patient clinical information, may be submitted to public databases and/or restricted, controlled-access databases. Although all specific personal identifying information will be removed when data are sent to public and controlled-access databases, each person's DNA sequencing data contains unique components, and it may be possible to re-identify a person by comparing his/her DNA sequencing data to information available in genetic/ancestry databases. Consent for Testing After this discussion, Amos Ruffin had the opportunity to ask questions and subsequently did provide verbal consent to proceed with testing of a parent sample for the primary benefit of their biological child. Instructions for Orders and Samples [facility] will place orders. Plan was discussed with Dr. Chan. Jorge Alberto Roberts MS, FABIO documented in this encounter [facility] 05-29-2023 History of Present illness Narrative Reason [...] of: SHANA Herrera documented in this encounter [facility] 05-15-2023 History of Present illness [...] Victorino Castaneda DO documented in this encounter [facility] 09-07-2022 Hospital Discharge instructions Patient Education 09/07/2022 11:57:13 Otitis Externa, Cwza-nb-Yria Otitis Externa Otitis externa is an infection [...] if you start to feel better. Take zbil-[id number]-rlwwxkn and prescription medicines only as told by [...] provider. Document Revised: 06/13/2021 Document Reviewed: 06/13/2021 [employer] Patient Education 2022 [employer] 09/07/2022 11:57:10 Otitis Media, Adult Otitis [...] pain. Follow these instructions at home: Take ytfp-iei-yatukvo and prescription medicines only as told by [...] provider. Document Revised: 07/09/2021 Document Reviewed: 07/09/2021 [employer] Patient Education 2022 [email or web address]. 09/07/2022 11:57:07 BMI for Adults BMI for [...] numbers. This can be done either in Micronesian ([place] or metric measurements. Note that charts and online BMI calculators are available to help you find your BMI quickly and easily without having to do these calculations yourself. To calculate your BMI in Micronesian ([place] measurements: 1.Measure your weight in pounds [...] Centers for Disease Control and Prevention: www.cdc.gov [place] [employer]: www.heart.org National Heart, Lung, and Blood [place]: www.nhlbi.nih.gov Summary Body mass index (BMI) is a number that is calculated from a person's weight and height. BMI may help estimate how much of a person's weight is composed of fat. BMI can help identify those who may be at higher risk for certain medical problems. BMI can be measured using Micronesian measurements or metric measurements. BMI charts are used to identify whether you are underweight, normal weight, overweight, or obese. This information is not intended to replace advice given to you by your health care provider. Make sure you discuss any questions you have with your health care provider. Document Revised: 12/22/2019 Document Reviewed: 10/29/2019 [employer] Patient Education 2022 [email or web address]. Follow Up Care 09/07/2022 10:55:41 With:CIPRIANO MOLINA CNP Address: [address] [place] [id number] When: Unknown [facility] Evaluation + Plan note No data available for this section [facility] Evaluation + Plan note Future Appointments Appointment Date:05/12/2023 08:00:00 AM Scheduled Provider:Shannon Moore Location:[facility] Appointment Type:BH Therapy [facility] Evaluation + Plan note Future Appointments Appointment Date:05/22/2023 10:00:00 AM Scheduled Provider:Shannon Moore Location:[facility] Appointment Type: Video Visit Therapy [facility] Evaluation note Diagnosis Encounter for well woman exam with routine gynecological exam documented in this encounter PRAVEEN KNIGHTCHAYO [employer] Work Phone: evaluation note* Diagnosis Second trimester state, incidental [facility] Diagnosis Third trimester state, incidental Nausea Nausea alone Heartburn during in third trimester Excessive growth affecting management of , antepartum, single or unspecified fetus [facility] Diagnosis Family history of congenital anomalies- Primary documented in this encounter [facility] Discharge instructions No data available for this section [facility] Progress note No data available for this section [facility] Summary Purpose Family History No Family History Records Found No data available for this section No data available for this section No Family History Records Found No data available for this section No Family History Records FoundNo Family History Records FoundNo Family History Records Found Advance Directives No Advanced Directives Records FoundNo Advanced Directives Records FoundNo Advanced Directives Records FoundNo Advanced Directives Records FoundNo Advanced Directives Records Found Additional Source Comments Patient Care team informatio n (unrecognized section and content) 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 Relationship Specialty Start Date End Date Pcp, [place] [address] PCP - General 07/28/23 INFORMATION SOURCE (unrecogn ized section and content) DATE CREATED AUTHOR 08/22/2022 Macy Stroud [facility] DATE CREATED AUTHOR AUTHOR'S ORGANIZ ATION 08/09/2023 [facility] DATE CREATED AUTHOR AUTHOR'S ORGANIZ ATION 09/06/2023 [facility] DATE CREATED AUTHOR AUTHOR'S ORGANIZ ATION 09/16/2023 [facility] EPIC DATE CREATED AUTHOR AUTHOR'S ORGANIZ ATION 10/02/2023 [facility] Reason for Visit (unrecogniz ed section and [...] BE BASED ON THE PRIMARY CLINICAL RECORDS. [facility] [facility]. provides no warranty or guarantee of the accuracy or completeness of information in this document."
[2023-10-15 12:09] LABS: HSV 2 IgG, Type Spec <0.91 index (0.00-0.90)
== END 2023-10-14 14:00 | disposition home or self-care (01) ==
LOC: LAB 14:01
PROVIDERS: PCP Student in an Organized Health Care Education/Training Program; Visit Provider Obstetrics & Gynecology
DX: B00.9 Herpesviral infection, unspecified (principal)
CPT/HCPCS: 36415; 86695; 86696

== ENCOUNTER 2024-01-22 09:22 | Outpatient (RCR) | payer OTHER, SELFPAY ==
--- OUTSIDE RECORDS SUMMARY | 2024-01-22 09:36 | XMS_ITS | CCD ---
Author Organization [facility] Informat ion [facility] Care Team Providers Care Sales Stock Associate Name Role Phone CIPRIANO MOLINA Primary Care Physician Unavailable Primary Care Provider UnavailSHELBY Muñoz Referring Unavailable Unavailable Primary Care Provider Unavailabl e Pcp, No Primary Care Provider PCP, NO Primary Care Unavailable MANICKCYNTHIA KANDAMROSA MUGU Attending Unavailabl e MANICKAM, KANDAMURUGU Referring Unavailabl e PCP, NO Primary Care Unavailable Mamta Santos Attending Unavailable Mamta Santos Referring Unavailable Mery Mitchell Primary Care Physician [phone] STACIA HARP Attending Unavailable SILVA LAMAR Attending Unavailable VICTORINO CASTANEDA Attending Unavailable STACIA HARP Attending Unavailable LEONEL, VICTORINO Attending Unavailable STACIA HARP Attending Unavailable VICTORINO CASTANEDA Attending Unavailable LEONEL, VICTORINO Attending Unavailable VICTORINO CASTANEDA Attending Unavailable MERY MITCHELL Attending Unavailable VICTORINO CASTANEDA Attending Unavailable LEONEL, VICTORINO Attending Unavailable LEONEL, VICTORINO Attending Unavailable LEONELVICTORINO QUINTERO Attending Unavailable VICTORINO CASTANEDA Attending Unavailable MERY MITCHELL Attending Unavailable Duglas Stallings Attending Unavailab Duglas Pantoja Admitting Unavailab Jess Owens Primary Care Unavailable Sunny Brambila Attending Unavailable Gio JIMENEZ Referring Unavailable Wagner DELGADO Attending Unavailable BHUMIKA MORENO Attending UnavailDipak Torrez Attending Unavailable Shannon Lai Attending Unavailable Shannon Lai Attending Unavailable Shannon Lai Attending Unavailable Allergies Allergy Classification Reported Allergen(s) Allergy Type Date of Onset Reaction(s) Facility (2 sources) Cephalexin; Translations: [cephalexin] Drug Allergy Weal (disorder) [facility] Medications Current Medications Medication Drug Class(es) Dates Sig (Normalized) Sig (Original) amoxicillin 875 mg oral tablet (2 sources) Penicillin-class Antibacterial Start: 09-04-2023 End: 09-11-2023 take 1 tablet by mouth twice daily amoxicillin 875 mg Tab 875 mg = 1 tab(s), Oral, BID, X 7 day(s), # 14 tab(s), Refills(s) 0, Pharmacy: [facility]/pharmacy #[id number], 183, cm, 09/04/23 15:39:00 EDT, Height/Length Dosing, 102, kg, 09/04/23 15:39:00 EDT, Weight Dosing Start Date: 09/04/23 Stop Date: 09/11/23 Status: Ordered Start: 09-07-2022 End: 09-14-2022 take 2 capsules by mouth every twelve hours amoxicillin 500 mg Cap 1,000 mg = 2 cap(s), Oral, q12hr, X 7 day(s), # 28 cap(s), Refills(s) 0, Pharmacy: [facility]/pharmacy #[id number], 183, cm, 09/07/22 11:38:00 EDT, Height/Length Dosing, 113.2, kg, 09/07/22 11:38:00 EDT, Weight Dosing Start Date: 09/07/22 Stop Date: 09/14/22 Status: Ordered ibuprofen 600 mg oral tablet (5 sources) Nonsteroidal Anti-inflammatory Drug Start: 12-07-2020 take 1 tablet by mouth every six hours ibuprofen 600 mg Tab 600 mg = 1 tab(s), Oral, q6hr, # 40 tab(s), Refills(s) 0, Pharmacy: [facility]/pharmacy #[id number], 178, cm, 12/07/20 10:05:00 EDT, Height/Length [...] 7 day(s), 10 mL, Refill(s) 0, [facility]/pharmacy #[id number], 183, cm, 09/07/22 11:38:00 EDT, Height/Length [...] capsule 3 05/29/2023 05/28/2024 Active polymyxin b 58088 unt/ml / trimethoprim 1 mg/ml ophthalmic solution [...] Reference Range Facility Ambulatory Visit Summaryon 0 12-26-2023 Ambulatory Visit Summary Ambulatory Visit Summary AMOS RUFFIN :2000 Visit Date:12/26/2023 Ambulatory Visit Instructions Your Diagnosis Sinusitis Conjunctivitis of left eye Left otitis media Your Care Team Attending Physician - Dipak Boyd PA-C. Primary Care Physician - Stephen ALMENDAREZ, Mery Chapin This Is Your Medications List amoxicillin-clavulana te (Augmentin 875 mg oral tablet) polymyxin B-trimethoprim ophthalmic (Polytrim 10 mL Soln-Opth) Contact prescribing physician if questions or concerns ibuprofen (ibuprofen 600 mg Tab) Procedures Performed Removal of etonogestrel implant (08/10/2020), section, Tonsillectomy and adenoidectomy. Discharge Vitals Temperature (Temporal Artery) 36.8 ?C Heart Rate (Peripheral) 73 Blood Pressure 132/86 Height 183 cm Height 72 in Weight 102 kg Weight 224.4 lb BMI 30.46 Medications What How Much When Why Instructions New amoxicillin-clavulana te (Augmentin 875 mg oral tablet) 1 Tablets By Mouth Every 12 hours Sinusitis Conjunctivitis of left eye Left otitis media Duration: 10 Days Pickup at [facility]/pharmacy #[id number] New polymyxin B-trimethoprim ophthalmic (Polytrim 10 mL Soln-Opth) 1 Drops Ophthalmic Every 6 hours Sinusitis Conjunctivitis of left eye Left otitis media Duration: 7 Days Pickup at [facility]/pharmacy #[id number] Unchanged ibuprofen (ibuprofen 600 mg Tab) 1 Tablets By Mouth Every 6 hours Contact prescribing physician if questions or concerns Pharmacy Information [facility]/pharmacy #[id number]: [address] [place], [place] [id number] [phone] Allergies Keflex (Hives) Problems Ongoing - Any problem that you are currently receiving treatment for. Adjustment disorder with mixed disturbance of emotions AND conduct Dysmenorrhea Irregular bleeding Menorrhagia Patient Survey You may receive a survey via text or e-mail asking about your office visit. Please share your experience with us by completing your survey. We appreciate your feedback and thank you for choosing us for your care. Normal [facility] Family Medicine Office/Clini c Noteon 12-26-2023 Family Medicine Office/Clinic Note Family Medicine Office/Clinic Note Chief Complaint pink eye and ear infection HPI Staff 23 year old female presents with possible pink eye in left eye since this morning left ear pain also started this morning. Pt has hx of reoccurring ear infection. Pt has had some sinus drainage and pressure the last week. History of Present Illness I have reviewed and verified the staff HPI to be accurate for this encounter. Portions of this record have been created with voice recognition software. Occasional wrong-word or ?ochnd-t-ncey? substitutions may have occurred due to the inherent limitations of voice recognition software. 23-year-old female presents to convenient care today with chief complaint of possible pinkeye of the left eye onset this morning. States she also notes some left-sided ear pain this morning. States she has history of recurring ear infections. States she has had some sinus drainage and pressure in the last week. She has never had tympanostomy tubes that she is aware of when she was young. She does note medication allergy to Keflex. Patient states following the sinus congestion she just woke this morning with the drainage from the left eye redness and irritation as well as a left-sided ear pain. Believes she may even have a sinus infection. States this morning she had grouping and crusting of the left eye. Denies any blurred vision double vision or change in vision. She does not wear glasses or contacts. She denies any cough fever body aches or headache with her symptoms. Denies any recent sick contacts or recent travel that she is aware of. She has no other concerns at this time. Review of Systems PHQ Score Initial Depression Screen Score: 0 SCORE ROS negative unless otherwise stated in HPI. Physical Exam Vitals & Measurements T: 36.8 ?C(Temporal Artery) HR: 73(Peripheral) BP: 132/86 SpO2: 99% HT: 72 in HT: 183 cm WT: 102 kg WT: 224.4 lb BMI: 30.46 General: Well developed, well nourished, in no acute distress Eyes: Left eye conjunctiva is injected throughout with thick green drainage to the medial portion of the left eye. No active crusting of the upper or lower eyelashes. Upper and lower eyelids are inverted without foreign body or stye. Right eye conjunctiva appears in the normal limits no redness drainage. Bilateral pupils are equal round and reactive to light. Extraocular movements are intact. Ears: Patient's right TM is within normal limits no erythema or bulging. Right external auditory canal is within normal limits no erythema or edema. The left TM appears to be erythematous dull with fluid behind the left TM concerning for an early left otitis media. Otherwise left external auditory canal is within normal limits no erythema or edema. Nose: mild nasal mucosa inflammation and edema bilateral swollen erythematous boggy nasal turbinates no active drainage or lesions no deformities. Mouth: Moist mucous membranes. Uvula is midline. No acute tonsillar erythema edema or exudate. No signs of peritonsillar abscess. No trismus or drooling. Neck: no adenopathy Lungs: Lung sounds are clear bilaterally. No wheezing rhonchi or crackles on exam. Cardio: S1, S2, regular rhythm. No murmurs gallops or rubs. Abdomen: not assessed Musculoskeletal: not assessed Extremity: not assessed Neurologic: not assessed Skin: not assessed Mental Status: Alert and oriented x3. Normal mood and affect Assessment/Plan I spoke with patient in regards to her duration of symptoms with waking this morning with left eye conjunctivitis as well as left-sided ear pain I believe patient also has sinus infection given the duration of her symptoms greater than 1 week. Discussed treatment with Augmentin twice daily x 10 days duration in addition to Polytrim ophthalmic eyedrops 1 drop in the left eye every 6 hours or 4 times daily x 7 days duration. Discussed with patient that the Augmentin will also cover that of a left-sided ear infection in which patient agrees and understands plan of care may otherwise return if needed. Patient is provided with a work note for today. 1. Sinusitis (J32.9: Chronic sinusitis, unspecified) Given duration of symptoms and exam, will cover for sinusitis with augmentin bid x 10 days. Finish entire course. Fluids/rest, PRN tylenol/ibuprofen for pain and/or fever encouraged. May use flonase for symptomatic tx. Follow up with PCP if not improving over next 5-7 days with ATB or significantly worsening. Patient verbalized understanding of treatment plan. Ordered: amoxicillin-clavulana te, = 1 tab(s), Oral, q12hr, X 10 day(s), # 20 tab(s), Refills(s) 0, Pharmacy: [facility]/pharmacy #[id number], 183, cm, 12/26/23 10:18:00 EDT, Height/Length Dosing, 102, kg, 12/26/23 10:18:00 EDT, Weight Dosing polymyxin B-trimethoprim ophthalmic, 1 drop(s), OPTH, q6hr for 7 day(s), 10 mL, Refill(s) 0, [facility]/pharmacy #[id number], 183, cm, 12/26/23 10:18:00 EDT, Height/Length Dosing, 102, kg, 12/26/23 10:18:00 EDT, Weight Dosing 2. Conjunctivitis of left eye (H10.9: Unspecifie (more content not included)... Normal [facility] Comment on above: Result Comment: Elec tronically Signed By: Oliver BAI, Dipak [place]\.br\Date and Time Signed: 12/26/23 11:05 EDT Patient Letter FTon 2023 Patient Letter [facility] [place] Patient Letter [facility] [place] [address], [facility] [place] [phone] December 26, [address] [place] [address] : 2000 Please excuse AMOS RUFFIN from work . Date and/or Time of Absence: From: 12/26/23 May return to work on: 12/29/23 Restrictions: None Comments: Please excuse due to an acute illness. Provider Signature: Dipak Boyd PA-C Physician Survey Coordinator [facility] [address] [place] [address] [place] [address] [facility] Family Medicine Office/Clini c Noteon 09-04-2023 Family Medicine Office/Clinic Note Chief Complaint Ear pain HPI Staff 22 year old female presents with right ear pain by 3 days. Slight sore throat History of Present Illness Reviewed and agree with above documented HPI by medical attendant. Patient is a 22-year-old female presents today [...] Patient states she has not taken any dhsb-fcx-imucvam medications for treatment. She states that the [...] day(s), # 14 tab(s), Refills(s) 0, [facility]acy: [id number], 183, cm, 09/04/23 15:39:00 EDT, Height/Length [...] with voice recognition artificial intelligence software, specifically [employer], [employer] and or [employer]. Occasional wrong-word or `pgqwx-x-gngv? substitutions may have occurred due to the inherent limitations of voice recognition and artificial intelligence software. Follow-up No qualifying data available Patient Education Otitis Externa, Deiq-jp-Drfb Otitis Media, Adult, Wdle-um-Wpbf Ear Drops, Adult, Mtnb-qx-Bdpl Problem List/Past Medical History Ongoing Adjustment disorder [...] Hypertension: Fa (more content not included)... Normal [facility] Comment on above: Result Comment: Elec tronically Signed By: Eliot HUBER, Jorge Alberto Lan\.br\Date and Time Signed: 09/04/23 16:14 EDT Patient [...] cannot use soap and water, use hand manager poker. 2. Make sure your ears are clean [...] cannot use soap and water, use hand manager poker. Follow these instructions at home: ? Use [...] provider. Document Revised: 01/26/2020 Document Reviewed: 01/26/2020 FSI Patient Education ? 2022 [employer]. ENT Otitis Media, Adult Otitis media is [...] ? Ri (more content not included)... Normal [facility] Toxoplasma gondii Ab IgMIgGo n 07-30-2023 Toxoplasma gondii Ab IgG Normal [facility] Comment on above: Result [...] By: #### X TOXPG #### Performed at [facility], [address] [place] [id number] Toxoplasma gondii Ab IgM Normal [facility] Comment on above: Result [...] post-infection. This test is performed using the DiaBalaBitrin LIAISON. As suggested by the CDC, any [...] the amount of antibody present. Performed By: [facility] [address] [place] [address] Thread Trimmer: Tristan Lugo MD, PhD CLIA Number: [id number] Performed at [facility], [address] [place] [address] Performed By: #### X TOXPG #### Performed at [facility], [address] [place] [address] Lab Reporton 07-28-2023 Report Normal [facility] Comment on above: Performed By: #### R GSPAR #### Performed at [facility], [address] [place] [address] Urinalysis macro (dipstick) panel (U)on 05-29-2023 Bilirubin, UA Negative Negative - 4(70) +++ mg/dL [facility] Blood, UA Positive Negative - 50 David/mcL [facility] Comment on above: moderate Clarity, UA Clear [facility] re Color, UA Yellow [facility] Glucose, UA Negative Negative - 1999(110) ++++ mg/dL [facility] Interpretation and review of laboratory results Abnormal [facility] Ketones, UA Negative Negative - 160(16) ++++ mg/dL [facility] Leukocytes, UA Positive Negative - 500+++ Keith/mcL [facility] Comment on above: small Nitrite, UA Negative Negative - Positive [facility] pH, UA 6.5 5 - 9 [facility] Healthcar e Protein, UA Negative Negative - 1999(20) ++++ mg/dL [facility] Spec Grav, UA 1.025 1 - 1.03 [facility] Urobilinogen, UA 0.2 0.2 - 12 mg/dL [facility] Urinalysis macro (dipstick) panel (U)Ordered By: Jerri Mercado on 05-15-2023 Bilirubin, UA Positive Negative - 4(70) +++ mg/dL [facility] Healthcare Work Phone: Comment on above: small Blood, UA Positive Negative - 50 David/mcL [facility] Work Phone: Comment on above: trace-intact Clarity, UA Clear [facility] Work Phone: Color, UA Yellow [employer] [facility] Work Phone: Glucose, UA Negative Negative - 1999(110) ++++ mg/dL [facility] [employer] Work Phone: Interpretation and review of laboratory results Abnormal [facility] [employer] Work Phone: Ketones, UA Positive Negative - 160(16) ++++ mg/dL [facility] [employer] Work Phone: Comment on above: 80 Leukocytes, UA Positive Negative - 500+++ Keith/mcL [facility] Healthcare Work Phone: Comment on above: small Nitrite, UA Negative Negative - Positive [facility] Work Phone: pH, UA 7.0 5 - 9 [facility] [employer] Work Phone: Protein, UA Positive Negative - 1999(20) ++++ mg/dL [facility] [employer] Work Phone: Comment on above: 30 Spec Grav, UA 1.020 1 - 1.03 [facility] [employer] Work Phone: Urobilinogen, UA 1.0 0.2 - 12 mg/dL [facility] [employer] Work Phone: [facility] [employer] Work Phone: Chlamydia/GC DNA, TPon 08-15 Chlamydia Probe, TP Negative Normal NEG [facility] Comment on above: Result Comment: [...] nucleic acid target. Performed By: #### C [facility] #### [email or web address] [address] [place] [address] Electrolysis Engineer: Willard Sethi MD Gonorrhea Probe, TP Negative Normal NEG [facility] Comment on above: Result Comment: [...] target. Performed By: #### C YTCGP #### [email or web address] [address] [place] [address] [id number] Electrolysis Engineer: Willard Sethi MD Cytologyon 08-13-2022 Cytology (NOTE) Path Number: [id number] DIAGNOSIS Cervical material, (ThinPrep vial, Imaging-assisted review): Specimen Adequacy: Satisfactory for evaluation. -Endocervical/transfo rmation zone component is absent. Descriptive Diagnosis: Negative for intraepithelial lesion or malignancy. Cytotech Screener: SS4 Electronically Signed Out MAXIMUS Ramírez(ASCP) ss4/08/21/2022 Source of Specimen: A: Cervical material, (ThinPrep vial, Imaging-assisted review) HPV Reflex?.............. ........HPV if ASCUS Clinical History Z01.419 Routine supervisor smoke control exam without abnormal findings High Risk HPV DNA testing is requested if the diagnosis is ASC-US Processing Lab: [address] [id number] Interpretation performed at [address] [phone] The Pap smear is a screening test primarily for squamous epithelial lesions, which is subject to both false negative and false positive results. Your patient should be reminded to consult you immediately if she experiences any suspicious signs or symptoms, regardless of her Pap smear result. GYNECOLOGIC CYTOLOGY REPORT Patient Name: AMOS RUFFIN [facility] Rec: [id number] [employer] [facility] ANATOMIC PATHOLOGY [address] [place] [address]. [place], [place] [address] [facility] Comment on above: Performed By: #### P PPVP #### [email or web address] [address] [place] [address] Electrolysis Engineer: Willard Sethi MD Vital Signs Date Time Vital Sign Value Performing Clinician Facility 09-04-2023 15:36-0400 Blood Pressure Location JANESSA MORENO [facility] 09-04-2023 15:36-0400 Body temperature 98.24 [degF] [facility] 09-04-2023 15:36-0400 Diastolic blood pressure 80 mm[Hg[facility] 09-04-2023 15:36-0400 Heart rate 85 /min [facility] 09-04-2023 15:36-0400 SaO2% (BldA) [Mass fraction] 97 % [facility] 09-04-2023 15:36-0400 Systolic blood pressure 126 mm[Hg] [facility] 05-29-2023 15:53-0500 Body mass index (BMI) [Ratio] 35.13 kg/m2 Stacia SALDANA Work Phone: [facility] 05-29-2023 15:53-0500 Body weight 117.48 kg Stacia SALDANA Work Phone: [facility] 05-29-2023 15:53-0500 Diastolic blood pressure 70 mm[Hg] Stacia SALDANA Work Phone: [facility] 05-29-2023 15:53-0500 Systolic blood pressure 124 mm[Hg] Stacia SALDANA Work Phone: [facility] 05-15-2023 09:03-0500 Body mass index (BMI) [Ratio] 35.13 kg/m2 Victorino Castaneda DO Work Phone: [facility] 05-15-2023 09:03-0500 Body weight 117.48 kg Victorino Leonel DO Work Phone: [facility] 05-15-2023 09:03-0500 Diastolic blood pressure 72 mm[Hg] Victorino Leonel DO Work Phone: [facility] 05-15-2023 09:03-0500 Systolic blood pressure 120 mm[Hg] Victorino Leonel DO Work Phone: [facility] 09-07-2022 11:37-0400 Blood Pressure Location Dipak Boyd [facility] 09-07-2022 11:37-0400 Diastolic blood pressure 80 mm[Hg] Dipak Boyd [facility] 09-07-2022 11:37-0400 Heart rate 76 /min Dipak Boyd [facility] 09-07-2022 11:37-0400 SaO2% (BldA) [Mass fraction] 99 % Dipak Boyd [facility] 09-07-2022 11:37-0400 Systolic blood pressure 110 mm[Hg] Dipak Boyd [facility] Encounters Encounter Date Encounter Type Care Provider Facility Start: 01-09-2024 ambulatory Wagner Lopez y:[facility] [place] Start: 12-26-2023 End: 12-26-2023 ambulatory Dipak Boyd Facility:[facility] Start: 12-23-2023 ambulatory Duglas Bishop acility:[facility] Start: 12-16-2023 End: 12-16-2023 ambulatory STACIA HARP Not Available Start: 12-09-2023 End: 12-09-2023 ambulatory MERY MITCHELL Not Available Start: 10-14-2023 End: 10-14-2023 ambulatory VICTORINO CASTANEDA Not Available Start: 09-15-2023 End: 09-15-2023 ambulatory VICTORINO LEONEL Not Available Start: 09-04-2023 End: 09-04-2023 ambulatory BHUMIKA MORENO Facility:[facility] Start: 09-04-2023 End: 09-04-2023 Patient encounter procedure JANESSA MORENO [facility] Start: 08-25-2023 End: 08-25-2023 ambulatory VICTORINO LEONEL Not Available Start: 08-11-2023 End: 08-11-2023 ambulatory VICTORINO LEONEL Not Available Start: 07-28-2023 End: 07-29-2023 Orders Only Jorge Alberto Roberts MS, [facility] Work Phone: [facility] Start: 07-22-2023 End: 07-22-2023 ambulatory MERY Chapin STEPHEN Not Available Start: 07-16-2023 End: 07-16-2023 ambulatory VICTORINO LEONEL Not Available Start: 07-15-2023 End: 07-15-2023 ambulatory VICTORINO LEONEL Not Available Start: 07-07-2023 End: 07-07-2023 ambulatory VICTORINO LEONEL Not Available Start: 07-02-2023 End: 07-02-2023 ambulatory STACIA HARP Not Available Start: 06-23-2023 ambulatory Shannon Lai Facility:[facility] Start: 06-16-2023 End: 06-16-2023 ambulatory VICTORINO LEONEL Not Available Start: 05-29-2023 End: 05-29-2023 ambulatory STACIA HARP Not Available Start: 05-29-2023 End: 05-29-2023 Office outpatient visit 15 minutes Stacia SALDANA Work Phone: [facility] Comment on above: Third trimester preg adalberto; Nausea; Heartburn during in third trimester; Excessive growth affecting management of , antepartum, single or unspecified fetus Start: 05-15-2023 End: 05-15-2023 flow sheet Victorino Leonel DO Work Phone: [facility] Comment on above: Second trimester pre gnancy Start: 05-15-2023 End: 05-15-2023 ambulatory VICTORINO LEONEL Not Available Start: 05-08-2023 End: 05-08-2023 ambulatory Shannon Lai [facility] Start: 05-08-2023 End: 05-08-2023 Patient encounter procedure Shannon Lai [facility] Start: 04-25-2023 End: 04-25-2023 ambulatory SILVA Samantha LAMAR Not Available Start: 04-25-2023 End: 04-25-2023 ambulatory Shannon Lai Facility[facility] Start: 04-25-2023 End: 04-25-2023 Patient encounter procedure Shannon Lai [facility] Start: 04-17-2023 End: 04-17-2023 ambulatory STACIA HARP Not Available Start: 03-19-2023 End: 03-19-2023 ambulatory VICTORINO LEONEL Not Available Start: 01-14-2023 End: 01-14-2023 ambulatory Sunny Brambila Facility:[facility] Start: 09-07-2022 End: 09-07-2022 Patient encounter procedure Dipak Boyd [facility] Start: 08-13-2022 End: 08-14-2022 ambulatory [facility] Start: 08-13-2022 Encounter for gynecological examination (general) (routine) without abnormal findings [facility] Start: 08-13-2022 End: 08-13-2022 Patient encounter procedure [facility] Start: 08-13-2022 End: 08-13-2022 Subsequent hospital visit by physician [facility] Comment on above: Encounter for well w randy exam with routine gynecological exam Start: 06-07-2022 End: 06-07-2022 Patient encounter procedure Krystyna Seth [facility] Procedures Date Procedure Procedure Detail Performing Clinician Start: 05-29-2023 Urnls dip stick/tabl et rgnt non-auto w/o micrscp Stacia SALDANA Work Phone: Start: 05-15-2023 Urnls dip stick/tabl et rgnt non-auto w/o micrscp Victorino Castaneda Work Phone: Start: 08-10-2020 Removal of etonogest rel implant Antidot section JANESSA O RTIZ Tonsillectomy and adenoidectomy Antidot Plan of Treatment Date Care Activity Detail Author Start: 12-14-2023 Influenza vaccination Influenz a Vaccine (Season Ended) [facility] Start: 07-28-2023 End: 07-27-2024 GENETICS STAT SPECIMEN LABEL- REQUIRED FOR INHOUSE GENETIC TESTING [facility] Comment on above: Expected: 07/28/2023 (Approximate), Expires: 07/27/2024 Start: 07-28-2023 End: 07-27-2024 RAPID GENOME SEQUENCING - PARENT SAMPLE RAPID GENOME SEQUENCING - PARENT SAMPLE Lab Routine Family history of congenital anomalies Expected: 07/28/2023 (Approximate), Expires: 07/27/2024 [facility] Work Phone: Comment on above: Expected: 07/28/2023 [...] Routine [facility] [place] [address] [place] [address] Stacia Harp PA [address] [place] [address] [facility] Start: 12-13-2022 COVID-19 Vaccine ( season) COVID-19 Vaccine ( season) [facility] Start: 12-13-2022 Influenza vaccination Influenza Vacc ine (#1) [facility] Start: 12-01-2022 DTaP/Tdap/Td vaccine (7 - Td or Tdap) DTaP/Tdap/Td vaccine (7 - Td or Tdap) [facility] Start: 11-12-2022 Influenza vaccination Flu vacc ine (Season Ended) [facility] Start: 2021 Screening for malign ant neoplasm of cervix Pap smear [facility] Start: 11-05-2019 Hepatitis B Vaccine (1 of 3 - 19+ 3-dose series) Hepatitis B Vaccine (1 of 3 - 19+ 3-dose series) [facility] Start: 2018 Hepatitis C screening Hepatitis C sc reen [facility] Start: 2016 Screening for Chlamy sedrick trachomatis Chlamydia/GC screen [facility] Start: 11-05-2015 HIV screening HIV screen [facility] Start: 11-05-2015 HPV Vaccine (1 - 3-d ose series) HPV Vaccine (1 - 3-dose series) [facility] Start: 2013 Varicella Vaccine (1 of 2 - 13+ 2-dose series) Varicella Vaccine (1 of 2 - 13+ 2-dose series) [facility] Start: 2012 Depression Screen Depression Screen [facility] Start: 11-05-2007 DTaP/Tdap/Td Vaccine (1 - Tdap) DTaP/Tdap/Td Vaccine (1 - Tdap) [facility] Start: 2001 MMR Vaccine (1 of 1 - Standard series) MMR Vaccine (1 of 1 - Standard series) [facility] Start: 05-07-2001 COVID-19 Vaccine (#1) COVID-19 Vacci ne (#1) [facility] End: 08-13-2022 Chlamydia/GC DNA, Thin Prep [facility] Work Phone: Comment on above: 1 Occurrences starti ng 08/13/2022 until 08/13/2022 End: 08-13-2022 Cytopathology procedure, preparation of smear, genital source PAP Smear Lab Routine Encounter for well woman exam with routine gynecological exam 1 Occurrences starting 08/13/2022 until 08/13/2022 [facility] Work Phone: Comment on above: 1 Occurrences starti ng 08/13/2022 until 08/13/2022 Immunizations Immunization Date Immunization Notes Care Provider Fa cili 08-20-2022 SARS-CoV-2 (COVID-19 ) [id number] JANESSA MORENO [facility] 02-04-2020 influenza virus vaccine, unspecified formulation Krystyna Orzech [facility] 02-05-2019 influenza virus vaccine, unspecified formulation Krystyna Orzech [facility] 07-21-2018 meningococcal B vaccine, fully recombinant Krystyna Orzech [facility] 01-08-2018 influenza virus vaccine, unspecified formulation Krystyna Orzech [facility] 11-22-2016 meningococcal ACWY vaccine, unspecified formulation Krystyna Orzech [facility] 11-22-2016 meningococcal B vaccine, fully recombinant Krystyna Orzech [facility] 02-28-2014 influenza, whole Krystyna Orze ch [facility] 11-15-2013 hepatitis A vaccine, unspecified formulation Krystyna Orzech [facility] 11-15-2013 HPV, unspecified formulation Krystyna Orzech [facility] 11-15-2013 meningococcal ACWY, unspecified formulation Krystyna Orzech [facility] 12-01-2012 hepatitis A vaccine, unspecified formulation Krystyna Orzech [facility] 12-01-2012 HPV, unspecified formulation Krystyna Orzech [facility] 12-01-2012 tetanus toxoid, reduced diphtheria toxoid, and acellular pertussis vaccine, adsorbed Krystyna [employer] [facility] 12-01-2012 varicella virus vaccine Krystyna Orzech [facility] 08-26-2005 hepatitis B vaccine, pediatric or pediatric/adolescent dosage Krystyna Orzech [facility] 08-15-2005 DTaP, unspecified formulation Krystyna Orzech [facility] 08-15-2005 measles, mumps and rubella virus vaccine Krystyna Orzech [facility] 08-15-2005 poliovirus vaccine, unspecified formulation Krystyna Orzech [facility] 12-15-2002 DTaP, unspecified formulation Krystyna Orzech [facility] 12-15-2002 haemophilus influenz ae type b vaccine, PRP-T conjugate Krystyna [employer] [facility] 12-25-2001 DTaP, unspecified formulation Krystyna Orzech [facility] 12-25-2001 measles, mumps and rubella virus vaccine Krystyna Orzech [facility] 12-25-2001 poliovirus vaccine, unspecified formulation Krystyna Orzech [facility] 12-25-2001 varicella virus vaccine Krystyna Orzech [facility] 04-29-2001 DTaP, unspecified formulation Krystyna Orzech [facility] 04-29-2001 poliovirus vaccine, unspecified formulation [employer] [facility] 01-20-2001 DTaP, unspecified formulation Krystyna [employer] [facility] 01-20-2001 poliovirus vaccine, unspecified formulation Krystyna [employer] [facility] NEGATED: Highlighted row has not occurred!02-18-2022 influenza virus vaccine, unspecified formulation Antidot [facility] NEGATED: Highlighted row has not occurred!02-18-2022 SARS-CoV-2 mRNA (tozinameran 5y-11y) vaccine Krystyna [employer] [facility] Payers Date Payer Category Payer Self-pay 2023 Unknown [id number] 2022 Unknown [id number] 2022 Unknown [id number] 2022 Medicaid [id number] 2022 Unknown [id number] 2000 Unknown [id number] 2.16. 840.1.283017.3.579.2.430 2000 Unknown [id number] 2.16. 840.1.966520.3.579.2.430 2000 Unknown [id number] 2.16.84 0.1.908704.3.579.2.1258 2000 Unknown [id number] 2.16.84 0.1.239975.3.579.2.1258 2000 Unknown [id number] 2.16.84 0.1.483329.3.579.2.1258 2000 Unknown [id number] 2.16.84 0.1.463163.3.579.2.1258 2000 Unknown [id number] 2.16.84 0.1.206268.3.579.2.1258 2000 Unknown [id number] 2.16.84 0.1.777674.3.579.2.1258 2000 Unknown [id number] 2.16.84 0.1.671314.3.579.2.1258 2000 Unknown [id number] 2.16.84 0.1.435403.3.579.2.1258 2000 Unknown [id number] 2.16.84 0.1.924460.3.579.2.1258 2000 Unknown [id number] 2.16.84 0.1.865020.3.579.2.1258 2000 Unknown [id number] 2.16.84 0.1.948254.3.579.2.1258 2000 Unknown [id number] 2.16.84 0.1.908090.3.579.2.1258 2000 Unknown [id number] 2.16.84 0.1.256294.3.579.2.1258 2000 Unknown [id number] 2.16.84 0.1.791987.3.579.2.1258 2000 Unknown [id number] 2.16.84 0.1.348608.3.579.2.1258 2000 Unknown [id number] 2.16.840 .1.092507.3.579.2.1258 2000 Unknown [id number] 2.16.840 .1.311189.3.579.2.1258 2000 Unknown [id number] 2.16.8 40.1.613797.3.579.2.727 2000 Unknown [id number] 2.16.8 40.1.236490.3.579.2.727 2000 Unknown [id number] 2.16.8 40.1.994140.3.579.2.727 2000 Unknown [id number] 2.16.8 40.1.980347.3.579.2.727 2000 Unknown [id number] 2.16.8 40.1.980510.3.579.2.727 2000 Unknown [id number] 2.16.8 40.1.676217.3.579.2.727 Unknown [id number] 2.16.8 40.1.004598.3.579.2.531 Social History Date Type Detail Facility Start: 03-30-2020 End: 09-04-2023 Tobacco smoking status Never smoked tobacco (finding) [facility] Tobacco smoking status Never [facility] Start: 01-13-2023 Sex Assigned At Female F [facility] Start: 08-13-2022 Tobacco use and exposure Smokeless tobacco non-user [employer] Phone: Start: 08-13-2022 Alcohol intake Not Asked [employer] Phone: Start: 08-13-2022 Alcohol Comment social [employer] [facility] [employer] Phone: Start: 2000 Sex Assigned At Not on file [facility] [employer] Phone: Start: 05-15-2023 Alcohol intake Lifetime non-d diamond (finding) [facility] Start: 01-13-2023 History of Social function [facility] Start: 01-13-2023 Alcohol Comment caffeine: 1-2 cups per day coffee [facility] Start: 11-09-2022 [facility] Tobacco smoking status NHIS Tobacco smoking consumption unknown [facility] Goals Date Patient Goal Desired Activity /State Personal health goal Functional Status Date Assessment Result Facility 09-04-2023 Functional Status N/A [facility] Clinical Notes 09-07-2022 to 12-26-2023 Jorge Alberto Roberts, , CGC - 07/28/2023 12:10 PM SHANA Fink - 05/29/2023 3:50 PM ESTSjesús Johnson, FLOUR TESTER - 05/15/2023 9:00 AM EST Note Date & Type Note Facility 12-26-2023 Note Patient Education ENT Otitis Media, Adult Otitis [...] Follow these instructions at home: ? Take ozkw-rne-xwqbufc and prescription medicines only as told by [...] provider. Document Revised: 07/09/2021 Document Reviewed: 07/09/2021 [employer] Patient Education ? 2023 [employer]. Infectious Disease Bacterial Conjunctivitis, Adult Bacterial conjunctivitis is an infection of the clear membrane that covers the white part of the eye and the inner surface of the eyelid (conjunctiva). When the blood vessels in the conjunctiva become inflamed, the eye becomes red or pink. The eye often feels irritated or itchy. Bacterial conjunctivitis spreads easily from person to person (is contagious). It also spreads easily from one eye to the other eye. What are the causes? This condition is caused by bacteria. You may get the infection if you come into close contact with: ? (more content not included)... [facility] 09-04-2023 Hospital Discharge instructions Patient Education 09/04/2023 16:13:42 Otitis Externa, Acdg-sd-Dseo Otitis Externa Otitis externa is an infection [...] if you start to feel better. Take zmnb-kym-nltqync and prescription medicines only as told by [...] provider. Document Revised: 06/13/2021 Document Reviewed: 06/13/2021 [employer]SI Patient Education 2022 [employer]. 09/04/2023 16:13:35 Otitis Media, Adult, Hhxr-nj-Wafi Otitis Media, Adult Otitis media is a [...] pain. Follow these instructions at home: Take ypck-zag-uoznkss and prescription medicines only as told by [...] provider. Document Revised: 07/09/2021 Document Reviewed: 07/09/2021 [employer] Patient Education 2022 [employer]. 09/04/2023 16:13:32 Ear Drops, Adult, Roqb-aa-Ysfu Ear Drops, Adult Your doctor has found [...] cannot use soap and water, use hand manager poker. 2.Make sure your ears are clean and [...] cannot use soap and water, use hand manager poker. Follow these instructions at home: Use the [...] provider. Document Revised: 01/26/2020 Document Reviewed: 01/26/2020 [employer]SI Patient Education 2022 [employer]. [facility] 07-28-2023 History of Present [...] be re-used as part of this reanalysis. 21st Century CURES Act I have explained that Amos Ruffin's parent report will go into their electronic medical records. Lab results may be available right away through [employer] and may be seen before a provider [...] immediately release the results to you Amos Ruffin was in agreement with this plan. Unanticipated [...] separate consent to allow this is obtained. [facility] [place] [facility] may analyze compiled genome sequencing data from many patients for quality assurance supervisor trim or to assess test performance. Results of [...] with Dr. Chan. Jorge Alberto Roberts MS, CGC documented in this encounter [facility] 05-29-2023 History of Present illness Narrative [...] of: SHANA Herrera documented in this encounter [facility] 05-15-2023 History of Present illness Narrative Reason [...] Victorino Castaneda DO documented in this encounter [facility] 09-07-2022 Hospital Discharge instructions Patient Education 09/07/2022 11:57:13 Otitis Externa, Xujg-lc-Cxed Otitis Externa Otitis externa is an infection [...] if you start to feel better. Take voaj-lyt-kncodlx and prescription medicines only as told by [...] provider. Document Revised: 06/13/2021 Document Reviewed: 06/13/2021 [employer] Patient Education 2022 [employer] 09/07/2022 11:57:10 Otitis Media, Adult Otitis [...] pain. Follow these instructions at home: Take xloz-fcn-zwrgbti and prescription medicines only as told by [...] provider. Document Revised: 07/09/2021 Document Reviewed: 07/09/2021 [employer]SI Patient Education 2022 [employer]. 09/07/2022 11:57:07 BMI for Adults BMI for [...] numbers. This can be done either in [place] or metric measurements. Note that charts and online BMI calculators are available to help you find your BMI quickly and easily without having to do these calculations yourself. To calculate your BMI in [place] measurements: 1.Measure your weight in pounds [...] Centers for Disease Control and Prevention: www.cdc.gov [place] [employer] [employer]: www.heart.org National Heart, Lung, and Blood [place]: www.nhlbi.nih.gov Summary Body mass index (BMI) is a number that is calculated from a person's weight and height. BMI may help estimate how much of a person's weight is composed of fat. BMI can help identify those who may be at higher risk for certain medical problems. BMI can be measured using [place] measurements or metric measurements. BMI charts are used to identify whether you are underweight, normal weight, overweight, or obese. This information is not intended to replace advice given to you by your health care provider. Make sure you discuss any questions you have with your health care provider. Document Revised: 12/22/2019 Document Reviewed: 10/29/2019 FSI Patient Education 2022 [employer]. Follow Up Care 09/07/2022 10:55:41 With:CIPRIANO MOLINA CNP Address: [address] [place], [place] [id number] When: Unknown [facility] Evaluation + Plan note No data available for this section [facility] Evaluation + Plan note Future Appointments Appointment Date:05/12/2023 08:00:00 AM Scheduled Provider:Shannon Moore Location:[facility] Appointment Type:BH Therapy 60 [facility] Evaluation + Plan note Future Appointments Appointment Date:05/22/2023 10:00:00 AM Scheduled Provider:Shannon Moore Location:[facility] Appointment Type: Video Visit Therapy [address] [facility] Evaluation note Diagnosis Encounter for well woman exam with routine gynecological exam documented in this encounter PRAVEEN KENNEDY [employer] Work Phone: evaluation note* Diagnosis Second trimester state, incidental [facility] Diagnosis Third trimester state, incidental Nausea Nausea alone Heartburn during in third trimester Excessive growth affecting management of , antepartum, single or unspecified fetus [facility] Diagnosis Family history of congenital anomalies- Primary documented in this encounter [facility] Discharge instructions No data available for this section [facility] Progress note No data available for this section [facility] Summary Purpose Family History [...] team informatio n (unrecognized section and content) 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 Start Date End Date Pcp, [place] [address] PCP - General 07/28/23 INFORMATION SOURCE (unrecogn ized section and content) DATE CREATED AUTHOR 08/22/2022 Macy adams DATE CREATED AUTHOR AUTHOR'S ORGANIZ ATION 08/09/2023 [facility] DATE CREATED AUTHOR AUTHOR'S ORGANIZ ATION 12/16/2023 [facility] EPIC DATE CREATED AUTHOR AUTHOR'S ORGANIZ ATION 12/25/2023 [facility] DATE CREATED AUTHOR AUTHOR'S ORGANIZ ATION 01/10/2024 [facility] Reason for Visit (unrecogniz ed section and [...] BE BASED ON THE PRIMARY CLINICAL RECORDS. [facility] [employer] [facility]. provides no warranty or guarantee of the accuracy or completeness of information in this document.
[2024-01-22 10:26] LABS: HCG Quantitative <1 mIU/mL
[2024-01-24 11:01] LABS: HCG Quantitative <1 mIU/mL
== END 2024-02-12 12:04 | disposition home or self-care (01) ==
LOC: LAB 09:22
PROVIDERS: PCP Student in an Organized Health Care Education/Training Program; Visit Provider Obstetrics & Gynecology
DX: N91.2 Amenorrhea, unspecified (principal)
CPT/HCPCS: 36415; 84702

== ENCOUNTER 2024-04-11 17:11 | Emergency (ER) | payer OTHER, SELFPAY ==
--- OUTSIDE RECORDS SUMMARY | 2024-04-11 17:18 | XMS_ITS | CCD ---
Author Organization [facility] Inform ion [facility] Care Team Providers Care Park Worker Name Role Phone CIPRIANO MOLINA Primary Care Physician [phone] Unavailable Primary Care Provider Unavailromana e SHELBY VILLATORO Referring Unavailable Unavailable Primary Care Provider Unavailabl e Pcp, No Primary Care Provider [phone] PCP, NO Primary Care Unavailable MANHÉCTOR JAYDAMROSA MUGU Attending Unavailabl e MANICKAM, KANDAMURUGU Referring Unavailabl e PCP, NO Primary Care Unavailable Matma Santos Attending Unavailable Mamta Santos Referring Unavailable Mery Mitchell Primary Care Physician [phone] STACIA HARP Attending Unavailable SILVA LAMAR Attending Unavailable LEONEL, VICTORINO Attending Unavailable STACIA HARP Attending Unavailable LEONEL, VICTORINO Attending Unavailable STACIA HARP Attending Unavailable LEONEL, VICTORINO Attending Unavailable LEONEL, VICTORINO Attending Unavailable LEONEL, VICTORINO Attending Unavailable MERY MITCHELL Attending Unavailable LEONEL, VICTORINO Attending Unavailable LEONEL, VICTORINO Attending Unavailable LEONEL, VICTORINO Attending Unavailable LEONEL, VICTORINO Attending Unavailable LEONEL, VICTORINO Attending Unavailable MERY MITCHELL Attending Unavailable Mery Mitchell MD Primary Care Provider Mery Mitchell MD Unavailable LeonelVictorino bell DO Unavailable Duglas Stallings Attending Unavailab Duglas Pantoja Admitting Unavailab Jess Owens Primary Care Unavailable Shannon Lai Attending Unavailable Shannon Lai Attending Unavailable Shannon Lai Attending Unavailable Wagner DELGADO Attending Unavailable Dipak Byod Attending Unavailable BHUMIKA MORENO Attending Unavailromana crowe Allergies Allergy Classification Reported Allergen(s) Allergy Type Date of Onset Reaction(s) Facility (8 sources) Cephalexin; Translations: [cephalexin] Drug Allergy 4 Weal (disorder), Itching [facility] Medications Current Medications Medication Drug Class(es) Dates Sig (Normalized) Sig (Original) amoxicillin 875 mg oral tablet (2 sources) Penicillin-class Antibacterial Start: 09-04-2023 End: 09-11-2023 take 1 tablet by mouth twice daily amoxicillin 875 mg Tab 875 mg = 1 tab(s), Oral, BID, X 7 day(s), # 14 tab(s), Refills(s) 0, Pharmacy: [facility]/pharmacy #[id number], 183, cm, 09/04/23 15:39:00 EDT, Height/Length Dosing, 102, kg, 09/04/23 15:39:00 EDT, Weight Dosing Start Date: 09/04/23 Stop Date: 09/11/23 Status: Ordered Start: 09-07-2022 End: 09-14-2022 take 2 capsules by mouth every twelve hours amoxicillin 500 mg Cap 1,000 mg = 2 cap(s), Oral, q12hr, X 7 day(s), # 28 cap(s), Refills(s) 0, Pharmacy: [facility]/pharmacy #[id number], 183, cm, 09/07/22 11:38:00 EDT, Height/Length Dosing, 113.2, kg, 09/07/22 11:38:00 EDT, Weight Dosing Start Date: 09/07/22 Stop Date: 09/14/22 Status: Ordered amoxicillin 875 mg / clavulanate 125 mg oral tablet (1 source) Penicillin-class Antibacterial Start: 12-26-2023 End: 01-05-2024 take 1 tablet by mouth every twelve hours Augmentin 875 mg oral tablet = 1 tab(s), Oral, q12hr, X 10 day(s), # 20 tab(s), Refills(s) 0, Pharmacy: [facility]/pharmacy #[id number], 183, cm, 12/26/23 10:18:00 EDT, Height/Length Dosing, 102, kg, 12/26/23 10:18:00 EDT, Weight Dosing Start Date: 12/26/23 Stop Date: 01/05/24 Status: Ordered ibuprofen 800 mg oral tablet (11 sources) Nonsteroidal Anti-inflammatory Drug Start: 07-22-2023 take 1 tablet by mouth every eight hours ibuprofen 800 MG tablet Take 800 mg by mouth every 8 (eight) hours 07/22/2023 Active Start: 12-07-2020 take 1 tablet by shieren th every six hours ibuprofen 600 mg Tab 600 mg = 1 tab(s), Oral, q6hr, # 40 tab(s), Refills(s) 0, [id number] 178, cm, 12/07/20 10:05:00 EDT, Height/Length Dosing, 109, kg, 12/07/20 10:05:00 EDT, Weight Dosing Start Date: 12/07/20 Status: Ordered levonorgestrel 0.425498 mg/hr intrauterine system (5 sources) Progestin, Progestin-containing Intrauterine Device Start: 09-15-2023 Levonorgestrel intrauterine device metoclopramide 10 mg oral tablet (2 sources) [...] for 7 day(s), 10 mL, Refill(s) 0, [facility]/pharmacy #[id number], 183, cm, 09/07/22 11:38:00 EDT, Height/Length Dosing, 113.2, kg, 09/07/22 11:38:00 EDT, Weight Dosing Start Date: 09/07/22 Stop Date: 09/14/22 Status: Ordered omeprazole 20 mg delayed release oral capsule (7 sources) Proton Pump Inhibitor Start: 05-29-2023 End: 05-28-2024 take 1 capsule by mouth before mealtime omeprazole (PriLOSEC) [address] capsule Indications: Heartburn during in third trimester Take 1 capsule (20 mg) by mouth in the morning. Take before meals. Do not crush or chew.. 30 capsule 3 05/29/2023 05/28/2024 Active polymyxin b 66972 unt/ml / trimethoprim 1 mg/ml ophthalmic solution (2 sources) Dihydrofolate Reductase Inhibitor Antibacterial, Polymyxin-class Antibacterial Start: 12-26-2023 End: 01-02-2024 Polytrim 10 mL Soln-Opth 1 drop(s), OPTH, q6hr for 7 day(s), 10 mL, Refill(s) 0, [id number], 183, cm, 12/26/23 10:18:00 EDT, Height/Length Dosing, 102, kg, 12/26/23 10:18:00 EDT, Weight Dosing Start Date: 12/26/23 Stop Date: 01/02/24 Status: Ordered Start: 09-04-2023 End: 09-11-2023 polymyxin B-trimethoprim Opt h Merline 4 drop(s), OPTH, QID for 7 day(s), 10 mL, Refill(s) 0, [id number], 183, cm, 09/04/23 15:39:00 EDT, Height/Length Dosing, 102, kg, 09/04/23 15:39:00 EDT, Weight Dosing Start Date: 09/04/23 Stop Date: 09/11/23 Status: Ordered Completed/Discontinued Medications Medication Drug Class(es) Dates Sig (Normalized) Sig (Original) Vit-Fe Fumarate-FA ( Plus/Iron) 27-1 MG tablet (6 sources) Start: 12-20-2022 End: 12-09-2023 take 1 tablet by mouth in the morning Vit-Fe Fumarate-FA ( Plus/Iron) 27-1 MG tablet Indications: Missed menses Take 1 tablet by mouth in the morning. 90 tablet 3 12/20/2022 12/09/2023 Discontinued Start: 12-20-2022 End: 12-20-2023 take 1 tablet by mouth in the morning Vit-Fe Fumarate-FA ( Plus/Iron) 27-1 MG tablet Indications: Missed menses Take 1 tablet by mouth in the morning. 90 tablet 3 12/20/2022 12/20/2023 Active 24 hr venlafaxine 37.5 mg extended release oral capsule (4 sources) Serotonin and Norepinephrine Reuptake Inhibitor Start: 08-12-2023 End: 08-11-2024 take 1 capsule by mouth once daily venlafaxine XR (Effexor XR) 37.5 MG 24 hr capsule Indications: Anxiety with depression Take 1 capsule (37.5 mg) by mouth Daily Do not crush or chew. 30 capsule 11 08/12/2023 12/09/2023 Discontinued (Therapy completed) Problems Active Problems Problem Classification Problem Date Documented Da te Episodic/Chronic Adjustment disorders (6 sources) Adjustment disorder with mixed disturbance of emotions AND conduct; Translations: [Adjustment disorder with mixed disturbance of emotions and conduct] Onset: 04-25-2023 Chronic Inflammation; infection of eye (except that caused by tuberculosis or sexually transmitteddisease) (1 source) Conjunctivitis; Translations: [Unspecified conjunctivitis] Onset: 12-26-2023 Episodic Menstrual disorders (18 sources) Dysmenorrhea; Translations: [Irregular periods] 10-28-2019 Chronic [...] Chronic Other nutritional; endocrine; and metabolic disorders (3 sources) Obese class I; Translations: [Body mass index (BMI) 33.0-33.9, adult] Onset: 09-07-2022 Chronic Other nutritional; endocrine; and metabolic disorders (2 sources) Body mass index 30+ - obesity; Translations: [Body mass index (BMI) 33.0-33.9, adult] 12-09-2023 Chronic Other and delivery including normal (3 sources) Second trimester ; Translations: [Encounter for supervision of normal , unspecified, second trimester] 05-13-2023 Episodic Other upper respiratory infections (1 source) Chronic sinusitis; Translations: [Chronic sinusitis, unspecified] Onset: 12-26-2023 Chronic Otitis media and related conditions (3 sources) Otitis media; Translations: [Otitis media, unspecified, [...] and chromosomal abnormalities] Onset: 07-28-2023 Episodic Unclassified (8 sources) OB Reminders Onset: 03-01-2023 03-01-2023 Past or Other Problems Problem Classification Problem Date Documented Da te Episodic/Chronic Immunizations and screening for infectious disease (2 sources) Tuberculosis screening status; Translations: [Encounter for screening for respiratory tuberculosis] 12-09-2023 Episodic Results Test Name Value Interpretation Reference Range Facility TB PREG QUANT HCGon 024 HCG QUANTITATIVE <1 mIU/mL [facility] Comment on above: 5-50 0.2-1 WEEK 50-500 1-2 WEEKS 100-5,000 2-3 WEEKS 500-10,000 3-4 WEEKS 1,000-50,000 4-5 WEEKS 10,000-100,000 5-6 WEEKS 15,000-200,000 6-8 WEEKS 10,000-100,000 2-3 MONTHS [facility] TB PREG QUANT HCGon 024 HCG QUANTITATIVE <1 mIU/mL [facility] Comment on above: 5-50 0.2-1 WEEK 50-500 1-2 WEEKS 100-5,000 2-3 WEEKS 500-10,000 3-4 WEEKS 1,000-50,000 4-5 WEEKS 10,000-100,000 5-6 WEEKS 15,000-200,000 6-8 WEEKS 10,000-100,000 2-3 MONTHS [facility] Ambulatory Visit Summaryon 0 12-26-2023 Ambulatory Visit [...] otitis media Duration: 10 Days Pickup at [facility]/pharmacy #[id number] New polymyxin B-trimethoprim ophthalmic (Polytrim 10 mL Soln-Opth) 1 Drops Ophthalmic Every 6 hours Sinusitis Conjunctivitis of left eye Left otitis media Duration: 7 Days Pickup at [facility]/pharmacy #[id number] Unchanged ibuprofen (ibuprofen 600 mg Tab) 1 Tablets By Mouth Every 6 hours Contact prescribing physician if questions or concerns Pharmacy Information [facility]/pharmacy #[id number]: [address] [place], [place] [phone] Allergies Keflex (Hives) Problems Ongoing - Any [...] you for choosing us for your care. Saturnino Daniel [facility] Medicine Office/Clini c Noteon 12-26-2023 Family Medicine [...] with voice recognition software. Occasional wrong-word or ?oltcn-s-tjne? substitutions may have occurred due to the [...] day(s), # 20 tab(s), Refills(s) 0, Pharmacy: [facility]/pharmacy #[id number], 183, cm, 12/26/23 10:18:00 EDT, Height/Length Dosing, 102, kg, 12/26/23 10:18:00 EDT, Weight Dosing polymyxin B-trimethoprim ophthalmic, 1 drop(s), OPTH, q6hr for 7 day(s), 10 mL, Refill(s) 0, [id number], 183, cm, 12/26/23 10:18:00 EDT, Height/Length Dosing, 102, kg, 12/26/23 10:18:00 EDT, Weight Dosing 2. Conjunctivitis of left eye (H10.9: Unspecifie (more content not included)... [facility] Comment on above: Result Comment: Elec tronically Signed By: Oliver BAI, Dipak [place]\.br\Date and Time Signed: 12/26/23 11:05 EDT Patient Letter FTon 2023 Patient Letter [facility] Patient Letter [facility] [address], [facility] [place] [phone] December 26, 2023 AMOS RUFFIN [address] [place] [id number] : 2000 Please excuse AMOS RUFFIN from work . Date and/or Time of Absence: From: 12/26/23 May return to work on: 12/29/23 Restrictions: None Comments: Please excuse due to an acute illness. Provider Signature: Dipak Boyd PA-C Physician Par[employer] T[employer] [facility] [address] [facility] [place] [address] [facility] Family Medicine Office/Clini c Noteon 09-04-2023 Family Medicine Office/Clinic Note Chief Complaint Ear pain HPI Staff 22 year old female presents with right ear pain by 3 days. Slight sore throat History of Present Illness Reviewed and agree with above documented HPI by medical cash poster. Patient is a 22-year-old female presents today [...] Patient states she has not taken any redn-hlq-tfqulrq medications for treatment. She states that the [...] day(s), # 14 tab(s), Refills(s) 0, [id number], 183, cm, 09/04/23 15:39:00 EDT, [...] with voice recognition artificial intelligence software, specifically [employer] and or [employer]. Occasional wrong-word or `snmrr-h-szbg? substitutions may have occurred due to the inherent limitations of voice recognition and artificial intelligence software. Follow-up No qualifying data available Patient Education Otitis Externa, Rmjs-ww-Lidv Otitis Media, Adult, Qgzk-mu-Kyol Ear Drops, Adult, Doux-pr-Clcq Problem List/Past Medical History Ongoing Adjustment disorder [...] Hypertension: Fa (more content not included)... Normal [facility] Comment on above: Result Comment: Elec tronically Signed By: Eliot HUBER, Jorge Alberto Barber.br\Date and Time Signed: 09/04/23 16:14 EDT Patient [...] cannot use soap and water, use hand stogie packer. 2. Make sure your ears are clean [...] cannot use soap and water, use hand stogie packer. Follow these instructions at home: ? Use [...] provider. Document Revised: 01/26/2020 Document Reviewed: 01/26/2020 [employer] Patient Education ? 2022 [employer]. ENT Otitis Media, Adult Otitis media is [...] ? Ri (more content not included)... Normal [facility] Toxoplasma gondii Ab IgMIgGo n 07-30-2023 Toxoplasma gondii Ab IgG Normal [facility] Comment on above: Result Comment: <3.0 Reference [...] By: #### X TOXPG #### Performed at [facility], [address] [place] [id number] Toxoplasma gondii Ab IgM Normal [facility] Comment on above: Result Comment: <3.0 Reference [...] post-infection. This test is performed using the [employer] LIAISON. As suggested by the CDC, any [...] the amount of antibody present. Performed By: [facility] [address] [id number] [employer] Machine: Tristan Lugo MD, PhD CLIA Number: [id number] Performed at [facility], [address] [place] [id number] Performed By: #### X TOXPG #### Performed at [facility], [address] [place] [id number] [facility] Lab Reporton 07-28-2023 Report Normal [facility] Comment on above: Performed By: #### R GSPAR #### Performed at [address] [address] Urinalysis macro (dipstick) panel (U)on 05-29-2023 Bilirubin, UA Negative Negative - 4(70) +++ mg/dL [facility] Blood, UA Positive Negative - 50 David/mcL [facility] Comment on above: moderate Clarity, UA Clear [facility] Color, UA Yellow [facility] Glucose, UA Negative Negative - 1999(110) ++++ mg/dL [facility] Interpretation and review of laboratory results Abnormal [facility] Ketones, UA Negative Negative - 160(16) ++++ mg/dL [facility] Leukocytes, UA Positive Negative - 500+++ Keith/mcL [facility] Comment on above: small Nitrite, UA Negative Negative - Positive [facility] pH, UA 6.5 5 - 9 [facility] Protein, UA Negative Negative - 1999(20) ++++ mg/dL [facility] Spec Grav, UA 1.025 1 - 1.03 [facility] Urobilinogen, UA 0.2 0.2 - 12 mg/dL [facility] Urinalysis macro (dipstick) panel (U)Ordered By: Jerri Mercado on 05-15-2023 Bilirubin, UA Positive Negative - 4(70) +++ mg/dL [facility] Healthcare Work Phone: Comment on above: small Blood, UA Positive Negative - 50 David/mcL [facility] Work Phone: Comment on above: trace-intact Clarity, UA Clear [facility] Work Phone: Color, UA Yellow [facility] Work Phone: Glucose, UA Negative Negative - 1999(110) ++++ mg/dL [facility] Work Phone: Interpretation and review of laboratory results Abnormal [facility] Work Phone: Ketones, UA Positive Negative - 160(16) ++++ mg/dL [facility] Work Phone: Comment on above: 80 Leukocytes, UA Positive Negative - 500+++ Keith/mcL [facility] Work Phone: Comment on above: small Nitrite, UA Negative Negative - Positive [facility] Work Phone: pH, UA 7.0 5 - 9 [facility] [employer] Work Phone: Protein, UA Positive Negative - 2000(20) ++++ mg/dL [facility] [employer] Work Phone: Comment on above: 30 Spec Grav, UA 1.020 1 - 1.03 [facility] [employer] Work Phone: Urobilinogen, UA 1.0 0.2 - 12 mg/dL [facility] [employer] Work Phone: [facility] [employer] Work Phone: Chlamydia/GC DNA, TPon 08-15 Chlamydia Probe, TP Negative Normal [facility] Comment on above: Result Comment: CHLA [...] nucleic acid target. Performed By: #### C [facility] #### [employer] [facility] [place], [place] [id number] Manager Icu: Willard Sethi MD Gonorrhea Probe, TP Negative Normal [facility] Comment on above: Result Comment: NEIS [...] target. Performed By: #### C YTCGP #### [employer] [address] [place] [address] [id number] Manager Icu: Willard Sethi MD Cytologyon 08-13-2022 Cytology (NOTE) Path Number: [id number] DIAGNOSIS Cervical material, (ThinPrep vial, Imaging-assisted review): Specimen Adequacy: Satisfactory for evaluation. -Endocervical/transfo rmation zone component is absent. Descriptive Diagnosis: Negative for intraepithelial lesion or malignancy. [employer]otech Screener: [id number] Electronically Signed Out MAXIMUS Ramírez(ASCP) ss4/08/21/2022 Source of Specimen: A: Cervical material, (ThinPrep vial, Imaging-assisted review) HPV Reflex?.............. 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 Your patient should be reminded to consult you immediately if she experiences any suspicious signs or symptoms, regardless of her Pap smear result. GYNECOLOGIC CYTOLOGY REPORT Patient Name: AMOS RUFFIN [facility] Rec: [id number] [employer] [facility] ANATOMIC PATHOLOGY [address] [place] [phone] [facility] Comment on above: Performed By: #### P PPVP #### [employer] [address] [place] [phone] Manager Icu: Willard Sethi MD Vital Signs Date Time Vital Sign Value Performing Clinician Facility 12-26-2023 10:14-0400 Blood Pressure Location Dipak Boyd [facility] 12-26-2023 10:14-0400 Body temperature 98.24 [degF] Dipak Boyd [facility] 12-26-2023 10:14-0400 Diastolic blood pressure 86 mm[Hg] Dipak Boyd [facility] 12-26-2023 10:14-0400 Heart rate 73 /min Dipak Boyd [facility] 12-26-2023 10:14-0400 SaO2% (BldA) [Mass fraction] 99 % Dipak Boyd [facility] 12-26-2023 10:14-0400 Systolic blood pressure 132 mm[Hg] Dipak Boyd [facility] 12-09-2023 08:49-0400 Body height 182.9 cm Mery Mitchell MD Work Phone: [facility] 12-09-2023 08:49-0400 Body mass index (BMI) [Ratio] 33.26 kg/m2 Mery Mitchell MD Work Phone: [facility] 12-09-2023 08:49-0400 Body temperature 98.01 [degF] Mery Mithcell MD Work Phone: [facility] 12-09-2023 08:49-0400 Body weight 111.22 kg Mery Mitchell MD Work Phone: [facility] 12-09-2023 08:49-0400 Diastolic blood pressure 66 mm[Hg] Mery Mitchell MD Work Phone: [facility] 12-09-2023 08:49-0400 Heart rate 84 /min Mery Mitchell MD Work Phone: [facility] 12-09-2023 08:49-0400 SaO2% (BldA) [Mass fraction] 96 % Mery Mitchell MD Work Phone: [facility] 12-09-2023 08:49-0400 Systolic blood pressure 110 mm[Hg] Mery Mitchell MD Work Phone: [facility] 09-04-2023 15:36-0400 Blood Pressure Location JANESSA MORENO [facility] 09-04-2023 15:36-0400 Body temperature 98.24 [degF] [facility] 09-04-2023 15:36-0400 Diastolic blood pressure 80 mm[Hg] [facility] 09-04-2023 15:36-0400 Heart rate 85 /min [facility] 09-04-2023 15:36-0400 SaO2% (BldA) [Mass fraction] 97 % [facility] 09-04-2023 15:36-0400 Systolic blood pressure 126 mm[Hg] [facility] 05-29-2023 15:53-0500 Body mass index (BMI) [Ratio] 35.13 kg/m2 Stacia SALDANA Work Phone: [facility] 05-29-2023 15:53-0500 Body weight 117.48 kg Stacia SALDANA Work Phone: [facility] 05-29-2023 15:53-0500 Diastolic blood pressure 70 mm[Hg] Stacia SALDANA Work Phone: [facility] 05-29-2023 15:53-0500 Systolic blood pressure 124 mm[Hg] Stacia SALDANA Work Phone: [facility] 05-15-2023 09:03-0500 Body mass index (BMI) [Ratio] 35.13 kg/m2 Victorino Leonel DO Work Phone: [facility] 05-15-2023 09:03-0500 Body weight 117.48 kg Victorino Leonel DO Work Phone: [facility] 05-15-2023 09:03-0500 Diastolic blood pressure 72 mm[Hg] Victorino Leonel DO Work Phone: [facility] 05-15-2023 09:03-0500 Systolic blood pressure 120 mm[Hg] Victorino Leonel DO Work Phone: [facility] 09-07-2022 11:37-0400 Blood Pressure Location Dipak Boyd [facility] 09-07-2022 11:37-0400 Diastolic blood pressure 80 mm[Hg] Dipak Boyd [facility] 09-07-2022 11:37-0400 Heart rate 76 /min Dipak Boyd [facility] 09-07-2022 11:37-0400 SaO2% (BldA) [Mass fraction] 99 % Dipak Boyd [facility] 09-07-2022 11:37-0400 Systolic blood pressure 110 mm[Hg] Dipak Boyd [facility] Encounters Encounter Date Encounter Type Care Provider Facility Start: 03-02-2024 ambulatory Duglas Bishop acility:[facility] Start: 01-24-2024 End: 01-24-2024 Clinisync Result Encounter Victorino Leonel DO Work Phone: [facility] External Department Unsolicited Start: 01-24-2024 End: 01-24-2024 Clinisync Result Encounter Victorino Leonel DO Work Phone: [facility] External Department Unsolicited Start: 01-22-2024 End: 01-22-2024 Clinisync Result Encounter Victorino Leonel DO Work Phone: [facility] Unsolicited Start: 01-22-2024 End: 01-22-2024 Clinisync Result Encounter Victorino Leonel DO Work Phone: [facility] Unsolicited Start: 01-09-2024 End: 04-08-2024 ambulatory Wagner DELGADO Facility:[facility] Start: 12-26-2023 End: 12-26-2023 ambulatory Dipak Boyd Facility:[facility] Start: 12-26-2023 End: 12-26-2023 Patient encounter procedure Dipak Boyd [facility] Start: 12-16-2023 End: 12-16-2023 ambulatory STACIA HARP Not Available Start: 12-09-2023 End: 12-09-2023 Bamtiara flowsshaunna Mitchell MD Work Phone: [facility] Start: 12-09-2023 End: 12-09-2023 Slade Mitchell MD Work Phone: [facility] Start: 12-09-2023 End: 12-09-2023 Patient encounter procedure Mery Mitchell MD Work Phone: [facility] Work Phone: Start: 12-09-2023 End: 12-09-2023 Periodic preventive med est patient 18-39 yrs Mery Mitchell MD Work Phone: [facility] Comment on above: Annual physical exam (Primary Dx); Screening-pulmonary TB; BMI 33.0-33.9,adult; Obesity (BMI 30.0-34.9) Start: 12-09-2023 End: 12-09-2023 ambulatory MERY MITCHELL Not Available Start: 10-14-2023 End: 10-14-2023 ambulatory VICTORINO LEONEL Not Available Start: 09-15-2023 End: 09-15-2023 ambulatory VICTORINO LEONEL Not Available Start: 09-04-2023 End: 09-04-2023 ambulatory BHUMIKA MORENO Facility: [place] Start: 09-04-2023 End: 09-04-2023 Patient encounter procedure JANESSA MORENO [facility] Start: 08-25-2023 End: 08-25-2023 ambulatory VICTORINO LEONEL Not Available Start: 08-11-2023 End: 08-11-2023 ambulatory VICTORINO LEONEL Not Available Start: 07-28-2023 End: 07-29-2023 Orders Only Jorge Alberto Roberts MS, [facility] Work Phone: [facility] Start: 07-22-2023 End: 07-22-2023 ambulatory MERY MITCHELL Not Available Start: 07-16-2023 End: 07-16-2023 ambulatory VICTORINO LEONEL Not Available Start: 07-15-2023 End: 07-15-2023 ambulatory VICTORINO LEONEL Not Available Start: 07-07-2023 End: 07-07-2023 ambulatory VICTORINO LEONEL Not Available Start: 07-02-2023 End: 07-02-2023 ambulatory STACIA HARP Not Available Start: 06-23-2023 ambulatory Shannon Lai Facility:[facility] Start: 06-16-2023 End: 06-16-2023 ambulatory VICTORINO LEONEL Not Available Start: 05-29-2023 End: 05-29-2023 ambulatory STACIA KATIUSKA Not Available Start: 05-29-2023 End: 05-29-2023 Office [...] End: 05-08-2023 Patient encounter procedure Shannon Lai [facility] Start: 04-25-2023 End: 04-25-2023 ambulatory SILVA LAMAR Not Available Start: 04-25-2023 End: 04-25-2023 ambulatory Shannon Lai Facility:[facility] Start: 04-25-2023 End: 04-25-2023 Patient encounter procedure Shannon Lai [facility] Start: 04-17-2023 End: 04-17-2023 ambulatory STACIA KATIUSKA Not Available Start: 03-19-2023 End: 03-19-2023 ambulatory VICTORINO LEONEL Not Available Start: 09-07-2022 End: 09-07-2022 Patient encounter procedure Dipak Boyd [facility] Start: 08-13-2022 End: 08-14-2022 ambulatory [facility] Start: 08-13-2022 Encounter for gynecological examination (general) (routine) without abnormal findings [facility] Start: 08-13-2022 End: 08-13-2022 Patient encounter procedure [facility] Start: 08-13-2022 End: 08-13-2022 Subsequent hospital visit by physician [facility] Comment on above: Encounter for well w randy exam with routine gynecological exam Start: 06-07-2022 End: 06-07-2022 Patient encounter procedure Krystyna Seth [facility] Procedures Date Procedure Procedure Detail Performing Clinician Start: 01-24-2024 [facility] PREG QUANT HCG Core y Leonel DO Work Phone: Start: 01-22-2024 [facility] PREG QUANT HCG Core y Leonel DO Work Phone: Start: 05-29-2023 Urnls dip stick/tabl et rgnt non-auto w/o micrscp Stacia Harp PA Work Phone: Start: 05-15-2023 Urnls dip stick/tabl et rgnt non-auto w/o micrscp Victorino Leonel DO Work Phone: Start: 08-10-2020 Removal of etonogest rel implant [place] section JANESSA O RTIZ Tonsillectomy and adenoidectomy [place] Plan of Treatment Date Care Activity Detail Author Start: 12-14-2023 Influenza vaccination [facility] Start: 12-09-2023 End: 12-09-2023 Patient encounter procedure 12/09/2023 9:00 AM EDT Office Visit [facility] [address] [place] [id number] Mery Mitchell MD [address] [place] [address] Arrived [facility] Comment on above: Arrived Start: 07-28-2023 End: 07-27-2024 GENETICS STAT SPECIMEN LABEL- REQUIRED FOR INHOUSE GENETIC TESTING [facility] Comment on above: Expected: 07/28/2023 (Approximate), Expires: 07/27/2024 Start: 07-28-2023 End: 07-27-2024 RAPID GENOME SEQUENCING - PARENT SAMPLE RAPID GENOME SEQUENCING - PARENT SAMPLE Lab Routine Family history of congenital anomalies Expected: 07/28/2023 (Approximate), Expires: 07/27/2024 [facility] Work Phone: Comment on above: Expected: 07/28/2023 (Approximate), Expires: 07/27/2024 Start: 05-29-2023 End: 05-29-2024 US for US OB SCAN FOR GROWTH Imaging Routine Excessive growth affecting management of , antepartum, single or unspecified fetus Expected: 05/29/2023 (Approximate), Expires: 05/29/2024 [facility] Work Phone: Comment on above: Expected: 05/29/2023 (Approximate), Expires: 05/29/2024 Start: 05-29-2023 End: 05-29-2023 Patient encounter procedure 05/29/2023 8:30 AM EST Routine [facility] [address] [place] [id number] Stacia Harp PA [address] [place], [place] [id number] [facility] Start: 12-13-2022 COVID-19 Vaccine ( season) COVID-19 Vaccine ( season) [facility] Start: 12-13-2022 Influenza vaccination Influenza Vacc ine (#1) [facility] Start: 12-01-2022 DTaP/Tdap/Td vaccine (7 - Td or Tdap) DTaP/Tdap/Td vaccine (7 - Td or Tdap) [facility] Start: 11-12-2022 Influenza vaccination Flu vacc ine (Season Ended) [facility] Start: 2021 Screening for malign ant neoplasm of cervix Pap smear [facility] Start: 11-05-2019 Hepatitis B Vaccine (1 of 3 - 19+ 3-dose series) Hepatitis B Vaccine (1 of 3 - 19+ 3-dose series) [facility] Start: 2018 Hepatitis C screening Hepatitis C sc reen [facility] Start: 2016 Screening for Chlamy sedrick trachomatis Chlamydia/GC screen [facility] Start: 11-05-2015 HIV screening HIV screen [facility] Start: 11-05-2015 HPV Vaccine (1 - 3-d ose series) HPV Vaccine (1 - 3-dose series) [facility] Start: 2013 Varicella Vaccine (1 of 2 - 13+ 2-dose series) Varicella Vaccine (1 of 2 - 13+ 2-dose series) [facility] Start: 2012 Depression Screen Depression Screen [facility] Start: 11-05-2007 DTaP/Tdap/Td Vaccine (1 - Tdap) DTaP/Tdap/Td Vaccine (1 - Tdap) [facility] Start: 2001 MMR Vaccine (1 of 1 - Standard series) MMR Vaccine (1 of 1 - Standard series) [facility] Start: 05-07-2001 COVID-19 Vaccine (#1) COVID-19 Vacci ne (#1) [facility] End: 08-13-2022 Chlamydia/GC DNA, Thin Prep [facility] Work Phone: Comment on above: 1 Occurrences starti ng 08/13/2022 until 08/13/2022 End: 08-13-2022 Cytopathology procedure, preparation of smear, genital source PAP Smear Lab Routine Encounter for well woman exam with routine gynecological exam 1 Occurrences starting 08/13/2022 until 08/13/2022 [facility] Work Phone: Comment on above: 1 Occurrences starti ng 08/13/2022 until 08/13/2022 Immunizations Immunization Date Immunization Notes Care Provider Ronnie [facility] 12-16-2023 tuberculin skin test ; purified protein derivative solution, intradermal Victorino Castaneda DO Work Phone: [facility] 12-09-2023 tuberculin skin test ; purified protein derivative solution, intradermal Mery Mitchell MD Work Phone: [facility] 08-20-2022 SARS-CoV-2 (COVID-19 ) [id number] JANESSA MORENO [facility] 02-04-2020 influenza virus vaccine, unspecified formulation Krystyna Seth [facility] 02-05-2019 influenza virus vaccine, unspecified formulation Krystyna Seth [facility] 07-21-2018 meningococcal B vaccine, fully recombinant Krystyna Orzech [facility] 01-08-2018 influenza virus vaccine, unspecified formulation Krystyna Orzech [facility] 11-22-2016 meningococcal ACWY vaccine, unspecified formulation Krystyna Orzech [facility] 11-22-2016 meningococcal B vaccine, fully recombinant Krystyna Orzech [facility] 02-28-2014 influenza, whole Krystyna Orze ch [facility] 11-15-2013 hepatitis A vaccine, unspecified formulation Krystyna Orzech [facility] 11-15-2013 HPV, unspecified formulation Krystyna Orzech [facility] 11-15-2013 meningococcal ACWY, unspecified formulation Krystyna Orzech [facility] 12-01-2012 hepatitis A vaccine, unspecified formulation Krystyna Orzech [facility] 12-01-2012 HPV, unspecified formulation Krystyna Orzech [facility] 12-01-2012 tetanus toxoid, reduced diphtheria toxoid, and acellular pertussis vaccine, adsorbed Krystyna Orzech [facility] 12-01-2012 varicella virus vaccine Krystyna Orzech [facility] 08-26-2005 hepatitis B vaccine, pediatric or pediatric/adolescent dosage Krystyna Orzech [facility] 08-15-2005 DTaP, unspecified formulation Krystyna Orzech [facility] 08-15-2005 measles, mumps and rubella virus vaccine Krystyna Orzech [facility] 08-15-2005 poliovirus vaccine, unspecified formulation Krystyna Orzech [facility] 12-15-2002 DTaP, unspecified formulation Krystyna Orzech [facility] 12-15-2002 haemophilus influenz ae type b vaccine, PRP-T conjugate Krystyna Orzech [facility] 12-25-2001 DTaP, unspecified formulation Krystyna Orzech [facility] 12-25-2001 measles, mumps and rubella virus vaccine Krystyna Orzech [facility] 12-25-2001 poliovirus vaccine, unspecified formulation Krystyna Orzech [facility] 12-25-2001 varicella virus vaccine Krystyna Orzech [facility] 04-29-2001 DTaP, unspecified formulation Krystyna Orzech [facility] 04-29-2001 poliovirus vaccine, unspecified formulation Krystyna Orzech [facility] 01-20-2001 DTaP, unspecified formulation Krystyna Orzech [facility] 01-20-2001 poliovirus vaccine, unspecified formulation Krystyna Orzech [facility] NEGATED: Highlighted row has not occurred!02-18-2022 influenza virus vaccine, unspecified formulation Krystyna Orzech [facility] NEGATED: Highlighted row has not occurred!02-18-2022 SARS-CoV-2 mRNA (tomanuelaeran 5y-11y) vaccine Krystyna Orzech [facility] Care Payers Date Payer Category Payer Self-pay 2023 Unknown [id number] 2022 Unknown [id number] 2022 Unknown [id number] 2022 Medicaid [id number] 2022 Unknown [id number] 2000 Unknown [id number] 2.16. 840.1.489510.3.579.2.430 2000 Unknown [id number] 2.16. 840.1.142278.3.579.2.430 2000 Unknown [id number] 2.16.84 0.1.187924.3.579.2.1258 2000 Unknown [id number] 2.16.84 0.1.896180.3.579.2.1258 2000 Unknown [id number] 2.16.84 0.1.799007.3.579.2.1258 2000 Unknown [id number] 2.16.84 0.1.984016.3.579.2.9 2000 Unknown [id number] 2.16.84 0.1.719512.3.579.2.1258 2000 Unknown [id number] 2.16.84 0.1.701164.3.579.2.1258 2000 Unknown [id number] 2.16.84 0.1.419270.3.579.2.1258 2000 Unknown [id number] 2.16.84 0.1.460477.3.579.2.1258 2000 Unknown [id number] 2.16.84 0.1.922189.3.579.2.1258 2000 Unknown [id number] 2.16.84 0.1.235716.3.579.2.1259 2000 Unknown [id number] 2.16.84 0.1.014988.3.579.2.1259 2000 Unknown [id number] 2.16.84 0.1.877016.3.579.2.1259 2000 Unknown [id number] 2.16.84 0.1.197982.3.579.2.9 2000 Unknown [id number] 2.16.84 0.1.089333.3.579.2.1259 2000 Unknown [id number] 2.16.84 0.1.862778.3.579.2.9 2000 Unknown [id number] 2.16.840 .1.240509.3.579.2.1259 2000 Unknown [id number] 2.16.840 .1.696000.3.579.2.9 2000 Unknown [id number] 2.16.8 40.1.008922.3.579.2.727 2000 Unknown [id number] 2.16.8 40.1.311606.3.579.2.727 2000 Unknown [id number] 2.16.8 40.1.994831.3.579.2.727 2000 Unknown [id number] 2.16.8 40.1.191140.3.579.2.727 2000 Unknown [id number] 2.16.8 40.1.130388.3.579.2.727 2000 Unknown [id number] 2.16.8 40.1.327918.3.579.2.727 Unknown [id number] 2.16.8 40.1.256317.3.579.2.531 Social History Date Type Detail Facility Start: 03-30-2020 End: 01-13-2023 Tobacco smoking status Never smoked tobacco (finding) [facility] Tobacco smoking status Never [facility] Start: 01-13-2023 End: 12-09-2023 Sex Assigned At Female Daniel Noe Calderon [facility] Start: 08-13-2022 Tobacco use and exposure Smokeless tobacco non-user [facility] [employer] Work Phone: Start: 08-13-2022 Alcohol intake Not Asked [facility] JERMAINE NUN[facility] [employer] Phone: Start: 08-13-2022 Alcohol Comment social [facility] [employer] Work Phone: Start: 2000 Sex Assigned At Not on file [facility] [employer] Phone: Start: 05-15-2023 End: 12-09-2023 Alcohol intake Lifetime non-drinker (finding) [facility] Start: 01-13-2023 End: 12-09-2023 History of Social function [facility] Start: 01-13-2023 Alcohol Comment caffeine: 1-2 cups per day coffee [facility] Start: 11-09-2022 [facility] Tobacco smoking status [facility] Tobacco smoking consumption unknown [facility] Goals Date Patient Goal Desired Activity /State Personal health goal Functional Status Date Assessment Result Facility 12-26-2023 Functional Status N/A [facility] 09-04-2023 Functional Status N/A [facility] Clinical Notes 09-07-2022 to 12-26-2023 Mery Mitchell MD - 12/09/2023 9:00 AM Jorge Alberto Livingston MS, [facility] - 07/28/2023 12:10 PM SHANA Fink - 05/29/2023 3:50 PM Ana Johnson LPN - 05/15/2023 9:00 AM EST Note Date & Type Note Facility 12-26-2023 Hospital Discharge instructions Patient Education 12/26/2023 11:05:16 Otitis Media, Adult Otitis Media, Adult Otitis [...] pain. Follow these instructions at home: Take npud-tto-xivsobu and prescription medicines only as told by [...] provider. Document Revised: 07/09/2021 Document Reviewed: 07/09/2021 [employer] Patient Education 2023 [employer]. 12/26/2023 11:05:13 Bacterial Conjunctivitis, Adult Bacterial Conjunctivitis, Adult Bacterial conjunctivitis is an [...] if you come into close contact with: A person who is infected with the bacteria. Items that are contaminated with the bacteria, such as a face towel, contact lens solution, or eye makeup. What increases the risk? You are more likely to develop this condition if: You are exposed to other people who have the infection. You wear contact lenses. You have a sinus infection. You have had a recent eye injury or surgery. You have a weak body defense system (immune system). You have a medical condition that causes dry eyes. What are the signs or symptoms? Symptoms of this condition include: Thick, yellowish discharge from the eye. This may turn into a crust on the eyelid overnight and cause your eyelids to stick together. Tearing or watery eyes. Itchy eyes. Burning feeling in your eyes. Eye redness. Swollen eyelids. Blurred vision. How is this diagnosed? This condition is diagnosed based on your symptoms and medical history. Your health care provider may also take a sample of discharge from your eye to find the cause of your infection. How is this treated? This condition may be treated with: Antibiotic eye drops or ointment to clear the infection more quickly and prevent the spread of infection to others. Antibiotic medicines taken by mouth (orally) to treat infections that do not respond to drops or ointments or that last longer than 10 days. Cool, wet cloths (cool compresses) placed on the eyes. Artificial tears applied 2 6 times a day. Follow these instructions at home: Medicines Take or apply your antibiotic medicine as told by your health care provider. Do not stop using the antibiotic, even if your condition improves, unless directed by your health care provider. Take or apply ilgt-mro-fjhqend and prescription medicines only as told by your health care provider. Be very careful to avoid touching the edge of your eyelid with the eye-drop bottle or the ointment tube when you apply medicines to the affected eye. This will keep you from spreading the infection to your other eye or to other people. Managing discomfort Gently wipe away any drainage from your eye with a warm, wet washcloth or a cotton ball. Apply a clean, cool compress to your eye for 10 20 minutes, 3 4 times a day. General instructions Do not wear contact lenses until the inflammation is gone and your health care provider says it is safe to wear them again. Ask your health care provider how to sterilize or replace your contact lenses before you use them again. Wear glasses until you can resume wearing contact lenses. Avoid wearing eye makeup until the inflammation is gone. Throw away any old eye cosmetics that may be contaminated. Change or wash your pillowcase every day. Do not share towels or washcloths. This may spread the infection. Wash your hands often with soap and water for at least 20 seconds and especially before touching your face or eyes. Use paper towels to dry your hands. Avoid touching or rubbing your eyes. Do not drive or use heavy machinery if your vision is blurred. Contact a health care provider if: You have a fever. Your symptoms do not get better after 10 days. Get help right away if: You have a fever and your symptoms suddenly get worse. You have severe pain when you move your eye. You have facial pain, redness, or swelling. You have a sudden loss of vision. Summary Bacterial conjunctivitis is an infection of the clear membrane that covers the white part of the eye and the inner surface of the eyelid (conjunctiva). Bacterial conjunctivitis spreads easily from eye to eye and from person to person (is contagious). Wash your hands often with soap and water for at least 20 seconds and especially before touching your face or eyes. Use paper towels to dry your hands. Take or apply your antibiotic medicine as told by your health care provider. Do not stop using the antibiotic even if your condition improves. Contact a health care provider if you have a fever or if your symptoms do not get better after 10 days. Get help right away if you have a sudden loss of vision. This information is not intended to replace advice given to you by your health care provider. Make sure you discuss any questions you have with your health care provider. Document Revised: 07/11/2021 Document Reviewed: 07/11/2021 [employer] Patient Education 2023 [employer]. 12/26/2023 11:05:10 Sinus Infection, Adult Sinus Infection, Adult A sinus infection, also called sinusitis, is inflammation of your sinuses. Sinuses are hollow spaces in the bones around your face. Your sinuses are located: Around your eyes. In the middle of your forehead. Behind your nose. In your cheekbones. Mucus normally drains out of your sinuses. When your nasal tissues become inflamed or swollen, mucus can become trapped or blocked. This allows bacteria, viruses, and fungi to grow, which leads to infection. Most infections of the sinuses are caused by a virus. A sinus infection can develop quickly. It can last for up to 4 weeks (acute) or for more than 12 weeks (chronic). A sinus infection often develops after a cold. What are the causes? This condition is caused by anything that creates swelling in the sinuses or stops mucus from draining. This includes: Allergies. Asthma. Infection from bacteria or viruses. Deformities or blockages in your nose or sinuses. Abnormal growths in the nose (nasal polyps). Pollutants, such as chemicals or irritants in the air. Infection from fungi. This is rare. What increases the risk? You are more likely to develop this condition if you: Have a weak body defense system (immune system). Do a lot of swimming or diving. Overuse nasal sprays. Smoke. What are the signs or symptoms? The main symptoms of this condition are pain and a feeling of pressure around the affected sinuses. Other symptoms include: Stuffy nose or congestion that makes it difficult to breathe through your nose. Thick yellow or greenish drainage from your nose. Tenderness, swelling, and warmth over the affected sinuses. A cough that may get worse at night. Decreased sense of smell and taste. Extra mucus that collects in the throat or the back of the nose (postnasal drip) causing a sore throat or bad breath. Tiredness (fatigue). Fever. How is this diagnosed? This condition is diagnosed based on: Your symptoms. Your medical history. A physical exam. Tests to find out if your condition is acute or chronic. This may include: ?Checking your nose for nasal polyps. ?Viewing your sinuses using a device that has a light (endoscope). ?Testing for allergies or bacteria. ?Imaging tests, such as an MRI or CT scan. In rare cases, a bone biopsy may be done to rule out more serious types of fungal sinus disease. How is this treated? Treatment for a sinus infection depends on the cause and whether your condition is chronic or acute. If caused by a virus, your symptoms should go away on their own within 10 days. You may be given medicines to relieve symptoms. They include: ?Medicines that shrink swollen nasal passages (decongestants). ?A spray that eases inflammation of the nostrils (topical intranasal corticosteroids). ?Rinses that help get rid of thick mucus in your nose (nasal saline washes). ?Medicines that treat allergies (antihistamines). ?Huxb-egn-zlrxxdz pain relievers. If caused by bacteria, your health care provider may recommend waiting to see if your symptoms improve. Most bacterial infections will get better without antibiotic medicine. You may be given antibiotics if you have: ?A severe infection. ?A weak immune system. If caused by narrow nasal passages or nasal polyps, surgery may be needed. Follow these instructions at home: Medicines Take, use, or apply gmuq-ixk-bxlsxpw and prescription medicines only as told by your health care provider. These may include nasal sprays. If you were prescribed an antibiotic medicine, take it as told by your health care provider. Do not stop taking the antibiotic even if you start to feel better. Hydrate and humidify Drink enough fluid to keep your urine pale yellow. Staying hydrated will help to thin your mucus. Use a cool mist humidifier to keep the humidity level in your home above 50%. Inhale steam for 10 15 minutes, 3 4 times a day, or as told by your health care provider. You can do this in the bathroom while a hot shower is running. Limit your exposure to cool or dry air. Rest Rest as much as possible. Sleep with your head raised (elevated). Make sure you get enough sleep each night. General instructions Apply a warm, moist washcloth to your face 3 4 times a day or as told by your health care provider. This will help with discomfort. Use nasal saline washes as often as told by your health care provider. Wash your hands often with soap and water to reduce your exposure to germs. If soap and water are not available, use hand stogie packer. Do not smoke. Avoid being around people who are smoking (secondhand smoke). Keep all follow-up visits. This is important. Contact a health care provider if: You have a fever. Your symptoms get worse. Your symptoms do not improve within 10 days. Get help right away if: You have a severe headache. You have persistent vomiting. You have severe pain or swelling around your face or eyes. You have vision problems. You develop confusion. Your neck is stiff. You have trouble breathing. These symptoms may be an emergency. Get help right away. Call 911. Do not wait to see if the symptoms will go away. Do not drive yourself to the hospital. Summary A sinus infection is soreness and inflammation of your sinuses. Sinuses are hollow spaces in the bones around your face. This condition is caused by nasal tissues that become inflamed or swollen. The swelling traps or blocks the flow of mucus. This allows bacteria, viruses, and fungi to grow, which leads to infection. If you were prescribed an antibiotic medicine, take it as told by your health care provider. Do not stop taking the antibiotic even if you start to feel better. Keep all follow-up visits. This is important. This information is not intended to replace advice given to you by your health care provider. Make sure you discuss any questions you have with your health care provider. Document Revised: 03/05/2022 Document Reviewed: 03/05/2022 [employer] Patient Education 2023 Quat-E Follow Up Care 12/26/2023 09:05:38 With:Mery Mitchell MD Address: [address] [place] [address]- When: Unknown [facility] 12-26-2023 Note Patient Education ENT Otitis Media, [...] Follow these instructions at home: ? Take klzf-pfl-brfjbes and prescription medicines only as told by [...] provider. Document Revised: 07/09/2021 Document Reviewed: 07/09/2021 [employer] Patient Education ? 2023 [employer]. Infectious Disease Bacterial Conjunctivitis, Adult Bacterial conjunctivitis [...] contact with: ? (more content not included)... [facility] 12-09-2023 History of Present illness Narrative Images from the original note were not included. Subjective Patient ID: Amos Ruffin is a 23 y.o. female who presents for No chief complaint on file.. HPI Pt here for annual visit. Denies issues or concerns. Review of Systems General: Denies fever, chills, fatigue, JEAN-BAPTISTE or weight loss/gain CV: Denies CP, palpitations or swelling in legs Resp: denies cough, SOB or wheezing GI: Denies abd pain/n/v/c/d Skin: Denies rash Neuro: Denies LH or dizziness Objective Blood pressure 110/66, pulse 84, temperature 98 F, height 6', weight 245 lb 3.2 oz, SpO2 96%, not currently . Body mass index is 33.26 kg/m . Physical Exam General: alert & oriented, NAD Head: NC/AT Oral Cavity: MMM Skin: warm, dry Heart: RRR, No m/r/g, S1S2 nml Lungs: CTA b/l Abdomen: soft, ND/NT, BS wnl Musculoskeletal: normal gait Extremities: no clubbing, cyanosis or edema Neurological: nonfocal Psych: mood/affect full range Assessment/Plan Diagnoses and all orders for this visit: Annual physical exam (Primary) - Reviewed hx and meds - Discussed preventative care - Forms filled out Screening-pulmonary TB - TB Skin Test BMI 33.0-33.9,adult Obesity - continue to monitor weight documented in this encounter [facility] 09-04-2023 Hospital Discharge instructions Patient Education 09/04/2023 16:13:42 Otitis Externa, Jdhl-ns-Otxu Otitis Externa Otitis externa is an infection [...] if you start to feel better. Take ojhd-rqh-feipegb and prescription medicines only as told by [...] provider. Document Revised: 06/13/2021 Document Reviewed: 06/13/2021 [employer] Patient Education 2022 [employer]. 09/04/2023 16:13:35 Otitis Media, Adult, Fisk-hm-Ohoz Otitis Media, Adult Otitis media is a [...] pain. Follow these instructions at home: Take psnv-msb-dczbhsd and prescription medicines only as told by [...] provider. Document Revised: 07/09/2021 Document Reviewed: 07/09/2021 [employer] Patient Education 2022 [employer] 09/04/2023 16:13:32 Ear Drops, Adult, Elfn-ia-Dyev Ear Drops, Adult Your doctor has found [...] cannot use soap and water, use hand stogie packer. 2.Make sure your ears are clean and [...] cannot use soap and water, use hand stogie packer. Follow these instructions at home: Use the [...] provider. Document Revised: 01/26/2020 Document Reviewed: 01/26/2020 [employer] Patient Education 2022 [employer]. [facility] 07-28-2023 History of Present illness [...] results may be available right away through [employer] and may be seen before a provider [...] separate consent to allow this is obtained. [facility] [place] [facility] may analyze compiled genome sequencing data from many patients for software quality test engineer or to assess test performance. Results of [...] Roberts MS, FABIO documented in this encounter [facility] 05-29-2023 History of Present illness Narrative [...] of: SHANA Herrera documented in this encounter [facility] 05-15-2023 History of Present illness Narrative [...] Victorino Castaneda DO documented in this encounter [facility] 09-07-2022 Hospital Discharge instructions Patient Education 09/07/2022 11:57:13 Otitis Externa, Wezf-pa-Pvuo Otitis Externa Otitis externa is an infection [...] if you start to feel better. Take xmkn-pgs-sycxtgb and prescription medicines only as told by [...] provider. Document Revised: 06/13/2021 Document Reviewed: 06/13/2021 [employer] Patient Education 2022 [employer] 09/07/2022 11:57:10 Otitis Media, Adult Otitis [...] pain. Follow these instructions at home: Take nqjm-gsp-qecttfr and prescription medicines only as told by [...] provider. Document Revised: 07/09/2021 Document Reviewed: 07/09/2021 [employer] Patient Education 2022 [employer] 09/07/2022 11:57:07 BMI for Adults BMI for [...] numbers. This can be done either in Arabic ([place].S[place] or metric measurements. Note that charts and online BMI calculators are available to help you find your BMI quickly and easily without having to do these calculations yourself. To calculate your BMI in Arabic (U.S.) measurements: 1.Measure your weight in pounds [...] Centers for Disease Control and Prevention: www.cdc.gov [place] [employer]: www.heart.org National Heart, Lung, and Blood [place]: www.nhlbi.nih.gov Summary Body mass index (BMI) is a number that is calculated from a person's weight and height. BMI may help estimate how much of a person's weight is composed of fat. BMI can help identify those who may be at higher risk for certain medical problems. BMI can be measured using Arabic measurements or metric measurements. BMI charts are used to identify whether you are underweight, normal weight, overweight, or obese. This information is not intended to replace advice given to you by your health care provider. Make sure you discuss any questions you have with your health care provider. Document Revised: 12/22/2019 Document Reviewed: 10/29/2019 [employer] Patient Education 2022 [employer]. Follow Up Care 09/07/2022 10:55:41 With:CIPRIANO MOLINA CNP Address: [address] [place] [id number] When: Unknown [facility] Evaluation + Plan note No data available for this section [facility] Evaluation + Plan note Future Appointments Appointment Date:05/12/2023 08:00:00 AM Scheduled Provider:Shannon Moore Location:[facility] Appointment Type:BH Therapy 60 [facility] Evaluation + Plan note Future Appointments Appointment Date:05/22/2023 10:00:00 AM Scheduled Provider:Shannon Moore Location:[facility] Appointment Type: Video Visit Therapy 60 [facility] Health Evaluation note Diagnosis Encounter for well woman exam with routine gynecological exam documented in this encounter [facility] [employer] [employer] Work Phone: evaluation note* Diagnosis Second trimester state, incidental documented in this encounter [facility]* Diagnosis Third trimester state, incidental Nausea Nausea alone Heartburn during in third trimester Excessive growth affecting management of , antepartum, single or unspecified fetus documented in this encounter [facility] Healthcare[facility] note* Diagnosis Family history of congenital anomalies- Primary documented in this encounter [facility] Diagnosis Annual physical exam- Primary Routine general medical examination at a health care facility Screening-pulmonary TB Screening examination for pulmonary tuberculosis BMI 33.0-33.9,adult Obesity (BMI 30.0-34.9) documented in this encounter [facility] Healthcare[facility]ospital Discharge instructions No data available for this section [facility] Progress note No data available for this section [facility] Summary Purpose Family History No Family History Records Found No data available for this section No data available for this section No Family History Records Found No data available for this section No Family History Records FoundNo Family History Records Found No data available for this section No Family History Records Found Advance Directives No Advanced Directives Records FoundNo Advanced Directives Records FoundNo Advanced Directives Records FoundNo Advanced Directives Records FoundNo Advanced Directives Records Found Additional Source Comments Patient Care team informatio n (unrecognized section and content) Park Worker Relationship Specialty Start Date End Date Pcp, [place] [address] PCP - General 07/28/23 Park Worker Relationship Specialty Start Date End Date Mery Mitchell MD [address] [place] [address] PCP - General Family Medicine 07/22/23 Mery Mitchell MD [address] [place] [address] PCP - Medical [facility] 09/11/22 04/13/99 Victorino Castaneda DO [address] [place], [place] [address] [place] [address] PCP - [facility] 10/13/23 Park Worker Relationship Specialty Start Date End Date Mery Mitchell MD [address] [place] [address] PCP - General Family [facility] 07/22/23 Mery Mitchell MD [address] [place] [address] PCP - Medical [facility] 09/11/22 04/13/99 Victorino Castaneda DO [address] [place] [address] PCP - [facility] 10/13/23 Park Worker Relationship Specialty Start Date End Date Mery Mitchell MD [address] [place] [address] PCP - [facility] Family [facility] 07/22/23 Mery Mitchell MD [address] [place] [address] PCP - Medical [facility] 09/11/22 04/13/99 Victorino Castaneda DO [address] [place] [address] PCP - [facility] 10/13/23 INFORMATION SOURCE (unrecogn ized section and content) DATE CREATED AUTHOR 08/22/2022 Macy adams DATE CREATED AUTHOR AUTHOR'S ORGANIZ ATION 08/09/2023 [facility] DATE CREATED AUTHOR AUTHOR'S ORGANIZ ATION 12/16/2023 [facility] EPIC DATE CREATED AUTHOR AUTHOR'S ORGANIZ ATION 03/05/2024 [facility] DATE CREATED AUTHOR AUTHOR'S ORGANIZ ATION 04/10/2024 [facility] Reason for Visit (unrecogniz ed [...] BE BASED ON THE PRIMARY CLINICAL RECORDS. [employer] [facility]. provides no warranty or guarantee of the accuracy or completeness of information in this document.
[2024-04-11 17:35] VITALS: BP 123/68; PULSE 74; TEMP 37; O2SAT 98; BMI 35.3
--- NOTE | 2024-04-11 17:39 | XR_ITS ---
The [address] [address] Patient Name: AMOS ALBERT MRN: [id number] date: 2000 Sex: F Assigned Patient Location: ER Current Patient Location: ER Accession/Order Number: [id number] Exam Date: 04/11/2024 18:10 Report Date: 04/11/2024 19:13 At the request of: JUAN CARLOS THAO Procedure: XR foot LT min 3V Exam: Radiographs: XR ankle LT min 3V, XR foot LT min 3V Reason for exam: pain Comparison: None XR/XR foot LT min 3V IMPRESSION: Left ankle soft tissue swelling. Tiny linear calcific density along the lateral calcaneus that may represent a small acute avulsed fracture fragment. Remainder of the left foot and ankle radiographs is unremarkable. Electronically authenticated by: MADAY MORTON Date: 04/11/2024 19:13
--- NOTE | 2024-04-11 17:39 | XR_ITS ---
The [address] [address] Patient Name: AMOS ALBERT MRN: [id number] date: 2000 Sex: F Assigned Patient Location: ER Current Patient Location: ER Accession/Order Number: [id number] Exam Date: 04/11/2024 18:10 Report Date: 04/11/2024 19:13 At the request of: JUAN CARLOS THAO Procedure: XR ankle LT min 3V Exam: Radiographs: XR ankle LT min 3V, XR foot LT min 3V Reason for exam: pain Comparison: None XR/XR ankle LT min 3V IMPRESSION: Left ankle soft tissue swelling. Tiny linear calcific density along the lateral calcaneus that may represent a small acute avulsed fracture fragment. Remainder of the left foot and ankle radiographs is unremarkable. Electronically authenticated by: MADAY MORTON Date: 04/11/2024 19:13
--- NOTE | 2024-04-11 19:36 | ED.GENADUL1 ---
HPI HPI - General Adult General Chief complaint: Extremity Injury, Lower Stated complaint: LE INJURY Time Seen by Provider: 04/11/24 19:32 Source: patient Mode of arrival: walk-in History of Present Illness HPI narrative: 23-year-old female presents here with a chief complaint of left lateral ankle pain. Patient states she accidentally slipped on steps rolling her ankle and Fabián Laura 5 days ago. She is alert and orient no acute distress she has been able to ambulate. States she has had increased pain and swelling and wanted to be evaluated. Related Data Home Medications ?Medication ?Instructions ?Recorded ?Confirmed clindamycin HCl 300 mg capsule 300 mg PO TID 07/17/23 07/17/23 omeprazole 20 mg capsule,delayed 20 mg PO PRN 07/17/23 07/17/23 release Previous Rx's ?Medication ?Instructions ?Recorded ibuprofen 800 mg tablet 800 mg PO Q8H PRN pain 14 days #40 07/21/23 tabs oxycodone-acetaminophen 5 mg-325 1 tab PO Q6H PRN pain 4 days #16 07/21/23 mg tablet (Percocet) tabs Allergies Allergy/AdvReac Type Severity Reaction Status Date / Time cephalexin (From Keflex) Allergy Mild Hives Verified 07/19/23 20:32 Opioid HPI Opioid Management Most Recent Opioid Data: Last Pain Scale 3 07/21/23 10:38 07/21/23 Ur Phencyclidine Scrn Negative (NEGATIVE) 07/17/23 09:50 07/17/23 Review of Systems ROS Narrative All Systems are negative except as noted/marked.All systems reviewed and otherwise negative PFSH PFSH Surgical History (Updated 07/17/23 @ 09:40 by Laura King) History of removal of skin mole (Unknown) ?Z98.890 - Other specified postprocedural states (ICD-10) ?Z87.2 - Personal history of diseases of the skin and subcutaneous tissue (ICD-10) Hx of adenoidectomy (~2007) ?Z90.89 - Acquired absence of other organs (ICD-10) History of tonsillectomy (~2007) ?Z90.89 - Acquired absence of other organs (ICD-10) [place] teeth removed (~2018) ?K08.409 - Partial loss of teeth, unspecified cause, unspecified class (ICD-10) Social History Highest level of school completed/degree received: 6th grade Little interest or pleasure in doing things: not at all Feeling down, depressed, or hopeless: not at all Exam Narrative Exam Narrative: All Systems are negative except as noted/marked.All systems reviewed and otherwise negative Nurses note and vital signs reviewed and patient is not hypoxic. General: The patient appears well and in no apparent distress. Patient is resting comfortably on cart. Skin: Warm, dry, no pallor noted. There is no rash noted. Head: Normocephalic, atraumatic Eye: Normal conjunctiva, no drainage, EOMI. PERRL Ears, Nose, Mouth, and Throat: oral mucosa is moist. Nares patent. Mouth without vesicles. Ear canals patent. Tm's without Erythema Musculoskeletal: left lateral swelling, tenderness to palpation, full range of motion neurovascularly intact the patient has no evidence of calf tenderness, no pitting edema, symmetrical pulses noted bilaterally Neurological: A&O x4, normal speech Psychiatric: Cooperative Constitutional Vital Signs, click to edit/add: Last Vital Signs Temp 98.6 F 04/11/24 17:35 Pulse 74 04/11/24 17:35 Resp 16 04/11/24 17:35 BP 123/68 04/11/24 17:35 Pulse Ox 98 04/11/24 17:35 O2 Del Method Room Air 04/11/24 17:35 Course Vital Signs Vital signs: Vital Signs Temperature 98.6 F 04/11/24 17:35 Pulse Rate 74 04/11/24 17:35 Respiratory Rate 16 04/11/24 17:35 Blood Pressure 123/68 04/11/24 17:35 Pulse Oximetry 98 04/11/24 17:35 Oxygen Delivery Method Room Air 04/11/24 17:35 Temperature 98.6 F 04/11/24 17:35 Pulse Rate 74 04/11/24 17:35 Respiratory Rate 16 04/11/24 17:35 Blood Pressure 123/68 04/11/24 17:35 Pulse Oximetry 98 04/11/24 17:35 Oxygen Delivery Method Room Air 04/11/24 17:35 Medical Decision Making [facility] Narrative Medical decision making narrative: Patient present here chief complaint of left ankle ankle pain. X-ray read by radiology is a questionable avulsion fracture of the calcaneus. Patient has limited pain to that area she has more pain along the left lateral fibula. Patiently placed in Jeffery wrap and air splint. Follow-up with orthopedics tomorrow morning at 1045. Differential Diagnosis Differential Diagnosis: Strain, fracture Medical Records Medical records reviewed: Yes I reviewed the patient's medical records Lab Data Lab results reviewed: Yes I reviewed the patient's lab results Imaging Data ankle: Radiologist's impression: ITS Impressions Ankle X-Ray 04/11/24 17:39 IMPRESSION: Left ankle soft tissue swelling. Tiny linear calcific density along the lateral calcaneus that may represent a small acute avulsed fracture fragment. Remainder of the left foot and ankle radiographs is unremarkable. Electronically authenticated by: MADAY MORTON Date: 04/11/2024 19:13 Foot X-Ray 04/11/24 17:39 IMPRESSION: Left ankle soft tissue swelling. Tiny linear calcific density along the lateral calcaneus that may represent a small acute avulsed fracture fragment. Remainder of the left foot and ankle radiographs is unremarkable. Electronically authenticated by: MADAY MORTON Date: 04/11/2024 19:13 Discharge Plan Discharge Chief Complaint: Extremity Injury, Lower Clinical Impression: Ankle fracture Patient Disposition: Home, Self-Care Time of Disposition Decision: 19:33 Condition: Good Prescriptions / Home Meds: No Action clindamycin HCl 300 mg capsule 300 mg PO TID omeprazole 20 mg capsule,delayed release(DR/EC) 20 mg PO PRN ibuprofen 800 mg tablet 800 mg PO Q8H PRN (Reason: pain) 14 Days Qty: 40 0RF oxycodone-acetaminophen [Percocet] 5-325 mg tablet 1 tab PO Q6H PRN (Reason: pain) 4 Days Qty: 16 0RF Print Language: Chinese Instructions: Ankle Fracture (ED), P.R.I.C.E. Treatment (ED) Referrals: MAGGIE WILKINSON [Primary Care Provider] - 1 week
--- NOTE | 2024-04-11 19:42 | PC.NURSE ---
this patient complains of left ankle pain onset Fabián rose walking and twisted her left ankle
== END 2024-04-11 19:44 | disposition home or self-care (01) ==
PROVIDERS: Emergency Provider Emergency Medicine; PCP Student in an Organized Health Care Education/Training Program
DX: S82.892A Other fracture of left lower leg, initial encounter for closed fracture (principal); X50.1XXA Overexertion from prolonged static or awkward postures, initial encounter
CPT/HCPCS: 73610; 73630; 99283

== ENCOUNTER 2024-11-25 18:12 | Emergency (ER) | payer OTHER, SELFPAY ==
--- OUTSIDE RECORDS SUMMARY | 2022-11-07 08:59 | XMS_ITS | Continuity of Care Document ---
Author Organization [facility] Address [address] [place] [address] Phone Care Team Providers Care Yarn Wrapper Name Role Phone Kiesha RIOS Yovanny RIOS Unavailable Unavailable Allergies, Adverse Reactions, Alerts Substance Reaction Status Criticality No Known Allergies Active No Inform ation Medications Medication Instructions Dosage Effective Dates (start - stop) Status Comments fluticasone propionate 50 mcg/actuation nasal spray,suspension spray 1 - 2 spray by intranasal route every day in each nostril as needed 50-100 MCG - Active Procedures Procedure Date OFFICE/OUTPATIENT VISIT, EST OFFICE/OUTPATIENT VISIT, EST REMOVE IMPACTED EAR WAX UNI OFFICE/OUTPATIENT VISIT, EST Extract; Erupted Th/exposted Rt 022 OFFICE/OUTPATIENT VISIT, EST ROUTINE VENIPUNCTURE OFFICE/OUTPATIENT VISIT, EST OFFICE/OUTPATIENT VISIT, EST IMMUNIZATION ADMIN FLU VAC NO PRSV 4 LIANE 3 YRS+ OFFICE/OUTPATIENT VISIT, EST OFFICE/OUTPATIENT VISIT, EST Prophylaxis Adult Oral Hygiene Instruction Amalgam 2 Surf Prim/perm Oral Hygiene Instruction OFFICE/OUTPATIENT VISIT, EST OFFICE/OUTPATIENT VISIT, EST Imm Admin Through 18 Yrs Of Age 019 MENB RP W/OMV VACCINE IM OFFICE/OUTPATIENT VISIT, EST Resin Composite 2s; Posterior 9 Nutrit Couns For Control Of Orchard Dis May Oral Hygiene Instruction Panoramic Film Bitewings Four Films Prophylaxis Adult Comp Oral Eval New/estab Patient 2017 Topical Kaitlynn Of Flouride Varnish 018 High Risk Nutrit Couns For Control Of Orchard Dis Mar Oral Hygiene Instruction Sealant Excluded Imm Admin Through 18 Yrs Of Age 018 FLU VAC NO PRSV 4 LIANE 3 YRS+ OFFICE/OUTPATIENT VISIT, EST PREV VISIT, NEW, AGE 12-17 ROUTINE VENIPUNCTURE Advance Directives Directive Yes / No Effective Date File Name No Information Encounters Encounter Description Practice Location Reason(s) For Visit Diagnoses Date Provider Providers Copied on Encounter [facility], [address] [place] [address], [id number] , [place] tel:[phone] [facility] No Information 3 Kiesha Shaikh. [address], [place], [id number], [place]. tel:[phone] OFFICE/OUTPA TIENT VISIT, EST [facility], [address], [place], [id number] , [place] tel:[phone] [facility] ear f/u (chief complaint)E ar discomfort (chief complaint) Body mass index [BMI] 37.0-37.9, adultEar fullness, left 2 Surendra Kimble. [address] [place] [address], [id number], [place]. tel:[phone] OFFICE/OUTPA TIENT VISIT, [facility], [address], [place], [id number] , [place] tel:[phone] [facility] Bilateral Ears (chief complaint)F rhianna Vaccine (chief complaint)E arache (chief complaint) Body mass index [BMI] 37.0-37.9, adultEar pain, left Nov-3 2 Surendra Kimble. [address], [place], [id number], [place]. tel:[phone] OFFICE/OUTPA TIENT VISIT, [facility], [address], [place], [id number] , [place] tel:[phone] [facility] f/u urgent care (chief complaint)E ar pain (chief complaint) Bilateral impacted cerumenBody mass index [BMI] 37.0-37.9, adult Feb- 2 Surendra Kimble. [address] [place] [address], [id number], [place]. tel:[phone] [facility], [address] [place] [address], [id number] , [place] tel: [phone] Dental Clinic Consult (chief complaint) Encounter for screening for dental disorders 2 Atul Alexandra. [address] [place] [address], [id number], [place]. tel:[phone] OFFICE/OUTPA TIENT VISIT, [facility], [address] [place] [address], [id number] , [place] tel: [phone] [facility] med f/u (chief complaint) Anxiety with depression 1 Linda Krueger. [address] [place] [address], [id number], [place]. tel:[phone] [facility], [address] [place] [address], [id number] , [place] tel:[phone] [facility] lab draw (chief complaint) Fatigue, unspecified type 1 Linda Krueger. [address] [place] [address], [id number], [place]. tel:[phone] OFFICE/OUTPA TIENT VISIT, [facility], [address] [place] [address], [id number] , [place] tel: [phone] [facility] c/o dizziness (chief complaint) Body mass index [BMI] 33.0-33.9, adultAnxiety with depressionDizzine ssFatigue, unspecified type 1 Linda Krueger. [address] [place] [address], [id number], [place]. tel:[phone] OFFICE/OUTPA TIENT VISIT, [facility], [address] [place] [address], [id number] , [place] tel: [phone] [facility] Suture removal (chief complaint) Body mass index [BMI] 35.0-35.9, adultVisit for suture removalBilateral impacted cerumen 1 Hernan APPIAH VEGETABLE PICKER Flaquita. [address] [place] [address], [id number], [place]. tel:[phone] OFFICE/OUTPA TIENT VISIT, [facility], [address] [place] [address], [id number] , [place] tel: [phone] [facility] f/u (chief complaint) Body mass index [BMI] 29.0-29.9, adultDUB (dysfunctional uterine bleeding) 0 Yudy Shahid. [address] [place] [address], [id number], [place]. tel:[phone] OFFICE/OUTPA TIENT VISIT, [facility], [address] [place] [address], [id number] , [place] tel: [phone] [facility] sinus pain (chief complaint) Body mass index [BMI] 29.0-29.9, adultAcute non-recurrent frontal sinusitis Sep-3 0-202 0 Linda Krueger. [address] [place] [address], [id number], [place]. tel:[phone] [facility], [address], [place], [id number] , [place] tel: [phone] Dental Clinic Encounter for screening for dental disorders 9 Donell Goodrich. [address] [place], [place], [id number], [place]. tel:[phone] [facility], [address], [place], [id number] , [place] tel: [phone] Dental Clinic Filling appt. (chief complaint) Encounter for screening for dental disorders 9 Donell Goodrich. [address] [place] [address], [place], [id number], [place]. tel:[phone] OFFICE/OUTPA TIENT VISIT, [facility], [address], [place], [id number] , [place] tel: [phone] [facility] Well child (chief complaint) BMI pediatric, greater than or equal to 95% for ageOtalgia of both earsPanic attack 9 Linda Krueger. [address], [place], [id number], [place]. tel:[phone] OFFICE/OUTPA TIENT VISIT, [facility], [address], [place], [id number] , [place] tel: [phone] [facility] fluid in ears (chief complaint) BMI pediatric, greater than or equal to 95% for ageEar pain, leftImpacted cerumen, left ear 9 Linda Krueger. [address], [place], [id number], [place]. tel:[phone] OFFICE/OUTPA TIENT VISIT, [facility], [address], [place], [id number] , [place] tel: [phone] [facility] iron level (chief complaint) Low ironFatigue, unspecified typeDizzinessNaus eaBMI pediatric, greater than or equal to 95% for age Apr-0 9 Linda Krueger. [address], [place], [id number], [place]. tel:[phone] [facility], [address], [place], [id number] , [place] tel: [phone] Dental Clinic filling (chief complaint) Encounter for screening for dental disorders 9 Kajal Monae. [address], [place], [id number], [place]. [phone] [facility], [address] [place] [address], [id number] , [place] tel: [phone] Dental Clinic dn/prophy (chief complaint) Encounter for screening for dental disorders 8 Donell Goodrich. [address] [place] [address], [place], [id number], [place]. [phone] OFFICE/OUTPA TIENT VISIT, EST [facility], [address] [place] [address], [id number] , [place] tel: [phone] [facility] infected finger (chief complaint) Soft tissue abscessBody mass index (BMI) 33.0-33.9, adultChange in facial mole 8 Linda Krueger. [address], [place], [id number], [place]. tel:[phone] [facility], [address] [place] [address], [id number] , [place] tel: [phone] [facility] review labs (chief complaint) BMI pediatric, greater than or equal to 95% for ageGoals of care, counseling/discus james 8 Linda Krueger. [address], [place], [id number], [place]. tel:[phone] PREV VISIT, NEW, AGE 12-17 [facility], [address] [place] [address], [id number] , [place] tel: [phone] [facility] work physical (chief complaint) Encounter for medical examination to establish careBMI 32.0-32.9,adult 8 Linda Krueger. [address] [place] [address], [id number], [place]. tel:[phone] Family History Family Member Type Diagnosis Age At Onset Mother Problem (finding) Alive and well Mother Problem (finding) seizure disorder Brother Problem (finding) asthma Immunizations Vaccine Date Status Comments Flulaval/ Fluarix refused Source: Ne w Immunization Record Flulaval/ Fluarix refused Source: Ne w Immunization Record Flulaval/ Fluarix administered Source: Ne w Immunization Record influenza, injectable, quadrivalent, preservative free administered Source: Other Registry meningococcal B, OMV, 2 dose schedule administered Source: New Immuniza tion Record Influenza virus vaccine, injectable, quadrivalent, split virus, preservative free, 3 years or older Fluarix, Flulaval or Fluzone Quad administered Source: New Immuniza tion Record meningococcal MCV4P administered Source: Other Registry meningococcal B, OMV administered Source: Other Registry influenza, whole administered Source: Ot er Registry HPV, unspecified formulation administered Source: Other Registry meningococcal ACWY, unspecif ied formulation administered Source: Other Regist ry Hep A, ped/adol, 2 dose administered Sour ce: Other Registry HPV, quadrivalent administered Source: Ot her Registry varicella administered Source: Other R egistry Tdap administered Source: Other R egistry Hep A, ped/adol, 2 dose administered Sour ce: Other Registry HPV, quadrivalent administered Source: Ot her Registry Hep B, adolescent or pediatric administer ed Source: Other Registry MMR administered Source: Other R egistry IPV administered Source: Other R egistry DTaP, unspecified formulation administere d Source: Other Registry Hib (PRP-T) administered Source: Other R egistry DTaP, unspecified formulation administere d Source: Other Registry varicella administered Source: Other R egistry MMR administered Source: Other R egistry IPV administered Source: Other R egistry Hib-Hep B administered Source: Other R egistry DTaP, unspecified formulation administere d Source: Other Registry pneumococcal conjugate PCV 7 administered Source: Other Registry IPV administered Source: Other R egistry Hib (HbOC) administered Source: Other R egistry DTaP, unspecified formulation administere d Source: Other Registry DTaP, unspecified formulation administere d Source: Other Registry pneumococcal conjugate PCV 7 administered Source: Other Registry IPV administered Source: Other R egistry Hib-Hep B administered Source: Other R egistry meningococcal B, OMV, 2 dose schedule pending Source: New Immuniza tion Record Payers Payer name Insurance type Covered alliance party ID Authoriza tion(s) Medicaid Wrap - [facility] [place] [id number] Medicaid Wrap - [facility] [place] [id number] Medicaid Wrap - [facility] [place] [id number] Medicaid Wrap - [facility] [place] [id number] Medicaid Wrap - [facility] MC [id number] [employer] Medicaid MC [id number] Medicaid Wrap - [facility] MC [id number] [employer] Medicaid MC [id number] Medicaid Wrap - [employer] MC [id number] Social History Type Description Quantity Date Captured Comments Alcohol Use Details Unknown Caffeine Use Details Unknown Tobacco Use Status No Information Smoking Status No Information Sex Female Sexual Orientation Straight or heterosexual Gender Identity Female Chief Complaint And Reason For Visit No Information Reason For Referral Reason For Referral No Information Plan Of Treatment Date Type Action Status Goal Tdap due Goal RLP. Due on due Goal Tdap Vaccine. Due on 2022 due Goal Influenza vaccine. Due on due Goal PRAPARE ASSESSMENT. Due on due Goal Depression scree andreina. Due on due Goal PAP. Due on due Goal Depression scree andreina. Due on due Goal PAP. Due on due Goal RLP. Due on due Goal Influenza vaccine. Due on due Goal Tdap due Goal PRAPARE ASSESSMENT. Due on D due Goal Weight-reducing diet educati on completed Goal PRAPARE ASSESSMENT. Due on N due Goal Depression scree andreina. Due on due Goal Influenza vaccine. Due on No due Goal RLP. Due on due Goal Tdap due Goal PAP. Due on due Goal Dietary manageme nt education, guidance, and counseling completed Goal PRAPARE ASSESSMENT. Due on N due Goal Depression scree andreina. Due on due Goal Influenza vaccine. Due on No due Goal RLP. Due on due Goal Tdap. Due on due Goal PAP. Due on due Goal Dietary manageme nt education, guidance, and counseling completed Goal Dietary manageme nt education, guidance, and counseling completed Goal Dietary manageme nt education, guidance, and counseling completed Goal Dietary manageme nt education, guidance, and counseling completed Goal Dietary manageme nt education, guidance, and counseling completed Goal Dietary manageme nt education, guidance, and counseling completed Goal Dietary manageme nt education, guidance, and counseling completed Goal Dietary manageme nt education, guidance, and counseling completed Goal Dietary manageme nt education, guidance, and counseling completed Goal Dietary manageme nt education, guidance, and counseling completed Referral Ordered: Referrals: Otolaryngology. Evaluate and treat ordered Unknown Immunization meningococcal B, OMV, 2 dose schedule ordered Future Order: Lab Order CBC With Differential/Platelet ([id number]), Collected on: , Sent on: Sent Future Order: Lab Order Comp. Me tabolic Panel (14) ([id number]), Collected on: , Sent on: Sent Future Order: Lab Order Hemoglob in A1c ([id number]), Collected on: , Sent on: Sent Future Order: Lab Order TSH+Free T4 ([id number]), Collected on: , Sent on: Sent Future Order: Lab Order Vitamin B12 ([id number]), Collected on: , Sent on: Sent Future Order: Lab Order Vitamin D, 25-Hydroxy ([id number]), Collected on: , Sent on: Sent Future Order: Lab Order Ferritin , Serum ([id number]), Collected on: , Sent on: Sent Future Order: Lab Order Iron, Se rum ([id number]), Collected on: , Sent on: Sent Future Order: Lab Order Iron and TIBC ([id number]), Collected on: , Sent on: Sent History Of Present Illness Encounter Date Complaint History Of Prese nt Illness Ear discomfort The patient stat es the ear discomfort is in the left ear. It occurs daily. The problem is with no change. Symptom is aggravated by swallowing. Denies relieving factors. Associated symptoms include congestion (nasal), ear pressure and fullness in ears. Pertinent negatives include dizziness, fever, hearing deficit, loss of balance, mastoid bone tenderness and redness/swelling outer ear. Additional information: Pily LEWIS. ear f/u Patient presents to follow up on ear stuffiness. States she's taking meds as recommended for this. Patient reports she is still having ear popping .-Riky Marcus RN Flu Vaccine Pt denies wantin g a flu vaccine today. //Tawana Oden RN Bilateral Ears Pt here to f/u a bout bilateral ears. States she is still using the Fluticasone. Feels like her ears are still clogged, popping sensation, and not draining properly. Denies any pain or drainage from either ear. No other issues/concerns at this time. //Tawana Oden RN Earache Onset: 2 to 3 we eks ago. The patient states the earache is in the left ear. It occurs daily. The problem is improving. Context: recent URI / cold. Symptom is aggravated by lying down. Relieving factors include decongestants and steroids. Associated symptoms include congestion (nasal), ear popping, ear pressure and fullness in ears. Pertinent negatives include bleeding from ear(s), cough, decreased appetite, dizziness, drainage (clear), drainage (purulent), fever, loss of balance, malaise, mastoid bone tenderness, nausea, redness/swelling outer ear, ringing in ears and tooth pain. Additional information: Has previously had otitis media 1 time. Pily LEWIS. f/u urgent care Pt here for f/u bilateral ear infection. Pt states she was evaluated 8 days ago at the [facility] in [place], states she was diagnosed with b/l ear infection and prescribed an antibiotic, states she is still taking medication. Pt states she is still having pain, burning and can barely hear out of her L ear, states she is using Ibuprofen and Tylenol but is not getting much relief. Pt c/o lump below L ear, states she noticed this the day after being evaluated at the [facility]. Pt denies any other issues or concerns. IZZY Mobley HPI reviewed and accurate. Udaymarymiriam ECONOMETRICS PROFESSOR Ear pain Onset: 2 to 3 we eks ago. The patient states the ear pain is in both ears. It occurs daily. The problem is improving. Denies aggravating factors. Denies relieving factors. Associated symptoms include congestion (nasal), drainage (clear), ear pressure, fullness in ears, hearing deficit and ringing in ears. Pertinent negatives include bleeding from ear(s), cough, decreased appetite, dizziness, drainage (purulent), ear popping, fever, loss of balance, malaise, mastoid bone tenderness, nausea, redness/swelling outer ear and tooth pain. Additional information: Pily ECONOMETRICS PROFESSOR. [facility], Consult Referral from [facility] - Dr. Khan Lower tooth #19 med f/u Pt here today fo r med f/u. Pt is tolerating medications well. No complaints at this time. Delmis Nielson RNNoted above. Pt reports improvement of mood with medication. No other concerns today. Alexia lab draw Labs obtained fr om RAC without difficulty. Patient tolerated well. Nasima, RN CLINICAL DOCUMENTATION c/o dizziness Presents with c/ o of intermittent dizziness for years' In the last few months dizzy episodes are becoming more frequent and happen randomly whether lying, sitting or standing. Denies syncopal episodes. Taking OTC iron tabs for awhile. Also reports periods are heavier recently, had Neplanon removed about 5 months ago due to heavy periods. Reports anxiety, JOSE 12. Mayelin Devlin RNNoted above. Pt reports more episodes of dizziness recently, in conversation I suspect her more pressing reason for this appt is her anxiety and depression. She has appt with [facility] in [place], this is counseling center she has went to in the past. She will be starting school again in next few months so is feeling more stress lately. Sh reports episodes of feeling very down and then times where anxiety is overwhelming. She is lashing out more at boyfriend. She has called off work the last few days and was told she needs a note to return. Alexia Suture removal Reports that she cut her right hand while doing dishes 10 days ago and went to ER for sutures, here today for suture removal. Also c/o bilateral ear pain/fullness. C/o BLE edema off and on. Mayelin Devlin RN Noted above. 3 sutures removed from right hand. Cerumen impaction of the left ear and was removed per irrigation. Jewel CARBONE-DEBBIE f/u Pt here today to f/u for discussion of menses that has become irregular since December. Pt states that she mentioned at last visit that she had a menstrual cycle for 2 months but it was light and spotty. Pt complaint of lower abdominal pain/cramping and bilateral hip pain. Pt states that she's been having hot flashes as well. Pt was told that if she is still having issues to come in. 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 Pt does have Nexplanon control since November. No other complaints at this time. Delmis Nielson, RN sinus pain Pt here today wi th complaint of sinus pressure and pain for the past couple days. This morning pt woke up with a headache that she took Tylenol for but the pain has not subsided. Pt denies fevers. Pt does have nasal congestion and drainage. Pt has not taken any other OTC medications. No other complaints at this time. Delmis Nielson RNNoted above. Denies any exposure to COVID19+ persons. She reports "this is how I usually feel with a sinus infection . Alexia Filling appt. Well child Pt here today wi th complaints of nausea/vomiting, & ear pain. PT states Friday she was getting sick, she said she has not had any sleep at all. She said she had a panic attack after school. She has never had one of those. Friday her ears were bothering her and states, they are practically the same . Pt states nausea/vomiting has stopped. Mom states patient took Claritin D with Melatonin to help her sleep and they did not help at all. Panic Attack: SOB, dizzy, shaky, felt like she was going to get sick. She states she was in the shower at the time. Pt states there was nothing she did to get rid of it, it just eventually went away. NO other issues/concerns. Nika Wisdom wants a note for school for child being out all last week. She said they tried to get in every day but Katja was not here. Informed them I would have Katja decide on the note.Noted above. Alexia fluid in ears Patient is here because she feels that there is fluid in both of her ears. She says that they have been popping as well. She has been dealing with this since around July 22. She is not a swimmer. RENATE Guerrero iron level Patient is here because she went to a blood drive on 06/30/18 and was told that her iron was low, reading at a 15. Patient states that she has not been feeling well lately, fatigue and dizziness, nausea. This only happens when she eats something. Patient also will be receiving her #2 Men B vaccine today. RENATE GuerreroLabs obtained after two attempts. Some obtained from left anticub and rest from right anticub. Patient tolerated it well. Bang. filling filling continue with treatment dn/prophy prophy/dn infected finger Patient is here for an infected finger on her L third digit. She denies any injury. Redness has been there since Friday. She went to the school nurse yesterday and she advised her to go to her pcp. Patient would like her flu shot today. RENATE Guerrero review labs Patient here to review labs drawn 09/02 with c/o weight gain, SOB and heart palpitations. No changes since last visit, denies any other conceerns at this time. -Casey ENRIQUE- Patient reports that SOB and heart palpitations were only with certain exertion while is school, likely related to exercise intolerance. No health concerns voiced today. Labs reviewed. work physical Patient presents for work physical. Used to go to [facility] in [place]. Reports no concerns today. Needs men B # 2 Mary SANDOVAL- Reviewed above. 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 Patient voices concern related to weight, she states she has been eating healthy but is not losing weight. She does not exercise regularly. Also mentions that she gets short of breath walking between classes at school, states it has been happening since she was a freshman (finishing up her varghese year now). Denies any ongoing health issues, takes no daily medications. Functional Status Date Functional Assessmen t No Information Instructions Date Instruction Additional Infor adelaide 1. Referral to ENTIf you have not been contacted per specialist office to which you referred to in 2 weeks please contact the [facility] at [phone] and advise triage nurse. Related to Ear fullness, left Weight-reducing diet education R elated to Body mass index [BMI] 37.0-37.9, adult Giving encouragement to exercise Related to Body mass index [BMI] 37.0-37.9, adult 1. continue fluticas one2. Start OTC claritin D daily3. Follow up 1 week Related to Ear pain, left Dietary management e ducation, guidance, and counseling Related to Body mass index [BMI] 37.0-37.9, adult Giving encouragement to exercise Related to Body mass index [BMI] 37.0-37.9, adult 1. fluticasone daily 2. avoid cotton swabs in ears3. avoid ear buds4. Follow up 2 weeks Related to Bilateral impacted cerumen Giving encouragement to exercise Related to Body mass index [BMI] 37.0-37.9, adult Dietary management e ducation, guidance, and counseling Related to Body mass index [BMI] 37.0-37.9, adult Giving encouragement to exercise Related to Body mass index [BMI] 33.0-33.9, adult Dietary management e ducation, guidance, and counseling Related to Body mass index [BMI] 33.0-33.9, adult Giving encouragement to exercise Related to Body mass index [BMI] 35.0-35.9, adult Dietary management e ducation, guidance, and counseling Related to Body mass index [BMI] 35.0-35.9, adult Giving encouragement to exercise Related to Body mass index [BMI] 29.0-29.9, adult Dietary management e ducation, guidance, and counseling Related to Body mass index [BMI] 29.0-29.9, adult Giving encouragement to exercise Related to Body mass index [BMI] 29.0-29.9, adult Dietary management e ducation, guidance, and counseling Related to Body mass index [BMI] 29.0-29.9, adult Dietary management e ducation, guidance, and counseling Related to Body mass index (BMI) pediatric, greater than or equal to 95th percentile for age Giving encouragement to exercise Related to Body mass index (BMI) pediatric, greater than or equal to 95th percentile for age Exercises education, guidance, and counseling Related to Body mass index (BMI) pediatric, greater than or equal to 95th percentile for age Dietary management e ducation, guidance, and counseling Related to Body mass index (BMI) pediatric, greater than or equal to 95th percentile for age Exercises education, guidance, and counseling Related to Body mass index (BMI) pediatric, greater than or equal to 95th percentile for age Dietary management e ducation, guidance, and counseling Related to Body mass index (BMI) pediatric, greater than or equal to 95th percentile for age Dietary management e ducation, guidance, and counseling Related to Body mass index (BMI) 33.0-33.9, adult Exercises education, guidance, and counseling Related to Body mass index (BMI) 33.0-33.9, adult Dietary management e ducation, guidance, and counseling Related to Body mass index (BMI) pediatric, greater than or equal to 95th percentile for age Exercises education, guidance, and counseling Related to Body mass index (BMI) pediatric, greater than or equal to 95th percentile for age Assessments Type Assessment Date No Information Patient Care Teams Name Effective Dates (start - stop) Status Members No Information
--- OUTSIDE RECORDS SUMMARY | 2024-04-15 11:00 | XMS_ITS ---
Author Organization The [facility] [place] Address [address] [place] [address] Care Team Providers Care Oncology Registrar Name Role Phone DaltonDorina Unavailable [phone] REASON FOR VISIT LT ankle injury Encounters Encounter Location Date Provider Diagnosis [facility] (PODIAT[facility]) [address] [place] [address] [place] [address] 04/15/2024 Dorina Hoffman Left ankle pain M25.572 Assessments Encounter Date Diagnosis (ICD Code) Assessment Notes Treatment Notes Treatment Clinical Notes Section Notes 04/15/2024 Left ankle pain (ICD-10 - M25.572) Plan Of Treatment Pending Test Test Name Order Date XR Ankle LT (3 views) * (164) 04/15/2024 Progress Notes * ALBERT CarlgeneDOB: [birth year] (23 yo F)Acc No.[id number]:04/15/2024 New Patient Patient: Yahaira LOPEZ Provider: Riky Hoffman PA-C :2000 A ge:23 Y S ex:Female Date:04/15/2024 Address:[address] [place], [place] [id number] Subjective: * Chief Complaints: * 1 . LT ankle injury. * Active Problem List M25.572 Left ankle pain Modified On:04/12/2024W/U Status:confirmed * Medical History: Objective: * Vitals: Assessment: * Assessment: 1. L eft ankle pain - M25.572 Plan: * Treatment: * Procedure Codes: N SSPE NO SHOW/LATE CANCEL SPECIALIST * * Sign off status: Completed Visit Status: N /S (No-Show) true * Provider: Riky Hoffman PA-C Date: 0 04/15/2024 Generated for Neela freitas/Stan/Natoitting on: 0 11/25/2024 11:18 PM EDT
--- OUTSIDE RECORDS SUMMARY | 2024-05-10 04:20 | XMS_ITS ---
Author Organization [facility] Address [address] [place] [address] Care Team Providers Care Brusher Name Role Phone Mery Mitchell Primary Care Provider Romeo [facility] [phone] REASON FOR VISIT left ankle fx Encounters Encounter Location Date Provider Diagnosis [facility] [address] [place] [address] [place] [address] 05/10/2024 Romeo Jimenez Plan Of Treatment No Information Progress Notes * AMOS ALBERTDOB: [birth year] (24 yo F)Acc No.[id number]:05/10/2024 Patient: AMOS LOPEZ Provider: Melonie Jimenez MD :2000 A ge:23 Y S ex:Female Date:05/10/2024 Address:[address] [place], [place] [id number] Pcp:Mery Mitchell Subjective: * Chief Complaints: * 1 . Left ankle fx. * Medical History: Objective: * Vitals: Assessment: Plan: * Treatment: Forms: * Images: * Electronic signature of Vasiliy Jimenez MD on 11/25/2024 at 11:17 PM EDT Sign off status: Pending * Provider: Melonie Jimenez MD Date: 05/10/2024 Generated for Makaylai ng/Fajuan jose/eTransmitting on: 0 11/25/2024 11:17 PM EDT
--- OUTSIDE RECORDS SUMMARY | 2024-11-23 15:15 | XMS_ITS | Encounter Summary ---
Author Organization [facility] Address [address] [place] [address] Care Team Providers Care Naturalization Examiner Name Role Phone Shannon Charles CLINICAL TRIAL HEAD-CORPORATE RISK ANALYST Primary Care Provider + Reason for Visit * Reason Comments Rash Encounter Details Date Type Department Care Team (Late st Contact Info) Description 11/23/2024 3:15 PM EDT Office Visit [facility] [address] [place] [address] Smita Daniel, CLINICAL TRIAL HEAD-CORPORATE RISK ANALYST [address] [place] [address] Candidal intertrigo (Primary Dx) Social History Tobacco Use Types Packs/Day Years Used Date Smoking Tobacco: Never Smokeless Tobacco: Never Alcohol Use Standard Drinks/Week Comments Yes 0 (1 standard drink = 0.6 oz pur e alcohol) soc Overall Financial Resource Strain (CARDIA) Answe r Date Recorded How hard is it for you to pa y for the very basics like food, housing, medical care, and heating? Not very hard 10/01/2024 NCSS - Food Insecurity Answer Date Edmund rded Within the past 12 months, d id you worry that your food would run out before you got money to buy more? No 10/01/2024 Within the past 12 months, d id the food you bought just not last and you didn t have money to get more? No 10/01/2024 NCSS - Housing/Utilities Answer Date Re corded Do you have housing? Yes 10/01/2024 Are you worried about losing your housing? No 10/01/2024 Within the past 12 months, h ave you or your family members you live with been unable to get utilities (heat, electricity) when it was really needed? No 10/01/2024 NCSS - Transportation Answer Date Recor ded Within the past 12 months, h as lack of transportation kept you from medical appointments, getting your medicines, non-medical meetings or appointments, work, or from getting things that you need? No 10/01/2024 NCSS - Utilities Answer Date Recorded Within the past 12 months, h ave you or your family members you live with been unable to get utilities (heat, electricity) when it was really needed? No 10/01/2024 Depression Answer Date Recorded PHQ-9 Total Score (Interpret ation of Total Score 1-4 = Minimal depression; 5-9 = Mild depression; 10-14 = Moderate depression; 15-19 = Moderately severe depression) 16 10/01/2024 Comments No Sex and Gender Information Value Date Recorded Sex Assigned at Not on file Legal Sex Female 1:06 PM EST Gender Identity Not on file Sexual Orientation Not on file documented as of this encounter Last Filed Vital Signs Vital Sign Reading Time Taken Comments Blood Pressure 134/78 11/23/2024 3:21 PM EDT Pulse 78 11/23/2024 3:21 PM EDT Temperature 35.6 C (96.1 F) 11/23/2024 3:21 PM EDT Respiratory Rate 16 11/23/2024 3:21 PM EDT Oxygen Saturation 97% 11/23/2024 3:21 PM EDT Inhaled Oxygen Concentration - - Weight 127 kg (280 lb) 11/23/2024 3:21 PM EDT Height 182.9 cm (6') 11/23/2024 3:21 PM EDT Body Mass Index 37.97 11/23/2024 3:21 PM EDT documented in this encounter Patient Instructions * Attachments The following attachments cannot be sent through Care Everywhere. * Patt Dermatitis (Mongolian) documented in this encounter Progress Notes * Wagner Arreaga - 11/23/2024 3:15 PM EDT Main historian: Patient Patient presents with Rash Associated symptoms: Rash on inner thigh, on abdomen across scar, and up sides of torso/flanks for x1 week. Complains of itchiness, denies pain. Onset: x1 week Self treatments: Calamine Alleviating factors: Calamine for a short period of time Aggravating factors: None known Exposures: New medication Metformin Last visit: N/a * Smita Daniel, CLINICAL TRIAL HEAD-CORPORATE RISK ANALYST - 11/23/2024 3:15 PM EDT MEGA Ruffin 2000 presents to the [facility] with Chief Complaint Patient presents with Rash Main historian: Patient Patient presents with Rash Associated symptoms: Rash on inner thigh, on abdomen across scar, and up sides of torso/flanks for x1 week. Complains of itchiness, denies pain. Onset: x1 week Self treatments: Calamine Alleviating factors: Calamine for a short period of time Aggravating factors: None known Exposures: New medication Metformin Last visit: N/a History Allergies[1] Current Outpatient Medications Medication Sig Levonorgestrel 20 MCG/DAY 1 Intra Uterine Device by Intrauterine route once. metFORMIN-XR 500 MG Tab SR 24 HR Take 1 tablet by mouth daily. Olopatadine 0.2 % Solution ophthalmic solution Place 1 drop in both eyes daily. spironolactone 50 MG tablet Take 1 tablet by mouth daily. ohnjjanp-rerkxdjnx-wgyriowrmpceoz [id number] Suspension Apply 4 drops to both ears 3x a day for 7 days nystatin [id number] UNIT/GM Cream Apply to rash BID for 2 weeks SUMAtriptan 50 MG tablet Take 0.5 tablets by mouth daily as needed for Migraine. May repeat in 2 hr, MAX 200MG/24HR (Patient not taking: Reported on 11/23/2024) Family History Problem Relation Age of Onset Alcoholism Mother Depression Mother Asthma Brother Cancer- Other Maternal Grandmother Bone Past Medical History[2] Past Surgical History[3] Social History Socioeconomic History Marital status: Single Spouse name: Not on file Number of children: Not on file Years of education: Not on file Highest education level: Not on file Occupational History Not on file Tobacco Use Smoking status: Never Smokeless tobacco: Never Substance and Sexual Activity Alcohol use: Yes Comment: soc Drug use: Never Sexual activity: Not on file Other Topics Concern Not on file Social History Narrative Not on file Social Drivers of Health Financial Resource Strain: Low Risk (10/01/2024) Overall Financial Resource Strain (CARDIA) Difficulty of Paying Living Expenses: Not very hard Food Insecurity: No Food Insecurity (10/01/2024) NCSS - Food Insecurity Worried About Running Out of Food in the Last Year: No Ran Out of Food in the Last Year: No Transportation Needs: No Transportation Needs (10/01/2024) NCSS - Transportation Lack of Transportation: No Physical Activity: Not on file Stress: Not on file Social Connections: Not on file Personal Safety: Not At Risk (10/01/2024) NCSS - Interpersonal Safety Feels Physically and Emotionally Safe: Yes Physically Hurt by Someone: No Humiliated or Emotionally Abused by Someone: No Housing Stability: Not At Risk (10/01/2024) NCSS - Housing/Utilities Has Housing: Yes Worried About Losing Housing: No Unable to Get Utilities: No ROS Review of Systems 8 systems reviewed with patient, negative unless specifically mentioned in history of present illness PHYSICAL EXAM Visit Vitals BP 134/78 (BP Location: Left arm, BP Position: Sitting) Pulse 78 Temp 96.1 ??F (35.6 ??C) (Temporal) Resp 16 Ht 1.829 m (6') Wt 127 kg (280 lb) SpO2 97% BMI 37.97 kg/m?? Physical Exam Vitals and nursing note reviewed. Constitutional: General: She is not in acute distress. Appearance: Normal appearance. She is well-developed. She is not ill-appearing or diaphoretic. HENT: Head: Normocephalic. Nose: Nose normal. Mouth/Throat: Mouth: Mucous membranes are moist. Pulmonary: Effort: Pulmonary effort is normal. No respiratory distress. Musculoskeletal: Cervical back: Neck supple. Skin: General: Skin is warm and dry. Capillary Refill: Capillary refill takes less than 2 seconds. Findings: Rash present. Comments: Bright red rash in groins and lower abd fold. Satellite lesions on torso Neurological: General: No focal deficit present. Mental Status: She is alert and oriented to person, place, and time. Psychiatric: Mood and Affect: Mood normal. Behavior: Behavior normal. RESULTS No results found for this or any previous visit (from the past 2 hours). ASSESSMENT/PLAN 1. Candidal intertrigo Orders Placed This Encounter nystatin [id number] UNIT/GM Cream Rash appears as a can do to and from treatment. Treated with nystatin cream. Follow up PCP if not improved. If symptoms worsen patient was advised to follow up in our office, primary care provider or the Emergency Dept. Benefits, Risks, Contraindications, and Complications of recommended treatments were explained. The patient verbalized understanding and agrees to proceed with plan. CATHY Jacob 11/24/2024 [1] Allergies Allergen Reactions Cephalexin Hives and Itching [2] Past Medical History: Diagnosis Date Anxiety Depression Migraine PCOS (polycystic ovarian syndrome) [3] Past Surgical History: Procedure Laterality Date SECTION 07/2023 WISDOM TEETH EXTRACTION 2019 TONSILLECTOMY ADENOIDECTOMY 2009 documented in this encounter Plan of Treatment Upcoming Encounters Date Type Department Care Team (Late st Contact Info) Description 12/16/2024 3:30 PM EDT Office Visit [facility] [address] [place] [address] Shannon Charles APRN-CNP [address] [place] [address] documented as of this encounter Visit Diagnoses Diagnosis Candidal intertrigo- Primary Candidiasis of skin and nails documented in this encounter Additional Health Concerns Assessment Noted Time PHQ-9 Depression Total Score: 16 10/01/ 025 3:03 PM EDT documented as of this encounter Care Teams Naturalization Examiner Relationship Specialty Start Date End Date Shannon Charles APRN-CNP PCP - General Nurse Practitioner - Adult Health 09/16/24 documented as of this encounter
[2024-11-25 18:20] VITALS: BP 147/72; PULSE 69; TEMP 36.9; O2SAT 98; BMI 38.0
--- NOTE | 2024-11-25 18:28 | PC.NURSE ---
rash started on groin, progressed to abdomen, bilateral arms, chest, nipples, hands, chest.
--- NOTE | 2024-11-25 18:37 | ED_ITS ---
HPI HPI - General Adult General Chief complaint: Skin/Abscess/Foreign Body Stated complaint: RASH Time Seen by Provider: 11/25/24 18:17 Source: patient Mode of arrival: walk-in Limitations: no limitations History of Present Illness HPI narrative: 24-year-old female presents to the emergency department for a pruritic rash. It is on her antecubital fossae and in her groin area bilaterally. There is been no drainage. She was put on Diflucan once a week for 4 weeks and it is not getting better. She was also using nystatin. No drainage. It is keeping her awake at night because it is itching. Related Data Home Medications ?Medication ?Instructions ?Recorded ?Confirmed clindamycin HCl 300 mg capsule 300 mg PO TID 07/17/23 07/17/23 omeprazole 20 mg capsule,delayed 20 mg PO PRN 07/17/23 07/17/23 release Previous Rx's ?Medication ?Instructions ?Recorded ibuprofen 800 mg tablet 800 mg PO Q8H PRN pain 14 da ys #40 07/21/23 tabs oxycodone-acetaminophen 5 mg-325 1 tab PO Q6H PRN pain 4 days #16 07/21/23 mg tablet (Percocet) tabs clotrimazole-betamethasone 1 1 applic topical BID 2 we eks #45 11/25/24 %-0.05 % topical cream grams fluconazole 100 mg tablet 100 mg PO DAILY 10 days #10 tabs 11/25/24 hydroxyzine HCl 25 mg tablet 25 mg PO Q8H PRN itching #20 tabs 11/25/24 Allergies Allergy/AdvReac Type Severity Reaction Status Date / Time cephalexin (From Keflex) Allergy Mild Hives Verified 07/19/23 20:32 Opioid HPI Opioid Management Most Recent Opioid Data: Last Pain Scale 3 07/21/23, 10:38 Ur Phencyclidine Scrn, (NEGATIVE) Negative , 09:50 Review of Systems ROS Narrative A ten point review of systems is negative except as noted above. PFSH PFSH Surgical History (Updated 07/17/23 @ 09:40 by Laura King) History of removal of skin mole (Unknown) ?Z98.890 - Other specified postprocedural states (ICD-10) ?Z87.2 - Personal history of diseases of the skin and subcutaneous tissue (ICD-10) Hx of adenoidectomy (~2007) ?Z90.89 - Acquired absence of other organs (ICD-10) History of tonsillectomy (~2007) ?Z90.89 - Acquired absence of other organs (ICD-10) [place] teeth removed (~2018) ?K08.409 - Partial loss of teeth, unspecified cause, unspecified class (ICD- 10) Social History Highest level of school completed/degree received: 6th grade Little interest or pleasure in doing things: not at all Feeling down, depressed, or hopeless: not at all Exam Narrative Exam Narrative: Nurses note and vital signs reviewed and patient is not hypoxic. General: The patient appears well and in no apparent distress. Patient is resting comfortably on cart. Skin: Warm, dry, no pallor noted. There is erythematous rash without blisters in the bilateral antecubital fossae as well as in the bilateral inguinal area and below her breast. There is a small amount on the right side of her neck as well. Head: Normocephalic, atraumatic Eye: Normal conjunctiva, no drainage Ears, Nose, Mouth, and Throat: oral mucosa is moist. Nares patent. Cardiovascular: Regular Rate and Rhythm Respiratory: Patient is in no distress, no accessory muscle use, lungs are clear to auscultation, no wheezing, rales or rhonchi Back: non-tender GI: Soft and nontender Musculoskeletal: The patient has no evidence of calf tenderness, no pitting edema, symmetrical pulses noted bilaterally Neurological: A&O, normal speech Psychiatric: Cooperative Constitutional Vital Signs, click to edit/add: Last Vital Signs Temp 98.5 F 11/25/24 18:20 Pulse 69 11/25/24 18:20 Resp 18 11/25/24 18:20 BP 147/72 H 11/25/24 18:20 Pulse Ox 98 11/25/24 18:20 O2 Del Method Room Air 11/25/24 18:20 Course Vital Signs Vital signs: Vital Signs Temperature 98.5 F 11/25/24 18:20 Pulse Rate 69 11/25/24 18:20 Respiratory Rate 18 11/25/24 18:20 Blood Pressure 147/72 H 11/25/24 18:20 Pulse Oximetry 98 11/25/24 18:20 Oxygen Delivery Method Room Air 08/14/25 18:20 Temperature 98.5 F 11/25/24 18:20 Pulse Rate 69 11/25/24 18:20 Respiratory Rate 18 11/25/24 18:20 Blood Pressure 147/72 H 11/25/24 18:20 Pulse Oximetry 98 11/25/24 18:20 Oxygen Delivery Method Room Air 11/25/24 18:20 Medical Decision Making MDM Narrative Medical decision making narrative: My clinical impression is that she has fungal dermatitis. I do not suspect contact dermatitis such as poison russell based on the appearance. She has been prescribed Diflucan 100 mg a day for 10 days as well as Lotrisone and Atarax for itching. She was cautioned about the sedation side effect of Atarax and she will take it primarily at nighttime and while she is not working. Treatment diagnosis and follow-up were discussed with the patient. Differential Diagnosis Differential Diagnosis: Fungal dermatitis, contact dermatitis Discharge Plan Discharge Chief Complaint: Skin/Abscess/Foreign Body Clinical Impression: Fungal dermatitis Patient Disposition: Home, Self-Care Time of Disposition Decision: 18:33 Condition: Good Mode of Transportation: Private Vehicle Prescriptions / Home Meds: New fluconazole 100 mg tablet 100 mg PO DAILY 10 Days Qty: 10 0RF clotrimazole-betamethasone 1-0.05 % cream 1 applic topical BID 14 Days Qty: 45 1RF hydroxyzine HCl 25 mg tablet 25 mg PO Q8H PRN (Reason: itching) Qty: 20 0RF No Action clindamycin HCl 300 mg capsule 300 mg PO TID omeprazole 20 mg capsule,delayed release(DR/EC) 20 mg PO PRN ibuprofen 800 mg tablet 800 mg PO Q8H PRN (Reason: pain) 14 Days Qty: 40 0RF oxycodone-acetaminophen [Percocet] 5-325 mg tablet 1 tab PO Q6H PRN (Reason: pain) 4 Days Qty: 16 0RF Print Language: Cook Islander Instructions: Skin Yeast Infection (ED) Referrals: MAGGIE WILKINSON [Primary Care Provider] - 1 week
--- OUTSIDE RECORDS SUMMARY | 2024-11-25 23:17 | XMS_ITS | Encounter Summary ---
Author Organization [facility] Address [address] [place] [address] Care Team Providers Care Marketing Development Representative Name Role Phone Mery Mitchell MD Primary Care Provider [phone] Mery Mitchell MD Unavailable [phone] Victorino Castaneda DO Unavailable Encounter Details Date Type Department Care Team (Late st Contact Info) Description 06/16/2023 Clinisync Result Encounter [facility] External Department Unsolicited Victorino Castaneda, DO [address] [place], [place] [id number] Social History Tobacco Use Types Packs/Day Years Used Date Smoking Tobacco: Never Alcohol Use Standard Drinks/Week Comments Never 0 (1 standard drink = 0.6 oz pure alcohol) caffeine: 1-2 cups per day coffee Comments Yes Sex and Gender Information Value Date Recorded Sex Assigned at Not on file Legal Sex Female 9:34 PM EDT Gender Identity Not on file Sexual Orientation Not on file documented as of this encounter Plan of Treatment Not on file documented as of this encounter Goals Goal Patient Goal Type Associated Problems Recent Progress Patient-Stated? Author Reminders Care Plan OB Reminders No Open Scheduling, Background documented as of this encounter Procedures Procedure Name Priority Date/Time Associated Diagnosis Comments US OB GROWTH 06/16/2023 3:11 PM EST documented in this encounter Results * US OB GROWTH (06/16/2023 3:11 PM EST) Anatomical Region Laterality Modality Other 06/16/2023 3:11 PM EST Narrative 06/16/2023 3:14 [place] [address] Ultrasound Report Signed Patient: AMOS ALBERT MR#: [id number] : 2000 Acct:[id number] Age/Sex: 22 / F ADM Date: 06/16/23 Loc: [facility] Attending Dr: Victorino Castaneda D.O. Ordering Physician: Victorino Castaneda D.O. Date of Service: 06/16/23 Procedure(s): US OB growth Accession Number(s): [id number] cc: Victorino Castaneda D.O.; Physician,Non-Staff [place] [address] Patient Name: AMOS ALBERT MRN: [id number] date: 2000 Sex: F Assigned Patient Location: [facility] Current Patient Location: [facility] Accession/Order Number: [id number] Exam Date: 06/16/2023 14:41 Report Date: 06/16/2023 15:11 At the request of: VICTORINO CASTANEDA Procedure: US OB growth EXAMINATION: US OB growth HISTORY: LGA COMPARISON: 04/17/2023, 03/15/2023 FINDINGS: Heart Rate: 145.0 bpm Amniotic Fluid Volume: 10.7 cm Number: 1.0 Position: Cephalic presentation, longitudinal lie Maximum Vertical Pocket: 1.6 cm cm 3.0 cm cm 1.7 cm cm 4.5 cm cm BIOMETRY: BPD: 9.1 cm cm; 36 weeks 6 days; > 97% HC: 32.8 cmcm; 37 weeks 1 days , 96% AC: 29.4 cm cm; 33 weeks 3 days, 56% FL: 6.9 cm cm; 35 weeks 2 days; 86.7 % % EFW: 2484.8 grams, 5 lbs. 8 oz., 82% FL/AC: 23.3 FL/BPD: 75.6 HC/AC: 1.1 GESTATIONAL AGE: Age by EDC: 33 weeks 2 days GILLES by EDC: 08/02/2023 Age by US: 35 weeks 5 days GILLES by US: 07/16/2023 US/US OB growth IMPRESSION: BPD greater than the 97th percentile Estimated weight 82nd percentile Electronically authenticated by: KAMERON ROUSE Date: 06/16/2023 15:11 Dictated By: Kameron Rouse M.D. Signed By: 06/16/231513 DD/ 10 TD/TT: Dictaphone Technician: Procedure Note Radiology, Radiologist, MD - 06/16/2023 [place] [address] Ultrasound Report Signed Patient: AMOS ALBERT GMR#: [id number] : 2000Acct:[id number] Age/Sex: 22 / FADM Date: 06/16/23 Loc: [facility] Attending Dr: Victorino Castaneda D.O. Ordering Physician: Vicotrino Castaneda D.O. Date of Service: 06/16/23 Procedure(s): US OB growth Accession Number(s): [id number] cc: Victorino Castaneda D.O.; Physician,Non-Staff [place] [id number] Patient Name: AMOS ALBERT MRN: [id number] date: 2000 Sex: F Assigned Patient Location: [facility] Current Patient Location: [facility] Accession/Order Number: [id number] Exam Date: 06/16/2023 14:41 Report Date: 06/16/2023 15:11 At the request of: VICTORINO CASTANEDA Procedure: US OB growth EXAMINATION: US OB growth HISTORY: LGA COMPARISON: 04/17/2023, 03/15/2023 FINDINGS: Heart Rate: 145.0 bpm Amniotic Fluid Volume: 10.7 cm Number: 1.0 Position: Cephalic presentation, longitudinal lie Maximum Vertical Pocket: 1.6 cm cm 3.0 cm cm 1.7 cm cm 4.5 cm cm BIOMETRY: BPD: 9.1 cm cm; 36 weeks 6 days; > 97% HC: 32.8 cmcm; 37 weeks 1 days , 96% AC: 29.4 cm cm; 33 weeks 3 days, 56% FL: 6.9 cm cm; 35 weeks 2 days; 86.7 % % EFW: 2484.8 grams, 5 lbs. 8 oz., 82% FL/AC: 23.3 FL/BPD: 75.6 HC/AC: 1.1 GESTATIONAL AGE: Age by EDC: 33 weeks 2 days GILLES by EDC: 08/02/2023 Age by US: 35 weeks 5 days GILLES by US: 07/16/2023 US/US OB growth IMPRESSION: BPD greater than the 97th percentile Estimated weight 82nd percentile Electronically authenticated by: KAMERON ROUSE Date: 06/16/2023 15:11 Dictated By: Kameron Rouse M.D. Signed By:06/16/23 1514 DD/ 10 TD/TT: Dictaphone Technician: us Victorino Castaneda DO [facility] Final Result documented in this encounter Visit Diagnoses Not on filedocumented in this encounter Additional Health Concerns Active Problems Noted Date Diagnosed Date OB Reminders 03/01/2023 documented as of this encounter Care Teams Marketing Development Representative Relationship Specialty Start Date End Date Mery Mitchell MD [address] [place] [address] PCP - General Family Medicine 07/22/23 Mery Mitchell MD [address] [place] [address] PCP - Medical [place] [employer] 09/11/22 04/13/99 Victorino Castaneda DO [address] [place] [address] [place] [address] PCP - [facility] 10/13/23 documented as of this encounter
--- OUTSIDE RECORDS SUMMARY | 2024-11-25 23:17 | XMS_ITS | Encounter Summary ---
Author Organization [facility] Address [address] [facility] [place] [address] Care Team Providers Care Terrazzo Laborer Name Role Phone Mery Mitchell MD Primary Care Provider [phone] Mery Mitchell MD Unavailable [phone] Jose Castaneda DO Unavailable Encounter Details Date Type Department Care Team (Late st Contact Info) Description 01/22/2023 Abstract [facility] [place] [facility] [address] [place] [address] Jose Castaneda DO [address] [place], [facility] Social History Tobacco Use Types Packs/Day Years [...] on file documented as of this encounter Visit Diagnoses Not on filedocumented in this encounter Care Teams Terrazzo Laborer Relationship Specialty Start Date End Date Mery Mitchell MD [address] [place] [address] PCP - General Family Medicine 07/22/23 Mery Mitchell MD [address] [place] [address] PCP - Medical [place] [employer] 09/11/22 04/13/99 Jose Castaneda DO [address] [place] [address] PCP - [facility] 10/13/23 documented as of this encounter
--- OUTSIDE RECORDS SUMMARY | 2024-11-25 23:17 | XMS_ITS | Encounter Summary ---
Author Organization [facility] Address [address] [place] [address] Care Team Providers Care Dough Mixer Name Role Phone Mery Mitchell MD Primary Care Provider [phone] Mery Mitchell MD Unavailable [phone] Jose Castaneda DO Unavailable Encounter Details Date Type Department Care Team (Late st Contact Info) Description 03/15/2023 Clinisync Result Encounter [facility] External Department Unsolicited Stacia Harp PA [address] [place] [address] Social History Tobacco Use Types Packs/Day Years [...] Priority Date/Time Associated Diagnosis Comments US OB ANATOMY 03/15/2023 11:04 AM EST documented in this encounter Results * US OB ANATOMY (03/15/2023 11:04 AM EST) Anatomical Region Laterality Modality Other 03/15/2023 11:0 4 AM EST Narrative 03/15/2023 11:04 AM EST [address] [address] Ultrasound Report Signed Patient: AMOS ALBERT MR#: [id number] : 2000 Acct:[id number] Age/Sex: 22 / F ADM Date: 03/15/23 Loc: US Attending Dr: Stacia Harp Ordering Physician: Stacia Harp Date of Service: 03/15/23 Procedure(s): US OB anatomy Accession Number(s): [id number] cc: Stacia Harp; Physician,Non-Staff M.DLu [place] [id number] Patient Name: AMOS ALBERT MRN: [facility]:[id number] date: 2000 Sex: F Assigned Patient Location: US Current Patient Location: US Accession/Order Number: [id number] Exam Date: 03/15/2023 09:52 Report Date: 03/15/2023 11:04 At the request of: STACIA HARP Procedure: US OB anatomy EXAMINATION: US OB anatomy, US OB cervical length HISTORY: Second trimester Z34.92 COMPARISON: No relevant comparison available. TECHNIQUE: Transabdominal sonographic examination was performed for obstetrical and evaluation. FINDINGS: Number: 1 Heart Rate: 149.2 bpm H.B. /min Amniotic Fluid Volume: Subjectively normal Placental Location: Anterior with lower margin 4.3 cm from os. Cervix Length: 5.9 cm; closed. ANATOMY: Normal Structures -cerebellum, choroid plexus, cisterna magna, lateral cerebral ventricles, orbits, midline falx, hard palate, four-chamber heart, stomach, kidneys, bladder, umbilical cord insertion into abdomen, three-vessel cord, cervical spine, thoracic spine, lumbar spine, sacral spine, right upper extremity, left upper extremity, right lower extremity, left lower extremity. SUBOPTIMALLY SEEN: Cardiac outflow tracts ABNORMALITIES: None BIOMETRY: BPD: 4.7 cm 20 weeks 2 days HC: 17.9 cm 20 weeks 2 days AC: 14.4 cm 19 weeks 5 days FL: 3.3 cm 20 weeks 2 days EFW:329.1 grams; 48% FL/AC: 22.9 FL/BPD: 69.8 HC/AC: 1.2 GESTATIONAL AGE: Age by EDC: 20 weeks 0 days GILLES by EDC: 08/02/2023 Age by current US: 20 weeks 1 days GILLES by current US: 08/01/2023 US/US OB anatomy IMPRESSION: 1. Single live intrauterine with growth detailed above. 2. Suboptimal visualization of the cardiac outflow tracts due to position and maternal body habitus. Electronically authenticated by: LOBO ABERNATHY Date: 03/15/2023 11:04 Dictated By: Lobo Abernathy M.D. Signed By: 03/15/23 1107 DD/ 03 TD/TT: Tumor Registrar: Procedure Note Radiology, Radiologist, - 03/16/2023 [place] [address] Ultrasound Report Signed Patient: AMOS ALBERTMR#: [id number] : 2000Acct:[id number] Age/Sex: 22 / FADM Date: 03/15/23 Loc: US Attending Dr: Stacia Harp Ordering Physician: Stacia Harp Date of Service: 03/15/23 Procedure(s): US OB anatomy Accession Number(s): [id number] cc: Stacia Harp; Physician,Non-Staff Homar The [address] [address] Patient Name: AMOS ALBERT MRN: [facility]:[id number] date: 2000 Sex: F Assigned Patient Location: US Current Patient Location: US Accession/Order Number: [id number] Exam Date: 03/15/2023 09:52 Report Date: 03/15/2023 11:04 At the request of: STACIA HARP Procedure: US OB anatomy EXAMINATION: US OB anatomy, US OB cervical length HISTORY: Second trimester Z34.92 COMPARISON: No relevant comparison available. TECHNIQUE: Transabdominal sonographic examination was performed for obstetrical and evaluation. FINDINGS: Number: 1 Heart Rate: 149.2 bpm H.B. /min Amniotic Fluid Volume: Subjectively normal Placental Location: Anterior with lower margin 4.3 cm from os. Cervix Length: 5.9 cm; closed. ANATOMY: Normal Structures -cerebellum, choroid plexus, cisterna magna, lateral cerebral ventricles, orbits, midline falx, hard palate, four-chamberheart, stomach, kidneys, bladder, umbilical cord insertion into abdomen,three-vessel cord, cervical spine, thoracic spine, lumbar spine, sacral spine, rightupper extremity, left upper extremity, right lower extremity, left lowerextremity. SUBOPTIMALLY SEEN: Cardiac outflow tracts ABNORMALITIES: None BIOMETRY: BPD: 4.7 cm 20 weeks 2 days HC: 17.9 cm 20 weeks 2 days AC: 14.4 cm 19 weeks 5 days FL: 3.3 cm 20 weeks 2 days EFW:329.1 grams; 48% FL/AC: 22.9 FL/BPD: 69.8 HC/AC: 1.2 GESTATIONAL AGE: Age by EDC: 20 weeks 0 days GILLES by EDC: 08/02/2023 Age by current US: 20 weeks 1 days GILLES by current US: 08/01/2023 US/US OB anatomy IMPRESSION: 1. Single live intrauterine with growth detailed above. 2. Suboptimal visualization of the cardiac outflow tracts due to position and maternal body habitus. Electronically authenticated by: LOBO ABERNATHY Date: 03/15/2023 11:04 Dictated By: Lobo Abernathy M.D. Signed By:03/15/23 1107 DD/ 1104 TD/TT: Tumor Registrar: Stacia SALDANA [facility] Final Result documented in this encounter Visit Diagnoses Not on filedocumented in this encounter Additional Health Concerns Active Problems Noted Date Diagnosed Date OB Reminders 03/01/2023 documented as of this encounter Care Teams Dough Mixer Relationship Specialty Start Date End Date Mery Mitchell MD [address] [place] [address] PCP - General Family Medicine 07/22/23 Mery Mitchell MD [address] [place] [address] PCP - Medical [place] [employer] 09/11/22 04/13/99 Jose Castaneda DO [address] [place] [address] [place] [address] PCP - [facility] 10/13/23 documented as of this encounter
--- OUTSIDE RECORDS SUMMARY | 2024-11-25 23:17 | XMS_ITS | Encounter Summary ---
Author Organization [facility] Address [address] [place] [address] Care Team Providers Care Nurse Transitional Name Role Phone Mery Mitchell MD Primary Care Provider Mery Mitchell MD Unavailable [phone] Jose Castaneda DO Unavailable Encounter Details Date Type Department Care Team (Late st Contact Info) Description 03/15/2023 Clinisync Result Encounter [facility] External Department Unsolicited Stacia Harp PA [address] [place], [place] [id number] Social History Tobacco Use Types Packs/Day Years [...] Priority Date/Time Associated Diagnosis Comments US OB CERVICAL LENGTH 03/15/2023 11:04 AM EST documented in this encounter Results * US OB CERVICAL LENGTH (03/15/2023 11:04 AM EST) Anatomical Region Laterality Modality Other 03/15/2023 11:0 4 AM EST Narrative 03/15/2023 11:04 AM EST [address] [address] Ultrasound Report Signed Patient: AMOS ALBERT MR#: [id number] : 2000 Acct:[id number] Age/Sex: 22 / F ADM Date: 03/15/23 Loc: US Attending Dr: Satcia Harp Ordering Physician: Stacia Harp Date of Service: 03/15/23 Procedure(s): US OB cervical length Accession Number(s): [id number] cc: Stacia Harp; Physician,Non-Staff M.DLu [address] [address] Patient Name: AMOS ALBERT MRN: [id number] date: 2000 Sex: F Assigned Patient Location: US Current Patient Location: US Accession/Order Number: [id number] Exam Date: 03/15/2023 09:52 Report Date: 03/15/2023 11:04 At the request of: STACIA HARP Procedure: US OB cervical length EXAMINATION: US OB anatomy, US OB cervical [...] GILLES by current US: 08/01/2023 US/US OB cervical length IMPRESSION: 1. Single live intrauterine with growth detailed above. 2. Suboptimal visualization of the cardiac outflow tracts due to position and maternal body habitus. Electronically authenticated by: LOBO ABERNATHY Date: 03/15/2023 11:04 Dictated By: Lobo Abernathy M.D. Signed By: 03/15/236 DD/ 03 TD/TT: College Recruiter: Procedure Note Radiology, Radiologist, MD - 03/16/2023 [place] [address] Ultrasound Report Signed Patient: AMOS ALBERTMR#: [id number] : 2000Acct:[id number] Age/Sex: 22 / FADM Date: 03/15/23 Loc: US Attending Dr: Stacia Harp Ordering Physician: Stacia Harp Date of Service: 03/15/23 Procedure(s): US OB cervical length Accession Number(s): [id number] cc: Stacia Harp; Physician,Non-Staff MNickolas The [address] [address] Patient Name: AMOS ALBERT MRN: [id number] date: 2000 Sex: F Assigned Patient Location: US Current Patient Location: US Accession/Order Number: [id number] Exam Date: 03/15/2023 09:52 Report Date: 03/15/2023 11:04 At the request of: STACIA HARP Procedure: US OB cervical length EXAMINATION: US OB anatomy, US OB cervical [...] GILLES by current US: 08/01/2023 US/US OB cervical length IMPRESSION: 1. Single live intrauterine with growth detailed above. 2. Suboptimal visualization of the cardiac outflow tracts due to position and maternal body habitus. Electronically authenticated by: LOBO ABERNATHY Date: 03/15/2023 11:04 Dictated By: Lobo Abernathy M.D. Signed By:03/15/23 1106 DD/ 03 TD/TT: College Recruiter: Stacia SALDANA [facility] Final Result documented in this encounter Visit Diagnoses Not on filedocumented in this encounter Additional Health Concerns Active Problems Noted Date Diagnosed Date OB Reminders 03/01/2023 documented as of this encounter Care Teams Nurse Transitional Relationship Specialty Start Date End Date Mery Mitchell MD [address] [place] [address] PCP - General Family Medicine 07/22/23 Mery Mitchell MD [address] [place] [address] PCP - Medical [place] [employer] 09/11/22 04/13/99 Jose Castaneda DO [address] [place] [address] [place] [address] PCP - [facility] 10/13/23 documented as of this encounter
--- OUTSIDE RECORDS SUMMARY | 2024-11-25 23:17 | XMS_ITS | Encounter Summary ---
Author Organization [facility] Address [address] [place] [address] Care Team Providers Care Cut File Clerk Name Role Phone Mery Mitchell MD Primary Care Provider [phone] Mery Mitchell MD Unavailable [phone] Victorino Castaneda DO Unavailable Encounter Details Date Type Department Care Team (Late st Contact Info) Description 06/23/2023 Clinisync Result Encounter [facility] External Department Unsolicited Victorino Castaneda, DO [address] [place], [place] [id number] Social History Tobacco Use Types Packs/Day Years [...] Date/Time Associated Diagnosis Comments US OB GROWTH 06/23/2023 3:12 PM EDT documented in this encounter Results * US OB GROWTH (06/23/2023 3:12 PM EDT) Anatomical Region Laterality Modality Other 06/23/2023 3:12 PM EDT Narrative 06/23/2023 3:14 PM EDT [address] [address] Ultrasound Report Signed Patient: AMOS ALBERT MR#: [id number] : 2000 Acct:[id number] Age/Sex: 22 / F ADM Date: 06/23/23 Loc: NOMS Attending Dr: Victorino Castaneda D.O. Ordering Physician: Victorino Castaneda D.O. Date of Service: 06/23/23 Procedure(s): US OB growth Accession Number(s): [id number] cc: Victorino Castaneda D.O.; Physician,Non-Staff Hom[place] [address] Patient Name: AMOS ALBERT MRN: [facility]:[id number] date: 2000 Sex: F Assigned Patient Location: [facility] Current Patient Location: [facility] Accession/Order Number: [id number] Exam Date: 06/23/2023 14:16 Report Date: 06/23/2023 15:12 At the request of: VICTORINO CASTANEDA Procedure: US OB growth EXAMINATION: US OB growth HISTORY: Excessive growth affecting management of COMPARISON: 06/16/2023 FINDINGS: Heart Rate: 140.0 bpm Amniotic Fluid Volume: 13.0 cm Number: 1.0 Position: CEPHALIC Maximum Vertical Pocket: 4.3 cm cm 1.1 cm cm 3.6 cm cm 3.9 cm cm BIOMETRY: BPD: 9.2 cm cm; 37 weeks 3 days; >97% HC: 33.6 cmcm; 38 weeks 3 days , 97% AC: 29.6 cm cm; 33 weeks 4 days, 33% FL: 7.2 cm cm; 36 weeks 5 days; 93.2 % % EFW: 2660.5 grams, 5lb 14 oz, 76% FL/AC: 24.3 FL/BPD: 77.8 HC/AC: 1.1 GESTATIONAL AGE: Age by EDC: 34 weeks 2 days GILLES by EDC: 08/02/2023 Age by US: 36 weeks 4 days GILLES by US: 07/17/2023 US/US OB growth IMPRESSION: BPD and HC at the 97% Estimated weight 76% Electronically authenticated by: KAMERON ROUSE Date: 06/23/2023 15:12 Dictated By: Kameron Rouse M.D. Signed By: 06/23/231513 DD/ 11 TD/TT: Salesforce Specialist: Procedure Note Radiology, Radiologist, MD - 06/23/2023 [place] [address] Ultrasound Report Signed Patient: AMOS ALBERT GMR#: [id number] : 2000Acct:[id number] Age/Sex: 22 / FADM Date: 06/23/23 Loc: [facility] Attending Dr: Victorino Castaneda D.O. Ordering Physician: Victorino Castaneda D.O. Date of Service: 06/23/23 Procedure(s): US OB growth Accession Number(s): [id number] cc: Victorino Castaneda D.O.; Physician,Non-Staff Homar The [place] [address] Patient Name: AMOS ALBERT MRN: [id number]:[id number] date: 2000 Sex: F Assigned Patient Location: [facility] Current Patient Location: [facility] Accession/Order Number: [id number] Exam Date: 06/23/2023 14:16 Report Date: 06/23/2023 15:12 At the request of: VICTORINO CASTANEDA Procedure: US OB growth EXAMINATION: US OB growth HISTORY: Excessive growth affecting management of COMPARISON: 06/16/2023 FINDINGS: Heart Rate: 140.0 bpm Amniotic Fluid Volume: 13.0 cm Number: 1.0 Position: CEPHALIC Maximum Vertical Pocket: 4.3 cm cm 1.1 cm cm 3.6 cm cm 3.9 cm cm BIOMETRY: BPD: 9.2 cm cm; 37 weeks 3 days; >97% HC: 33.6 cmcm; 38 weeks 3 days , 97% AC: 29.6 cm cm; 33 weeks 4 days, 33% FL: 7.2 cm cm; 36 weeks 5 days; 93.2 % % EFW: 2660.5 grams, 5lb 14 oz, 76% FL/AC: 24.3 FL/BPD: 77.8 HC/AC: 1.1 GESTATIONAL AGE: Age by EDC: 34 weeks 2 days GILLES by EDC: 08/02/2023 Age by US: 36 weeks 4 days GILLES by US: 07/17/2023 US/US OB growth IMPRESSION: BPD and HC at the 97% Estimated weight 76% Electronically authenticated by: KAMERON ROUSE Date: 06/23/2023 15:12 Dictated By: Kameron Rouse M.D. Signed By:06/23/231513 DD/ 11 TD/TT: Salesforce Specialist: us Victorino Castaneda DO [facility] Final Result documented in this encounter Visit Diagnoses Not on filedocumented in this encounter Additional Health Concerns Active Problems Noted Date Diagnosed Date OB Reminders 03/01/2023 documented as of this encounter Care Teams Cut File Clerk Relationship Specialty Start Date End Date Mery Mitchell MD [address] [place] [address] PCP - General Family Medicine 07/22/23 Mery Mitchell MD [address] [place] [address] PCP - Medical [place] [employer] 09/11/22 04/13/99 Victorino Castaneda DO [address] [place] [address] [place] [address] PCP - [facility] 10/13/23 documented as of this encounter
--- OUTSIDE RECORDS SUMMARY | 2024-11-25 23:17 | XMS_ITS | Encounter Summary ---
Author Organization [facility] Address [address] [place] [address] Care Team Providers Care Junction Maker Name Role Phone Mery Mitchell MD Primary Care Provider [phone] Mery Mitchell MD Unavailable [phone] Victorino Castaneda DO Unavailable Encounter Details Date Type Department Care Team (Late st Contact Info) Description 04/17/2023 Clinisync Result Encounter [facility] External Department Unsolicited Victorino Castaneda, DO [address] [place], [place] [id number] Social History Tobacco Use Types Packs/Day Years [...] Priority Date/Time Associated Diagnosis Comments US OB FOLLOW UP 04/17/2023 11:47 AM EST documented in this encounter Results * US OB FOLLOW UP (04/17/2023 11:47 AM EST) Anatomical Region Laterality Modality Radiographic Shayla ging 04/17/2023 11:4 7 AM EST Narrative 04/17/2023 11:50 [place] [address] Ultrasound Report Signed Patient: AMOS ALBERT MR#: [id number] : 2000 Acct:[id number] Age/Sex: 22 / F ADM Date: 04/17/23 Loc: US Attending Dr: Victorino Castaneda D.O. Ordering Physician: Victorino Castaneda D.O. Date of Service: 04/17/23 Procedure(s): US OB follow up Accession Number(s): [id number] cc: Victorino Castaneda D.O.; Physician,Non-Staff Homar The [place] [address] Patient Name: AMOS ALBERT MRN: [id number] date: 2000 Sex: F Assigned Patient Location: US Current Patient Location: US Accession/Order Number: [id number] Exam Date: 04/17/2023 10:24 Report Date: 04/17/2023 11:47 At the request of: VICTORINO CASTANEDA Procedure: US OB follow up EXAMINATION: US OB follow up HISTORY: SV OUTFLOW TRACTS COMPARISON: No relevant comparison available. FINDINGS: Heart rate: 149 beats minute Normal anatomy: RVOT, LVOT US/US OB follow up IMPRESSION: Normal visualization of the ventricular outflow tracts Electronically authenticated by: KAMERON ROUSE Date: 04/17/2023 11:47 Dictated By: Kameron Rouse M.D. Signed By: 04/17/23 1150 DD/ 1147 TD/TT: Humanities Instructor: Procedure Note Radiology, Radiologist, - 04/17/2023 [place] [address] Ultrasound Report Signed Patient: AMOS ALBERTMR#: [id number] : 2000Acct:[id number] Age/Sex: 22 / FADM Date: 04/17/23 Loc: US Attending Dr: Victorino Castaneda D.O. Ordering Physician: Victorino Castaneda D.O. Date of Service: 04/17/23 Procedure(s): US OB follow up Accession Number(s): [id number] cc: Victorino Castaneda D.O.; Physician,Non-Staff Homar The [address] [address] Patient Name: AMOS ALBERT MRN: [id number] date: 2000 Sex: F Assigned Patient Location: Current Patient Location: US Accession/Order Number: [id number] Exam Date: 04/17/2023 10:24 Report Date: 04/17/2023 11:47 At the request of: VICTORINO CASTANEDA Procedure: US OB follow up EXAMINATION: US OB follow up HISTORY: SV OUTFLOW TRACTS COMPARISON: No relevant comparison available. FINDINGS: Heart rate: 149 beats minute Normal anatomy: RVOT, LVOT US/US OB follow up IMPRESSION: Normal visualization of the ventricular outflow tracts Electronically authenticated by: KAMERON ROUSE Date: 04/17/2023 11:47 Dictated By: Kameron Rouse M.D. Signed By:04/17/23 1150 DD/ 1147 TD/TT: Humanities Instructor: Victorino Castaneda DO IMG XR PROCEDURES Final Result documented in this encounter Visit Diagnoses Not on filedocumented in this encounter Additional Health Concerns Active Problems Noted Date Diagnosed Date OB Reminders 03/01/2023 documented as of this encounter Care Teams Junction Maker Relationship Specialty Start Date End Date Mery Mitchell MD [address] [place] [address] PCP - General Family Medicine 07/22/23 Mery Mitchell MD [address] [place] [address] PCP - Medical [place] [employer] 09/11/22 04/13/99 Victorino Castaneda DO [address] [facility] [address] [place] [address] PCP - [facility] 10/13/23 documented as of this encounter
--- OUTSIDE RECORDS SUMMARY | 2024-11-25 23:17 | XMS_ITS | Patient Health Record ---
Author Organization [facility] [facility] [facility] Address [address] [place] [address] Care Team Providers Care Mask Inspector Name Role Phone Dr. Vidal Khan Primary Care Provider [phone] Reason For Referral No Information Medications Medication SIG (Take, Route, Fr equency, Duration) Notes Start Date End Date Status Ibuprofen 800 MG 1 tablet with food o r milk as needed Orally Three times a day 07/16/2021 Active Plan Of Treatment No Information Insurance Providers Payer Name Payer Address Payer Phone Subscriber Number Group Number Insured Name Patient Relationship to Insured Coverage Start Date Coverage End Date zDENTAL DQ [employer] E-termed [address] [place] [address] [id number] AMOS MACKENZIE Self - patient is the insured [address] [facility] after [employer] E[employer]ter[employer] [address] [place] [address] [id number] AMOS MACKENZIE Self - patient is the insured 2
--- OUTSIDE RECORDS SUMMARY | 2024-11-25 23:18 | XMS_ITS | Encounter Summary ---
Author Organization [facility] Address [address] [facility] [address] Care Team Providers Care Lawn And Garden Technician Name Role Phone Mery Mitchell MD Primary Care Provider [phone] Mery Mitchell MD Unavailable [phone] Jose Castaneda DO Unavailable Encounter Details Date Type Department Care Team (Late st Contact Info) Description 04/13/2024 Abstract [facility] [address] [place] [address] [place] [id number] Toya Johnson LPN Social History Tobacco Use Types Packs/Day Years Used Date Smoking Tobacco: Never Alcohol Use Standard Drinks/Week Comments Never 0 (1 standard drink = 0.6 oz pure alcohol) caffeine: 1-2 cups per day coffee Comments Unknown Sex and Gender Information Value Date Recorded [...] Scheduling, Background documented as of this encounter Visit Diagnoses Not on filedocumented in this encounter Additional Health Concerns Active Problems Noted Date Diagnosed Date OB Reminders 03/01/2023 documented as of this encounter Care Teams Lawn And Garden Technician Relationship Specialty Start Date End Date Mery Mitchell MD [address] [place] [address] PCP - General Family Medicine 07/22/23 Mery Mitchell MD [address] [place] [address] PCP - Medical [facility] 09/11/22 04/13/99 Jose Castaneda DO [address] [place] [address] [place] [address] PCP - [facility] 10/13/23 documented as of this encounter
--- OUTSIDE RECORDS SUMMARY | 2024-11-25 23:18 | XMS_ITS | Encounter Summary ---
Author Organization [facility] Address [address] [place] [address] Care Team Providers Care Dermatology Teacher Name Role Phone Mery Mitchell MD Primary Care Provider [phone] Mery Mitchell MD Unavailable [phone] Lupillo Castaneday DO Unavailable Encounter Details Date Type Department Care Team (Late st Contact Info) Description 07/14/2023 Abstract [facility] [address] [place] [id number] Jerri Mercado LPN [address] [facility] [place] [id number] Social History Tobacco Use Types Packs/Day Years [...] documented as of this encounter Care Teams Dermatology Teacher Relationship Specialty Start Date End Date Mery Mitchell MD [address] [place] [address] PCP - General Family Medicine 07/22/23 Mery Mitchell MD [address] [place] [address] PCP - Medical [place] [employer] 09/11/22 04/13/99 Jose Castaneda DO [address] [place] [address] [place] [address] PCP - [facility] 10/13/23 documented as of this encounter
--- OUTSIDE RECORDS SUMMARY | 2024-11-25 23:18 | XMS_ITS | Clinical Summary ---
Author Organization [facility] Address [address], [address] [place] [address] Care Team Providers Care Production Supply Equipment Tender Name Role Phone Unavailable Primary Care Provider Unavailabl e Allergies No known active allergies Medications No known medications Family History Medical History Relation Name Comments Hypertension Father Bone Cancer Maternal Grandmother Breast Cancer Other maternal aunt Brain Cancer Paternal Grandfather Relation Name Status Comments Brother 1 Alive Brother 2 Alive Father Alive Maternal Grandfather Alive Maternal Grandmother Mother Alive Other maternal aunt Paternal Grandfather Paternal Grandmother Alive Social History Tobacco Use Types Packs/Day Years Used Date Smoking Tobacco: Never Smokeless Tobacco: Never Tobacco Cessation:Counseling Given: Not Answered Alcohol Use Standard Drinks/Week Comments Not Asked 0 (1 standard drink = 0.6 oz pur e alcohol) social Comments Unknown Sex and Gender Information Value Date Recorded Sex Assigned at Not on file Legal Sex Female 6:35 AM EST Gender Identity Not on file Sexual Orientation Not on file Last Filed Vital Signs Vital Sign Reading Time Taken Comments Blood Pressure 124/72 08/13/2022 2:40 PM EDT Pulse - - Temperature - - Respiratory Rate - - Oxygen Saturation - - Inhaled Oxygen Concentration - - Weight 113.4 kg (250 lb) 08/13/2022 2:40 PM EDT Height 182.9 cm (6') 08/13/2022 2:40 PM EDT Body Mass Index 33.91 08/13/2022 2:40 PM EDT Plan of Treatment Health Maintenance Due Date Last Done Comments Depression Screen 2012 HIV screen 11/05/2015 Hepatitis C screen 2018 DTaP/Tdap/Td vaccine (7 - Td or Tdap) 12/01/2022 12/01/2012, 08/15/2005, 12/15/2002, Additional history exists Chlamydia/GC screen 08/14/2023 08/13/2022 COVID-19 Vaccine ( season) 2023 Flu vaccine (#1) 11/12/2024 02/04/2020, , 01/08/2018, Additional history exists Pap smear 08/13/2025 08/13/2022 Pneumococcal 0-49 years Vaccine Aged Out 04/29/2001, 01/20/2001 No longer eligibl e based on patient's age to complete this topic Hib vaccine Completed 12/15/2002, 12/13, 04/29/2001, Additional history exists Measles,Mumps,Rubella (MMR) vaccine Discontinued 08/15/2005, 12/25/2001 Polio vaccine Completed 08/15/2005, 12/13, 04/29/2001, Additional history exists Hepatitis B vaccine Completed 08/26/2005, 12/25/2001, 01/20/2001 Varicella vaccine Completed 12/01/2012, 12/25/2001 Hepatitis A vaccine Completed 11/15/2013, 3 HPV vaccine Completed 02/28/2014, 07/2013, 12/01/2012 Meningococcal (ACWY) vaccine Completed 11/22/2016, 11/15/2013 Meningococcal B vaccine Completed 07/21/2018, 11/22 Procedures Procedure Name Priority Date/Time Associated Diagnosis Comments C.TRACHOMATIS N.GONORRHOEAE DNA, THIN PREP Routine 08/13/2022 2:49 PM EDT Encounter for well woman exam with routine gynecological exam PERMIT COORDINATOR CYTOLOGY Routine 08/13/2022 12:00 AM EDT from Last 3 Months or Most Recently Relevant to Health Maintenance Results * Chlamydia/GC DNA, Thin Prep (08/13/2022 2:49 PM EDT) Specimen Description .CERVIX 08/13/2022 2:49 PM EDT [employer] Chlamydia By Thin Prep NEGATIVE NEGATIVE 08/13/2022 2:49 PM EDT [employer] Comment: CHLAMYDIA TRACHOMATIS DNA not detected by nucleic acid [...] results by an alternative nucleic acid target. N. gonorrhoeae DNA, Thin Prep NEGATIVE NEGATIVE 08/13/2022 2:49 PM EDT [facility] AssertID Comment: NEISSERIA GONORRHOEAE DNA not detected by nucleic acid [...] results by an alternative nucleic acid target. CERVICAL SWAB / Unknown 08/13/2022 2:49 PM EDT 08/13/2022 7:29 PM EDT us Luther Martinez MD MICROBIOLOGY - GENERAL ORDERA BLES Final Result [facility] [address] [place] [address], [facility] [phone] [place] [id number], [facility] [phone] * PERMIT COORDINATOR Cytology (08/13/2022 12:00 AM EDT) Cytology Report Path Number: [id number] DIAGNOSIS Cervical material, (ThinPrep vial, Imaging-assisted review): Specimen Adequacy: Satisfactory for evaluation. -Endocervical/tra nsformation zone component is absent. Descriptive Diagnosis: Negative for intraepithelial lesion or malignancy. Cytotech Screener: SS4 Electronically Signed Out MAXIMUS Ramírez(ASCP) ss4/08/21/2022 Source of Specimen: A: Cervical material, (ThinPrep vial, Imaging-assisted review) HPV Reflex?........... ...........HPV if ASCUS Clinical History Z01.419 Routine supervisor glycerin exam without abnormal findings High Risk HPV DNA testing is requested if the diagnosis is ASC-US Processing Lab: [facility] [address] Interpretation performed at [address] [phone] The Pap smear is a screening test primarily for squamous epithelial lesions, which is subject to both false negative and false positive results. Your patient should be reminded to consult you immediately if she experiences any suspicious signs or symptoms, regardless of her Pap smear result. GYNECOLOGIC CYTOLOGY REPORT Patient Name: AMOS ALBERT [facility] Rec: [id number] [facility] ANATOMIC PATHOLOGY [address] [place] [phone] [facility] CERVICAL MATERIAL 08/13/2022 023 8:31 AM EDT Luther Martinez MD PATHOLOGY/CYTOLOGY ORDERABLES Final Result Performing Organization Address City/State/[facility] Co de Phone Number [facility] [address] [place], [place] [address] [phone] [phone] from Last 3 Months or Most Recently Relevant to Health Maintenance Insurance [facility]
--- OUTSIDE RECORDS SUMMARY | 2024-11-25 23:18 | XMS_ITS | Patient Health Record ---
Author Organization [facility] Address [address] [place] [address] Care Team Providers Care Manager Of Project Management Name Role Phone StephenMery christianson Primary Care Provider Matthew Romeo Grady Unavailable [phone] Allergies Allergen (clinical drug ingredient) Drug/Non Drug Allergy documented on EMR Reaction Allergy Type Onset Date Status keflex (uncoded) Unknown Allergy Act luis Reason For Referral No Information Problems Problem Type SNOMED Code ICD Code Onset Dates Problem Status W/U Status Risk Notes Problem [id number] Sprain of left ankle, unspecified ligament, initial encounter (S93.402A) Active confirmed Encounters Encounter Location Date Provider Diagnosis [facility] [address] [place] [address] 04/13/2024 Romeo Jimenez Sprain of left ankle , unspecified ligament, initial encounter S93.402A Assessments Encounter Date Diagnosis (ICD Code) Assessment Notes Treatment Notes Treatment Clinical Notes Section Notes 04/13/2024 Sprain of left ankle, unspecified ligament, initial encounter (ICD-10 - S93.402A) 04/13/2024 Other For left ankle sprain I recommended symptomatic treatment which we have reviewed. She will follow-up in 4 weeks to reassess her progress and consider therapy at that time. Import medication Plan Of Treatment No Information Insurance Providers Payer Name Payer Address Payer Phone Subscriber Number Group Number Insured Name Patient Relationship to Insured Coverage Start Date Coverage End Date Medical [facility] [address] [place] [phone] [id number] MARYA MACKENZIE Child - Insured has Financial Responsibility Medicaid [employer] [facility] [address] [place] [address] [id number] AMOS MACKENZIE Self - patient is the insured Medical (General) History Medical History History ICD Code Anxiety
--- OUTSIDE RECORDS SUMMARY | 2024-11-25 23:18 | XMS_ITS | Clinical Summary ---
Author Organization [facility] Address [address] [place] [address] Care Team Providers Care Hyperion Developer Name Role Phone Pcp, No Primary Care Provider [phone] Social History Tobacco Use Types Packs/Day Years Used Date Smoking Tobacco: Never Assessed Comments Unknown Sex and Gender Information Value Date Recorded Sex Assigned at Not on file Legal Sex Female 9:49 AM EDT Gender Identity Not on file Sexual Orientation Not on file Plan of Treatment Health Maintenance Due Date Last Done Comments MMR Vaccine (1 of 1 - Standa rd series) 2001 DTaP/Tdap/Td Vaccine (1 - Tdap) 11/05/2007 Varicella Vaccine (1 of 2 - 13+ 2-dose series) 2013 HPV Vaccine (1 - 3-dose series) 11/05/2015 Hepatitis B Vaccine (1 of 3 - 19+ 3-dose series) 11/05/2019 COVID-19 Vaccine ( - 2023-2 5 season) 2023 Influenza Vaccine (#1) 2024 0, 02/05/2019, 01/08/2018 HIB Vaccine Aged Out No longer eligi ble based on patient's age to complete this topic Hepatitis A Vaccine Aged Out No longe r eligible based on patient's age to complete this topic IPV Vaccine Aged Out No longer eligi ble based on patient's age to complete this topic Meningococcal ACWY Vaccine Aged Out N o longer eligible based on patient's age to complete this topic Meningococcal B Vaccine Aged Out No l onger eligible based on patient's age to complete this topic Pneumococcal Vaccine Aged Out No long er eligible based on patient's age to complete this topic RSV, Nirsevimab Immunization Aged Out No longer eligible based on patient's age to complete this topic Rotavirus Vaccine Aged Out No longer eligible based on patient's age to complete this topic Insurance [facility] [employer] Care Teams Hyperion Developer Relationship Specialty Start Date End Date Pcp, No [address] [place] [address] PCP - General 07/28/23
--- OUTSIDE RECORDS SUMMARY | 2024-11-25 23:18 | XMS_ITS | Encounter Summary ---
Author Organization [facility] Address [address] [place] [address] Care Team Providers Care Maintenance Shop Technician Name Role Phone Mery Mitchell MD Primary Care Provider [phone] Mery Mitchell MD Unavailable [phone] Victorino Castaneda DO Unavailable Encounter Details Date Type Department Care Team (Late st Contact Info) Description 07/07/2023 Clinisync Result Encounter [facility] External Department Unsolicited Victorino Castaneda, DO [address] [place], [place] [id number] Social History Tobacco Use Types Packs/Day Years [...] Date/Time Associated Diagnosis Comments US OB GROWTH 07/07/2023 3:18 PM EDT documented in this encounter Results * US OB GROWTH (07/07/2023 3:18 PM EDT) Anatomical Region Laterality Modality Other 07/07/2023 3:18 PM EDT Narrative 07/07/2023 3:21 PM EDT [address] [address] Ultrasound Report Signed Patient: AMOS ALBERT MR#: [id number] : 2000 Acct:[id number] Age/Sex: 22 / F ADM Date: 07/07/23 Loc: [facility] Attending Dr: Victorino Castaneda D.O. Ordering Physician: Victorino Castaneda D.O. Date of Service: 07/07/23 Procedure(s): US OB growth Accession Number(s): [id number] cc: Victorino Castaneda D.O.; Physician,Non-Staff Homar [address] [address] Patient Name: AMOS ALBERT MRN: [facility]:[id number] date: 2000 Sex: F Assigned Patient Location: [facility] Current Patient Location: [facility] Accession/Order Number: [id number] Exam Date: 07/07/2023 14:03 Report Date: 07/07/2023 15:18 At the request of: VICTORINO CASTANEDA Procedure: US OB growth EXAMINATION: US OB growth HISTORY: LGA COMPARISON: 06/23/2023 FINDINGS: Heart Rate: 170.0 bpm Amniotic Fluid Volume: 10.8 cm Number: 1.0 Position: Cephalic presentation, longitudinal lie Maximum Vertical Pocket: 4.6 cm cm 0.0 cm cm 2.5 cm cm 3.7 cm cm BIOMETRY: BPD: 9.5 cm cm; 38 weeks 4 days; >97% HC: 34.3 cmcm; 39 weeks 4 days , 92% AC: 32.1 cm cm; 36 weeks 0 days, 54% FL: 7.3 cm cm; 37 weeks 2 days; 71.8 % % EFW: 3093.7 grams, 6 lbs. 13 oz., 73% FL/AC: 22.7 FL/BPD: 77.0 HC/AC: 1.1 GESTATIONAL AGE: Age by EDC: 36 weeks 2 days GILLES by EDC: 08/02/2023 Age by US: 37 weeks 4 days GILLES by US: 07/24/2023 US/US OB growth IMPRESSION: BPD greater than the 97th percentile Estimated weight 73rd percentile Electronically authenticated by: KAMERON ROUSE Date: 07/07/2023 15:18 Dictated By: Kameron Rouse M.D. Signed By: 07/07/23 1521 DD/ 1518 TD/TT: Recycling Crew Supervisor: Procedure Note Radiology, Radiologist, MD - 07/07/2023 [place] [address] Ultrasound Report Signed Patient: AMOS ALBERT GMR#: [id number] : 2000Acct:[id number] Age/Sex: 22 / FADM Date: 07/07/23 Loc: [facility] Attending Dr: Victorino Castaneda D.O. Ordering Physician: Victorino Castaneda D.O. Date of Service: 07/07/23 Procedure(s): US OB growth Accession Number(s): [id number] cc: Victorino Castaneda D.O.; Physician,Non-Staff [place] [id number] Patient Name: AMOS ALBERT MRN: [id number] date: 2000 Sex: F Assigned Patient Location: [facility] Current Patient Location: [facility] Accession/Order Number: [id number] Exam Date: 07/07/2023 14:03 Report Date: 07/07/2023 15:18 At the request of: VICTORINO CASTANEDA Procedure: US OB growth EXAMINATION: US OB growth HISTORY: LGA COMPARISON: 06/23/2023 FINDINGS: Heart Rate: 170.0 bpm Amniotic Fluid Volume: 10.8 cm Number: 1.0 Position: Cephalic presentation, longitudinal lie Maximum Vertical Pocket: 4.6 cm cm 0.0 cm cm 2.5 cm cm 3.7 cm cm BIOMETRY: BPD: 9.5 cm cm; 38 weeks 4 days; >97% HC: 34.3 cmcm; 39 weeks 4 days , 92% AC: 32.1 cm cm; 36 weeks 0 days, 54% FL: 7.3 cm cm; 37 weeks 2 days; 71.8 % % EFW: 3093.7 grams, 6 lbs. 13 oz., 73% FL/AC: 22.7 FL/BPD: 77.0 HC/AC: 1.1 GESTATIONAL AGE: Age by EDC: 36 weeks 2 days GILLES by EDC: 08/02/2023 Age by US: 37 weeks 4 days GILLES by US: 07/24/2023 US/US OB growth IMPRESSION: BPD greater than the 97th percentile Estimated weight 73rd percentile Electronically authenticated by: KAMERON ROUSE Date: 07/07/2023 15:18 Dictated By: Kameron Rouse M.D. Signed By:07/07/23 1521 DD/ 1518 TD/TT: Recycling Crew Supervisor: us Victorino Castaneda DO [facility] Final Result documented in this encounter Visit Diagnoses Not on filedocumented in this encounter Additional Health Concerns Active Problems Noted Date Diagnosed Date OB Reminders 03/01/2023 documented as of this encounter Care Teams Maintenance Shop Technician Relationship Specialty Start Date End Date Mery Mitchell MD [address] [place] [address] PCP - General Family Medicine 07/22/23 Mery Mitchell MD [address] [place] [address] PCP - Medical [place] [employer] 09/11/22 04/13/99 Victorino Castaneda DO [address] [place] [address] [place] [address] PCP - [facility] 10/13/23 documented as of this encounter
--- OUTSIDE RECORDS SUMMARY | 2024-11-25 23:18 | XMS_ITS | Clinical Summary ---
Author Organization [facility] Address [address] [place] [address] Care Team Providers Care Internet Researcher Name Role Phone Shannon Charles TONA-LAST WAXER Primary Care Provider + Allergies Active Allergy Reactions Criticality Noted Date Comments Cephalexin Hives,Itching 07/15/2023 Medications Levonorgestrel 20 MCG/DAY 1 Intra Uterine Device by Intrauterine route once. Active Olopatadine 0.2 % Solution ophthalmic solutionIndicat ions:Allergic rhinitis, unspecified seasonality, unspecified trigger Place 1 drop in both eyes daily. 2.5 mL 5 Active neomycin-polymy herbert-hydrocortis one [id number] SuspensionIndic ations:Otitis externa of left ear, unspecified chronicity, unspecified type Apply 4 drops to both ears 3x a day for 7 days 10 mL 5 Active SUMAtriptan 50 MG tabletIndicatio ns:History of migraine Take 0.5 tablets by mouth daily as needed for Migraine. May repeat in 2 hr, MAX 200MG/24HR 30 tablet 5 Active Additional Information Patient not taking.Reported on 11/23/2024 spironolactone 50 MG tabletIndicatio ns:History of PCOS Take 1 tablet by mouth daily. 30 tablet 5 Active metFORMIN-XR 500 MG Tab SR 24 HRIndications:H istory of PCOS Take 1 tablet by mouth daily. 30 tablet 5 Active nystatin 108143 UNIT/GM CreamIndication s:Candidal intertrigo Apply to rash BID for 2 weeks 30 g 5 Active Fluconazole (Diflucan) 200 MG tabletIndicatio ns:Tinea cruris Take 1 tablet by mouth once a week for 4 doses. 4 tablet 5 12/17/19 25 Active Active Problems Problem Noted Date Diagnosed Date Encounter to establish care 10/01/2024 Assessment & Plan (10/01/2024 3:14 PM EDT): Ordered CBC/CMP, TSH, A1C, lipid panel. Ordered Tdap vaccine. History of PCOS 10/01/2024 Assessment & Plan (10/01/2024 2:51 PM EDT): History of PCOS for the last 5+ years. Has been experiencing hair to chin. Has difficulty losing weight despite healthy diet/exercise. Ordered spironolactone 50mg daily and metformin 500mg daily to evaluate for improvement in symptoms. Educated regarding use and possible side effects. Obesity: body mass index of 35.0-39.9 10/01/2024 Assessment & Plan (10/01/2024 3:43 PM EDT): Recommend healthy diet/exercise. Bilateral foot pain 10/01/2024 Assessment & Plan (10/01/2024 3:00 PM EDT): Reports history of left heel fracture 04/06/2024 after she went to go step up side of porch and hit concrete, twisted her left ankle and fractured left heel. Wore aircast boot for 6 weeks. Has occasional achy pain to left heel. Has tingling pain to lateral regions of bilateral feet for 5+ years, occurring 3 times a week. Reports she previously twisted in right ankle in 2020 when stepping off steps from trailer and rolled ankle of right foot that was treated with aircast boot for 6 weeks. Ordered bilateral foot X-ray to further evaluate for acute process. Anxiety and depression 10/01/2024 Assessment & Plan (10/01/2024 3:32 PM EDT): PHQ-9: 16. JOSE-7: 20. Explains she feels down at times since loss of her daughter. Worries constantly. Discussed treatment with as needed antianxiety medication/antidepressant- declines at this time. Plans to do more self care to see if anxiety/depression improves. Has been experiencing left sided chest pain over the last 6 months, occurring with anxiety and associated shortness of breath. Discussed counseling/CBT- did not help her in the past and declines at this time. Allergic rhinitis 10/01/2024 Assessment & Plan (10/01/2024 3:16 PM EDT): Has watery eyes off/on and has allergies. Ordered pataday eye drops. Otitis media, right 10/01/2024 Assessment & Plan (10/01/2024 3:25 PM EDT): Cloudy drainage noted behind left TM with erythema noted to left ear canal. Erythematous TM with clear drainage noted behind right TM. Erythema noted to right ear canal. Will treat with doxycycline and neomycin/polymyxin/hydrocortisone ear drops. Left otitis externa 10/01/2024 Assessment & Plan (10/01/2024 3:25 PM EDT): Cloudy drainage noted behind left TM with erythema noted to left ear canal. Erythematous TM with clear drainage noted behind right TM. Erythema noted to right ear canal. Will treat with neomycin/polymyxin/hydrocortisone ear drops. Heart murmur 10/01/2024 Assessment & Plan (10/01/2024 3:34 PM EDT): Grade II/ systolic heart murmur. Has shortness of breath with activity. Has been experiencing left sided chest pain over the last 6 months, occurring with anxiety and associated shortness of breath. Ordered EKG. Ordered ECHO to evaluate for valvular disease. Chest pain 10/01/2024 Assessment & Plan (10/01/2024 3:34 PM EDT): Has been experiencing left sided chest pain over the last 6 months, occurring with anxiety and associated shortness of breath. Describes pain in left side of chest as sharp/stabbing rated 2/10, lasts 2 minutes. Last occurred 2 months ago. Ordered EKG. Heart palpitations 10/01/2024 Assessment & Plan (10/01/2024 3:35 PM EDT): Has been experiencing left sided chest pain over the last 6 months, occurring with anxiety and associated shortness of breath. Describes pain in left side of chest as sharp/stabbing rated 2/10, lasts 2 minutes. Last occurred 2 months ago, has feeling like heart is racing with chest pain. Ordered EKG and holter monitor. History of migraine 10/01/2024 Assessment & Plan (10/01/2024 3:40 PM EDT): She explains over the last month, she will have pain in occipital region of her head when laughing. Describes pain as pressure rated 5-6/10. Has history of migraines over the last 2-3 months. Has headache in frontal region of her head described as pulsating/sharp rated 5/10. Has nausea at times with migraine headache. Ordered CBC/CMP, TSH. Ordered sumatriptan as needed for migraines. Discussed MRI brain- declines at this time. Encounters Date Type Department Care Team Description 11/23/2024 3:15 PM EDT Office Visit [facility] [address] [place] [address] Smita Daniel APRN-CNP Candidal intertrigo (Primary Dx) 11/08/2024 12:54 PM EDT - 11/08/2024 11:59 PM EDT Hospital Encounter [facility] Diagnostic Radiology [address] [place] [phone] Shannon Charles APRN-CNP Discharge Disposition: Home or Self Care 11/08/2024 12:42 PM EDT - 11/08/2024 12:53 PM EDT Hospital Encounter [facility] Diagnostic Radiology [address] [place] [phone] Pierre Frye MD Steinmetz, Beth, APRN-CNP Discharge Disposition: Home or Self Care 11/08/2024 12:40 PM EDT - 11/08/2024 12:41 PM EDT Hospital Encounter [facility] Business Banking Manager [address] [place] [phone] Shannon Charles APRN-CNP Discharge Disposition: Home or Self Care 11/08/2024 Results Follow-Up [address] [phone] Shannon Charles APRN-CNP LIPID PANEL W CALCULATED LDL, HEMOGLOBIN A1C, TSH W/FT4 REFLEX, Additional followed-up results: 4 11/08/[address] [phone] Niecy Sosa Advice Only 10/25/[address] [phone] Gretel Graham LPN History of PCOS 10/01/2024 2:10 PM EDT Office Visit [address] [phone] Shannon Charles APRN-CNP Encounter to establish care (Primary Dx); History of PCOS; Bilateral foot pain; Anxiety and depression; Allergic rhinitis, unspecified seasonality, unspecified trigger; Right otitis media, unspecified otitis media type; Otitis externa of left ear, unspecified chronicity, unspecified type; Heart murmur; Chest pain, unspecified type; Heart palpitations; History of migraine; Obesity: body mass index of 35.0-39.9 09/15/[address] [phone] Shannon Charles APRN-CNP Erroneous encounter-disregard from Last 3 Months Family History Medical History Relation Name Comments Asthma Brother Cancer- Other Maternal Grandmother Bone Alcoholism Mother Depression Mother Relation Name Status Comments Brother Maternal Grandmother Mother Social History Tobacco Use Types Packs/Day Years Used Date Smoking Tobacco: Never Smokeless Tobacco: Never Tobacco Cessation:Counseling Given: Not Answered Alcohol Use Standard Drinks/Week Comments Yes 0 [...] Mass Index 37.97 11/23/2024 3:21 PM EDT Plan of Treatment Upcoming Encounters Date Type Department Care Team (Late st Contact Info) Description 12/16/2024 3:30 PM EDT Office Visit [facility] Family Medicine [address] [place] [phone] Araceli Shannon, [employer]ACTS CONSERVATOR-LAST WAXER [address] [place] [phone] Health Maintenance Due Date Last Done Comments CERVICAL CANCER SCREENING DISCUSSION 2021 TETANUS 12/01/2022 12/01/2012 INFLUENZA VACCINE (#1) 2024 , 02/04/2020, 02/05/2019, Additional history exists CHLAMYDIA SCREEN 10/01/2025 10/01/2024 (Declined) GONORRHEA SCREEN 10/01/2025 10/01/2024 (Declined) POTASSIUM 11/08/2025 11/08/2024 PNEUMOCOCCAL VACCINE SERIES Aged Out 04/29/2001, 01/20/2001 No longer eligibl e based on patient's age to complete this topic HEP B VACCINE Completed 08/26/2005, 12/13, 01/20/2001 TDAP (ADULT) Completed 12/01/2012 HPV VACCINE ADOL Completed 02/28/2014, 07/2013, 12/01/2012 HPV VACCINE Completed 02/28/2014, 07/2013, 12/01/2012 COVID-19 VACCINE Completed 06/09/2024, 08/20/2022 HEPATITIS C VIRUS SCREENING Completed 06/14/2024 HIV SCREENING DISCUSSION Addressed 10/01/2024 (Decl ined) Overridden with the intention of not completing the topic Procedures Procedure Name Priority Date/Time Associated Diagnosis Comments XR FOOT LEFT 3+ VIEWS Routine 11/08/2024 1:12 PM EDT Bilateral foot pain XR FOOT RIGHT 3+ VIEWS Routine 1:12 PM EDT Bilateral foot pain HC CBC EDIFF & PLATELET Today 11/08/2024 12:53 PM EDT Encounter to establish care COMPREHENSIVE METABOLIC PANEL Today 11/08/2024 12:53 PM EDT Encounter to establish care TSH W/FT4 REFLEX Today 11/08/2024 12:5 3 PM EDT Encounter to establish care HEMOGLOBIN A1C Today 11/08/2024 12:53 PM EDT Encounter to establish care LIPID PANEL W CALCULATED LDL Today 11/08/2024 12:53 PM EDT Encounter to establish care HEPATITIS C ANTIBODY Today 06/14/2024 11:10 AM EST Pre-employment examination from Last 3 Months or Most Recently Relevant to Health Maintenance Results * XR FOOT LEFT 3+ VIEWS (11/08/2024 1:12 PM EDT) Anatomical Region Laterality Modality foot, MSK Left Digital Radiogra phy 11/08/2024 12:5 9 PM EDT Impressions 11/09/2024 9:39 AM EDT IMPRESSION: Left foot radiographs show no evidence of abnormalities. Narrative 11/09/2024 9:39 AM EDT PROCEDURE: XR FOOT LEFT 3+ VIEWS DATE: 11/08/2024 11:59 AM CDT COMPARISONS: None CLINICAL INDICATION: bilateral foot pain FINDINGS: There is no evidence of fractures or other osseous abnormalities. Procedure Note Lopez Ferrara MD - 11/09/2024 PROCEDURE: XR FOOT LEFT 3+ VIEWS DATE: 11/08/2024 11:59 AM CDT COMPARISONS: None CLINICAL INDICATION: bilateral foot pain FINDINGS: There is no evidence of fractures or other osseous abnormalities. IMPRESSION IMPRESSION: Left foot radiographs show no evidence of abnormalities. us Shannon Charles [employer]S CONSERVATOR-LAST WAXER DIAGNOSTIC IMAGING ORDER MERRITT Final Result * XR FOOT RIGHT 3+ VIEWS (11/08/2024 1:12 PM EDT) Anatomical Region Laterality Modality foot, MSK Right Digital Radiogra phy 11/08/2024 12:5 9 PM EDT Impressions 11/09/2024 9:38 AM EDT IMPRESSION: Right foot radiographs show no evidence of abnormalities. Narrative 11/09/2024 9:38 AM EDT PROCEDURE: XR FOOT RIGHT 3+ VIEWS DATE: 11/08/2024 11:59 AM CDT COMPARISONS: None CLINICAL INDICATION: foot pain/injury FINDINGS: There is no evidence of fractures or other osseous abnormalities. Procedure Note Lopez Ferrara MD - 11/09/2024 PROCEDURE: XR FOOT RIGHT 3+ VIEWS DATE: 11/08/2024 11:59 AM CDT COMPARISONS: None CLINICAL INDICATION: foot pain/injury FINDINGS: There is no evidence of fractures or other osseous abnormalities. IMPRESSION IMPRESSION: Right foot radiographs show no evidence of abnormalities. [facility]AGING ORDER MERRITT Final Result * TSH W/FT4 REFLEX (11/08/2024 12:53 PM EDT) TSH, Reflex FT4 1.100 0.465 - 4.680 uIU/ML [address] Blood 11/08/2024 12:5 3 PM EDT 11/08/2024 12:54 PM EDT Shannon [facility] Final Re sult Performing Organization Address [facility]/State/ZIP Co de Phone Number [address] [address] * CBC, EDIF, PLATELET (11/08/2024 12:53 PM EDT) WBC (WHITE BLOOD COUNT) 6.8 3.6 - 11.0 10*3/uL [address] RBC 4.94 4.0 - 5.4 10*6/uL [address] HEMOGLOBIN (HGB) 14.4 12.0 - 16.0 G/DL [address] HEMATOCRIT (HCT) 42.3 36.0 - 48.0 % [address] Mean Cell Volume 85.6 80.0 - 100.[address] Mean Cell HGB 29.2 26.0 - 35.[address] Mean Cell HGB Concentration 34.1 27.0 - 37.0 G/DL [address] RBC Distribution 13.3 11.5 - 14.5 % [address] PLATELET COUNT 284 130 - 400 10*3/uL [address] Mean Platelet Volume 8.5 7.4 - 11.[address] DIFFERENTIAL TYPE AUTO DIFF % ON [address] NEUTROPHILS 65.5 37.0 - 75.0 % [address] LYMPHOCYTE 24.0 20.0 - 55.0 % [address] MONOCYTE % 7.8 0.0 - 10.0 % [address] EOSINOPHIL % 1.9 0.0 - 11.0 % [address] BASOPHIL % 0.8 0.0 - 2.0 % [address] Absolute Neutrophil Count 4.4 1.4 - 6.5 10*3/uL [address] LYMPHOCYTES, ABSOLUTE 1.6 1.2 - 3.4 10*3/uL [address] MONOCYTES, ABSOLUTE 0.5 0.0 - 0.7 10*3/uL [address] ABSOLUTE EOSINOPHIL COUNT 0.1 0.0 - 0.7 10*3/uL [address] ABSOLUTE BASOPHIL COUNT 0.1 0.0 - 0.2 10*3/uL [address] Blood 11/08/2024 12:5 3 PM EDT 11/08/2024 12:54 PM EDT us Shannon Charles [employer]S CONSERVATOR-LAST WAXER HEMATOLOGY ORDERABLES Fi nal Result Performing Organization Address City/[facility]/ZIP Co de Phone Number [address] [address] * HEMOGLOBIN A1C (11/08/2024 12:53 PM EDT) HEMOGLOBIN A1C 5.0 0 - 6 % [address] Comment: NORMAL <5.7% PREDIABETES 5.7-6.4% DIABETES 6.5% OR HIGHER Estimated Average Glucose 97 mg/dL [address] Blood 11/08/2024 12:5 3 PM EDT 11/08/2024 12:54 PM EDT Shannon Mgmetz [employer]ACTS CONSERVATOR-LAST WAXER HEMATOLOGY ORDERABLES Fi nal Result Performing Organization Address [facility] Co de Phone Number [address] [address] * (ABNORMAL) LIPID PANEL W CALCULATED LDL (11/08/2024 12:53 PM EDT) CHOLESTEROL 181 107 - 217 MG/DL [address] TRIGLYCERIDE 102 0 - 150 MG/DL [address] HDL CHOLESTEROL 51 33 - 75 MG/DL [address] LDL CHOLESTEROL, CALCULATED 110(H) <100 MG/DL [address] Comment:Friedwald formula VLDL Cholesterol, Calculated 20 5 - 25 MG/DL [address] TCHOL/HDL RATIO, MANUAL ENTER 3.[address] Comment: RISK TOTAL/HDL RATIO MEN WOMEN 1/2 AVERAGE 3.43 3.27 AVERAGE 4.97 4.44 2X AVERAGE 9.55 7.05 3X AVERAGE 23.99 11.04 Blood 11/08/2024 12:5 3 PM EDT 11/08/2024 12:54 PM EDT us Shannon Charles [employer]S CONSERVATOR-LAST WAXER CHEMISTRY ORDERABLES Fin al Result [address] [address] * (ABNORMAL) COMPREHENSIVE METABOLIC PANEL (11/08/2024 12:53 PM EDT) Glucose 109(H) 70 - 100 MG/DL [address] Comment: NORMAL <100 mg/dL PREDIABETES 101-126 mg/dL DIABETES 126 mg/dL or higher BUN 17 7 - 20 mg/dL [address] CREATININE SERUM 0.86 0.70 - 1.20 mg/dL [address] SODIUM 137 137 - 145 MMOL/L [address] Potassium 3.7 3.5 - 5.1 MMOL/L [address] CHLORIDE 102 98 - 107 MMOL/L [address] Comment:Please note: Triglyc eride levels of 600mg/dL or higher may positively bias chloride results by approximately 2.1 mmol CALCIUM 9.2 8.4 - 10.2 mg/dL [address] PROTEIN, TOTAL 7.6 6.3 - 8.2 g/dL [address] Albumin 4.6 3.5 - 5.0 g/dL [address] BILIRUBIN, TOTAL 0.6 0.2 - 1.3 mg/dL [address] AST 29 14 - 36 U/L [address] ALKALINE PHOSPHATASE 85 38 - 126 U/L [address] CARBON DIOXIDE (CO2) 26 22 - 30 MMOL/L [address] A/G Ratio 1.[address] ALT 28 <35 U/L [address] ESTIMATED GFR 86 ml/min/1. 73sq.m [address] GFR COMMENT Average GFR for 18-29 years old = 116. [address] Comment: Chronic Kidney disease, GFR = <60. Kidney failure, GFR = <15. The GFR estimate is not adjusted for extreme body surface area or acute process, nor has it been validated for women or ethnic groups other than and . MDRD Equation Blood 11/08/2024 12:5 3 PM EDT 11/08/2024 12:54 PM EDT Shannon Charles [employer]ACTS CONSERVATOR-LAST WAXER CHEMISTRY ORDERABLES Fin al Result Performing Organization Address [facility]/ZIP Co de Phone Number [address] [place] [address] * HEPATITIS C ANTIBODY (06/14/2024 11:10 AM EST) HEP C AB, Donor NEGATIVE NEGATIVE [facility] - [address] - [place] Blood 06/14/2024 11:1 0 AM EST 06/14/2024 1:41 PM EST Kandi Robles [employer]S CONSERVATOR-LAST WAXER IMMUNOLOGY ORDERABLES Fin al Result Performing Organization Address City/[facility]/ZIP Co de Phone Number [facility] - [address] - [facility] [address] [place] [address] from Last 3 Months or Most Recently Relevant to Health Maintenance Insurance [facility] Care Teams Internet Researcher Relationship Specialty Start Date End Date Shannon Charles APRN-DEBBIE PCP - General Nurse Practitioner - Adult Health 09/16/24
--- OUTSIDE RECORDS SUMMARY | 2024-11-25 23:18 | XMS_ITS | Patient Health Record ---
Author Organization [facility] in [place] Address [address] [place] [address] Care Team Providers Care Child And Adolescent Therapist Name Role Phone Dorina Hoffman Unavailable [phone] Reason For Referral No Information Problems Problem Type SNOMED Code ICD Code Onset Dates Problem Status W/U Status Risk Notes Problem Left ankle pain (M25.572) Active confirmed Encounters Encounter Location Date Provider Diagnosis [facility] (PODIATRY) [address] [place] [address] [place] [address] 04/15/2024 Dorina Buffalo Left ankle pain M25.572 Assessments Encounter Date Diagnosis (ICD Code) Assessment Notes Treatment Notes Treatment Clinical Notes Section Notes 04/15/2024 Left ankle pain (ICD-10 - M25.572) Plan Of Treatment Pending Test Test Name Order Date XR Ankle LT (3 views) * (164) 04/15/2024
--- OUTSIDE RECORDS SUMMARY | 2024-11-25 23:18 | XMS_ITS | CCD ---
Author Organization [facility] CliniSynv Care Team Providers Care Roto Gravure Press Operator Name Role Phone CIPRIANO MOLINA Primary Care Physician Unavailable Primary Care Provider Unavailabl e SHELBY VILLATORO Referring Unavailable Unavailable Primary Care Provider Unavailabl e Pcp, No Primary Care Provider [phone] PCP, NO Primary Care Unavailable MANDOMO JAYUGU Attending Unavailabl e MANICKAM KANDAMURUGU Referring Unavailabl e PCP, NO Primary Care Unavailable Mamta Santos Attending Unavailable Mamta Santos Referring Unavailable Mery Mitchell Primary Care Physician Mery Mitchell MD Primary Care Provider Mery Mitchell MD Unavailable [phone] Leonel DO, Jose Unavailable Duglas Stallings Attending Unavailab Duglas Pantoja Admitting Unavailab Jess Owens Primary Care Unavailable Shannon Lai Attending Unavailable Shannon Lai Attending Unavailable Shannon Lai Attending Unavailable Wagner DELGAOD Attending Unavailable Dipak Boyd Attending Unavailable BHUMIKA MORENO Attending Unavailabl e Unavailable Primary Care Provider Unavailabl e LEONEL, JOSE Referring Unavailable LEONEL, JOSE Attending Unavailable STACIA MENCHACA Attending Unavailable LEONEL, JOSE Attending Unavailable LEONEL, JOSE Attending Unavailable LEONEL, JOSE Attending Unavailable MERY MITCHELL Attending Unavailable LEONEL, JOSE Attending Unavailable LEONEL, JOSE Attending Unavailable LEONEL, JOSE Attending Unavailable LEONEL, JOSE Attending Unavailable MERY MITCHELL Attending Unavailable JODI LEE Referring Unavailable JODI LEE Attending Unavailable Unavailable Primary Care Provider Unavailabl e LEONEL, JOSE R Referring Unavailable BARBER BERTO Attending Unavailable JOSE CASTANEDA Referring Unavailable Antonella VERIFIER OPERATOR-[facility], [facility] Primary Care Provider [facility] Primary Care Provider [facility] Primary Care Unavailable SELF, SELF Referring Unavailable LADY DANIEL Attending Unavailable ANTONELLA, [facility] Primary Care Unavailable ANTONELLA, [facility] Attending Unavailable ANTONELLA, [facility] Referring Unavailable ANTONELLA, [facility] Primary Care Unavailable SELF, SELF Referring Unavailable ANTONELLA, SHANNON Attending Unavailable ANTONELLA, [facility] Primary Care Unavailable ANTONELLA, SHANNON Attending Unavailable ANTONELLA, [facility] Referring Unavailable ANTONELLA, [facility] Primary Care Unavailable ANTONELLA, [facility] Attending Unavailable ANTONELLA, [facility] Referring Unavailable ANTONELLA, [facility] Primary Care Unavailable ANTONELLA, SHANNON Attending Unavailable ANTONELLA, SHANNON Referring Unavailable Allergies Allergy Classification Reported Allergen(s) Allergy Type Date of Onset Reaction(s) Facility (18 sources) Cephalexin; Translations: [cephalexin] Drug Allergy 4 Weal (disorder), Itching, Hives [facility] Medications Current Medications Medication Drug Class(es) Dates Sig (Normalized) Sig (Original) amoxicillin 875 mg oral tablet (2 sources) Penicillin-class Antibacterial Start: 09-04-2023 End: 09-11-2023 take 1 tablet by mouth twice daily amoxicillin 875 mg Tab 875 mg = 1 tab(s), Oral, BID, X 7 day(s), # 14 tab(s), Refills(s) 0, Pharmacy: [facility]/pharmacy #[id number], 183, cm, 09/04/23 15:39:00 EDT, [...] day(s), # 20 tab(s), Refills(s) 0, Pharmacy: [facility]/pharmacy #[id number], 183, cm, 12/26/23 10:18:00 EDT, Height/Length Dosing, 102, kg, 12/26/23 10:18:00 EDT, Weight Dosing Start Date: 12/26/23 Stop Date: 01/05/24 Status: Ordered doxycycline monohydrate 100 mg oral tablet (1 source) Tetracycline-class Drug Start: 10-01-2024 End: 10-08-2024 take 1 tablet by mouth every twelve hours doxycycline monohydrate 100 MG tablet Indications: Otitis externa of left ear, unspecified chronicity, unspecified type Take 1 tablet by mouth every 12 hours for 7 days. 14 tablet 10/01/2024 10/08/2024 Active Ethinyl Estradiol / Ferrous fumarate / Norethindrone (4 sources) Estrogen norethindrone-e. es tradioL-iron (ESTROSTEP FE) 1-20(5)/1-30(7) /1mg-35mcg (9) tablet Take 1 tablet by mouth in the morning. Active hydrocortisone 10 mg/ml / neomycin 3.5 mg/ml / polymyxin b 10472 unt/ml otic suspension (5 sources) Aminoglycoside Antibacterial, Polymyxin-class Antibacterial, Corticosteroid Start: 10-01-2024 neomycin-polymyxin -hydrocortisone 3.5-68818-0 Suspension Indications: Otitis externa of left ear, unspecified chronicity, unspecified type Apply 4 drops to both ears 3x a day for 7 days 10 mL 10/01/2024 Active ibuprofen 800 mg oral tablet (11 sources) Nonsteroidal Anti-inflammatory Drug Start: 07-22-2023 take 1 tablet by mouth every eight hours ibuprofen 800 MG tablet Take 800 mg by mouth every 8 (eight) hours 07/22/2023 Active Start: 12-07-2020 take 1 tablet by shireen th every six hours ibuprofen 600 mg Tab 600 mg = 1 tab(s), Oral, q6hr, # 40 tab(s), Refills(s) 0, Pharmacy: [facility]/pharmacy #[id number], 178, cm, 12/07/20 10:05:00 EDT, Height/Length Dosing, 109, kg, 12/07/20 10:05:00 EDT, Weight Dosing Start Date: 12/07/20 Status: Ordered levonorgestrel 0.705172 mg/hr intrauterine system (14 sources) Progestin, Progestin-containing Intrauterine Device Start: 09-15-2023 Levonorgestrel intrauterine device Levonorgestrel 2 0 MCG/DAY 1 Intra Uterine Device by Intrauterine route once. Active levonorgestreL ( MIRENA) 21 mcg/24hr (up to 8 yrs) 52 mg IUD 1 each by intrauterine route once. Active 24 hr metFORMIN hydrochloride 500 mg extended release oral tablet (5 sources) Biguanide Start: 10-01-2024 End: 10-31-2024 take 1 tablet by mouth once daily metFORMIN-XR 500 MG Tab SR 24 HR Indications: History of PCOS Take 1 tablet by mouth daily. 30 tablet 10/25/2024 Active metoclopramide 10 mg oral tablet (2 sources) [...] bedtime. 90 tablet 0 05/29/2023 06/28/2023 Active nystatin 372227 unt/ml topical cream (1 source) Polyene Antifungal Start: 11-23-2024 nystatin 163179 UNIT/GM Cream Indications: Candidal intertrigo Apply to rash BID for 2 weeks 30 g 11/23/2024 Active ofloxacin 3 mg/ml otic solution (1 source) Quinolone Antimicrobial Start: 09-07-2022 End: 09-14-2022 ofloxacin Otic 0.3% Merline 5 drop(s), Otic, BID for 7 day(s), 10 mL, Refill(s) 0, [facility]/pharmacy #[id number], 183, cm, 09/07/22 11:38:00 EDT, Height/Length Dosing, 113.2, kg, 09/07/22 11:38:00 EDT, Weight Dosing Start Date: 09/07/22 Stop Date: 09/14/22 Status: Ordered olopatadine 2 mg/ml ophthalmic solution (5 sources) Histamine-1 Receptor Inhibitor Start: 10-01-2024 take 1 drop(s) into the eye(s) once daily Olopatadine 0.2 % Solution ophthalmic solution Indications: Allergic rhinitis, unspecified seasonality, unspecified trigger Place 1 drop in both eyes daily. 2.5 mL 10/01/2024 Active omeprazole 20 mg delayed release oral capsule (7 sources) Proton Pump Inhibitor Start: 05-29-2023 End: 05-28-2024 take 1 capsule by mouth before mealtime omeprazole (PriLOSEC) [address] capsule Indications: Heartburn during in third trimester Take 1 capsule (20 mg) by mouth in the morning. Take before meals. Do not crush or chew.. 30 capsule 3 05/29/2023 05/28/2024 Active polymyxin b 75925 unt/ml / trimethoprim 1 mg/ml ophthalmic solution (2 sources) Dihydrofolate Reductase Inhibitor Antibacterial, Polymyxin-class Antibacterial Start: 12-26-2023 End: 01-02-2024 Polytrim 10 mL Soln-Opth 1 drop(s), OPTH, q6hr for 7 day(s), 10 mL, Refill(s) 0, [facility]/pharmacy #[id number], 183, cm, 12/26/23 10:18:00 EDT, Height/Length [...] Date: 09/04/23 Stop Date: 09/11/23 Status: Ordered spironolactone 50 mg oral tablet (5 sources) Aldosterone Antagonist Start: 10-25-2024 take 1 tablet by mouth once daily spironolactone 50 MG tablet Indications: History of PCOS Take 1 tablet by mouth daily. 30 tablet 10/25/2024 Active Start: 10-01-2024 take 1 tablet by shireen th once daily spironolactone 50 MG tablet Indications: History of PCOS Take 1 tablet by mouth daily. 30 tablet 10/01/2024 Active SUMAtriptan 50 mg oral tablet (5 sources) Serotonin-1b and Serotonin-1d Receptor Agonist Start: 10-01-2024 take 0.5 tablet by mouth once daily as needed SUMAtriptan 50 MG tablet Indications: History of migraine Take 0.5 tablets by mouth daily as needed for Migraine. May repeat in 2 hr, MAX 200MG/24HR 30 tablet 10/01/2024 Active Completed/Discontinued Medications Medication Drug Class(es) Dates Sig [...] Active Problems Problem Classification Problem Date Documented Date Episodic/Chronic Adjustment disorders (6 sources) Adjustment disorder with mixed disturbance of emotions AND conduct; Translations: [Adjustment disorder with mixed disturbance of emotions and conduct] Onset: 04-25-2023 Chronic Administrative/social admission (10 sources) Encounter for pre-employment examination; Translations: [First encounter by subject] Onset: 06-14-2024 Episodic Anxiety disorders (8 sources) Mixed anxiety and depressive disorder; Translations: [Anxiety disorder, unspecified] Onset: 10-01-2024 10-01-2024 Chronic Cardiac dysrhythmias (11 sources) Palpitations; Translations: [Palpitations] Onset: 10-01-2024 10-01-2024 Episodic Contraceptive and procreative management (1 source) Encounter for other general counseling and advice on procreation; Translations: [Encounter for other general counseling and advice on procreation] Onset: 05-31-2024 Episodic Heart valve disorders (9 sources) Heart murmur; Translations: [Cardiac murmur, unspecified] Onset: 10-01-2024 10-01-2024 Episodic Inflammation; infection of eye (except that caused by tuberculosis or sexually transmitteddisease) (1 source) Conjunctivitis; Translations: [Unspecified conjunctivitis] Onset: 12-26-2023 Episodic Menstrual disorders (18 sources) Dysmenorrhea; Translations: [Irregular periods] 10-28-2019 Chronic Mood disorders (7 sources) Mood disorders; Translations: [Depression, unspecified] Onset: 10-01-2024 10-01-2024 Mycoses (3 sources) Candidal intertrigo; Translations: [Candidiasis of skin and nail] Onset: 11-23-2024 11-23-2024 Episodic Nausea and vomiting (2 sources) Nausea; Translations: [Nausea] 05-29-2023 Episodic Nonspecific chest pain (9 sources) Chest pain; Translations: [Chest pain, unspecified] Onset: 10-01-2024 10-01-2024 Episodic Other complications of (2 sources) Heartburn; Translations: [Other specified related conditions, third trimester] 05-29-2023 Episodic Other complications of (2 sources) Excessive growth affecting management of mother; Translations: [Maternal care for excessive growth, unspecified trimester, not applicable or unspecified] 05-29-2023 Episodic Other connective tissue disease (8 sources) Pain in both feet; Translations: [Pain in right foot] Onset: 10-01-2024 10-01-2024 Episodic Other connective tissue disease (2 sources) Pain in right foot; Translations: [Pain in right foot] Onset: 10-01-2024 Episodic Other connective tissue disease (2 sources) Pain in left foot; Translations: [Pain in left foot] Onset: 10-01-2024 Episodic Other ear and sense organ disorders (7 sources) Otitis externa of left ear; Translations: [Unspecified otitis externa, left ear] Onset: 09-07-2022 Chronic Other ear and sense organ disorders (1 source) Otitis externa of right ear; Translations: [Unspecified otitis externa, right ear] Onset: 09-04-2023 Chronic Other ear and sense organ disorders (2 sources) Unspecified otitis externa, left ear; Translations: [Unspecified otitis externa, left ear] Onset: 10-01-2024 Chronic Other female genital disorders (6 sources) History of gynecological disorder; Translations: [Personal history of other diseases of the female genital tract] Onset: 10-01-2024 10-01-2024 Episodic Other female genital disorders (2 sources) Personal history of other diseases of the female genital tract; Translations: [Personal history of other diseases of the female genital tract] Onset: 10-01-2024 Episodic Other nervous system disorders (6 sources) H/O: migraine; Translations: [Personal history of other diseases of the nervous system and sense organs] Onset: 10-01-2024 10-01-2024 Episodic Other nervous system disorders (2 sources) Personal history of other diseases of the nervous system and sense organs; Translations: [Personal history of other diseases of the nervous system and sense organs] Onset: 10-01-2024 Episodic Other nutritional; endocrine; and metabolic disorders (3 sources) Obese class I; Translations: [Body mass index (BMI) 33.0-33.9, adult] Onset: 09-07-2022 Chronic Other nutritional; endocrine; and metabolic disorders (2 sources) Body mass index 30+ - obesity; Translations: [Body mass index (BMI) 33.0-33.9, adult] 12-09-2023 Chronic Other nutritional; endocrine; and metabolic disorders (1 source) Renal carnitine transport defect; 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] 08-12-2024 Chronic Other nutritional; endocrine; and metabolic disorders (6 sources) Obese class II; Translations: [Obesity, Class II, BMI 35-39.9] Onset: 10-01-2024 10-01-2024 Chronic Other and delivery including normal (3 sources) Second trimester ; Translations: [Encounter for supervision of normal , unspecified, second trimester] 05-13-2023 Episodic Other upper respiratory disease (6 sources) Allergic rhinitis; Translations: [Allergic rhinitis, unspecified] Onset: 10-01-2024 10-01-2024 Chronic Other upper respiratory disease (2 sources) Allergic rhinitis, unspecified; Translations: [Allergic rhinitis, unspecified] Onset: 10-01-2024 Chronic Other upper respiratory infections (1 source) Chronic sinusitis; Translations: [Chronic sinusitis, unspecified] Onset: 12-26-2023 Chronic Otitis media and related conditions (11 sources) Otitis media; Translations: [Otitis media, unspecified, left ear] Onset: 09-07-2022 Episodic Residual codes; unclassified (3 sources) Patient encounter status; Translations: [Other specified health status] Onset: 09-07-2022 Episodic Residual codes; unclassified (1 source) FH: Congenital anomaly; Translations: [Family history of other congenital malformations, deformations and chromosomal abnormalities] 07-28-2023 Episodic Residual codes; unclassified (1 source) Family history of other congenital malformations, deformations and chromosomal abnormalities; Translations: [Family history of other congenital malformations, deformations and chromosomal abnormalities] Onset: 07-28-2023 Episodic Residual codes; unclassified (1 source) Family history of infectious disease; Translations: [Family history of other infectious and parasitic diseases] 05-31-2024 Episodic Residual codes; unclassified (1 source) 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; Translations: [Genetic carrier of other disease] 08-12-2024 Episodic Residual codes; unclassified (1 source) Family history of other specified conditions; Translations: [Family history of other condition] 08-12-2024 Episodic Residual codes; unclassified (1 source) Genetic carrier of other disease; Translations: [Genetic carrier of other disease] Onset: 08-12-2024 Episodic Unclassified (8 sources) OB Reminders Onset: 03-01-2023 03-01-2023 Unclassified (1 source) Bashir Sachs Carrier Onset: 08-12-2024 Unclassified (1 source) Obesity, class 2; Translations: [Obesity, class 2] Onset: 10-01-2024 Past or Other Problems Problem Classification Problem Date Documented Da te Episodic/Chronic Immunizations and screening for infectious disease (2 sources) Tuberculosis screening status; Translations: [Encounter for screening for respiratory tuberculosis] 12-09-2023 Episodic Unclassified (1 source) Obesity, class 2; Translations: [Obesity, class 2] Onset: 10-01-2024 Results Test Name Value Interpretation Reference Range Facility CBCon 11-08-2024 ABSOLUTE BAS 0.1 10*3/uL Normal 0.0-0.2 [facility] Comment on above: Performed By: #### A CBC, LIP2, CMPF #### Testing performed at [address] [address] ABSOLUTE EOS 0.1 10*3/uL Normal 0.0-0.7 [facility] Comment on above: Performed By: #### A CBC, LIP2, CMPF #### Testing performed at [address] [address] ABSOLUTE NEUTROPHIL COUNT 4.4 10*3/uL Normal 1.4-6.5 [facility] Comment on above: Performed By: #### A CBC, LIP2, CMPF #### Testing performed at [address] [address] Basophils/100 WBC (Bld) 0.8 % Normal 0.0-2.0 [facility] Comment on above: Performed By: #### A CBC, LIP2, CMPF #### Testing performed at [address] [address] DTYPE AUTO DIFF Normal [facility] Comment on above: Performed By: #### A CBC, LIP2, CMPF #### Testing performed at [address] [address] Eosinophils/100 WBC (Bld) 1.9 % Normal 0.0-11.0 [facility] Comment on above: Performed By: #### A CBC, LIP2, CMPF #### Testing performed at [address] [address] Lymphocytes (Bld) [#/Vol] 1.6 10*3/uL Normal 1.2-3.4 [facility] Comment on above: Performed By: #### A CBC, LIP2, CMPF #### Testing performed at [address] [address] Lymphocytes/100 WBC (Bld) 24.0 % Normal 20.0-55.0 [facility] Comment on above: Performed By: #### A CBC, LIP2, CMPF #### Testing performed at [address] [address] Monocytes (Bld) [#/Vol] 0.5 10*3/uL Normal 0.0-0.7 [facility] Comment on above: Performed By: #### A CBC, LIP2, CMPF #### Testing performed at [address] [address] Monocytes/100 WBC (Bld) 7.8 % Normal 0.0-10.0 [facility] Comment on above: Performed By: #### A CBC, LIP2, CMPF #### Testing performed at [address] [address] Neutrophils/100 WBC (Bld) 65.5 % Normal 37.0-75.0 [facility] Comment on above: Performed By: #### A CBC, LIP2, CMPF #### Testing performed at [address] [address] Erythrocyte distribution width (RBC) [Ratio] 13.3 % Normal 11.5-14.5 [facility] Comment on above: Performed By: #### A CBC, LIP2, CMPF #### Testing performed at [address] [address] Hematocrit (Bld) [Volume fraction] 42.3 % Normal 36.0-48.0 [facility] Comment on above: Performed By: #### A CBC, LIP2, CMPF #### Testing performed at [address] [address] Hemoglobin (Bld) [Mass/Vol] 14.4 g/dL Normal 12.0-16.0 [facility] Comment on above: Performed By: #### A CBC, LIP2, CMPF #### Testing performed at [address] [address] MCH (RBC) [Entitic mass] 29.2 pg Normal 26.0-35.0 [facility] Comment on above: Performed By: #### A CBC, LIP2, CMPF #### Testing performed at [address] [address] MCHC (RBC) [Mass/Vol] 34.1 g/dL Normal 27.0-37.0 [facility] Comment on above: Performed By: #### A CBC, LIP2, CMPF #### Testing performed at [address] [address] MCV (RBC) [Entitic vol] 85.6 fL Normal 80.0-100.0 [facility] Comment on above: Performed By: #### A CBC, LIP2, CMPF #### Testing performed at [address] [address] Platelet mean volume (Bld) [Entitic vol] 8.5 fL Normal 7.4-11.0 [facility] Comment on above: Performed By: #### A CBC, LIP2, CMPF #### Testing performed at [address] [address] Platelets (Bld) [#/Vol] 284 10*3/uL Normal 130-400 [facility] Comment on above: Performed By: #### A CBC, LIP2, CMPF #### Testing performed at [address] [address] RBC (Bld) [#/Vol] 4.94 10*6/uL Normal 4.0-5.4 [facility] Comment on above: Performed By: #### A CBC, LIP2, CMPF #### Testing performed at [address] [address] WBC (Bld) [#/Vol] 6.8 10*3/uL Normal 3.6-11.0 [facility] Comment on above: Performed By: #### A CBC, LIP2, CMPF #### Testing performed at [address] [address] CMP FASTINGon 11-08-2024 A:G RATIO 1.5 RATIO Normal [facility] Comment on above: Performed By: #### A CBC, LIP2, CMPF #### Testing performed at [address] [address] Albumin [Mass/Vol] 4.6 g/dL Normal 3.5-5.0 [facility] Comment on above: Performed By: #### A CBC, LIP2, CMPF #### Testing performed at [address] [address] ALP [Catalytic activity/Vol] 85 U/L Normal 38-126 [facility] Comment on above: Performed By: #### A CBC, LIP2, CMPF #### Testing performed at [address] [address] ALT [Catalytic activity/Vol] 28 U/L Normal <35 [facility] Comment on above: Performed By: #### A CBC, LIP2, CMPF #### Testing performed at [address] [address] AST [Catalytic activity/Vol] 29 U/L Normal 14-36 [facility] Comment on above: Performed By: #### A CBC, LIP2, CMPF #### Testing performed at [address] [address] Bilirubin [Mass/Vol] 0.6 mg/dL Normal 0.2-1.3 [facility] Comment on above: Performed By: #### A CBC, LIP2, CMPF #### Testing performed at [address] [address] Calcium [Mass/Vol] 9.2 mg/dL Normal 8.4-10.2 [facility] Comment on above: Performed By: #### A CBC, LIP2, CMPF #### Testing performed at [address] [address] Chloride [Moles/Vol] 102 mmol/L Normal 98-107 [facility] Comment on above: Result Comment: Nallely joiner note: Triglyceride levels of 600mg/dL or higher may positively bias chloride results by approximately 2.1 mmol Performed By: #### A CBC, LIP2, CMPF #### Testing performed at [place] [id number] CO2 [Moles/Vol] 26 mmol/L Normal 22-30 [facility] Comment on above: Performed By: #### A CBC, LIP2, CMPF #### Testing performed at [place] [id number] Creatinine [Mass/Vol] 0.86 mg/dL Normal 0.70-1.20 [facility] Comment on above: Performed By: #### A CBC, LIP2, CMPF #### [place] [address] GFR Information Average GFR for 18-2 9 years old = 116. Normal [facility] Comment on above: Result Comment: Baker Doughnut naeem Kidney disease, GFR = <60. Kidney failure, GFR = <15. The GFR estimate is not adjusted for extreme body surface area or acute process, nor has it been validated for women or ethnic groups other than and . MDRD Equation Performed By: #### A CBC, LIP2, CMPF #### Testing performed at [place] [id number] GFR/1.73 sq M.predicted MDRD (S/P/Bld) [Vol rate/Area] 86 mL/min/{1.73_m2} Normal [facility] Comment on above: Performed By: #### A CBC, LIP2, CMPF #### Testing performed at [place] [id number] Glucose [Mass/Vol] 109 mg/dL High 70-100 [facility] Comment on above: Result Comment: NORMAL <100 mg/dL PREDIABETES 101-126 mg/dL DIABETES 126 mg/dL or higher Performed By: #### A CBC, LIP2, CMPF #### Testing performed at [address] [address] Potassium [Moles/Vol] 3.7 mmol/L Normal 3.5-5.1 [facility] Comment on above: Performed By: #### A CBC, LIP2, CMPF #### Testing performed at [address] [address] Protein [Mass/Vol] 7.6 g/dL Normal 6.3-8.2 [facility] Comment on above: Performed By: #### A CBC, LIP2, CMPF #### Testing performed at [address] [address] Sodium [Moles/Vol] 137 mmol/L Normal 137-145 [facility] Comment on above: Performed By: #### A CBC, LIP2, CMPF #### Testing performed at [address] [address] Urea nitrogen [Mass/Vol] 17 mg/dL Normal 7-20 [facility] Comment on above: Performed By: #### A CBC, LIP2, CMPF #### Testing performed at [address] [address] HEMOGLOBIN A1Con 11-08-2024 Glucose [Mass/Vol] 97 mg/dL Normal [facility] Comment on above: Performed By: #### H A1CT #### Testing performed at [address] [address] HbA1c (Bld) [Mass fraction] 5.0 % Normal 0-6 [facility] Comment on above: Result Comment: NORMAL <5.7% PREDIABETES 5.7-6.4% DIABETES 6.5% OR HIGHER Performed By: #### H A1CT #### Testing performed at [address] [address] [address] LIPID PROFILEon 11-08-2024 Cholesterol [Mass/Vol] 181 mg/dL Normal 107-217 [facility] Comment on above: Performed By: #### A CBC, LIP2, CMPF #### Testing performed at [address] [address] Cholesterol in HDL [Mass/Vol] 51 mg/dL Normal 33-75 [facility] Comment on above: Performed By: #### A CBC, LIP2, CMPF #### Testing performed at [address] [address] Cholesterol in LDL [Mass/Vol] 110 mg/dL High <100 [facility] Comment on above: Result Comment: Frie dwald formula Performed By: #### A CBC, LIP2, CMPF #### Testing performed at [address] [address] Cholesterol in VLDL [Mass/Vol] 20 mg/dL Normal 5-25 [facility] Comment on above: Performed By: #### A CBC, LIP2, CMPF #### Testing performed at [address] [address] Cholesterol.total/Ch olesterol in HDL [Mass ratio] 3.55 {ratio} Normal [facility] Comment on above: Result Comment: RISK TOTAL/HDL RATIO MEN WOMEN 1/2 AVERAGE 3.43 3.27 AVERAGE 4.97 4.44 2X AVERAGE 9.55 7.05 3X AVERAGE 23.99 11.04 Performed By: #### A CBC, LIP2, CMPF #### Testing performed at [address] [address] Triglyceride [Mass/Vol] 102 mg/dL Normal 0-150 [facility] Comment on above: Performed By: #### A CBC, LIP2, CMPF #### Testing performed at [address] [address] TSH,REFLEX FREE T4on 11-08- 025 TSH,REFLEX FREE T4 1.100 uIU/ML Normal 0.465-4.680 [facility] Comment on above: Performed By: #### R TSH #### Testing performed at [address] [address] QUANTIFERON TB GOLD PLUS 1 T UBEon 06-16-2024 QUANTIFERNON INCUBATION Incubation performed. Normal [facility] Comment on above: Performed By: #### Z QFIT, LQFIT, LMMR #### Testing performed at [facility] [address] [facility] [place] [address] [place] [address] QUANTIFERON-TB GOLD PLUS Negative Normal [facility] Comment on above: Result Comment: Refe rence range: Negative (NOTE) No response to M tuberculosis antigens detected. Infection with M tuberculosis is unlikely, but high risk individuals should be considered for additional testing (ATS/IDSA/CDC Clinical Practice Guidelines, 2017). The reference range is an Antigen minus Nil result of <0.35 IU/mL. Chemiluminescence immunoassay methodology PERFORMED AT [facility] Performed By: #### Z QFIT, LQFIT, LMMR #### [place] [address] RFLX QUANTIFERON-TB GOLD PLU Son 06-16-2024 QUANTIFERON CRITERIA Comment [facility] Comment on above: Result Comment: (NOT E) QuantiFERON-TB Gold Plus is a qualitative indirect test for M tuberculosis infection (including disease) and is intended for use in conjunction with risk assessment, radiography, and other medical and diagnostic evaluations. The QuantiFERON-TB Gold Plus result is determined by subtracting the Nil value from either TB antigen (Ag) value. The Mitogen tube serves as a control for the test. Performed By: #### Barrie QFIT, LQFIT, LMMR #### [place] [address] QUANTIFERON MITOGEN VALUE >10.00 [facility] Comment on above: Result Comment: Unit : IU/mL PERFORMED AT [facility] Performed By: #### Z QFIT, LQFIT, LMMR #### [place] [address] QUANTIFERON NIL VALUE 0.02 [facility] Comment on above: Result Comment: Unit : IU/mL Performed By: #### Z QFIT, LQFIT, LMMR #### [place] [address] QUANTIFERON TB1 AG VALUE 0.04 [facility] Comment on above: Result Comment: Unit : IU/mL Performed By: #### Z QFIT, LQFIT, LMMR #### [place] [address] QUANTIFERON TB2 AG VALUE 0.04 Normal [facility] Comment on above: Result Comment: Unit : IU/mL Performed By: #### Barrie QFIT, LQMAI, LMMR #### Testing performed at [address] [address] MEASLES,MUMP,RUBELLAon 06-15 MUMPS ABS, IGG 31.9 Normal [facility] Comment on above: Result Comment: Refe rence range: Immune >10.9 Unit: AU/mL (NOTE) Negative <9.0 Equivocal 9.0 - 10.9 Positive >10.9 A positive result generally indicates past exposure to Mumps virus or previous vaccination. PERFORMED AT [facility] Performed By: #### Barrie QMAI, EZ, LMMR #### [place] [address] RUBELLA AB, IGG 5.83 Normal [facility] Comment on above: Result Comment: Refe rence range: Immune >0.99 Unit: index (NOTE) Non-immune <0.90 Equivocal 0.90 - 0.99 Immune >0.99 Performed By: #### Barrie QMAI, EZ, LMMR #### Testing performed at [address] [address] RUBEOLA AB, IGG >300.0 [facility] Comment on above: Result Comment: Refe rence range: Immune >16.4 Unit: AU/mL (NOTE) Negative <13.5 Equivocal 13.5 - 16.4 Positive >16.4 Presence of antibodies to Rubeola is presumptive evidence of immunity except when acute infection is suspected. Performed By: #### Barrie QFIT, LQFIT, LMMR #### Testing performed at [address] [address] HEP B SURFACE ABon HEP B SURFACE AB Negative Normal NEGATIVE [facility] Comment on above: Result Comment: Clinical Interpretation of Immune Status Negative: patient is considered to be not immune to infection with HBV Intermediate: unable to determine if anti-HBs is present at levels consistent with immunity Positive: anti-HBs detected, patient is considered to be immune to infection with HBV HEP C ABon 06-14-2024 HEP C AB Negative Normal NEGATIVE [facility] Unlisted Lab Teston 06-15-19 25 Unlisted lab test see scanned report [facility] US PELVIS TRANSVAGINALon US PELVIS TRANSVAGINAL EXAM: US PELVIS-TRANSVAG IF INDICATED HISTORY: IUD placement, irregular bleeding, back pain. COMPARISON: None available. TECHNIQUE: Two-dimensional transvaginal grayscale ultrasound imaging of the pelvis was performed. Color flow Doppler imaging of the ovaries was also performed. FINDINGS: UTERUS 7.3 x 3.3 x 5.1 cm The uterus is anteverted in position and demonstrates a normal, homogeneous echotexture. ENDOMETRIUM 0.5 cm The endometrium demonstrates a normal, homogeneous echotexture. The IUD is in the appropriate position within the endometrium. RIGHT OVARY 3.7 x 2.6 x 3.6 cm The right ovary demonstrates a normal echotexture. There is normal color Doppler flow. LEFT OVARY 3.6 x 2.8 x 3.5 cm The left ovary demonstrates a normal echotexture. There is normal color Doppler flow. No fluid is present within the cul-de-sac. IMPRESSION: 1. Unremarkable ultrasound of the pelvis. 2. IUD appropriate in position within the endometrium. 3. Normal color Doppler flow within the bilateral ovaries. Electronically Signed:Electronically signed by JONNY MORRIS II, MD, PHD at 02-Jun-2024 08:00:[address] [facility] Normal Not Available [facility] PREG QUANT HCGon 024 HCG QUANTITATIVE <1 mIU/mL [facility] Comment on above: 5-50 0.2-1 WEEK 50-500 1-2 WEEKS 100-5,000 2-3 WEEKS 500-10,000 3-4 WEEKS 1,000-50,000 4-5 WEEKS 10,000-100,000 5-6 WEEKS 15,000-200,000 6-8 WEEKS 10,000-100,000 2-3 [facility] PREG QUANT HCGon 024 HCG QUANTITATIVE <1 mIU/mL [facility] Comment on above: 5-50 0.2-1 WEEK 50-500 1-2 WEEKS 100-5,000 2-3 WEEKS 500-10,000 3-4 WEEKS 1,000-50,000 4-5 WEEKS 10,000-100,000 5-6 WEEKS 15,000-200,000 6-8 WEEKS 10,000-100,000 2[facility] Summaryon 0 12-26-2023 Ambulatory Visit Summary Ambulatory Visit Summary AMOS ALBERT :2000 Visit Date:12/26/2023 Ambulatory Visit Instructions Your [...] otitis media Duration: 10 Days Pickup at [facility]/pharmacy #6173 New polymyxin B-trimethoprim ophthalmic (Polytrim 10 mL Soln-Opth) 1 Drops Ophthalmic Every 6 hours Sinusitis Conjunctivitis of left eye Left otitis media Duration: 7 Days Pickup at [facility]/pharmacy #6173 Unchanged ibuprofen (ibuprofen 600 mg Tab) 1 Tablets By Mouth Every 6 hours Contact prescribing physician if questions or concerns Pharmacy Information [facility]/pharmacy #[id number]: [address] [place], [place] [phone] Allergies Keflex (Hives) Problems Ongoing - Any [...] choosing us for your care. [facility]ino [facility] Family Medicine Office/Clini c Noteon 12-26-2023 Family [...] with voice recognition software. Occasional wrong-word or ?ojfkf-a-nifg? substitutions may have occurred due to the inherent limitations of voice recognition software. 23-year-old female presents to [facility] care today with chief complaint of possible [...] day(s), # 20 tab(s), Refills(s) 0, Pharmacy: [facility]/pharmacy #6173, 183, cm, 12/26/23 10:18:00 EDT, Height/Length Dosing, 102, kg, 12/26/23 10:18:00 EDT, Weight Dosing polymyxin B-trimethoprim ophthalmic, 1 drop(s), OPTH, q6hr for 7 day(s), 10 mL, Refill(s) 0, [facility], 183, cm, 12/26/23 10:18:00 EDT, Height/Length Dosing, 102, kg, 12/26/23 10:18:00 EDT, Weight Dosing 2. Conjunctivitis of left eye (H10.9: Unspecifie (more content not included)... [facility] Comment on above: Result Comment: Elec tronically Signed By: Oliver BAI, Dipak [place]\.br\Date and Time Signed: 12/26/23 11:05 EDT Patient Letter FTon 2023 Patient Letter [facility] [place] [facility] [address], [facility] [place] [phone] December 26, 2023 [place] [address] : 2000 Please excuse AMOS ALBERT from work . Date and/or Time of Absence: From: 12/26/23 May return to work on: 12/29/23 Restrictions: None Comments: Please excuse due to an acute illness. Provider Signature: Dipak Boyd PA-C Physician Office Machines Sales Representative [facility] [address] [facility] [place] [address] [facility] Family Medicine Office/Clini c Noteon 09-04-2023 Family Medicine Office/Clinic Note Chief Complaint Ear pain HPI Staff 22 year old female presents with right ear pain by 3 days. Slight sore throat History of Present Illness Reviewed and agree with above documented HPI by medical lab assistant. Patient is a 22-year-old female presents today [...] Patient states she has not taken any urbk-ltp-rcgrwvl medications for treatment. She states that the [...] with voice recognition artificial intelligence software, specifically Clarisonic, Sulfagenix and or Aptito. Occasional wrong-word or `zfwbc-d-oddz? substitutions may have occurred due to the inherent limitations of voice recognition and artificial intelligence software. Follow-up No qualifying data available Patient Education Otitis Externa, Jyks-ks-Kyax Otitis Media, Adult, Arvd-iu-Kmbn Ear Drops, Adult, Jihx-dp-Csut Problem List/Past Medical History Ongoing Adjustment disorder [...] Hypertension: Fa (more content not included)... Normal [facility] Comment on above: Result Comment: Elec tronically Signed By: Eliot HUBER, Jorge Alberto Barber.br\Date and Time Signed: 09/04/23 16:14 EDT Patient Educationon 09-04-19 24 Patient Education Caregiving Ear Drops, Adult Your [...] cannot use soap and water, use hand acupressure therapist. 2. Make sure your ears are clean [...] cannot use soap and water, use hand acupressure therapist. Follow these instructions at home: ? Use [...] provider. Document Revised: 01/26/2020 Document Reviewed: 01/26/2020 Elsevier Patient Education ? 2022 [place]. ENT Otitis Media, Adult Otitis media is [...] ? Ri (more content not included)... Normal [facility] Toxoplasma gondii Ab IgMIgGo n 07-30-2023 Toxoplasma gondii Ab IgG Normal [facility] Comment on above: Result Comment: [...] By: #### X TOXPG #### Performed at [facility], [address] [place] [address] Toxoplasma gondii Ab IgM Normal [facility] Comment on above: Result Comment: <3.0 [...] post-infection. This test is performed using the [employer] LIAISON. As suggested by the CDC, any [...] the amount of antibody present. Performed By: [facility] [address] [place] [address] Patient Account Representative: Tristan Lugo MD, PhD CLIA Number: [id number] Performed at [facility], [address] [place] [address] Performed By: #### X TOXPG #### Performed at [facility], [address] [place] [address] [facility] Lab Reporton 07-28-2023 Report Normal [facility] Comment on above: Performed By: #### R GSPAR #### Performed at [facility], [address] [place] [address] Urinalysis macro (dipstick) panel (U)on 05-29-2023 Bilirubin, UA Negative Negative - 4(70) +++ mg/dL [facility] Blood, UA Positive Negative - 50 David/mcL [facility] Comment on above: moderate Clarity, UA Clear [facility] Color, UA Yellow [facility] Glucose, UA Negative Negative - 1999(110) ++++ mg/dL [facility] Interpretation and review of laboratory results Abnormal [facility] Ketones, UA Negative Negative - 160(16) ++++ mg/dL [facility] Leukocytes, UA Positive Negative - 500+++ Keith/mcL [facility] Comment on above: small Nitrite, UA Negative Negative - Positive [facility] pH, UA 6.5 5 - 9 [facility] Protein, UA Negative Negative - 1999(20) ++++ mg/dL [facility] Spec Grav, UA 1.025 1 - 1.03 [facility] Urobilinogen, UA 0.2 0.2 - 12 mg/dL [facility] Urinalysis macro (dipstick) panel (U)Ordered By: Jerri Mercado on 05-15-2023 Bilirubin, UA Positive Negative - 4(70) +++ mg/dL [facility] Work Phone: Comment on above: small Blood, UA Positive Negative - 50 David/mcL [facility] Work Phone: Comment on above: trace-intact Clarity, UA Clear [facility] Work Phone: Color, UA Yellow [facility] Work Phone: Glucose, UA Negative Negative - 1999(110) ++++ mg/dL [facility] Work Phone: Interpretation and review of laboratory results Abnormal [facility] Work Phone: Ketones, UA Positive Negative - 160(16) ++++ mg/dL [facility] [employer] Work Phone: Comment on above: 80 Leukocytes, UA Positive Negative - 500+++ Keith/mcL [facility] [employer] Work Phone: Comment on above: small Nitrite, UA Negative Negative - Positive [facility] [employer] Work Phone: pH, UA 7.0 5 - 9 [facility] Work Phone: Protein, UA Positive Negative - 2000(20) ++++ mg/dL [facility] [employer] Work Phone: Comment on above: 30 Spec Grav, UA 1.020 1 - 1.03 [facility] [employer] care Work Phone: Urobilinogen, UA 1.0 0.2 - 12 mg/dL [facility] [employer] Work Phone: [facility] [employer] Work Phone: Chlamydia/GC DNA, TPon 08-15 Chlamydia Probe, TP Negative Normal NEG [facility] Comment on above: Result Comment: CHLA [...] nucleic acid target. Performed By: #### C [facility] #### [facility] [place] [address] Syruper: Willard Sethi MD Gonorrhea Probe, TP Negative Normal NEG [facility] Comment on above: Result Comment: NEIS [...] target. Performed By: #### C YTCGP #### [employer] [address] [place] [address] Syruper: Willard Sethi MD Cytologyon 08-13-2022 Cytology (NOTE) Path Number: [id number] DIAGNOSIS Cervical material, (ThinPrep vial, Imaging-assisted review): Specimen Adequacy: Satisfactory for evaluation. -Endocervical/transfo rmation zone component is absent. Descriptive Diagnosis: Negative for intraepithelial lesion or malignancy. [employer] Screener: [id number] Electronically Signed Out MAXIMUS Ramírez(ASCP) ss4/08/21/2022 Source of Specimen: A: Cervical material, (ThinPrep vial, Imaging-assisted review) HPV Reflex?.............. ........HPV if ASCUS Clinical History Z01.419 Routine chicken fancier exam without abnormal findings High Risk HPV DNA testing is requested if the diagnosis is ASC-US Processing Lab: [address] [address] Interpretation performed at [address] [address] The Pap smear is a screening test primarily for squamous epithelial lesions, which is subject to both false negative and false positive results. Your patient should be reminded to consult you immediately if she experiences any suspicious signs or symptoms, regardless of her Pap smear result. GYNECOLOGIC CYTOLOGY REPORT Patient Name: AMOS ALBERT [facility] Rec: [id number] [facility] [employer] [facility] ANATOMIC PATHOLOGY [address] [place] [id number] [facility] Comment on above: Performed By: #### P PPVP #### [employer] [address] [place] [address] Syruper: Willard Sethi MD Vital Signs Date Time Vital Sign Value Performing Clinician Facility 11-23-2024 15:21-0400 Body height 182.9 cm Lady Daniel APRN-DRIVER SERVICE TECHNICIAN Work Phone: [facility] 11-23-2024 15:21-0400 Body mass index (BMI) [Ratio] 37.97 kg/m2 Lady Daniel APRN-DRIVER SERVICE TECHNICIAN Work Phone: [facility] 11-23-2024 15:21-0400 Body temperature 96.1 [degF] Lady Daniel VERIFIER OPERATOR-DRIVER SERVICE TECHNICIAN Work Phone: [facility] 11-23-2024 15:21-0400 Body weight 127.01 kg Lady Daniel VERIFIER OPERATOR-DRIVER SERVICE TECHNICIAN Work Phone: [facility] 11-23-2024 15:21-0400 Diastolic blood pressure 78 mm[Hg] Lady Daniel VERIFIER OPERATOR-DRIVER SERVICE TECHNICIAN Work Phone: [facility] 11-23-2024 15:21-0400 Heart rate 78 /min Lady Daniel VERIFIER OPERATOR-DRIVER SERVICE TECHNICIAN Work Phone: [facility] 11-23-2024 15:21-0400 Respiratory rate 16 /min Lady Daniel VERIFIER OPERATOR-DRIVER SERVICE TECHNICIAN Work Phone: [facility] 11-23-2024 15:21-0400 SaO2% (BldA) [Mass fraction] 97 % Lady Daniel APRN-DRIVER SERVICE TECHNICIAN Work Phone: [facility] 11-23-2024 15:21-0400 Systolic blood pressure 134 mm[Hg] Lady Daniel VERIFIER OPERATOR-DRIVER SERVICE TECHNICIAN Work Phone: [facility] 10-01-2024 14:17-0400 Body height 182.9 cm Shannon Berman VERIFIER OPERATOR-DRIVER SERVICE TECHNICIAN Work Phone: [facility] 10-01-2024 14:17-0400 Body mass index (BMI) [Ratio] 37.03 kg/m2 Shannon Berman VERIFIER OPERATOR-DRIVER SERVICE TECHNICIAN Work Phone: [facility] 10-01-2024 14:17-0400 Body temperature 97.59 [degF] Shannon Berman VERIFIER OPERATOR-DRIVER SERVICE TECHNICIAN Work Phone: [facility] 10-01-2024 14:17-0400 Body weight 123.83 kg Shannon Berman VERIFIER OPERATOR-DRIVER SERVICE TECHNICIAN Work Phone: [facility] 10-01-2024 14:17-0400 Diastolic blood pressure 70 mm[Hg] Shannon Berman VERIFIER OPERATOR-DRIVER SERVICE TECHNICIAN Work Phone: [facility] 10-01-2024 14:17-0400 Heart rate 91 /min Shannon Berman VERIFIER OPERATOR-DRIVER SERVICE TECHNICIAN Work Phone: [facility] 10-01-2024 14:17-0400 Respiratory rate 16 /min Shannon Berman VERIFIER OPERATOR-DRIVER SERVICE TECHNICIAN Work Phone: [facility] 10-01-2024 14:17-0400 SaO2% (BldA) [Mass fraction] 97 % Shannon Berman VERIFIER OPERATOR-DRIVER SERVICE TECHNICIAN Work Phone: [facility] 10-01-2024 14:17-0400 Systolic blood pressure 132 mm[Hg] Shannon Berman VERIFIER OPERATOR-DRIVER SERVICE TECHNICIAN Work Phone: [facility] 05-31-2024 08:20-0500 Body height 182.9 cm Berto Vidales MD Work Phone: [facility] 05-31-2024 08:20-0500 Body mass index (BMI) [Ratio] 35.7 kg/m2 Berto Vidales MD Work Phone: [facility] 05-31-2024 08:20-0500 Body weight 119.39 kg Berto Vidales MD Work Phone: [facility] [employer] [facility] 05-31-2024 08:20-0500 Diastolic blood pressure 67 mm[Hg] Berto Vidales MD Work Phone: [facility] 05-31-2024 08:20-0500 Heart rate 90 /min Berto Vidales MD Work Phone: [facility] 05-31-2024 08:20-0500 Systolic blood pressure 145 mm[Hg] Berto Vidales MD Work Phone: [facility] 12-26-2023 10:14-0400 Blood Pressure Location Dipak Boyd [facility] 12-26-2023 10:14-0400 Body temperature 98.24 [degF] Dipak Boyd [facility] 12-26-2023 10:14-0400 Diastolic blood pressure 86 mm[Hg] Dipak Boyd [facility] 12-26-2023 10:14-0400 Heart rate 73 /min Dipak Boyd [facility] 12-26-2023 10:14-0400 SaO2% (BldA) [Mass fraction] 99 % Dipak Boyd [facility] 12-26-2023 10:14-0400 Systolic blood pressure 132 mm[Hg] Dipak Boyd [facility] 12-09-2023 08:49-0400 Body height 182.9 cm Mery Mitchell MD Work Phone: [facility] 12-09-2023 08:49-0400 Body mass index (BMI) [Ratio] 33.26 kg/m2 Mery Mitchell MD Work Phone: [facility] 12-09-2023 08:49-0400 Body temperature 98.01 [degF] Mery Mitchell MD Work Phone: [facility] 12-09-2023 08:49-0400 Body weight 111.22 kg Mery Mitchell MD Work Phone: [facility] 12-09-2023 08:49-0400 Diastolic blood pressure 66 mm[Hg] Mery Mitchell MD Work Phone: [facility] 12-09-2023 08:49-0400 Heart rate 84 /min Mery Mitchell MD Work Phone: [facility] 12-09-2023 08:49-0400 SaO2% (BldA) [Mass fraction] 96 % Mery Mitchell MD Work Phone: [facility] 12-09-2023 08:49-0400 Systolic blood pressure 110 mm[Hg] Mery Mitchell MD Work Phone: [facility] 09-04-2023 15:36-0400 Blood Pressure Location CRANSTON MORENO [facility] 09-04-2023 15:36-0400 Body temperature 98.24 [degF] [facility] 09-04-2023 15:36-0400 Diastolic blood pressure 80 mm[Hg] [facility] 09-04-2023 15:36-0400 Heart rate 85 /min [facility] 09-04-2023 15:36-0400 SaO2% (BldA) [Mass fraction] 97 % CRANSTON MORENO [facility] 09-04-2023 15:36-0400 Systolic blood pressure 126 mm[Hg] [facility] 05-29-2023 15:53-0500 Body mass index (BMI) [Ratio] 35.13 kg/m2 Stacia SALDANA Work Phone: [facility] 05-29-2023 15:53-0500 Body weight 117.48 kg Stacia SALDANA Work Phone: [facility] 05-29-2023 15:53-0500 Diastolic blood pressure 70 mm[Hg] Stacia SALDANA Work Phone: [facility] 05-29-2023 15:53-0500 Systolic blood pressure 124 mm[Hg] Stacia Menchaca PA Work Phone: [facility] 05-15-2023 09:03-0500 Body mass index (BMI) [Ratio] 35.13 kg/m2 Jose Leonel DO Work Phone: [facility] 05-15-2023 09:03-0500 Body weight 117.48 kg Jose Leonel DO Work Phone: [facility] 05-15-2023 09:03-0500 Diastolic blood pressure 72 mm[Hg] Jose Leonel DO Work Phone: [facility] 05-15-2023 09:03-0500 Systolic blood pressure 120 mm[Hg] Jose Leonel DO Work Phone: [facility] 09-07-2022 11:37-0400 Blood Pressure Location Dipak Boyd [facility] 09-07-2022 11:37-0400 Diastolic blood pressure 80 mm[Hg] [facility] [facility] 09-07-2022 11:37-0400 Heart rate 76 /min Dipak Boyd [facility] 09-07-2022 11:37-0400 SaO2% (BldA) [Mass fraction] 99 % Dipak Boyd [facility] 09-07-2022 11:37-0400 Systolic blood pressure 110 mm[Hg] Dipak Boyd [facility] Encounters Encounter Date Encounter Type Care Provider Facility Start: 11-23-2024 End: 11-23-2024 Office outpatient visit 15 minutes Lady Daniel VERIFIER OPERATOR-DRIVER SERVICE TECHNICIAN Work Phone: [facility] Comment on above: Candidal intertrigo (Primary Dx) Start: 11-23-[address] [facility] Start: 11-08-2024 End: 11-08-2024 Subsequent hospital visit by physician Pierre Frye MD Work Phone: [facility] Comment on above: Arrived Start: 11-08-[address] [facility] Start: 10-01-2024 End: 10-01-2024 Office outpatient new 45 minutes Shannon Berman VERIFIER OPERATOR-DRIVER SERVICE TECHNICIAN Work Phone: [facility] Comment on above: Encounter to [facility] (Primary Dx); History of PCOS; Bilateral foot pain; Anxiety and depression; Allergic rhinitis, unspecified seasonality, unspecified trigger; Right otitis media, unspecified otitis media type; Otitis externa of left ear, unspecified chronicity, unspecified type; Heart murmur; Chest pain, unspecified type; Heart palpitations; History of migraine; Obesity: body mass index of 35.0-39.9 Start: 10-01-[address] 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); Heterozygous systemic primary carnitine deficiency; Family history of Start: 06-18-2024 End: 06-18-2024 Orders Only Estella Hills CMA [facility] Comment on above: Pre-conception couns eling Start: 06-14-2024 ambulatory JODI LEE [facility] Start: 05-31-2024 End: 05-31-2024 ambulatory JOSE CASTANEDA Not Available Start: 05-31-2024 End: 05-31-2024 Documentation procedure Estella Hills [facility] Start: 05-31-2024 End: 05-31-2024 ambulatory BERTO VIDALES [facility] Start: 05-31-2024 End: 05-31-2024 Office consultation new/estab patient 80 min Vinicio Kim MD Work Phone: [facility] Comment on above: Family history of di sseminated HSV infection (Primary Dx); Pre-conception counseling Start: 03-02-2024 ambulatory Duglas Bishop acility:[facility] Start: 01-24-2024 End: 01-24-2024 Clinisync Result Encounter Jose Leonel DO Work Phone: [facility] Unsolicited Start: 01-24-2024 End: 01-24-2024 Clinisync Result Encounter Jose Leonel DO Work Phone: [facility] External [facility] Unsolicited Start: 01-22-2024 End: 01-22-2024 Clinisync Result Encounter Jose Leonel DO Work Phone: [facility] External [facility] Unsolicited Start: 01-22-2024 End: 01-22-2024 Clinisync Result Encounter Jose Leonel DO Work Phone: [facility] External [facility] Unsolicited Start: 01-09-2024 End: 04-08-2024 ambulatory Wagner DELGADO Facility[facility] Start: 12-26-2023 End: 12-26-2023 ambulatory Dipak Boyd Facility:[facility] Start: 12-26-2023 End: 12-26-2023 Patient encounter procedure Dipak Boyd [facility] Start: 12-16-2023 End: 12-16-2023 ambulatory JOSE LEONEL Not Available Start: 12-09-2023 End: 12-09-2023 Bamboo flowsheet Mery Mitchell MD Work Phone: [facility] Start: 12-09-2023 End: 12-09-2023 Bamboo flowsheet Mery Mitchell MD Work Phone: [facility] Start: 12-09-2023 End: 12-09-2023 Patient encounter procedure Mery Mitchell MD Work Phone: [facility] Work Phone: Start: 12-09-2023 End: 12-09-2023 Periodic preventive med est patient 18-39 yrs Mery Mitchell MD Work Phone: [facility] Comment on above: Annual physical exam (Primary Dx); Screening-pulmonary TB; BMI 33.0-33.9,adult; Obesity (BMI 30.0-34.9) Start: 12-09-2023 End: 12-09-2023 ambulatory MERY MITCHELL Not Available Start: 10-14-2023 End: 10-14-2023 ambulatory JOSE LEONEL Not Available Start: 09-15-2023 End: 09-15-2023 ambulatory JOSE LEONEL Not Available Start: 09-04-2023 End: 09-04-2023 ambulatory BHUMIKA MORENO Facility:[facility] Start: 09-04-2023 End: 09-04-2023 Patient encounter procedure JANESSA MORENO [facility] Start: 08-25-2023 End: 08-25-2023 ambulatory JOSE LEONEL Not Available Start: 08-11-2023 End: 08-11-2023 ambulatory JOSE LEONEL Not Available Start: 07-28-2023 End: 07-29-2023 Orders Only Jorge Alberto Roberts MS, [facility] Work Phone: [facility] Start: 07-22-2023 End: 07-22-2023 ambulatory MERY MITCHELL Not Available Start: 07-16-2023 End: 07-16-2023 ambulatory JOSE LEONEL Not Available Start: 07-15-2023 End: 07-15-2023 ambulatory JOSE LEONEL Not Available Start: 07-07-2023 End: 07-07-2023 ambulatory JOSE LEONEL Not Available Start: 07-02-2023 End: 07-02-2023 ambulatory STACIA MENCHACA Not Available Start: 06-23-2023 ambulatory Shannon Lai Facility:[facility] Start: 06-16-2023 End: 06-16-2023 ambulatory JOSE CASTANEDA Not Available Start: 05-29-2023 End: 05-29-2023 Office outpatient visit 15 minutes Stacia SALDANA Work Phone: [facility] Comment on above: Third trimester preg adalberto; Nausea; Heartburn during in third trimester; Excessive growth affecting management of , antepartum, single or unspecified fetus Start: 05-15-2023 End: 05-15-2023 flow sheet Jose Castaneda DO Work Phone: [facility] Comment on above: Second trimester pre gnancy Start: 05-08-2023 End: 05-08-2023 ambulatory Shannon Chapin Ming [facility] Start: 05-08-2023 End: 05-08-2023 Patient encounter procedure Shannon Chapin [facility] Start: 04-25-2023 End: 04-25-2023 ambulatory Shannon M Sylmar Facility:[facility] Start: 04-25-2023 End: 04-25-2023 Patient encounter procedure Shannon Chapin [facility] Start: 09-07-2022 End: 09-07-2022 Patient encounter procedure Dipak Boyd [facility] Start: 08-13-2022 End: 08-14-2022 ambulatory [facility] Start: 08-13-2022 Encounter for gynecological examination (general) (routine) without abnormal findings [facility] Start: 08-13-2022 End: 08-13-2022 Patient encounter procedure [facility] Start: 08-13-2022 End: 08-13-2022 Subsequent hospital visit by physician [facility] Comment on above: Encounter for well w randy exam with routine gynecological exam Start: 06-07-2022 End: 06-07-2022 Patient encounter procedure Krystyna Seth [facility] Procedures Date Procedure Procedure Detail Performing Clinician Start: 05-31-2024 UNLISTED LAB TEST Berto jacobo MD Work Phone: Start: 01-24-2024 [facility] PREG QUANT HCG Core y Leonel DO Work Phone: Start: 01-22-2024 [facility] PREG QUANT HCG Core y Leonel DO Work Phone: Start: 05-29-2023 Urnls dip stick/tabl et rgnt non-auto w/o micrscp Stacia SALDANA Work Phone: Start: 05-15-2023 Urnls dip stick/tabl et rgnt non-auto w/o micrscp Jose Leonel DO Work Phone: Start: 08-13-2022 Microscopic observat ion [Identifier] in Cervix by Cyto stain Estella Hills [facility] Start: 08-10-2020 Removal of etonogest rel implant Kuona section JANESSA O RTIZ Tonsillectomy and adenoidectomy Kuona Plan of Treatment Date Care Activity Detail Author Start: 11-08-2025 Potassium [Moles/volume] in Serum or Plasma POTASSIUM [facility] Start: 10-01-2025 Screening for Chlamydia trachomatis [facility] Start: 08-13-2025 Screening for malignant neoplasm of cervix Pap Smear [facility] Start: 05-31-2025 Adult BMI Screening Adult BMI Screening [facility] Start: 05-31-2025 Tobacco Screening Tobacco Screening [facility] Start: 12-16-2024 End: 12-16-2024 Patient encounter procedure [facility] Start: 12-13-2024 Influenza vaccination [facility] Start: 2024 End: 2024 Patient encounter procedure 2024 1:50 PM EDT Office Visit [facility] [address] [place] [address] Shannon Berman, VERIFIER OPERATOR-DRIVER SERVICE TECHNICIAN [address] [place] [address] [facility] Start: 10-01-2024 End: 10-01-2025 Complete blood count with white cell differential, automated CBC, EDIF, PLATELET Lab Routine Encounter to establish care Expected: 10/01/2024, Expires: 10/01/2025 [facility] Comment on above: Expected: 10/01/2024, Expires: Start: 10-01-2024 End: 10-01-2025 Comprehensive metabolic 2000 panel - Serum or Plasma COMPREHENSIVE METABOLIC PANEL Lab Routine Encounter to establish care Expected: 10/01/2024, Expires: 10/01/2025 [facility] Comment on above: Expected: 10/01/2024, Expires: Start: 10-01-2024 End: 10-01-2025 Hemoglobin A1c/Hemoglobin.total in Blood HEMOGLOBIN A1C Lab Routine Encounter to establish care Expected: 10/01/2024, Expires: 10/01/2025 [facility] Comment on above: Expected: 10/01/2024, Expires: Start: 10-01-2024 End: 10-01-2025 HOLTER MONITOR - SENIOR LIVING HOLTER MONITOR - SAWMILL OR TIMBER YARD WORKER Cardiac Services Routine Heart palpitations Expected: 10/01/2024, Expires: 10/01/2025 [facility] Comment on above: Expected: 10/01/2024, Expires: Start: 10-01-2024 End: 10-01-2025 LIPID PANEL W CALCULATED LDL LIPID PANEL W CALCULATED LDL Lab Routine Encounter to establish care Expected: 10/01/2024, Expires: 10/01/2025 [facility] Comment on above: Expected: 10/01/2024, Expires: Start: 10-01-2024 End: 10-01-2025 Standard ECG ECG ECG Routine Chest pain, unspecified type Expected: 10/01/2024, Expires: 10/01/2025 [facility] Comment on above: Expected: 10/01/2024, Expires: Start: 10-01-2024 End: 10-01-2025 TSH W/FT4 REFLEX TSH W/FT4 REFLEX Lab Routine Encounter to establish care Expected: 10/01/2024, Expires: 10/01/2025 [facility] Comment on above: Expected: 10/01/2024, Expires: Start: 10-01-2024 End: 10-01-2025 XR Foot - left 3 Views XR FOOT LEFT 3+ VIEWS Imaging Routine Bilateral foot pain Expected: 10/01/2024, Expires: 10/01/2025 [facility] Comment on above: Expected: 10/01/2024, Expires: Start: 10-01-2024 End: 10-01-2025 XR Foot - right 3 Views XR FOOT RIGHT 3+ VIEWS Imaging Routine Bilateral foot pain Expected: 10/01/2024, Expires: 10/01/2025 [facility] Comment on above: Expected: 10/01/2024, Expires: Start: 05-31-2024 End: 05-31-2025 Unlisted Lab Test Unlisted Lab Test Lab Routine Pre-conception counseling Expected: 05/31/2024 (Approximate), Expires: 05/31/2025 [employer] Work Phone: Comment on above: Expected: 05/31/2024 (Approximate), Expi res: 05/31/2025 Start: 12-14-2023 COVID-19 Vaccine ( season) COVID-19 Vaccine ( season) [facility] Start: 12-14-2023 Influenza vaccination [facility] Start: 12-09-2023 End: 12-09-2023 Patient encounter procedure 12/09/2023 9:00 AM EDT Office Visit [facility] [address] [place] [id number] Mery Mitchell MD [address] [place] [address] Arrived [facility] Comment on above: Arrived Start: 08-14-2023 Screening for Chlamydia trachomatis Chlamydia Screening [facility] Start: 07-28-2023 End: 07-27-2024 GENETICS STAT SPECIMEN LABEL- REQUIRED FOR INHOUSE GENETIC TESTING [facility] Comment on above: Expected: 07/28/2023 (Approximate), Expi res: 07/27/2024 Start: 07-28-2023 End: 07-27-2024 RAPID GENOME SEQUENCING - PARENT SAMPLE RAPID GENOME SEQUENCING - PARENT SAMPLE Lab Routine Family history of congenital anomalies Expected: 07/28/2023 (Approximate), Expires: 07/27/2024 [facility] Work Phone: Comment on above: Expected: 07/28/2023 (Approximate), Expi res: 07/27/2024 Start: 05-29-2023 End: 05-29-2024 US for US OB SCAN FOR GROWTH Imaging Routine Excessive growth affecting management of , antepartum, single or unspecified fetus Expected: 05/29/2023 (Approximate), Expires: 05/29/2024 [facility] Work Phone: Comment on above: Expected: 05/29/2023 (Approximate), Expi res: 05/29/2024 Start: 05-29-2023 End: 05-29-2023 Patient encounter procedure 05/29/2023 8:30 AM EST Routine [facility] [address] [id number] Stacia Menchaca PA [address] [address] [facility] Start: 12-13-2022 COVID-19 Vaccine ( season) COVID-19 Vaccine ( season) [facility] Start: 12-13-2022 Influenza vaccination Influenza Vaccine (#1) [facility] Start: 12-01-2022 DTaP,Tdap and Td Vaccines (7 - Td or Tdap) DTaP,Tdap and Td Vaccines (7 - Td or Tdap) [facility] Start: 12-01-2022 DTaP/Tdap/Td vaccine (7 - Td or Tdap) DTaP/Tdap/Td vaccine (7 - Td or Tdap) [facility] Start: 12-01-[address] [facility] Start: 11-12-2022 Influenza vaccination Flu vaccine (Season Ended) [facility] Start: 2021 Screening for malignant neoplasm of cervix [facility] Start: 11-05-2019 Hepatitis B Vaccine (1 of 3 - 19+ 3-dose series) Hepatitis B Vaccine (1 of 3 - 19+ 3-dose series) [facility] Start: 2018 Adult BMI Follow Up Plan Adult BMI Follow Up Plan [facility] Start: 2018 Adult BMI Screening Adult BMI Screening [facility] Start: 2018 Hepatitis C screening Hepatitis C screen [facility] Start: 2016 Screening for Chlamydia trachomatis Chlamydia/GC screen [facility] Start: 11-05-2015 HIV screening HIV screen [facility] Start: 11-05-2015 HPV Vaccine (1 - 3-dose series) HPV Vaccine (1 - 3-dose series) [facility] Start: 2013 Varicella Vaccine (1 of 2 - 13+ 2-dose series) Varicella Vaccine (1 of 2 - 13+ 2-dose series) [facility] Start: 2012 Depression Screen Depression Screen [facility] Start: 2012 Depression Screening Depression Screening [facility] Start: 2012 Tobacco Screening Tobacco Screening [facility] Start: 11-05-2007 DTaP/Tdap/Td Vaccine (1 - Tdap) DTaP/Tdap/Td Vaccine (1 - Tdap) [facility] Start: 2001 MMR Vaccine (1 of 1 - Standard series) MMR Vaccine (1 of 1 - Standard series) [facility] Start: 05-07-2001 COVID-19 Vaccine (#1) COVID-19 Vaccine (#1) [facility] Start: 2000 Potassium [Moles/volume] in Serum or Plasma POTASSIUM [facility] End: 08-13-2022 Chlamydia/GC DNA, Thin Prep [facility] [employer] Work Phone: Comment on above: 1 Occurrences starting 08/13/2022 until 08/13/2022 End: 08-13-2022 Cytopathology procedure, preparation of smear, genital source PAP Smear Lab Routine Encounter for well woman exam with routine gynecological exam 1 Occurrences starting 08/13/2022 until 08/13/2022 [facility] Work Phone: Comment on above: 1 Occurrences starting 08/13/2022 until 08/13/2022 Echocardiography ECHOCARDIOGRAM Echocardiography Routine Heart murmur Ordered: 10/01/2024 [facility] Comment on above: Ordered: 10/01/2024 End: 11-08-2024 HOLTER MONITOR - SENIOR LIVING HOLTER MONITOR - SAWMILL OR TIMBER YARD WORKER Cardiac Services Routine Heart palpitations 1 Occurrences starting 11/08/2024 until 11/08/2024 [facility] Comment on above: 1 Occurrences starting 11/08/2024 until 11/08/2024 End: 11-08-2024 XR Foot - left 3 Views [facility] Comment on above: 1 Occurrences starting 11/08/2024 until 11/08/2024 End: 11-08-2024 [facility] Comment on above: 1 Occurrences starting 11/08/2024 until 11/08/2024 Immunizations Immunization Date Immunization Notes Care Provider [facility] 10-01-2024 diphtheria, tetanus toxoids and acellular pertussis vaccine, unspecified formulation Shannon Berman APRN-DRIVER SERVICE TECHNICIAN Work Phone: [facility] 01-09-2024 influenza virus vaccine, unspecified formulation Rupa Nicole [facility] Work Phone: [facility] 12-16-2023 tuberculin skin test ; purified protein derivative solution, intradermal Jose Castaneda DO Work Phone: [facility] 12-09-2023 tuberculin skin test ; purified protein derivative solution, intradermal Mery Mitchell MD Work Phone: [facility] 08-20-2022 SARS-CoV-2 (COVID-19 ) [id number] JANESSA MORENO [facility] 02-04-2020 influenza virus vaccine, unspecified formulation Krystyna Orzech [facility] 02-05-2019 influenza virus vaccine, unspecified formulation Krystyna Orzech [facility] 07-21-2018 meningococcal B vaccine, fully recombinant Krystyna Orzech [facility] 01-08-2018 influenza virus vaccine, unspecified formulation Krystyna Orzech [facility] 11-22-2016 meningococcal ACWY vaccine, unspecified formulation Krystyna Orzech [facility] 11-22-2016 meningococcal B vaccine, fully recombinant Krystyna Orzech [facility] 02-28-2014 influenza, whole Krystyna Orze ch [facility] 11-15-2013 hepatitis A vaccine, unspecified formulation Krystyna Orzech [facility] 11-15-2013 HPV, unspecified formulation Krystyna Orzech [facility] 11-15-2013 meningococcal ACWY, unspecified formulation Krystyna Orzech [facility] 12-01-2012 hepatitis A vaccine, unspecified formulation Krystyna Orzech [facility] 12-01-2012 HPV, unspecified formulation Krystyna Orzech [facility] 12-01-2012 tetanus toxoid, reduced diphtheria toxoid, and acellular pertussis vaccine, adsorbed Krystyna Orzech [facility] 12-01-2012 varicella virus vaccine Krystyna Orzech [facility] 08-26-2005 hepatitis B vaccine, pediatric or pediatric/adolescent dosage Krystyna Orzech [facility] 08-15-2005 DTaP, unspecified formulation Krystyna Orzech [facility] 08-15-2005 measles, mumps and rubella virus vaccine Krystyna Orzech [facility] 08-15-2005 poliovirus vaccine, unspecified formulation Krystyna Orzech [facility] 12-15-2002 DTaP, unspecified formulation Krystyna Orzech [facility] 12-15-2002 haemophilus influenz ae type b vaccine, PRP-T conjugate Krystyna Orzech [facility] 12-25-2001 DTaP, unspecified formulation Krystyna Orzech [facility] 12-25-2001 measles, mumps and rubella virus vaccine Krystyna Orzech [facility] 12-25-2001 poliovirus vaccine, unspecified formulation Krystyna Orzech [facility] 12-25-2001 varicella virus vaccine Krystyna Orzech [facility] 04-29-2001 DTaP, unspecified formulation Krystyna Orzech [facility] 04-29-2001 poliovirus vaccine, unspecified formulation Krystyna Orzech [facility] 01-20-2001 DTaP, unspecified formulation Krystyna Orzech [facility] 01-20-2001 poliovirus vaccine, unspecified formulation Krystyna Orzech [facility] NEGATED: Highlighted row has not occurred!02-18-2022 influenza virus vaccine, unspecified formulation Krystyna Orzech [facility] NEGATED: Highlighted row has not occurred!02-18-2022 SARS-CoV-2 mRNA (tozinameran 5y-11y) vaccine Krystyna Wagnerrocio [facility] Payers Date Payer Category Payer Managed Care (unspecified) [facility] [id number] 2024 Unknown [id number] 2024 Medicaid O [id number] 2024 Medicaid [id number] 2024 Commercial Managed C [facility] [id number] 2023 Self-pay 2023 Unknown [id number] 2022 Unknown [id number] [id number]. [id number] 2022 Unknown [id number] 2022 Medicaid [id number] 2022 Unknown [id number] 2000 Unknown [id number] 2.16.840.1.104201.3.579.2. 430 2000 Unknown [id number] 2.16.840.1.410248.3.579.2. 430 2000 Unknown [id number] 2.16.840.1.526238.3.579.2. 727 2000 Unknown [id number] 2.16.840.1.566858.3.579.2. 727 2000 Unknown [id number] 2.16.840.1.408066.3.579.2. 727 2000 Unknown [id number] 2.16.840.1.893481.3.579.2. 727 2000 Unknown [id number] 2.16.840.1.873805.3.579.2. 727 2000 Unknown [id number] 2.16.840.1.253678.3.579.2. 727 2000 Unknown [id number] 2.16.840.1.340096.3.579.2. 1259 2000 Unknown [id number] 2.16.840.1.763291.3.579.2. 1258 2000 Unknown [id number] 2.16.840.1.478745.3.579.2. 9 2000 Unknown [id number] 2.16.840.1.930606.3.579.2. 1259 2000 Unknown [id number] 2.16.840.1.111882.3.579.2. 1258 2000 Unknown [id number] 2.16.840.1.228751.3.579.2. 1258 2000 Unknown [id number] 2.16.840.1.746525.3.579.2. 1258 2000 Unknown [id number] 2.16.840.1.819493.3.579.2. 1258 2000 Unknown [id number] 2.16.840.1.832241.3.579.2. 1258 2000 Unknown [id number] 2.16.840.1.949964.3.579.2. 1258 2000 Unknown [id number] 2.16840.1.095944.3.579.2. 1258 2000 Unknown [id number] 2.16840.1.143272.3.579.2. 1258 2000 Unknown [id number] 2.16840.1.592984.3.579.2. 1258 2000 Unknown [id number] 2.16840.1.809359.3.579.2. 1285 2000 Unknown [id number] 2.16840.1.903519.3.579.2. 1285 2000 Unknown [id number] 2.16840.1.256824.3.579.2. 2000 Unknown [id number] 2.16840.1.251997.3.579.2. 98 2000 Unknown [id number] 2.16840.1.599101.3.579.2. 2000 Unknown [id number] 2.16840.1.761347.3.579.2. 2000 Unknown [id number] 2.16840.1.871074.3.579.2. 983 Unknown [id number] 2.16840.1.865382.3.579.2. 531 Social History Date Type Detail Facility Start: 03-30-2020 End: 09-20-2024 Tobacco smoking status Never smoked tobacco (finding) [facility] Tobacco smoking status Never [facility] Start: 01-13-2023 End: 10-01-2024 Sex Assigned At Female [facility] Start: 08-13-2022 End: 09-20-2024 Tobacco use and exposure Smokeless tobacco non-user [employer] Phone: Start: 08-13-2022 Alcohol intake Not Asked [employer] Phone: Start: 08-13-2022 End: 05-31-2024 Alcohol Comment social [employer] Phone: Start: 2000 Sex Assigned At Not on file [employer] Phone: Start: 05-15-2023 End: 12-09-2023 Alcohol intake Lifetime non-drinker (finding) [facility] Start: 01-13-2023 End: 10-01-2024 History of Social function [facility] Start: 01-13-2023 Alcohol Comment caffeine: 1-2 cups per day coffee [facility] [facility] Start: 11-09-2022 [facility] Tobacco smoking stat us NYIS Tobacco smoking consumption unknown [facility] Start: 05-31-2024 End: 11-24-2024 Alcoholic beverage intake Current drinker of alcohol (finding) [facility] Start: 2000 Sex assigned at Female P [facility] Start: 03-01-2024 End: 06-03-2024 Sex Female (finding) [facility] Start: 03-01-2024 Gender identity Identifies as female gender (finding) [facility] How hard is it for y ou to pay for the very basics like food, housing, medical care, and heating Not very hard [facility] Start: 11-23-2024 Alcohol Comment soc [facility] Goals Date Patient Goal Desired Activity /State Personal health goal Functional Status Date Assessment Result Facility 12-26-2023 Functional Status N/A [facility] 09-04-2023 Functional Status N/A [facility] Clinical Notes 09-07-2022 to 11-23-2024 Wagner Arreaga - 11/23/2024 3:15 PM EDTLady Daniel, [facility] - 11/23/2024 3:15 PM EDTAssessment & Plan Note - hSannon Antonella, [facility] - 10/01/2024 3:43 PM EDT Note Date & Type Note Facility 11-23-2024 History of Present illness Narrative Main historian: Patient Patient presents with Rash Associated symptoms: Rash on inner thigh, on abdomen across scar, and up sides of torso/flanks for x1 week. Complains of itchiness, denies pain. Onset: x1 week Self treatments: Calamine Alleviating factors: Calamine for a short period of time Aggravating factors: None known Exposures: New medication Metformin Last visit: N/a MEGA Albert 2000 presents to the [facility] with Chief Complaint Patient [...] tablet Take 1 tablet by mouth daily. [id number] e [id number] Suspension Apply 4 drops to both ears 3x a day for 7 days nystatin [id number] UNIT/GM Cream Apply to rash BID for [...] BP Position: Sitting) Pulse 78 Temp 96.1 F (35.6 C) (Temporal) Resp 16 Ht 1.829 m (6') Wt 127 kg (280 lb) SpO2 97% BMI 37.97 kg/m Physical Exam Vitals and nursing note reviewed. [...] Candidal intertrigo Orders Placed This Encounter nystatin [id number] UNIT/GM Cream Rash appears as a can [...] TONSILLECTOMY ADENOIDECTOMY 2009 documented in this encounter [facility] 11-09-2024 Note PROCEDURE: XR FOOT L EFT 3+ VIEWS DATE: 11/08/2024 11:59 AM CDT COMPARISONS: None CLINICAL INDICATION: bilateral foot pain FINDINGS: There is no evidence of fractures or other osseous abnormalities. IMPRESSION: Left foot radiographs show no evidence of abnormalities. [facility] 11-09-2024 Note PROCEDURE: XR FOOT R IGHT 3+ VIEWS DATE: 11/08/2024 11:59 AM CDT COMPARISONS: None CLINICAL INDICATION: foot pain/injury FINDINGS: There is no evidence of fractures or other osseous abnormalities. IMPRESSION: Right foot radiographs show no evidence of abnormalities. [facility] 10-01-2024 Evaluation + Plan note Associated Problem(s): Obesity: body mass index of 35.0-39.9 Recommend healthy diet/exercise. [facility] 10-01-2024 Miscellaneous Notes Associated Problem(s): Obesity: body mass index of 35.0-39.9 Recommend healthy diet/exercise. Associated Problem(s): History of migraine She explains over the last month, she [...] Discussed MRI brain- declines at this time. Associated Problem(s): Heart palpitations Has been experiencing left sided chest pain over the last 6 months, occurring with anxiety and associated shortness of breath. Describes pain in left side of chest as sharp/stabbing rated 2/10, lasts 2 minutes. Last occurred 2 months ago, has feeling like heart is racing with chest pain. Ordered EKG and holter monitor. Associated Problem(s): Chest pain Has been experiencing left sided chest pain over the last 6 months, occurring with anxiety and associated shortness of breath. Describes pain in left side of chest as sharp/stabbing rated 2/10, lasts 2 minutes. Last occurred 2 months ago. Ordered EKG. Associated Problem(s): Heart murmur Grade II/ systolic heart murmur. Has shortness of breath with activity. Has been experiencing left sided chest pain over the last 6 months, occurring with anxiety and associated shortness of breath. Ordered EKG. Ordered ECHO to evaluate for valvular disease. Associated Problem(s): Left otitis externa Cloudy drainage noted behind left TM with erythema noted to left ear canal. Erythematous TM with clear drainage noted behind right TM. Erythema noted to right ear canal. Will treat with neomycin/polymyxin/hydrocortison e ear drops. Associated Problem(s): Otitis media, right Cloudy drainage noted behind left TM with erythema noted to left ear canal. Erythematous TM with clear drainage noted behind right TM. Erythema noted to right ear canal. Will treat with doxycycline and neomycin/polymyxin/hydrocortison e ear drops. Associated Problem(s): Allergic rhinitis Has watery eyes off/on and has allergies. Ordered pataday eye drops. Associated Problem(s): Anxiety and depression PHQ-9: 16. JOSE-7: 20. Explains she feels [...] the past and declines at this time. Associated Problem(s): Bilateral foot pain Reports history of left heel fracture 04/06/2024 [...] X-ray to further evaluate for acute process. Associated Problem(s): History of PCOS History of PCOS for the last 5+ years. Has been experiencing hair to chin. Has difficulty losing weight despite healthy diet/exercise. Ordered spironolactone 50mg daily and metformin 500mg daily to evaluate for improvement in symptoms. Educated regarding use and possible side effects. Associated Problem(s): Encounter to establish care Ordered CBC/CMP, TSH, A1C, lipid panel. Ordered Tdap vaccine. documented in this encounter [facility] 10-01-2024 Evaluation + Plan note Associated Problem(s): History of migraine She explains over the last month, she [...] Discussed MRI brain- declines at this time. [facility] 10-01-2024 Evaluation + Plan note Associated Problem(s): Heart palpitations Has been experiencing left sided chest pain over the last 6 months, occurring with anxiety and associated shortness of breath. Describes pain in left side of chest as sharp/stabbing rated 2/10, lasts 2 minutes. Last occurred 2 months ago, has feeling like heart is racing with chest pain. Ordered EKG and holter monitor. [facility] 10-01-2024 Evaluation + Plan note Associated Problem(s): Chest pain Has been experiencing left sided chest pain over the last 6 months, occurring with anxiety and associated shortness of breath. Describes pain in left side of chest as sharp/stabbing rated 2/10, lasts 2 minutes. Last occurred 2 months ago. Ordered EKG. [facility] 10-01-2024 Evaluation + Plan note Associated Problem(s): Heart murmur Grade II/ systolic heart murmur. Has shortness of breath with activity. Has been experiencing left sided chest pain over the last 6 months, occurring with anxiety and associated shortness of breath. Ordered EKG. Ordered ECHO to evaluate for valvular disease. T [facility] 10-01-2024 Evaluation + Plan note Associated Problem(s): Left otitis externa Cloudy drainage noted behind left TM with erythema noted to left ear canal. Erythematous TM with clear drainage noted behind right TM. Erythema noted to right ear canal. Will treat with neomycin/polymyxin/hydrocortison e ear drops. T [facility] 10-01-2024 Evaluation + Plan note Associated Problem(s): Otitis media, right Cloudy drainage noted behind left TM with erythema noted to left ear canal. Erythematous TM with clear drainage noted behind right TM. Erythema noted to right ear canal. Will treat with doxycycline and neomycin/polymyxin/hydrocortison e ear drops. T [facility] 10-01-2024 Evaluation + Plan note Associated Problem(s): Allergic rhinitis Has watery eyes off/on and has allergies. Ordered pataday eye drops. T [facility] 10-01-2024 Evaluation + Plan note Associated Problem(s): Anxiety and depression PHQ-9: 16. JOSE-7: 20. Explains she feels [...] the past and declines at this time. [facility] 10-01-2024 Evaluation + Plan note Associated Problem(s): Bilateral foot pain Reports history of left heel fracture 04/06/2024 [...] X-ray to further evaluate for acute process. [facility] 10-01-2024 Evaluation + Plan note Associated Problem(s): History of PCOS History of PCOS for the last 5+ years. Has been experiencing hair to chin. Has difficulty losing weight despite healthy diet/exercise. Ordered spironolactone 50mg daily and metformin 500mg daily to evaluate for improvement in symptoms. Educated regarding use and possible side effects. [facility] 10-01-2024 History of Present illness Narrative Chief complaint: Presents to [facility]. HPI: Patient is a 23-year-old female who presents to [facility]. No past medical history available to review. During today's visit, patient reports she is doing well. She reports history of 07/18/23. Reports her child passed after 10 days from genetic defect. Reports history of left heel fracture 04/06/2024 [...] treated with aircast boot for 6 weeks. History of PCOS for the last 5+ years. Has been experiencing hair to chin. Has difficulty losing weight despite healthy diet/exercise. Is working out 3 times a week. Explains her menses are now very light/spotting, lasting 1 day or less. Has had IUD since 09/2023. Has lactose intolerance. Is having 1 formed BM daily. Has difficulty falling and staying asleep for the last year. Does not want to be on antidepressant/antianxiety medication. Was previously on effexor and felt numb without feelings. PHQ-9: 16. JOSE-7: 20. Explains she feels down at times since loss of her daughter. Worries constantly. Plans to do more self care to see if anxiety/depression improves. Last pap smear 11/2023. In [place]. Has watery eyes off/on and has allergies. Denies sneezing. Has occasional congestion. Reports tobacco secondhand exposure 10+ years. Alcohol use: 1 alcoholic beverage a month. Has shortness of breath with activity 5+ years. She explains over the last month, she will have pain in occipital region of her head when laughing. Describes pain as pressure rated 5-6/10. Has history of migraines over the last 2-3 months. Has headache in frontal region of her head described as pulsating/sharp rated 5/10. Has nausea at times with migraine headache. Has been having acid reflux 1-2 times a week. Has been experiencing left sided chest pain over the last 6 months, occurring with anxiety and associated shortness of breath. Describes pain in left side of chest as sharp/stabbing rated 2/10, lasts 2 minutes. Last occurred 2 months ago, has feeling like heart is racing with chest pain. Denies black/bloody stools, nausea/vomiting, fevers/chills, and denies having any other complaints. Vital signs today: Most Recent 10/03/22 - 10/01/24 BP 132/70 10/01/24 14:17 Pulse (Heart Rate) 91 10/01/24 14:17 Resp Rate 16 10/01/24 14:17 Temp 97.6 F (36.4 C) 10/01/24 14:17 Weight 123.8 kg (273 lb) 10/01/24 14:17 Height 1.829 m (6') 10/01/24 14:17 BMI (Calculated) 37.1 10/01/24 14:17 BSA (Calculated - sq m) 2.43 m2 10/01/24 14:17 O2 Sat (%) 97 % 10/01/24 14:17 Vision screen: right eye 20/20, right eye 20/15, bilateral eyes 20/13. Past History Information Past Medical History: Diagnosis Date Migraine Past Surgical History: Procedure Laterality Date SECTION 07/2023 Social History Substance and Sexual Activity Sexual Activity Not on file Social History Socioeconomic History Marital status: Single Spouse name: Not on file Number of children: Not on file Years of education: Not on file Highest education level: Not on file Occupational History Not on file Tobacco Use Smoking status: Never Smokeless tobacco: Never Substance and Sexual Activity Alcohol use: Not on file Drug use: Not on file Sexual activity: Not on file Other Topics Concern Not on file Social History Narrative Not on file Social Drivers of Health Financial Resource Strain: Not on file Food Insecurity: No Food Insecurity (05/31/2024) Received from [facility] Hunger Screening Within the past 12 months we worried whether our food would run out before we got money to buy more.: Never True Within the past 12 months the food we bought just didn't last and we didn't have money to get more.: Never True Transportation Needs: Not on file Physical Activity: Not on file Stress: Not on file Social Connections: Not on file Personal Safety: Not on file Housing Stability: Not on file Immunization History Administered Date(s) Administered [id number] COVID-19 bivalent vaccine (Videoflow) 12yr +, 30mcg/0.3mL 08/20/2022 COVID-19 MRNA (PFIZER) 12+YR, 30 MCG/0.3 ML 06/09/2024 Atherosclerotic Cardiovascular Disease Risk Scoring The ASCVD Risk score (Rick LEE, et al., 2019) failed to calculate for the following reasons: The 2019 ASCVD risk score is only valid for ages 40 to 79 Current Meds No current outpatient medications on file. Allergies Allergies Allergen Reactions Cephalexin Hives and Itching Review of Systems Constitutional: Negative for chills and fever. HENT: Negative for congestion. Respiratory: Positive for shortness of breath. Negative for cough. Has shortness of breath when walking on incline and when climbing a flight of stairs 5+ years. Gastrointestinal: Negative for abdominal distention. Genitourinary: Negative for difficulty urinating. Neurological: Negative for dizziness. Psychiatric/Behavioral: Negative for agitation. Physical Exam Physical Exam Constitutional: General: She is not in acute distress. Appearance: Normal appearance. HENT: Head: Normocephalic and atraumatic. Right Ear: There is no impacted cerumen. Left Ear: There is no impacted cerumen. Ears: Comments: Cloudy drainage noted behind left TM with erythema noted to left ear canal. Erythematous TM with clear drainage noted behind right TM. Erythema noted to right ear canal. Nose: Nose normal. Mouth/Throat: Mouth: Mucous membranes are moist. Pharynx: Oropharynx is clear. No oropharyngeal exudate or posterior oropharyngeal erythema. Eyes: Conjunctiva/sclera: Conjunctivae normal. Neck: Thyroid: No thyromegaly. Vascular: No carotid bruit. Cardiovascular: Rate and Rhythm: Normal rate and regular rhythm. Heart sounds: Murmur heard. Comments: Grade II/ systolic heart murmur. Pulmonary: Effort: Pulmonary effort is normal. No respiratory distress. Breath sounds: Normal breath sounds. No stridor. No wheezing, rhonchi or rales. Chest: Chest wall: No tenderness. Abdominal: General: Bowel sounds are normal. There is no distension. Palpations: Abdomen is soft. Tenderness: There is no abdominal tenderness. There is no guarding. Musculoskeletal: General: Normal range of motion. Cervical back: Normal range of motion. Right lower leg: No edema. Left lower leg: No edema. Lymphadenopathy: Cervical: No cervical adenopathy. Skin: General: Skin is warm and dry. Coloration: Skin is not jaundiced. Findings: No bruising. Neurological: Mental Status: She is alert and oriented to person, place, and time. Psychiatric: Behavior: Behavior normal. Plan and Assessment Encounter to establish care Ordered CBC/CMP, TSH, A1C, lipid panel. Ordered Tdap vaccine. History of PCOS History of PCOS for the last 5+ years. Has been experiencing hair to chin. Has difficulty losing weight despite healthy diet/exercise. Ordered spironolactone 50mg daily and metformin 500mg daily to evaluate for improvement in symptoms. Educated regarding use and possible side effects. Bilateral foot pain Reports history of left heel fracture 04/06/2024 [...] evaluate for acute process. Anxiety and depression PHQ-9: 16. JOSE-7: 20. Explains she feels [...] and declines at this time. Allergic rhinitis Has watery eyes off/on and has allergies. Ordered pataday eye drops. Otitis media, right Cloudy drainage noted behind left TM with erythema noted to left ear canal. Erythematous TM with clear drainage noted behind right TM. Erythema noted to right ear canal. Will treat with doxycycline and neomycin/polymyxin/hydrocortison e ear drops. Left otitis externa Cloudy drainage noted behind left TM with erythema noted to left ear canal. Erythematous TM with clear drainage noted behind right TM. Erythema noted to right ear canal. Will treat with neomycin/polymyxin/hydrocortison e ear drops. Heart murmur Grade II/ systolic heart murmur. Has shortness of breath with activity. Has been experiencing left sided chest pain over the last 6 months, occurring with anxiety and associated shortness of breath. Ordered EKG. Ordered ECHO to evaluate for valvular disease. Chest pain Has been experiencing left sided chest pain over the last 6 months, occurring with anxiety and associated shortness of breath. Describes pain in left side of chest as sharp/stabbing rated 2/10, lasts 2 minutes. Last occurred 2 months ago. Ordered EKG. Heart palpitations Has been experiencing left sided chest pain over the last 6 months, occurring with anxiety and associated shortness of breath. Describes pain in left side of chest as sharp/stabbing rated 2/10, lasts 2 minutes. Last occurred 2 months ago, has feeling like heart is racing with chest pain. Ordered EKG and holter monitor. History of migraine She explains over the last month, she [...] Discussed MRI brain- declines at this time. Obesity: body mass index of 35.0-39.9 Recommend healthy diet/exercise. [facility] Progress Note Amos Albert is here for Chief Complaint Patient presents with Establish Care Amos Albert is a 23 y.o. female who comes presents today to establish care Active Problem List She has Encounter to establish care on their problem list. Past Surgical History She has a past surgical history that includes section (07/2023); tonsillectomy adenoidectomy (2010); and wisdom teeth extraction (2019). Current Medications Current Outpatient Medications Medication Sig Dispense Refill Levonorgestrel 20 MCG/DAY 1 Intra Uterine Device by Intrauterine route once. No current facility-administered medications for this visit. Allergies She is allergic to cephalexin. Family History family history includes Alcoholism in her mother; Asthma in her brother; Cancer- Other in her maternal grandmother; Depression in her mother. Social History reports that she has never smoked. She has never used smokeless tobacco. No history on file for alcohol use and drug use. Immunizations Immunization History Administered Date(s) Administered [id number] COVID-19 bivalent vaccine (Videoflow) 12yr +, 30mcg/0.3mL 08/20/2022 COVID-19 MRNA (PFIZER) 12+YR, 30 MCG/0.3 ML 06/09/2024 Health Maintenance See Assessment/Plan summary below Blood pressure 132/70, pulse 91, temperature 97.6 F (36.4 C), temperature source Temporal, resp. rate 16, height 1.829 m (6'), weight 123.8 kg (273 lb), last menstrual period 09/15/2024, SpO2 97%, not currently ., Body mass index is 37.03 kg/m . Wt Readings from Last 3 Encounters: 10/01/24 123.8 kg (273 lb) Temp Readings from Last 3 Encounters: 10/01/24 97.6 F (36.4 C) (Temporal) BP Readings from Last 3 Encounters: 10/01/24 132/70 Pulse Readings from Last 3 Encounters: 10/01/24 91 Last Cholesterol Ratio: N/A Last Pap Smear: 11/2023 Self Breast Exam: Yes She has not noted any lumps, skin changes, nipple discharge or other abnormalities on her exam. Last Mammogram: None Last Bone Density: None Calcium and vitamin D Intake Yes Last Colon Cancer Screening None Up to date on Immunizations: yes Following a recommended dietary plan: Yes Exercising regularly: Yes Other concerns: Patient would like to discuss discuss weight loss. She would like to have hormones checked. Review of Systems: Review of Systems documented in this encounter [facility] 10-01-2024 Evaluation + Plan note Associated Problem(s): Encounter to establish care Ordered CBC/CMP, TSH, A1C, lipid panel. Ordered Tdap vaccine. [facility] 08-12-2024 History of Present illness Narrative Summary: [facility] Genetic Counseling Note Images from the original note were not included. Name: Amos Albert : 2000 Date of Visit: 08/12/2024 Email: [email or web address] Preferred contact method: email, mychart Requesting Physician: Berto Vidales MD [address] [place] [address] Reason for Referral: Amos Albert is a 23 y.o. female who presented to [facility] accompanied by their mother, Na, for a preconception genetic counseling visit. 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 Presenting Patient Concerns: What is the likelihood for demise in future pregnancies? How do my carrier screening results change recurrence risks? 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 Albert denied a personal history of diabetes, hypertension, hypothyroidism, infertility and other chronic medical conditions. Relevant genetic testing already completed: Carrier Screening: CARRIER for Carnitine Deficiency and Bashir-Sachs Disease Performing lab: [facility] Test type: [id number] Drawn on: 05/31/2024 Psychosocial History: Psychosocial assessment: The patient reports support from her family and friends. She has seen a counselor to cope with the of her daughter, Sabrina. 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 Family History / Pedigree: A three-generation family history was obtained for the patient and Sabrina's father. History was provided by the patient report unless otherwise noted. Of significance, Amos and Sabrina's father had one previous together - their daughter Sabrina. Sabrina around 10 days of life due to disseminated HSV. Sabrina's father has a healthy daughter and a history of 2 previous miscarriages of unknown etiology with different partners. Amos reports her mother had 2 previous miscarriages (one ectopic, one of unknown etiology). Her maternal grandmother had a history of blood clots (possible DVTs) and of multiple myeloma at age 58. Her maternal grandmother had either 2 stillborn babies or 2 infants of unknown etiology. Her paternal grandfather had a history of stroke (dx >50 y/o), prostate cancer, and brain cancer. Other maternal family history was noncontributory to the genetics evaluation. Sabrina's father and the patient's current partner are healthy. Sabrina's father has a paternal aunt that had a son around age 2 of unknown etiology. Other paternal family history was noncontributory to the genetics evaluation. Maternal ancestry: White (Tongan, Yoruba), [place] Paternal ancestry: Not obtained Consanguinity: denied The history was otherwise unremarkable for Carnitine Deficiency carriers/affected individuals, Bashir Sachs Disease carriers/affected individuals, developmental delays or intellectual disability, other defects, neural tube defects, multiple miscarriages, stillborns or deaths, and other known genetic conditions. Pedigree to be scanned and viewable under the media tab. Information Discussed: Genetic Assessment: We discussed that whenever a woman is there is a 3-5% chance of having a child with some type of defect and/or developmental delay. Maternal age, maternal health history and family history can increase this risk. Certain ultrasound markers or anomalies can also increase the risk of an underlying chromosome anomaly or genetic syndrome. There are different modalities to screen and diagnose these problems antenatally. Some parents may choose to know this information to make a decision regarding termination of , prepare themselves for a baby with special needs, or they may opt not to have this information available antenatally. The patient reports a history of demise in her daughter, Sabrina, at 10 days old. One week prior to delivery, Amos had been experiencing fevers of unclear etiology. There was no evidence of intra amniotic infection at delivery, and she took Sabrina home at 2 days of life. However, on day 4 of life, due to failure to thrive with 15% weight loss, Sabrina was admitted to the [facility] critically ill and ultimately transferred to [facility] in [place]. Sabrina had reportedly negative chromosomal microarray genetic testing. 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 Although an underlying genetic etiology, such as a metabolic disorder, is unlikely, Amos elected to proceed with expanded carrier screening for further assessment. We reviewed the patient's carrier screening results in detail. Carrier screening is a type of genetic testing often utilized by those that are or desire that identifies individuals who are heterozygous (carry 1 mutation) in an autosomal recessive or X-linked condition. Carriers are typically asymptomatic and family history is not a good indicator of carrier status. Limitations of carrier screening were discussed in detail. 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 We reviewed that Sabrina's presentation of symptoms did not align with the typical clinical course of these disorders, and her carrier status is likely unrelated to her daughter's cause of . Primary carnitine deficiency (PCD) is a metabolic genetic condition where individuals have trouble breaking down fats for energy. Symptoms can vary from person to person. The infantile onset for presents with symptoms between 3 months to 2 years old, with episodes of blood sugar, poor feeding, irritability, lethargy, enlarged liver, and hyperammonemia triggered by fasting or common illnesses. Symptoms can be fatal if left untreated. The childhood onset is characterized by cardiac and skeletal muscle myopathy between 2-4 years old. Those with the adult onset form may present with arrhythmia and/or fatigue. Some are asymptomatic. Oral levocarnitine (L-carnitine) is typically utilized to improve skeletal and cardiac muscle function and prevent metabolic decompensation. This condition is inherited autosomal recessively due to pathogenic variants in the [id number] gene. Based on the patient's known carrier status alone, the risk for a future to be affected is 1 in 800 (1*1/2*1/200*1/2). Of note, all children born in [place] are screened for Carnitine Deficiency via screening (NBS) after . The process and limitations of screening were reviewed. Bashir Sachs Disease (TSD) is a genetic disorder affecting the brain and nervous system with symptoms starting usually within the first year of life. The most common form of TSD typically presents with symptoms before 6 months of life with rapid progression of symptoms. Common symptoms include hopkins red spot on the retina of the eye, progressive muscle weakness, loss of motor skills after 8-10 months of age, worsening brain damage overtime leading to seizures, vision and hearing loss, exaggerated startle response, intellectual disability and paralysis. usually occurs in these individuals before age 5. There are 2 other, less common forms of TSD referred to subacute and late-onset TSD. Subacute TSD presents with normal development until age 2, then loss of previously acquired skills and cognitive decline begins. Spasticity, dysphagia, and seizures are present by 10 years old, and occurs in adolescence. The late-onset form presents with slowly progressive neurological symptoms beginning in older teens or young adulthood. Symptoms include lower muscle weakness and atrophy, dysarthria, coordination difficulty, tremor, mild spasticity and/or dystonia (involuntary muscle contractions), and psychosis. Treatment for this condition typically includes supportive care. There is no cure yet but therapies (V-zksbgf-D-leucine, venglustat, and miglustat) are under investigation. The condition is inherited autosomal recessively due to mutations in the HEXA gene. Based on Amos's known carrier status alone, the risk for future pregnancies to have TSD is about 1 in 1152 (1*1/2*1/288*12). When both parents are known carriers for the same autosomal recessive disorder, there is a 1 in 4 (25%) chance to have an affected child. Partner carrier screening for these disorders is available to further delineate risks to future pregnancies if desired. When both parents are known carriers of the same disorder, in vitro fertilization (IVF) and preimplantation genetic testing (PGT) is an option for future pregnancies. An embryo can be assessed for specific monogenic disorders via PGT-M, and unaffected embryos can then be implanted into the uterus. Alternatively, diagnosis via amniocentesis for the known parental variants is possible during . Testing offered today included: Partner Carnitine Deficiency and Bashir-Sachs Disease carrier screen or Horizon-[id number]: Blood and saliva sample types discussed. Risks, benefits, and limitations of screening reviewed. Results typically take 2-3 weeks to receive. Plan of Care: 1. Partner carrier screening discussed and patient is interested. She will discuss with her partner and reach out if they would like me to coordinate her partner's carrier screening order. 2. 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 Patient resources: National Bashir-Sachs & Allied Diseases Association - Home (ntsad.org) Home FODSupport.org Total time spent was 82 minutes on date of encounter. I provided genetic counseling services, including obtaining a structured family history, analysis of genetic and other risks, counseling of the patient, review of medical information, review of previous test results and discussion of genetic testing options. I discussed the benefits and limitations of genetic testing. I discussed the limitations of insurance coverage. If prior authorization is needed this may extend the turnaround time. The family was provided the opportunity to ask questions and all questions were answered. The family was encouraged to call or email their genetic counselor at [phone] or [email or web address] if any additional questions or concerns should arise. KIERSTEN Kiser Licensed, Certified Genetic Counselor documented in this encounter [facility] 05-31-2024 History of Present illness Narrative Blood drawn for Carrier testing. Patient tolerated well. documented in this encounter [facility] 05-31-2024 History of Present illness Narrative REASON FOR PRECONCEPTION CONSULTATION: History of demise HISTORY OF PRESENT ILLNESS: Amos Albert is a pleasant 23 y.o. at Unknown due on Estimated Date of Delivery: None noted.. complicated by: History of demise at 10-day-old, cause of disseminated HSV. (See below) History of section due to arrest of dilation, >20hrs of ROM without cervical change. Anxiety Obesity, BMI 36 One week prior to delivery, patient has been experiencing fevers of unclear etiology, managed at home with fhaj-zts-raegnfr antipyretics. She was initially treated for suspected UTI based on UA, treatment complicated by anaphylactic reaction to Keflex. Keflex was discontinued, and then she completed treatment for positive GBS swab. She underwent elective membrane sweeping at 37 weeks by primary OB, presented with vaginal bleeding and dilation 24 hours later and underwent induction of labor. Unfortunately, patient reports she was ruptured >20hours without cervical dilation past 4cm and decision was made to proceed with primary csection. There was no evidence of intra amniotic infection, patient was not treated for intra amniotic infection. She took her daughter, Sabrina mar, home at 2 days of life. However, on day of life 4, due to failure to thrive with 15% weight loss, Sabrina was admitted to the hospital at [facility] critically ill and ultimately transferred to [facility] in [place]. Sabrina had negative microarray workup. 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 Patient herself denies any history of cold sores or genital lesions, maternal serologies positive for HSV 1 IgG. She is here today to discuss risk of recurrence. She is here alone without the FOB who has moved on with a new partner and having his 2nd child. I have reviewed the pertinent available patient records including but not limited to notes, labs and images. With the patient's permission, I have directly also reviewed her daughter's chart Sabrina noble 07/28/2023, DOD 08/07/2023. PAST OBSTETRICAL HISTORY: OB History Para Term AB Living 1 1 1 SAB IAB Ectopic Multiple Live Births 1 # Outcome Date GA Lbr Kristofer/2nd Weight Sex Type Anes PTL Lv 1 Term 07/18/23 37w6d 3.226 kg F CS-LTranv N ND MEDICAL HISTORY: Past Medical History: Diagnosis Date Anxiety Depression SURGICAL HISTORY: Past Surgical History: Procedure Laterality Date SECTION baby passed at 10 days old TONSILLECTOMY ADENOIDECTOMY WISDOM TOOTH EXTRACTION FAMILY/GENETIC HISTORY: Family History Problem Relation Age of Onset Brain cancer Paternal Grandmother Cancer Maternal Grandmother Bone cancer Maternal Grandmother Hypertension Father SOCIAL HISTORY: Social History Tobacco Use Smoking status: Never Smokeless tobacco: Never Substance Use Topics Alcohol use: Yes Comment: social Drug use: Never ALLERGIES: Allergies Allergen Reactions Keflex [Cephalexin] Hives CURRENT MEDICATIONS: Current Outpatient Medications: levonorgestreL (MIRENA) 21 mcg/24hr (up to 8 yrs) 52 mg IUD, 1 each by intrauterine route once., Disp: , Rfl: norethindrone-e.estradioL-iron (ESTROSTEP FE) 1-20(5)/1-30(7) /1mg-35mcg (9) tablet, Take 1 tablet by mouth in the morning., Disp: , Rfl: RECENT HOSPITALIZATION: none HABITS: Patient activity no restrictions, diet no restrictions REVIEW OF SYSTEMS: Head and Neck: Negative for any dizziness and headaches. Cardiovascular and Respiratory System: Denies any chest pain, shortness of breath, and coughing. Abdominal and System: Denies any abdominal pain, nausea, vomiting, vaginal bleeding, and vaginal discharge REVIEW OF TESTS AND ULTRASOUND REPORTS: Referral records and [facility] chart were reviewed Pertinent Ultrasound findings are see formal ultrasound report. PHYSICAL EXAMINATION: BP 145/67 Pulse 90 Ht 182.9 cm (6') Wt 119.4 kg (263 lb 3.2 oz) BMI 35.70 kg/m Well-appearing in no distress. Respirations not labored, speaking comfortably in full sentences Gravid abdomen OVERALL ASSESSMENT -Amos Albert is a pleasant 23 y.o. 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 Neonates can acquire HSV and infection by intrauterine, or transmission of the virus. Proximally 5% of HSV infection caused by intrauterine infection with viral infection occurring before and disease manifestations present at . Most cases of HSV infection acquired perinatally. Though she delivered via section, she did have prolonged duration of ruptured membranes and could have had a asymptomatic HSV infection at the time of labor. Though she denies a history of cold sores or genital herpes, it was possible that she contracted primary HSV infection in the week to 2 weeks leading to her delivery given maternal fevers. Most neonates with a HSV disease are born to mothers without a history of HSV infection other identifiable risk factors with the only identifiable risk factor being a fever. Neonates with disseminated HSV present in the 1st week of life with nonspecific signs symptoms of sepsis including temperature dysregulation, irritability, lethargy. The patient's description of her daughter's few days of life, including hypothermia and over 15% weight loss with lethargy, fits clinically with disseminated HSV. However, it is possible that her daughter Sabrina contracted HSV postnatally. I reviewed with the patient that I do not suspect that her child had metabolic disorder and that is unlikely to have a recurrence of this condition. Nonetheless, following counseling, patient desired expanded carrier testing. In an effort to decrease the risk of HSV viral shedding in future pregnancies, suppressive viral therapy with either acyclovir or valacyclovir is recommended at 36 weeks gestation. Earlier initiation of suppressive a viral therapy is not protective and that is not recommended. If she has signs symptoms of labor or PPROM, suppressive HSV viral therapy would be recommended at that time. Given her prior history of due to arrest of dilation and her anxiety regarding recurrent HSV, repeat section is recommended at 39 weeks gestation. SUMMARY/RECOMMENDATION: Expanded carrier testing ordered In future pregnancies, recommend suppressive viral therapy with either acyclovir or valacyclovir starting at 36 weeks gestation or sooner if there was evidence of premature rupture of membranes or labor with cervical dilation Recommend delivery via repeat at 39 weeks gestation given history of section x1 due to arrest of dilation. Continue healthy diet and exercise. Discussed that weight loss prior to conception decreases risk of complications in future pregnancies including diabetes and preeclampsia. Patient continuing with Mirena IUD at this time. DISPOSITION: At this point the patient is in complete care of her operations boardman. Thank you for allowing me to participate in the care of Amos Albert. If there any questions please do not hesitate to contact us. Total time spent was 76 minutes: Preparing to see the patient (e.g., review of tests) Obtaining and/or reviewing separately obtained history Performing a medically appropriate examination and/or evaluation Counseling and educating the patient/family/caregiver Ordering medications, tests, or procedures Referring and communicating with other health healthcare administration internship (not separately reported) Documenting clinical information in the electronic or other health record Independently interpreting results (not separately reported) and communicating results to the patient/family/caregiver Berto Vidales MD Maternal- Medicine [address] [place] [address] [facility], the CDC, and other organizations representing maternal and public health professionals recommend that , , and lactating people and those considering receive the COVID-19 vaccination. Vaccination is the best method to reduce maternal and complications of SARS-CoV-2 infection. This document was created with Split[employer] technology. Though I make every effort to review the dictation as it is transcribed, on occasion the spoken word can be misinterpreted by the technology leading to inappropriate words, phrases, or sentences. This note is addressed to the requesting provider as a consultation for clinical guidance. Specific medical abbreviations are occasionally used and those are generally approved by the [place]?Board of?Obstetrics and?Gynecology?as well as?Oren mota abbreviations. The above plan of care was based solely on the diagnoses for which a consultation was requested. ?More frequent testing may be indicated based on her other medical/obstetrical conditions. The management of other or medical conditions is beyond the scope of requested consultation and will continue to be followed by the primary operations boardman or primary care provider. Note to patient: The Century Cures Act makes medical notes like these available to patients in the interest of transparency. However, be advised this is a medical document. It is intended as peer to peer communication. It is written in medical language and may contain abbreviations or verbiage that are unfamiliar. It may appear blunt or direct. Medical documents are intended to carry relevant information, facts as evident, and the clinical opinion of the practitioner. documented in this encounter [facility] 12-26-2023 Hospital Discharge instructions Patient Education 12/26/2023 [...] pain. Follow these instructions at home: Take wwyw-cdb-hpkhliv and prescription medicines only as told by [...] provider. Document Revised: 07/09/2021 Document Reviewed: 07/09/2021 [employer] Patient Education 2023 [employer]. 12/26/2023 11:05:13 Bacterial Conjunctivitis, Adult Bacterial Conjunctivitis, [...] your health care provider. Take or apply fsat-ufk-lftnonv and prescription medicines only as told by [...] provider. Document Revised: 07/11/2021 Document Reviewed: 07/11/2021 [employer] Patient Education 2023 [employer]. 12/26/2023 11:05:10 Sinus Infection, Adult Sinus Infection, [...] saline washes). ?Medicines that treat allergies (antihistamines). ?Qvfa-xqh-umdtkdd pain relievers. If caused by bacteria, your [...] at home: Medicines Take, use, or apply zcwe-nht-lgfkswz and prescription medicines only as told by [...] and water are not available, use hand acupressure therapist. Do not smoke. Avoid being around people [...] provider. Document Revised: 03/05/2022 Document Reviewed: 03/05/2022 [employer] Patient Education 2023 [employer]. Follow Up Care 12/26/2023 09:05:38 With:Mery Mitchell MD Address: [address] [place] [address]- When: Unknown [facility] 12-26-2023 Note Patient Education ENT [...] Follow these instructions at home: ? Take blgy-but-zgsymkp and prescription medicines only as told by [...] provider. Document Revised: 07/09/2021 Document Reviewed: 07/09/2021 Else[employer]S Patient Education ? 2023 [employer]. Infectious Disease Bacterial Conjunctivitis, Adult Bacterial conjunctivitis [...] contact with: ? (more content not included)... [facility] 12-09-2023 History of Present illness Narrative Images from the original note were not included. Subjective Patient ID: Amos Albert is a 23 y.o. female who presents [...] to monitor weight documented in this encounter [facility] 09-04-2023 Hospital Discharge instructions Patient Education 09/04/2023 16:13:42 Otitis Externa, Diih-bp-Qvsd Otitis Externa Otitis externa is an infection [...] if you start to feel better. Take kjye-fqw-hecdbry and prescription medicines only as told by [...] provider. Document Revised: 06/13/2021 Document Reviewed: 06/13/2021 [employer] Patient Education 2022 [employer] 09/04/2023 16:13:35 Otitis Media, Adult, Pegk-if-Rdfs Otitis Media, Adult Otitis media is a [...] pain. Follow these instructions at home: Take flib-fzt-mamhukl and prescription medicines only as told by [...] provider. Document Revised: 07/09/2021 Document Reviewed: 07/09/2021 [employer] Patient Education 2022 [employer] 09/04/2023 16:13:32 Ear Drops, Adult, Bolv-yk-Gmsy Ear Drops, Adult Your doctor has found [...] cannot use soap and water, use hand acupressure therapist. 2.Make sure your ears are clean and [...] cannot use soap and water, use hand acupressure therapist. Follow these instructions at home: Use the [...] provider. Document Revised: 01/26/2020 Document Reviewed: 01/26/2020 [employer] Patient Education 2022 [employer]. [facility] 07-28-2023 History of Present illness Narrative Rapid Genome Sequencing (rGS) Counseling & Consent - Parent Purpose and Nature of rGS I discussed with Amos Albert that rGS is recommended for their child. [...] CURES Act I have explained that Amos Albert's parent report will go into their electronic medical records. Lab results may be available right away through [facility] and may be seen before a provider [...] immediately release the results to you Amos Albert was in agreement with this plan. Unanticipated [...] separate consent to allow this is obtained. [facility] [place] [facility] may analyze compiled genome sequencing data from many patients for senior quality methods specialist or to assess test performance. Results of [...] Consent for Testing After this discussion, Amos Alebrt had the opportunity to ask questions and subsequently did provide verbal consent to proceed with testing of a parent sample for the primary benefit of their biological child. Instructions for Orders and Samples The [facility] will place orders. Plan was discussed with Dr. Chan. Jorge Alberto Roberts MS, FABIO documented in this encounter [facility] 05-29-2023 History of Present illness Narrative Reason for Appointment: Patient ID: Amos Albert is a 22 y.o. female who presents [...] of: SHANA Herrera documented in this encounter [facility] 05-15-2023 History of Present illness Narrative Reason for Appointment: Patient ID: Amos Albert is a 22 y.o. female who presents [...] by Toya Johnson LPN on behalf of: Jose Castaneda DO documented in this encounter [facility] 09-07-2022 Hospital Discharge instructions Patient Education 09/07/2022 11:57:13 Otitis Externa, Qheq-vm-Zjln Otitis Externa Otitis externa is an infection [...] if you start to feel better. Take ycqt-xvh-pjoevds and prescription medicines only as told by [...] provider. Document Revised: 06/13/2021 Document Reviewed: 06/13/2021 [employer] Patient Education 2022 [employer]. 09/07/2022 11:57:10 Otitis Media, Adult Otitis Media, [...] pain. Follow these instructions at home: Take raik-whg-qvdkdex and prescription medicines only as told by [...] provider. Document Revised: 07/09/2021 Document Reviewed: 07/09/2021 [employer] Patient Education 2022 [employer]. 09/07/2022 11:57:07 BMI for Adults BMI for [...] numbers. This can be done either in [place]ese ([place] or metric measurements. Note that charts and online BMI calculators are available to help you find your BMI quickly and easily without having to do these calculations yourself. To calculate your BMI in [place] ([place] measurements: 1.Measure your weight in pounds [...] Centers for Disease Control and Prevention: www.cdc.gov [place] [employer] Association: www.heart.org National Heart, Lung, and Blood [place]: www.nhlbi.nih.gov Summary Body mass index (BMI) is a number that is calculated from a person's weight and height. BMI may help estimate how much of a person's weight is composed of fat. BMI can help identify those who may be at higher risk for certain medical problems. BMI can be measured using Togolese measurements or metric measurements. BMI charts are used to identify whether you are underweight, normal weight, overweight, or obese. This information is not intended to replace advice given to you by your health care provider. Make sure you discuss any questions you have with your health care provider. Document Revised: 12/22/2019 Document Reviewed: 10/29/2019 [employer] Patient Education 2022 [employer]. Follow Up Care 09/07/2022 10:55:41 With:CIPRIANO MOLINA CNP Address: [address] [place], [place] [id number] When: Unknown [facility] Evaluation + Plan note No data available for this section [facility] Evaluation + Plan note Future Appointments Appointment Date:05/12/2023 08:00:00 AM Scheduled Provider:Shannon Moore Location:[facility] Appointment Type:BH Therapy 60 [facility] Evaluation + Plan note Future Appointments Appointment Date:05/22/2023 10:00:00 AM Scheduled Provider:Shannon Moore Location:[facility] Appointment Type: Video Visit Therapy 60 [facility] Evaluation note Diagnosis Encounter for well woman exam with routine gynecological exam documented in this encounter [employer] Work Phone: evaluation note* Diagnosis Second trimester state, incidental [facility] Diagnosis Third trimester state, incidental Nausea Nausea alone Heartburn during in third trimester Excessive growth affecting management of , antepartum, single or unspecified fetus [facility] Diagnosis Family history of congenital anomalies- Primary [facility] Diagnosis Annual physical exam- Primary Routine general medical examination at a health care facility Screening-pulmonary TB Screening examination for pulmonary tuberculosis BMI 33.0-33.9,adult Obesity (BMI 30.0-34.9) [facility] Diagnosis Family history of disseminated HSV infection- Primary Pre-conception counseling Other procreative management counseling and advice [facility] Diagnosis Pre-conception counseling Other procreative management counseling and advice [facility] Diagnosis 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 Family history of [facility] Diagnosis Encounter to establish care- Primary Reserved for inherently not codable concepts WITHOUT codable children History of PCOS Personal history of other genital system and obstetric disorders Bilateral foot pain Pain in limb Anxiety and depression Dysthymic disorder Allergic rhinitis, unspecified seasonality, unspecified trigger Right otitis media, unspecified otitis media type Otitis externa of left ear, unspecified chronicity, unspecified type Heart murmur Undiagnosed cardiac murmurs Chest pain, unspecified type Heart palpitations Palpitations History of migraine Personal history of other disorders of nervous system and sense organs Obesity: body mass index of 35.0-39.9 Obesity, unspecified [facility] Diagnosis Encounter to establish care- Primary Reserved for inherently not codable concepts WITHOUT codable children History of PCOS Personal history of other genital system and obstetric disorders Bilateral foot pain Pain in limb Anxiety and depression Dysthymic disorder Allergic rhinitis, unspecified seasonality, unspecified trigger Right otitis media, unspecified otitis media type Otitis externa of left ear, unspecified chronicity, unspecified type Heart murmur Undiagnosed cardiac murmurs Chest pain, unspecified type Heart palpitations Palpitations History of migraine Personal history of other disorders of nervous system and sense organs Obesity: body mass index of 35.0-39.9 Obesity, unspecified Bilateral foot pain Pain in limb documented in this encounter [facility]* Diagnosis Encounter to establish care- Primary Reserved for inherently not codable concepts WITHOUT codable children History of PCOS Personal history of other genital system and obstetric disorders Bilateral foot pain Pain in limb Anxiety and depression Dysthymic disorder Allergic rhinitis, unspecified seasonality, unspecified trigger Right otitis media, unspecified otitis media type Otitis externa of left ear, unspecified chronicity, unspecified type Heart murmur Undiagnosed cardiac murmurs Chest pain, unspecified type Heart palpitations Palpitations History of migraine Personal history of other disorders of nervous system and sense organs Obesity: body mass index of 35.0-39.9 Obesity, unspecified Heart palpitations Palpitations documented in this encounter [facility]* Diagnosis Encounter to establish care- Primary Reserved for inherently not codable concepts WITHOUT codable children History of PCOS Personal history of other genital system and obstetric disorders Bilateral foot pain Pain in limb Anxiety and depression Dysthymic disorder Allergic rhinitis, unspecified seasonality, unspecified trigger Right otitis media, unspecified otitis media type Otitis externa of left ear, unspecified chronicity, unspecified type Heart murmur Undiagnosed cardiac murmurs Chest pain, unspecified type Heart palpitations Palpitations History of migraine Personal history of other disorders of nervous system and sense organs Obesity: body mass index of 35.0-39.9 Obesity, unspecified Candidal intertrigo- Primary Candidiasis of skin and nails [facility] No data available for this section [facility] InstructionsNot on filedocumented in this encounter [facility] filedocumented in [facility] filedocumented in this encounter [facility]* Attachments The following attachments cannot be sent through Care Everywhere. * Patt Dermatitis (Togolese) 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 Summary Purpose Family History No Family History [...] team informatio n (unrecognized section and content) [employer] Press Operator Relationship Specialty Start Date End Date Pcp, No UNKNOWN ADDRESS UNKNOWN [facility] [place] [address] PCP - General 07/28/23 [employer] Press Operator Relationship Specialty Start Date End Date Mery Mitchell MD [address] [place] [address] PCP - General Family Medicine 07/22/23 Mery Mitchell MD [address] [place] [address] PCP - Medical [employer] 09/11/22 04/13/99 Jose Castaneda DO [address] [place] [address] [place] [address] PCP - [facility] 10/13/23 [employer] Press Operator Relationship Specialty Start Date End Date Mery Mitchell MD [address] [place] [address] PCP - General Family Medicine 07/22/23 Mery Mitchell MD [address] [place] [address] PCP - Medical [employer] 09/11/22 04/13/99 Jose Castaneda DO [facility] [place] [address] PCP - [facility] 10/13/23 [employer] Press Operator Relationship Specialty Start Date End Date Mery Mitchell MD [address] [place] [address] PCP - General Family Medicine 07/22/23 Mery Mitchell MD [address] [place] [address] PCP - Medical [facility] 09/11/22 04/13/99 Jose Castaneda DO [facility] [place] [address] PCP - [facility] 10/13/23 [employer] Operator Relationship Specialty Start Date End Date Shannon Berman APRN-CNP [address] [place] [address] PCP - General Nurse Practitioner - Adult Health 09/16/24 [employer] Press Operator Relationship Specialty Start Date End Date Shannon Berman APRN-DRIVER SERVICE TECHNICIAN [address] [place] [address] PCP - General Nurse Practitioner - Adult Health 09/16/24 [employer] Operator Relationship Specialty Start Date End Date Shannon Berman APRN-DRIVER SERVICE TECHNICIAN [address] [place] [address] PCP - General Nurse Practitioner - Adult Health 09/16/24 [employer] Press Operator Relationship Specialty Start Date End Date Shannon Berman APRN-DRIVER SERVICE TECHNICIAN PCP - General Nurse Practitioner - Adult Health 09/16/24 INFORMATION SOURCE (unrecogn ized section and content) DATE CREATED AUTHOR 08/22/2022 [facility] DATE CREATED AUTHOR AUTHOR'S ORGANIZ ATION 08/09/2023 [facility] DATE CREATED AUTHOR AUTHOR'S ORGANIZ ATION 03/05/2024 [facility] DATE CREATED AUTHOR AUTHOR'S ORGANIZ ATION 04/10/2024 [facility] DATE CREATED AUTHOR AUTHOR'S ORGANIZ ATION 06/03/2024 [facility] DATE CREATED AUTHOR AUTHOR'S ORGANIZ ATION 06/17/2024 [facility] DATE CREATED AUTHOR AUTHOR'S ORGANIZ ATION 08/17/2024 [facility] DATE CREATED AUTHOR AUTHOR'S ORGANIZ ATION 11/25/2024 [facility] Reason for Visit (unrecogniz ed section and content) Reason Comments Routine Visit Reason Comments PRE-CONCEPTION Specialty Diagnoses / Procedures Referred By Contac t Referred To Contact Maternal and Medicine Diagnoses Pre-conception counseling Jose Castaneda, DO [address] [place] [address] [place] [address] Phone: tel: fax: Maternal- Medicine at [facility] [address] [place] [address] Phone: tel: fax: Referral ID Status Reason Start Date Expiration Date Visits Requested Visits Authorized [id number] Pending Review Specialty Services Required 4 03/01/2025 1 1 Reason Comments Bashir Sachs Carrier Specialty Diagnoses / Procedures Referred By Contac t Referred To Contact Maternal and Medicine Diagnoses 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 [employer] [facility]. provides no warranty or guarantee of the accuracy or completeness of information in this document.
--- OUTSIDE RECORDS SUMMARY | 2024-11-25 23:18 | XMS_ITS | Encounter Summary ---
Author Organization [facility] Address [address] [place] [address] Care Team Providers Care Pricing Coordinator Name Role Phone Mery Mitchell MD Primary Care Provider [phone] Mery Mitchell MD Unavailable [phone] Jose Castaneda DO Unavailable Encounter Details Date Type Department Care Team (Late st Contact Info) Description 07/18/2023 Abstract [facility] [address] [facility] [place] [id number] Jose Castaneda DO [address] [facility] [address] [place], [facility] Social History Tobacco Use Types Packs/Day Years [...] documented as of this encounter Care Teams Pricing Coordinator Relationship Specialty Start Date End Date Mery Mitchell MD [address] [place] [address] PCP - General Family Medicine 07/22/23 Mery Mitchell MD [address] [place] [address] PCP - Medical [employer] 09/11/22 04/13/99 Jose Castaneda DO [address] [place] [address] [place] [address] PCP - [facility] 10/13/23 documented as of this encounter
--- OUTSIDE RECORDS SUMMARY | 2024-11-25 23:18 | XMS_ITS | Clinical Summary ---
Author Organization [employer] Address [id number] [address] 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 Active levonorgestreL (MIRENA) 21 mcg/24hr (up to 8 yrs) 52 mg IUD 1 each by intrauterine route once. Active Family History Medical History Relation Name Comments Hypertension Father Bone cancer Maternal Grandmother Cancer Maternal Grandmother Brain cancer Paternal Grandmother Relation Name Status Comments Father Maternal Grandmother Paternal Grandmother Social History Tobacco Use Types Packs/Day Years Used Date Smoking Tobacco: Never Smokeless Tobacco: Never Tobacco Cessation:Counseling Given: Not Answered Alcohol Use Standard Drinks/Week Comments Yes 0 (1 standard drink = 0.6 oz pur e alcohol) social Hunger Screening Answer Date Recorded Within the past 12 months we worried whether our food would run out before we got money to buy more. Never True 05/31/2024 Within the past 12 months th e food we bought just didn't last and we didn't have money to get more. Never True 05/31/2024 Comments Unknown Sex and Gender Information Value Date Recorded Sex Assigned at Female 03/01/2024 3:42 PM EST Legal Sex Female 3:39 PM EST Gender Identity Female 03/01/2024 3:42 PM EST Sexual Orientation Not on file Last Filed Vital Signs Vital Sign Reading Time Taken Comments Blood Pressure 145/67 05/31/2024 8:20 AM EST Pulse 90 05/31/2024 8:20 AM EST Temperature - - Respiratory Rate - - Oxygen Saturation - - Inhaled Oxygen Concentration - - Weight 119.4 kg (263 lb 3.2 oz) 05/31/2024 8:20 AM EST Height 182.9 cm (6') 05/31/2024 8:20 AM EST Body Mass Index 35.7 05/31/2024 8:20 AM EST Plan of Treatment Health Maintenance Due Date Last Done Comments Depression Screening 2012 Adult BMI Follow Up Plan 2018 DTaP,Tdap and Td Vaccines (7 - Td or Tdap) 12/01/2022 12/01/2012, 08/15/2005, 12/15/2002, Additional history exists Chlamydia Screening 08/14/2023 08/13/2022 Influenza Vaccine 12/13/2024 01/09/2024, , 02/05/2019, Additional history exists Adult BMI Screening 05/31/2025 05/31/2024 Tobacco Screening 05/31/2025 05/31/2024 Pap Smear 08/13/2025 08/13/2022 COVID-19 Vaccine Completed 06/09/2024, 08/20/2022 Medical Devices Not on file Insurance [employer]
--- OUTSIDE RECORDS SUMMARY | 2024-11-25 23:18 | XMS_ITS | Clinical Summary ---
Author Organization [facility] Address [address] [place] [address] Care Team Providers Care Telephone Station Installer Name Role Phone Mery Mitchell MD Primary Care Provider [phone] Mery Mitchell MD Unavailable [phone] LeonelJose bell DO Unavailable Allergies Active Allergy Reactions Criticality Noted Date Comments Cephalexin Itching 07/15/2023 Medications omeprazole (PriLOSEC) [address] capsuleIndicati ons:Heartburn during in third trimester ([facility]) Take 1 capsule (20 mg) by mouth in the morning. Take before meals. Do not crush or chew.. 30 capsule 3 05/29/2023 Active ibuprofen 800 MG tablet Take 800 mg by mouth every 8 (eight) hours 07/22/2023 Active Apri 0.15-30 MG-MCG tabletIndicatio ns:Abnormal uterine bleeding (AUB) TAKE 1 TABLET BY MOUTH EVERY DAY 28 tablet 06/08/2024 Active Hospital, Clinic, or Other Facility Administered Medication Ordered Dose Route Frequency Start Date End Date Status Levonorgestrel intrauterine deviceIndications:Encounter for IUD insertion IU Daily 09/15/2023 Active Active Problems No known active problems Immunizations Immunization Administration Dates Next Due PPD Test 12/16/2023,12/09/2023 Family History Medical History Relation Name Comments Hypertension Father Cancer Maternal Grandmother Mental illness Mother Cancer Paternal Grandfather Stroke Paternal Grandfather Cancer Paternal Grandmother Stroke Paternal Grandmother Relation Name Status Comments Father Alive Maternal Grandmother Mother Alive Paternal Grandfather Paternal Grandmother Social History Tobacco Use Types Packs/Day Years Used Date Smoking Tobacco: Never Tobacco Cessation:Counseling Given: Not Answered Alcohol Use Standard Drinks/Week Comments Never 0 [...] Sign Reading Time Taken Comments Blood Pressure 110/66 12/09/2023 8:49 AM EDT Pulse 84 12/09/2023 8:49 AM EDT Temperature 36.7 C (98 F) 12/09/2023 8:49 AM EDT Respiratory Rate - - Oxygen Saturation 96% 12/09/2023 8:49 AM EDT Inhaled Oxygen Concentration - - Weight 111 kg (245 lb 3.2 oz) 12/09/2023 8:49 A M EDT Height 182.9 cm (6') 12/09/2023 8:49 AM EDT Body Mass Index 33.26 12/09/2023 8:49 AM EDT Plan of Treatment Health Maintenance Due Date Last Done Comments Influenza Vaccine (#1) 2024 , 02/04/2020, 02/05/2019, Additional history exists Goals Goal Patient Goal Type Associated Problems Recent Progress Patient-Stated? Author Reminders Care Plan OB Reminders No Open Scheduling, Background Additional Health Concerns Active Problems Noted Date Diagnosed Date OB Reminders 03/01/2023 Insurance [facility] MEDICAID [employer] Care Teams Telephone Station Installer Relationship Specialty Start Date End Date Mery Mitchell MD [address] [place] [address] PCP - General Family Medicine 07/22/23 Mery Mitchell MD [address] [place] [address] PCP - Medical [employer] 09/11/22 04/13/99 Jose Castaneda DO [address] [place] [address] [place] [address] PCP - [facility] 10/13/23
--- OUTSIDE RECORDS SUMMARY | 2024-11-25 23:18 | XMS_ITS | Clinical Summary ---
Author Organization [facility] Address [address] [place] [address] Care Team Providers Care Lien Searcher Name Role Phone No, Physician Primary Care Provider Unavailabl e Social History Tobacco Use Types Packs/Day Years Used Date Smoking Tobacco: Never Assessed Comments Unknown Sex and Gender Information Value Date Recorded Sex Assigned at Not on file Legal Sex Female 7:34 AM EST Gender Identity Female 05/12/2019 9:21 AM EST Sexual Orientation Straight 05/12/2019 9: 21 AM EST Plan of Treatment Health Maintenance Due Date Last Done Comments Chlamydia Screening 2000 Tetanus: Every 10yrs 2000 Wellness Visit 11/05/2003 Depression Screening/Follow- Up (PHQ-2/9) 2012 HIV Screening 11/05/2015 HPV Vaccines (1 - 3-dose series) 11/05/2015 Hepatitis C Screening 2018 Pap Smear 2021 COVID-19 Vaccine (2023-2 5 season) 2023 Influenza Vaccine (#1) 2024 Pneumococcal Vaccine: Ped or At-Risk Aged Out No longer eligible b ased on patient's age to complete this topic Care Teams Lien Searcher Relationship Specialty Start Date End Date No, Physician [facility] PCP - General 05/12/19
== END 2024-11-25 18:48 | disposition home or self-care (01) ==
LOC: ER 23:14
PROVIDERS: Emergency Provider Emergency Medicine
DX: B35.8 Other dermatophytoses (principal); R21 Rash and other nonspecific skin eruption
CPT/HCPCS: 99283